=== PATIENT | male | born 1940 | race Caucasian/White ===

== ENCOUNTER 2017-10-25 14:40 | Emergency (ER) | payer OTHER, SELFPAY ==
[2017-10-25 14:42] VITALS: BP 163/71; PULSE 76; RESP 18; TEMP 36.7; O2SAT 97; BMI 28.9
--- NOTE | 2017-10-25 14:53 | ED.RN ---
Addendum entered by Magalys Lamar 10/25/17 18:19: INSPECTOR WREATH NUMBER [phone] Original Note: called supervisor customer complaint service lynn cm, verified company uses [facility] for [facility] and requires drug screen. [facility] called.
--- NOTE | 2017-10-25 15:27 | RAD_ITS ---
STUDY: X-RAY - THORACIC SPINE REASON FOR EXAM: Male, 77 years old. Pain after fall TECHNIQUE: 3 view(s) of the thoracic spine were obtained. COMPARISON: None. FINDINGS: There is an increase in the normal thoracic kyphosis. There is no substantial scoliosis. There is multilevel endplate spondylosis of the thoracic vertebrae. There is multilevel disc space narrowing of the thoracic spine. No evidence of compression fracture. DISH is noted There appears to be a calcified heart valve. RAD/Thoracic Spine 3 Views IMPRESSION: Degenerative changes with acute findings. Calcified heart valve Electronically Signed: Remi Castro DO at 16:27 EST Tel , Service support ,
[2017-10-25] MEDS: Acetaminophen 500 MG Tablet 1000 MG PO (15:40)
[2017-10-25 15:41] VITALS: BP 154/72; PULSE 74; RESP 21; O2SAT 95
[2017-10-25 16:32] VITALS: BP 176/68; PULSE 67; RESP 20; O2SAT 96
--- NOTE | 2017-10-25 16:33 | ED.VISSUMM ---
- ER Visit Summary Date of Service: 10/25/17 Chief Complaint: Fall History of Present Illness: The patient is a [address] Krause. He reports that he was at work this afternoon and slipped on the step of a truck. He felt directly onto his back for approximately 3 feet up. He complains of upper back pain is 6 out of 10 severity. He did hit his head. He denies loss of consciousness. He does not have a headache. He is not on any blood thinners. He denies any neck, shoulder, wrist, or hip pain. Physical Examination: Vitals: Stable. Afebrile. Neck: No vertebral tenderness. Full ROM without difficulty. Cleared by NEXUS criteria. Back: Mild vertebral tenderness in the intrascapular area. No point tenderness. General: A&O x 3. NAD. Cardiovascular exam: Regular rate and rhythm, no murmur, rub or gallop. Respiratory exam: Chest nontender. No crepitus. Clear to auscultation bilaterally. No wheezes or stridor. Abdominal exam: Soft, nontender, nondistended, normal bowel sounds. No pain in RUQ or LUQ specifically. No peritoneal signs. Extremity: Atraumatic. No pain with range of motion. Test Results: Thoracic spine x-rays show degenerative changes and fusion of the anterior spinal column consistent with ankylosing spondylitis. Emergency Department Course and Treatment: Patient was treated with Tylenol and is resting comfortably. Patient reports that he knew that he did have fusion of the anterior spinal column. Treatment Plan: Patient will be discharged with [place] and Colace to use as needed. Instructed to follow-up with [facility] in 1 week for another exam. Return to the emergency department for any worsening symptoms. Disposition: To home in improved and stable condition. Impression: 1. Fall. 2. Back contusion. This note was generated with [employer] dictation software. It may contain incorrect words, spelling, and punctuation that were not noted in review of the chart prior to signing ED Disposition - Plan for ED Patient: Disposition: Home or Assisted Living Chief Complaint: Fall Instructions: ED Contusion Back Prescriptions: Hydrocodone Bitart/Apap 5-325 [[place] 5/325] 1 - 2 tablet PO Q4H PRN PRN 3 Days #12 tablet PRN Reason: Pain Docusate Sodium [Colace] 100 mg PO DAILY #20 capsule [facility]errals: [facility] OF PHYSICIANS] - 1 Week
--- NOTE | 2017-10-25 16:36 | ED.DCSUM_ITS ---
- ER Visit Summary Date of Service: 10/25/17 Chief Complaint: Fall History of Present Illness: The patient is a [address] Krause. He reports that he was at work this afternoon and slipped on the step of a truck. He felt directly onto his back for approximately 3 feet up. He complains of upper back pain is 6 out of 10 severity. He did hit his head. He denies loss of consciousness. He does not have a headache. He is not on any blood thinners. He denies any neck, shoulder, wrist, or hip pain. Physical Examination: Vitals: Stable. Afebrile. Neck: No vertebral tenderness. Full ROM without difficulty. Cleared by NEXUS criteria. Back: Mild vertebral tenderness in the intrascapular area. No point tenderness. General: A&O x 3. NAD. Cardiovascular exam: Regular rate and rhythm, no murmur, rub or gallop. Respiratory exam: Chest nontender. No crepitus. Clear to auscultation bilaterally. No wheezes or stridor. Abdominal exam: Soft, nontender, nondistended, normal bowel sounds. No pain in RUQ or LUQ specifically. No peritoneal signs. Extremity: Atraumatic. No pain with range of motion. Test Results: Thoracic spine x-rays show degenerative changes and fusion of the anterior spinal column consistent with ankylosing spondylitis. Emergency Department Course and Treatment: Patient was treated with Tylenol and is resting comfortably. Patient reports that he knew that he did have fusion of the anterior spinal column. Treatment Plan: Patient will be discharged with [place] and Colace to use as needed. Instructed to follow-up with [facility] in 1 week for another exam. Return to the emergency department for any worsening symptoms. Disposition: To home in improved and stable condition. Impression: 1. Fall. 2. Back contusion. This note was generated with [employer] dictation software. It may contain incorrect words, spelling, and punctuation that were not noted in review of the chart prior to signing ED Disposition - Plan for ED Patient: Disposition: Home or Assisted Living Chief Complaint: Fall Instructions: ED Contusion Back Prescriptions: Hydrocodone Bitart/Apap 5-325 [[place] 5/325] 1 - 2 tablet PO Q4H PRN PRN 3 Days # 12 tablet PRN Reason: Pain Docusate Sodium [Colace] 100 mg PO DAILY #20 capsule [facility]errals: [facility]YSIC[facility]ANS] - 1 Week
[2017-10-25 17:03] VITALS: BP 176/64; PULSE 78; RESP 16; O2SAT 99
--- NOTE | 2017-10-25 18:07 | NURSING ---
Addendum entered by Magalys Lamar 10/25/17 18:20: PT REPORTS THAT DRUG SCREENS WERE ALWAYS REQUIRED IN PAST AND THAT HE IS WILLING TO DO ONE AT PRESENT, HOWEVER [facility] SAID THEY WOULDNT DO ONE WITHOUT PAINTER PRESENT TO ORDER. Original Note: cecelia from [facility] was present. per pt she did not complete drug screen. called call service to verify the plan.
[2017-10-25 18:10] VITALS: BP 165/78; PULSE 81; RESP 18; TEMP 36.8; O2SAT 98
--- NOTE | 2017-10-25 18:17 | ED.RN ---
PT GIVEN DC INSTRUCTIONS. TO CALL PT WITH UPDATE AFTER GETTING CARMEN FROM [employer]'S CALLBACK. PT NUMBER FOR STAFF TO CALL [phone]
== END 2017-10-25 18:30 | disposition home or self-care (01) ==
PROVIDERS: Emergency Provider Emergency Medicine; Family Provider Family Medicine; PCP Family Medicine
DX: S20.229A Contusion of unspecified back wall of thorax, initial encounter (principal); W17.89XA Other fall from one level to another, initial encounter; Y93.9 Activity, unspecified; Y92.89 Other specified places as the place of occurrence of the external cause; M45.4 Ankylosing spondylitis of thoracic region; Y99.9 Unspecified external cause status; I25.10 Atherosclerotic heart disease of native coronary artery without angina pectoris; E11.9 Type 2 diabetes mellitus without complications; I10 Essential (primary) hypertension; E78.00 Pure hypercholesterolemia, unspecified
CPT/HCPCS: 72072; 99283

== ENCOUNTER 2020-02-19 07:31 | Emergency (ER) | payer MEDICARE, OTHER, SELFPAY ==
[2020-02-19 07:32] VITALS: BP 127/65; PULSE 110; RESP 20; TEMP 36.6; O2SAT 94; BMI 26.3
[2020-02-19 07:49] VITALS: BP 157/78; PULSE 107; RESP 28; O2SAT 95; O2SAT 96
[2020-02-19 07:53] VITALS: BP 157/78; PULSE 115; RESP 28; TEMP 37.1; O2SAT 96
--- NOTE | 2020-02-19 08:12 | EKG12_ITS ---
Test Reason : SOB Blood Pressure : / mmHG Vent. Rate : 106 BPM Atrial Rate : 106 BPM P-R Int : 174 ms QRS Dur : 088 ms QT Int : 350 ms P-R-T Axes : 094 062 018 degrees QTc Int : 464 ms Sinus tachycardia with frequent Premature ventricular complexes Otherwise normal ECG Confirmed by TOBY REED, MARLON ([id number]), order editor KACIE GOOD ([id number]) on 02/21/2020 10:39:21 AM Referred By: DEISY Confirmed By:MARLON ULIS MD
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
[2020-02-19] MEDS: Metoprolol(XL)Succ 50 MG Tablet PO (08:20)
[2020-02-19 08:24] LABS: Absolute Neutrophil Count 9.3 X10^3/uL (2.0-7.7); Basophil# 0.02 X10^3/uL; Basophil% 0.2 % (0-1); Eosinophil# 0.07 X10^3/uL; Eosinophils% 0.6 % (0-5); Hematocrit 38.5 % (40-54); Hemoglobin 12.9 g/dL (13.0-16.5); Lymphocyte % 2.7 % (19-41); Mean Corp Hgb Conc 33.5 g/dL (32-36); Mean Corpuscular Hgb 31.5 pg (27.0-32.0); Mean Corpuscular Volume 93.9 fL (80-94); Mean Platelet Vol. 10.5 fl (6.2-12.0); Monocyte# 1.35 X10^3/uL; Monocyte% 12.2 % (0-10); NRBC Flagged by Analyzer 0 % (0-5); Neutrophil # 9.26 X10^3/uL (2.7-7.7); Neutrophil % 83.8 % (47-70); POSITIVE DIFFERENTIAL YES; Platelet Count 207 K/mm3 (150-450); RBC Distribution Width CV 13.2 % (11.6-14.6); RBC Distribution Width SD 44.9 fl (35.1-43.9); White Blood Count 11.1 K/mm3 (4.4-11.0)
[2020-02-19 08:27] LABS: Differential Indicated SCAN CRITERIA MET
[2020-02-19 08:30] LABS: International Normalized Ratio 1.1; Prothrombin Time (Protime)PT. 13.6 SECONDS (11.7-14.9)
--- NOTE | 2020-02-19 08:38 | CT_ITS ---
STUDY: CTA CHEST REASON FOR EXAM: Male, 79 years old. SOB, ELEV D DIMER, SORE THROAT X 2 DAYS, HTN, DB100 RADIATION DOSAGE (If Supplied By Facility): CTDIvol = ( 10.45 ) mGy, DLP = ( 283.85 ) mGycm TECHNIQUE: The examination was performed with the intravenous administration of 100 ML ISOVUE. Post-processing of the angiographic images was performed, with multiplanar reformation and 3D reconstruction. Individualized dose optimization techniques were used for this CT. COMPARISON: Comparison is made with prior chest radiograph done earlier today. FINDINGS: Normal enhancement of the main pulmonary artery and right and left pulmonary arteries. Normal enhancement of the bilateral peripheral pulmonary arteries. There is no demonstrated pulmonary embolism. There is atherosclerotic calcification of the aortic arch with tortuosity. There is no demonstrated aortic dissection. There are calcifications of the coronary arteries. Prior CABG. And dual-chamber pacemaker is seen. There are visualized mediastinal lymph nodes, which are within normal size limits, and with normal morphology. Mild prominence of the hilar lymph nodes. Normal visualized trachea and bronchi. The lungs are well expanded. There is thickening of the left major fissure. Atelectasis and/or early infiltrate at the right lung base. Tiny bilateral pleural effusions. Normal chest wall structures. There are degenerative changes of thoracic spine. Normal visualized upper abdomen. CT/CTA Chest W/WO Contrast IMPRESSION: No evidence of a pulmonary embolism. Minimal bilateral pleural effusions with the right basilar atelectasis. Mild thickening of the left major fissure. Electronically Signed: Marcos Rodriguez, at 10:03 EDT , Service support ,
[2020-02-19 08:42] LABS: Anion Gap 10 (5-15); BUN 28 mg/dL (7-18); BUN/Creat Ratio 25.7 RATIO (10-20); Calcium,Total 8.9 mg/dL (8.5-10.1); Chloride 107 mmol/L (98-107); Creatinine, Serum 1.09 mg/dL (0.70-1.30); EST Glomerular Filtration Rate 69 mL/min (>60); Est Glom Filt Rate - Afr Amer 84 mL/min (>60); Estimated Creatinine Clearance 42.44 ml/min; Glucose 238 mg/dL (74-106); Potassium 3.7 mmol/L (3.5-5.1); Sodium Level 140 mmol/L (136-145)
--- NOTE | 2020-02-19 08:45 | RAD_ITS ---
STUDY: X-RAY CHEST REASON FOR EXAM: Male, 79 years old. SOB TECHNIQUE: Single AP portable view of the chest. COMPARISON: None. FINDINGS: EKG electrodes are seen. Several nodular densities are seen in the left lower lobe. The largest measures 2.7 sinus by 4 cm. This also evidence of a scattered calcified granulomas. There is no demonstrated pleural abnormality. Sternal cerclage wires and vascular clips are present from a prior sternotomy and coronary artery bypass graft procedure (CABG). Questionable left hilar lymph nodes. Normal visualized pulmonary arteries. There is atherosclerotic calcification of the aortic arch with tortuosity. There are degenerative changes of the visualized thoracic spine. Normal visualized ribs, clavicles, and shoulders. There is no demonstrated abnormality of the visualized soft tissue structures of the upper abdomen. RAD/Chest 1 View (Portable) IMPRESSION: Pulmonary nodules in the left lower lobe. Correlation with a CT scan is recommended for further evaluation. Electronically Signed: Marcos Rodriguez, at 9:30 EDT , Service support ,
[2020-02-19 09:19] LABS: BNP,B-Type NATRIURETIC PEPTIDE 698.4 pg/mL (0-100)
[2020-02-19 10:50] VITALS: BP 138/63; PULSE 100; RESP 25; O2SAT 92
--- NOTE | 2020-02-19 10:53 | ED.RN ---
Ambulatory to BR with steady gait. Some sob after but tolerates well and recovers well.
== END 2020-02-19 11:45 | disposition home or self-care (01) ==
PROVIDERS: Emergency Provider Emergency Medicine; PCP Family Medicine
DX: R06.00 Dyspnea, unspecified (principal); J90 Pleural effusion, not elsewhere classified; R06.02 Shortness of breath; E78.5 Hyperlipidemia, unspecified; I25.10 Atherosclerotic heart disease of native coronary artery without angina pectoris; I50.9 Heart failure, unspecified; Z87.891 Personal history of nicotine dependence; Z95.5 Presence of coronary angioplasty implant and graft; Z88.1 Allergy status to other antibiotic agents; I11.0 Hypertensive heart disease with heart failure
CPT/HCPCS: 71045; 71275; 80048; 83880; 84484; 85025; 85379; 85610; 87635; 93005; 99284; Q9967; A4216; U0003

== ENCOUNTER 2023-05-03 02:46 | Inpatient (IN) | payer MEDICARE, OTHER, SELFPAY ==
[2023-05-03] VITALS (57 sets, daily range): BP systolic 114–166; BP diastolic 51–100; PULSE 68–133; RESP 14–27; TEMP 36.1–37; O2SAT 89–99; BMI 26.9; BMI 27.8
--- NOTE | 2023-05-03 02:47 | CT_ITS ---
EXAM: CT HEAD WITHOUT INTRAVENOUS CONTRAST CLINICAL INDICATION: Neuro deficit, acute, stroke suspected TECHNIQUE: Multiple axial images were obtained of the head without intravenous contrast. This CT exam was performed using one or more of the following dose reduction techniques: automated exposure control, adjustment of the mA and/or kV according to patient size, and/or use of iterative reconstruction technique. RADIATION DOSE: Total DLP: 846.73 mGy-cm. COMPARISON: No relevant prior studies available. FINDINGS: BRAIN AND EXTRA-AXIAL SPACES: Minimal age-related cortical atrophy is present with prominence of the cortical sulci. Mild patchy chronic small vessel ischemic changes are noted within the deep white matter tracts. Ventricles are normal in size when allowing for patient age and degree of atrophy. No midline shift. No intra- or extra-axial hemorrhage. No intracranial mass or mass effect. Posterior fossa structures are unremarkable. Basal cisterns are patent. Maldonado-white matter differentiation is preserved. BONES/JOINTS: Unremarkable. No discrete lytic or blastic abnormalities. VASCULATURE: Atherosclerotic vascular calcification is present. The middle cerebral arteries are symmetric in density. SINUSES: Retention cysts within one of the left ethmoid air cells. Mild mucosal thickening within the left maxillary antrum with a left maxillary air-fluid level. Minimal mucosal thickening also noted within the left frontal sinus. MASTOID AIR CELLS: Unremarkable. Clear. ORBITS: Previous cataract surgery. OTHER FINDINGS: Aspects score: 10/10. CT/STROKE Brain/Head without Cont IMPRESSION: No acute intracranial hemorrhage. Acute left maxillary sinusitis. Minimal age-related atrophy with patchy chronic small vessel ischemic changes. Nonstandard communication protocol initiated and completed. N.B. : The above Results were Read Back by Manny Diallo MD to Cuco Moise DO, and understanding confirmed on 05/03/2023 03:03:01 (ET). Electronically Signed: Manny Diallo MD at 3:04 EDT ,
--- NOTE | 2023-05-03 02:47 | RAD_ITS ---
EXAM: XR CHEST, 1 VIEW CLINICAL INDICATION: Neuro deficit, acute, stroke suspected TECHNIQUE: Frontal view of the chest. COMPARISON: Previous chest radiograph of 02/19/2020. FINDINGS: LUNGS AND PLEURAL SPACES: Minimal patchy airspace disease noted within the mid lungs and within the right lower lung. The nodular opacities previously seen on the left at resolved. No pneumothorax or pleural effusion. HEART: Heart size is upper normal with mild cephalization of pulmonary blood flow. MEDIASTINUM: Stable elongation and calcification of the thoracic aorta. Trachea is midline. BONES/JOINTS: Sternal wires and a prosthetic heart valve are again noted. SOFT TISSUES: Unremarkable. RAD/Chest 1 View IMPRESSION: Previous median sternotomy. Interval development of minimal patchy airspace disease in the mid lungs and right lower lung, suspicious for mild developing pulmonary edema as pulmonary venous hypertension has developed. Electronically Signed: Manny Diallo MD at 3:58 EDT ,
--- NOTE | 2023-05-03 02:47 | EKG12_ITS ---
Test Reason : STROKE Blood Pressure : / mmHG Vent. Rate : 129 BPM Atrial Rate : 129 BPM P-R Int : 134 ms QRS Dur : 086 ms QT Int : 320 ms P-R-T Axes : 000 076 -78 degrees QTc Int : 468 ms Atrial fibrillation with Premature atrial complexes with Aberrant conduction ST & T wave abnormality, consider inferior ischemia Abnormal ECG Confirmed by SHERRI CARD ([id number]), fashion editor KAMALJIT TINAJERO ([id number]) on 05/07/2023 9:39:27 AM Referred By: Confirmed By:SHERRI CARD
--- NOTE | 2023-05-03 02:48 | CT_ITS ---
EXAM: CT ANGIOGRAPHY HEAD AND NECK WITH INTRAVENOUS CONTRAST CLINICAL INDICATION: Neuro deficit, acute, stroke suspected TECHNIQUE: [place]/head and neck CT angiography protocol performed with intravenous contrast. This CT exam was performed using one or more of the following dose reduction techniques: automated exposure control, adjustment of the mA and/or kV according to patient size, and/or use of iterative reconstruction technique. MIP reconstructed images were created and reviewed. Coronal and sagittal reformatted images were created and reviewed. CONTRAST: IV 100mL [id number] RADIATION DOSE: Total DLP: 690.29 mGy-cm. COMPARISON: Nonenhanced cranial CT of this date. FINDINGS: HEAD: RIGHT ANTERIOR CEREBRAL ARTERY: Dominant. Anterior cerebral arteries primarily fill from the right. No significant stenosis at the visualized segments. Anterior communicating artery is present. No aneurysm. RIGHT MIDDLE CEREBRAL ARTERY: Unremarkable. No significant stenosis at the visualized segments. No aneurysm. No filling defect. RIGHT POSTERIOR CEREBRAL ARTERY: Arises from the basilar tip. No occlusion or significant stenosis. No aneurysm. RIGHT INTRACRANIAL INTERNAL CAROTID ARTERY: Calcified plaques in the cavernous carotid artery cause less than 50% stenosis. Calcified plaques in the supracavernous carotid artery cause 50-69% stenosis. No dissection or occlusion. RIGHT INTRACRANIAL VERTEBRAL ARTERY: Severe stenosis by calcified plaque. No significant stenosis. No dissection or occlusion. LEFT ANTERIOR CEREBRAL ARTERY: Hypoplastic A1 segment, normal variant. No significant stenosis at the visualized segments. No aneurysm. LEFT MIDDLE CEREBRAL ARTERY: Unremarkable. No significant stenosis at the visualized segments. No aneurysm. No filling defect. LEFT POSTERIOR CEREBRAL ARTERY: Supplied via a posterior communicating artery. No occlusion or significant stenosis. No aneurysm. LEFT INTRACRANIAL INTERNAL CAROTID ARTERY: Calcified plaques cause less than 50% stenosis. No significant stenosis. No dissection or occlusion. LEFT INTRACRANIAL VERTEBRAL ARTERY: Severe stenosis by calcified plaque. No significant stenosis. No dissection or occlusion. BASILAR ARTERY: Unremarkable. No significant stenosis. No aneurysm. OTHER VASCULATURE: No vascular malformation. Dural venous sinuses enhance normally. No enhancing intracranial mass. No acute infarction identified. NECK: RIGHT COMMON CAROTID ARTERY: Unremarkable. No significant stenosis. No dissection or occlusion. RIGHT EXTRACRANIAL INTERNAL CAROTID ARTERY: Calcified plaques within the proximal ICA just distal to the bulb cause less than 50% stenosis. Just proximal to the calcified plaque along the posterior wall of the proximal ICA is a 1.5 mm rounded contrast filled ulcer-like projection. Distal to the calcified plaques, there is an approximately 1 cm length segment of smooth stenosis, with up to 90% stenosis within the proximal portion of this area of narrowing, and with a less than 50% weblike stenosis indenting the anterior wall of the ICA at the distal end of this smooth stenosis. RIGHT EXTERNAL CAROTID ARTERY: Unremarkable. No occlusion. RIGHT EXTRACRANIAL VERTEBRAL ARTERY: Unremarkable. No significant stenosis. No dissection or occlusion. LEFT COMMON CAROTID ARTERY: Calcified plaques cause less than 50% stenosis. LEFT EXTRACRANIAL INTERNAL CAROTID ARTERY: Calcified plaques within the proximal ICA causes less than 50% stenosis. No significant stenosis. No dissection or occlusion. LEFT EXTERNAL CAROTID ARTERY: Unremarkable. No occlusion. LEFT EXTRACRANIAL VERTEBRAL ARTERY: Unremarkable. No significant stenosis. No dissection or occlusion. BRACHIOCEPHALIC AND SUBCLAVIAN ARTERIES: Unremarkable as visualized. No occlusion or significant stenosis. LUNG APICES: Interstitial thickening within the visualized right lung apex. HEAD and NECK: BONES/JOINTS: Fusion of the C2/3 disc space. Degenerative spurring about the C3/4 disc space. Fusion of the mid to lower cervical disc spaces and upper thoracic disc spaces, suggestive of ankylosing spondylitis. CAROTID STENOSIS REFERENCE USING NASCET CRITERIA: % ICA stenosis = (1 - narrowest ICA diameter/diameter of distal cervical ICA) x 100. Mild - <50% stenosis. Moderate - 50-69% stenosis. Severe - 70-94% stenosis. Near occlusion - 95-99% stenosis. Occluded - 100% stenosis. 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 Possible small ulceration projecting posteriorly from the origin of the right ICA as noted on the parasagittal images. 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 Moderate stenosis of the supracavernous right ICA by calcified plaque. No MCA filling defect identified. Nonstandard communication protocol initiated and completed. N.B. : The above Results were Read Back by Manny iDallo MD to Cuco Moise DO, and understanding confirmed on 05/03/2023 03:19:26 (ET). Electronically Signed: Manny Diallo MD at 3:32 EDT ,
[2023-05-03 03:00] LABS: Absolute Neutrophil Count 5.2 X10^3/uL (2.0-7.7); Basophil# 0.06 X10^3/uL; Basophil% 0.8 % (0-1); Eosinophil# 0.38 X10^3/uL; Eosinophils% 4.9 % (0-5); Hematocrit 50.6 % (40-54); Hemoglobin 16.3 g/dL (13.0-16.5); Lymphocyte % 12.8 % (19-41); Mean Corp Hgb Conc 32.2 g/dL (32-36); Mean Corpuscular Hgb 30.5 pg (27.0-32.0); Mean Corpuscular Volume 94.6 fL (80-94); Mean Platelet Vol. 9.8 fl (6.2-12.0); Monocyte# 1.13 X10^3/uL; Monocyte% 14.5 % (0-10); NRBC Flagged by Analyzer 0 % (0-5); Neutrophil # 5.22 X10^3/uL (2.7-7.7); Neutrophil % 66.6 % (47-70); Platelet Count 352 K/mm3 (150-450); RBC Distribution Width CV 13.2 % (11.6-14.6); RBC Distribution Width SD 45.6 fl (35.1-43.9); Red Blood Count 5.35 M/mm3 (4.6-6.2); White Blood Count 7.8 K/mm3 (4.4-11.0)
[2023-05-03 03:09] LABS: Prothrombin Time (Protime)PT. 13.4 SECONDS (11.7-14.9)
[2023-05-03 03:10] LABS: Partial Thromboplast Time 29.2 Seconds (24.1-36.2)
[2023-05-03 03:24] LABS: Anion Gap 9 (5-15); BUN 36 mg/dL (7-18); BUN/Creat Ratio 19.8 RATIO (10-20); Calcium,Total 9.5 mg/dL (8.5-10.1); Chloride 110 mmol/L (98-107); Creatinine, Serum 1.82 mg/dL (0.70-1.30); EST Glomerular Filtration Rate 38 mL/min (>60); Est Glom Filt Rate - Afr Amer 46 mL/min (>60); Glucose 175 mg/dL (74-106); Magnesium 2.7 mg/dL (1.6-2.6); Potassium 4.4 mmol/L (3.5-5.1); Sodium Level 141 mmol/L (136-145); Thyroid Stim Hormone (TSH) 3.16 uIU/mL (0.358-3.74); Troponin-I HS 15 pg/mL (3.0-78.0)
--- OUTSIDE RECORDS SUMMARY | 2023-05-03 03:30 | XMS RPT_ITS | CCD ---
Author Name Unknown Address [id number] [place] [address] Organization [facility] Care Team Providers Care 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 Name Role Phone LORAINE WHALEN E Unavailable Unavailable HORTENSIA WHALENNETH E Unavailable Unavailable HORTENSIA WHALENNETH Unavailable Unavailable LORAINE WHALEN Unavailable Unavailable Fco Bradshaw Unavailable Unavailable LORAINE WHALEN Unavailable Unavailable LORAINE WHALEN Unavailable Unavailable DR FCO BRADSHAW MD Primary Care Physician Fco Bradshaw MD Primary Care Provider Mark Mora MD Unavailable Dana Brown RN Unavailable Unavail able Dana Brown RN Unavailable Fco Bradshaw MD Primary Care Provider Mark Mora MD Unavailable Dana Brown RN Unavailable Fco Bradshaw MD Primary Care Provider Mark Mora MD Unavailable Dana Brown RN Unavailable Fco Bradshaw MD Primary Care Provider Mark Mora MD Unavailable Jose De Jesus Paige RN Unavailable Jose De Jesus Paige RN Unavailable FCO BRADSHAW Referring Unavailable FCO BRADSHAW Primary Care Unavailable FCO BRADSHAW Primary Care Unavailable IDALIA WATTS Marco Referring Unavailable FCO BRADSHAW Primary Care Unavailable FCO BRADSHAW Primary Care Unavailable FCO BRADSHAW Attending Unavailable FCO BRADSHAW Primary Care Unavailable FCO BRADSHAW Referring Unavailable FCO BRADSHAW Primary Care Unavailable TIM ANDREWS Attending Unavailab TIM Ghotra Referring Unavailab FCO Wagner Primary Care Unavailable FCO BRADSHAW Attending Unavailable FCO BRADSHAW Referring Unavailable Allergies Allergy Classification Reported Allergen(s) Allergy Type Date of Onset Reaction(s) Facility (20 sources) lovastatin; Translations: [LOVASTATIN] Drug Allergy 5 Muscle pain (finding) [facility] (3 sources) OTHER; Translations: [OTHER] Propensity to adverse reactions (disorder) 5 [facility] (20 sources) Doxycycline; Translations: [doxycycline] Drug Allergy 7 Shortness of Breath [facility] (1 source) Pravastatin; Translations: [pravastatin] Drug Allergy Muscle pain [facility] (20 sources) prevacor [Other] Propensity to adverse reactions 5 [facility] Work Phone: Medications Current Medications Medication Drug Class(es) Dates Sig (Normalized) Sig (Original) acetaminophen 500 mg oral tablet (1 source) Start: 07-08-2021 End: 07-22-2021 take 1 tablet by mouth once daily acetaminophen 500 mg oral tablet Dose : 1,000 mg = 2 tab(s), Oral, TID, PRN as needed for pain, not to exceed 3000 mg/day, # 100 tab(s), 0 Refill(s), 07/22/21 7:18:00 EDT, Pharmacy: [id number], 157.5, cm, 07/07/21 13:09:00 EDT, Height, kg, 07/07/21 13:09:00 EDT, Dosing Weight Start Date: 07/08/21 Stop Date: 07/22/21 Status: Ordered amoxicillin 875 mg / clavulanate 125 mg oral tablet (2 sources) Penicillin-class Antibacterial Start: 03-18-2023 End: 03-28-2023 take 1 tablet by mouth twice daily amoxicillin-clavul anic acid (AUGMENTIN) 875-125 mg per tablet Indications: Acute non-recurrent sinusitis, unspecified location Take 1 tablet by mouth twice daily for 10 days. 20 tablet 0 03/18/2023 03/28/2023 Active Completed/Discontinued Medications Medication Drug Class(es) Dates Sig (Normalized) Sig (Original) amLODIPine 5 mg oral tablet (20 sources) Dihydropyridine Calcium Channel Alverto Start: 09-07-2021 End: 07-21-2022 take 1 tablet by mouth twice daily amLODIPine (NORVASC) 5 mg tablet Indications: Essential hypertension, benign , Essential hypertension, benign Take 1 tablet by mouth twice daily. 180 tablet 3 07/21/2022 Active Problems Active Problems Problem Classification Problem Date Documented Date Episodic/Chronic Chronic kidney disease (5 sources) Chronic kidney disease stage 3; Translations: [Chronic kidney disease, stage 3 unspecified] Onset: 07-07-2021 Chronic Chronic kidney disease (1 source) Chronic kidney disease; Translations: [Chronic kidney disease, stage 3a (HCC)] Onset: 03-11-2023 Congestive heart failure; nonhypertensive (20 sources) Chronic diastolic (congestive) heart failure; Translations: [Chronic diastolic heart failure] Onset: 08-02-2017 09-27-2019 Chronic Coronary atherosclerosis and other heart disease (20 sources) Atherosclerotic heart disease of [place] coronary artery without angina pectoris; Translations: [Coronary atherosclerosis] Onset: 12-06-2005 Chronic Diabetes mellitus with complications (3 sources) Type 2 diabetes mellitus; Translations: [Type 2 diabetes mellitus with diabetic chronic kidney disease] Chronic Diabetes mellitus without complication (20 sources) Type 2 diabetes mellitus without complication; Translations: [Type 2 diabetes mellitus without complications] Onset: 11-13-2015 Chronic Disorders of lipid metabolism (20 sources) Hyperlipidemia; Translations: [Hyperlipidemia, unspecified] Onset: 12-06-2005 11-13-2015 Chronic Essential hypertension (20 sources) Essential (primary) hypertension; Translations: [Benign essential hypertension] Onset: 08-02-2017 03-31-2021 Chronic Glaucoma (1 source) Glaucoma; Translations: [Unspecified glaucoma] Onset: 07-07-2021 Chronic Heart valve disorders (20 sources) Rheumatic mitral valve disease, unspecified; Translations: [Mitral valve disorders] Onset: 01-19-2006 01-19-2006 Chronic Hypertension with complications and secondary hypertension (9 sources) Hypertensive heart failure; Translations: [Hypertensive heart disease with heart failure] Onset: 12-06-2005 02-12-2020 Chronic Immunizations and screening for infectious disease (1 source) Needs influenza immunization; Translations: [Encounter for immunization] Episodic Osteoarthritis (20 sources) Osteoarthritis of hip; Translations: [Unilateral primary osteoarthritis, right hip] Onset: 12-06-2005 Chronic Other circulatory disease (2 sources) History of cerebrovascular disease; Translations: [Personal history of other diseases of the circulatory system] Onset: 07-07-2021 Episodic Other connective tissue disease (1 source) Hip joint prosthesis present; Translations: [Presence of unspecified artificial hip joint] Onset: 07-07-2021 Chronic Other inflammatory condition of skin (20 sources) Psoriasis; Translations: [Other psoriasis] Onset: 09-27-2008 12-25-2013 Chronic Other nervous system disorders (3 sources) Neuropathy of lower limb; 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] Onset: 03-18-2023 Chronic Other nutritional; endocrine; and metabolic disorders (2 sources) H/O: Disorder; Translations: [Personal history of other endocrine, nutritional and metabolic disease] Onset: 07-07-2021 Episodic Other upper respiratory infections (2 sources) Acute sinusitis; Translations: [Acute sinusitis, unspecified] Episodic Residual codes; unclassified (1 source) Past history of procedure; Translations: [Other specified postprocedural states] Onset: 07-07-2021 Episodic Rheumatoid arthritis and related disease (20 sources) Ankylosing spondylitis; Translations: [Ankylosing spondylitis of unspecified sites in spine] Onset: 12-06-2005 12-06-2005 Chronic Unclassified (1 source) Other specified postprocedural states; Translations: [Other specified postprocedural states] Onset: 08-02-2017 Unclassified (1 source) Unknown / UNK(Unknown) Onset: 04-03-2018 Past or Other Problems Problem Classification Problem Date Documented Da te Episodic/Chronic Coronary atherosclerosis and other heart disease (20 sources) Patient post percutaneous transluminal coronary angioplasty; Translations: [Coronary angioplasty status] Onset: 12-06-2005 12-06-2005 Episodic Residual codes; unclassified (20 sources) History of repair of mitral valve; Translations: [Other specified postprocedural states] Onset: 06-17-2016 06-17-2016 Episodic Residual codes; unclassified (1 source) Other specified postprocedural states; Translations: [History of mitral valve repair] Onset: 04-05-2022 Episodic Unclassified (1 source) Onset: 04-03-2018 Results Test Name Value Interpretation Reference Range Facil it Vital Signs Date Time Vital Sign Value Performing Clinician Facility 03-18-2023 09:04-0400 Body weight 70.76 kg Fco Bradshaw MD Work Phone: [facility] 03-18-2023 09:04-0400 Diastolic blood pressure 60 mm[Hg] Fco Bradshaw MD Work Phone: [facility] 03-18-2023 09:04-0400 Heart rate 68 /min Fco Bradshaw MD Work Phone: [facility] 03-18-2023 09:04-0400 Respiratory rate 14 /min Fco Bradshaw MD Work Phone: [facility] 03-18-2023 09:04-0400 SaO2% (BldA) [Mass fraction] 97 % Fco Bradshaw MD Work Phone: [facility] 03-18-2023 09:04-0400 Systolic blood pressure 120 mm[Hg] Fco Bradshaw MD Work Phone: [facility] 10-07-2022 09:39-0500 Body weight 68.95 kg Tim Andrews DO Work Phone: [facility] 10-07-2022 09:39-0500 Diastolic blood pressure 54 mm[Hg] Tim Andrews DO Work Phone: [facility] 10-07-2022 09:39-0500 Heart rate 78 /min Tim Andrews DO Work Phone: [facility] 10-07-2022 09:39-0500 SaO2% (BldA) [Mass fraction] 96 % Tim Andrews DO Work Phone: [facility] 10-07-2022 09:39-0500 Systolic blood pressure 104 mm[Hg] Tim Andrews DO Work Phone: [facility] 09-17-2022 16:05-0500 Body weight 69.04 kg Fco Bradshaw MD Work Phone: [facility] 09-17-2022 16:05-0500 Diastolic blood pressure 72 mm[Hg] Fco Bradshaw MD Work Phone: [facility] 09-17-2022 16:05-0500 Heart rate 79 /min Fco Bradshaw MD Work Phone: [facility] 09-17-2022 16:05-0500 Respiratory rate 16 /min Fco Bradshaw MD Work Phone: [facility] 09-17-2022 16:05-0500 SaO2% (BldA) [Mass fraction] 96 % Fco Bradshaw MD Work Phone: [facility] 09-17-2022 16:05-0500 Systolic blood pressure 122 mm[Hg] Fco Bradshaw MD Work Phone: [facility] 07-13-2022 10:11-0400 Body temperature 98.4 [degF] Ally Mila TRAVELING SALES REPRESENTATIVE.COMMERCIAL LEASING MANAGER Work Phone: [facility] 07-13-2022 10:11-0400 Body weight 69.4 kg Ally Mila TRAVELING SALES REPRESENTATIVE.COMMERCIAL LEASING MANAGER Work Phone: [facility] 07-13-2022 10:11-0400 Diastolic blood pressure 82 mm[Hg] Ally Mila TRAVELING SALES REPRESENTATIVE.COMMERCIAL LEASING MANAGER Work Phone: [facility] 07-13-2022 10:11-0400 Heart rate 98 /min Ally Mila TRAVELING SALES REPRESENTATIVE.COMMERCIAL LEASING MANAGER Work Phone: [facility] 07-13-2022 10:11-0400 Respiratory rate 18 /min Ally Mila TRAVELING SALES REPRESENTATIVE.COMMERCIAL LEASING MANAGER Work Phone: [facility] 07-13-2022 10:11-0400 SaO2% (BldA) [Mass fraction] 94 % Ally Hickeyk TRAVELING SALES REPRESENTATIVE.COMMERCIAL LEASING MANAGER Work Phone: [facility] 07-13-2022 10:11-0400 Systolic blood pressure 120 mm[Hg] Ally Mila TRAVELING SALES REPRESENTATIVE.COMMERCIAL LEASING MANAGER Work Phone: [facility] 03-11-2022 08:49-0400 Body weight 67.22 kg Fco Bradshaw MD Work Phone: [facility] 03-11-2022 08:49-0400 Diastolic blood pressure 60 mm[Hg] Fco Bradshaw MD Work Phone: [facility] 03-11-2022 08:49-0400 Heart rate 80 /min Fco Bradshaw MD Work Phone: [facility] 03-11-2022 08:49-0400 Respiratory rate 16 /min Fco Bradshaw MD Work Phone: [facility] 03-11-2022 08:49-0400 Systolic blood pressure 116 mm[Hg] Fco Bradshaw MD Work Phone: [facility] 07-08-2021 11:46-0400 Body temperature 97.88 [degF] DR MARK MORA MD [facility] 07-08-2021 11:46-0400 Diastolic blood pressure 66 mm[Hg] DR MARK MORA MD [facility] 07-08-2021 11:46-0400 Heart rate 73 /min DR MARK MORA MD [facility] 07-08-2021 11:46-0400 Mean blood pressure 85 mm[Hg] DR MARK MORA MD [facility] 07-08-2021 11:46-0400 Reason For Taking VItal Signs DR MARK MORA MD [facility] 07-08-2021 11:46-0400 Respiratory rate 16 /min DR MARK MORA MD [facility] 07-08-2021 11:46-0400 Systolic blood pressure 124 mm[Hg] DR MARK MORA MD [facility] 07-08-2021 08:28-0400 Heart rate 70 /min DR MARK MORA MD [facility] 07-08-2021 07:10-0400 Body temperature 98.06 [degF] DR MARK MORA MD [facility] 07-08-2021 07:10-0400 Diastolic blood pressure 60 mm[Hg] DR MARK MORA MD [facility] 07-08-2021 07:10-0400 Heart rate 72 /min DR MARK MORA MD [facility] 07-08-2021 07:10-0400 Mean blood pressure 86 mm[Hg] DR MARK MORA MD [facility] 07-08-2021 07:10-0400 Reason For Taking VItal Signs DR MARK MORA MD [facility] 07-08-2021 07:10-0400 Respiratory rate 16 /min DR MARK MORA MD [facility] 07-08-2021 07:10-0400 Systolic blood pressure 137 mm[Hg] DR MARK MORA MD [facility] 07-08-2021 05:37-0400 Body temperature 98.06 [degF] DR MARK MORA MD [facility] 07-08-2021 05:37-0400 Diastolic blood pressure 68 mm[Hg] DR MARK MORA MD [facility] 07-08-2021 05:37-0400 Heart rate 72 /min DR MARK MORA MD [facility] 07-08-2021 05:37-0400 Mean blood pressure 90 mm[Hg] DR MARK MOAR MD [facility] 07-08-2021 05:37-0400 Respiratory rate 20 /min DR MARK MORA MD [facility] 07-08-2021 05:37-0400 Systolic blood pressure 133 mm[Hg] DR MARK MORA MD [facility] 07-07-2021 23:36-0400 Heart rate 71 /min DR MARK MORA MD [facility] 07-07-2021 18:40-0400 Heart rate 79 /min DR MARK MORA MD [facility] 07-07-2021 18:40-0400 Reason For Taking VItal Signs DR MARK MORA MD [facility] 07-07-2021 13:34-0400 Diastolic Blood Pressure NBP [address] MARK MORA MD [facility] 07-07-2021 13:34-0400 Heart rate 63 /min DR MARK MORA MD [facility] 07-07-2021 13:34-0400 Systolic Blood Pressure NBP [address] MARK MORA MD [facility] 07-07-2021 13:09-0400 Body height 157.[address] MARK MORA MD [facility] 07-07-2021 13:09-0400 Body weight 68.[address] MARK MORA MD [facility] 07-07-2021 13:09-0400 Body weight 27.49 kg/m2 DR MARK MORA MD [facility] 07-07-2021 12:51-0400 Diastolic Blood Pressure NBP [address] MARK MORA MD [facility] 07-07-2021 12:51-0400 Systolic Blood Pressure NBP [address] MARK MORA MD [facility] 07-07-2021 12:20-0400 Diastolic Blood Pressure NBP [address] MARK MORA MD [facility] 07-07-2021 12:20-0400 Systolic Blood Pressure NBP [address] MARK MORA MD [facility] 07-07-2021 11:35-0400 Body temperature 97.52 [degF] DR MARK MORA MD [facility] 07-07-2021 11:15-0400 Body temperature 97.7 [degF] DR MARK MORA MD [facility] 07-07-2021 10:45-0400 Body temperature 97.7 [degF] DR MARK MORA MD [facility] 07-07-2021 08:14-0400 Body temperature 97.34 [degF] DR MARK MORA MD [facility] Encounters Encounter Date Encounter Type Care Provider Facility Start: 04-04-2023 maryam Paige RN Work Phone: [employer] Procedures Date Procedure Procedure Detail Performing Clinician Start: 09-17-2022 INFLUENZA SEASONAL QUADRIVALENT HIGH DOSE AGE 65+ Fco Bradshaw MD Work Phone: Start: 10-06-2021 History of placement of stent for coronary artery disease S/P right coronary artery (RCA) stent placement Dana Brown RN Start: 07-07-2021 Arthroplasty of righ t hip joint DR MARK MORA MD Start: 12-28-2013 H/O: surgery 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: 10/30/2008: right post ear Dana Brown RN Start: 09-19-1995 History of mitral va lve replacement DR MARK MORA MD Colonoscopy DR MARK Agarwal MD Decompression of med chiara nerve DR MARK MORA MD Plan of Treatment Date Care Activity Detail Author Start: 03-18-2024 3 comp foot exam completed DIABETIC FOOT EXAM [facility] Start: 03-11-2024 Hepatitis B surface antibody level LDL CHOLESTEROL [facility] Start: 09-17-2023 End: 11-17-2023 ALBUMIN/CREAT RATIO RND UR ALBUMIN/CREAT RATIO RND UR Lab Routine Type 2 diabetes mellitus with stage 3a chronic kidney disease, without long-term current use of insulin (HCC) Expected: 09/17/2023 (Approximate), Expires: 11/17/2023 [facility] Work Phone: Immunizations Immunization Date Immunization Notes Care Provider Eric larkin 09-17-2022 influenza, high-dose , quadrivalent vaccine (FLUZONE HIGH DOSE QUADRIVALENT) Jose De Jesus Paige RN Work Phone: [facility] 07-25-2021 influenza, high-dose , quadrivalent vaccine (FLUZONE HIGH DOSE QUADRIVALENT) Dana Brown RN [facility] Work Phone: 11-06-2020 SARS-CoV-2 (COVID-19 ) mRNA-[id number] MARK MORA MD [facility] 10-09-2020 SARS-CoV-2 (COVID-19 ) mRNA-[address] MARK MORA MD [facility] 08-15-2020 influenza virus vacc ine, unspecified formulation DR MARK MORA MD [facility] 08-15-2020 influenza, high-dose , quadrivalent vaccine (FLUZONE HIGH DOSE QUADRIVALENT) Dana Brown RN [facility] 08-15-2019 influenza virus vacc ine, unspecified formulation DR MARK MORA MD [facility] 08-15-2019 influenza, high dose seasonal, preservative-free Dana Brown RN [facility] 08-15-2018 influenza virus vacc ine, unspecified formulation DR MARK MORA MD [facility] 08-15-2018 influenza, high dose seasonal, preservative-free Dana Brown RN [facility] 07-28-2017 influenza virus vacc ine, unspecified formulation DR MARK MORA MD [facility] 07-28-2017 influenza, high dose seasonal, preservative-free Dana Brown RN [facility] 08-04-2016 influenza, high dose seasonal, preservative-free Dana Brown RN [facility] 11-13-2015 pneumococcal conjuga te vaccine, [address] MARK MORA MD [facility] 07-02-2015 influenza virus vacc ine, unspecified formulation DR MARK MORA MD [facility] 07-02-2015 influenza, high dose seasonal, preservative-free Dana Brown RN [facility] 07-17-2014 influenza virus vacc ine, unspecified formulation DR MARK MORA MD [facility] 07-17-2014 influenza, seasonal, injectable Dana Brown RN [facility] Work Phone: 07-20-2013 influenza virus vacc ine, unspecified formulation Dana Brown RN [facility] 09-07-2012 pneumococcal polysaccharide vaccine, 23 valent Dana rBown RN [facility] 08-04-2012 influenza virus vacc ine, unspecified formulation Dana Brown RN [facility] 09-07-2010 tetanus toxoid, redu jesus diphtheria toxoid, and acellular pertussis vaccine, adsorbed Dana Brown RN [facility] 07-27-2005 influenza virus vacc ine, unspecified formulation Dana Brown RN [facility] Work Phone: 07-05-2000 tetanus and diphther ia toxoids, adsorbed, preservative free, for adult use (2 Lf of tetanus toxoid and 2 Lf of diphtheria toxoid) Dana Brown RN [facility] Work Phone: Payers Date Payer Category Payer Private Health Insurance JOSE G RODRIGUEZ PPO [id number] 2010-Present [phone] [address] [place] [address] O [id number] 2010 Private Health Insurance JOSE G RODRIGUEZ PPO [id number] 2010-Present [phone] [address] [place] [address] PPO [id number] 2010 Private Health Insurance [id number] 2005 Medicare MEDICARE MEDICAR E A AND B [id number] 2005-Present [phone] [address] [address] [place] [address] Medicare [id number] 2005 Medicare MEDICARE MEDICAR E A AND B [id number] 2005-Present [phone] [place] [address] Medicare [id number] 2005 Medicare [id number] Unknown [id number] Social History Date Type Detail Facility Start: 06-25-2021 End: 07-13-2022 Ex-smoker (finding) [facility] Assigned At [facility] End: 03-19-1987 History of tobacco use Current smoker [facility] End: 03-19-1987 History of tobacco use Cigarette Smoker [facility] Start: 10-06-2021 End: 03-18-2023 Alcohol intake Current drinker of alcohol (finding) [facility] Start: 02-06-2020 End: 02-21-2020 History SDOH Alcohol Frequency 3 [facility] Start: 02-06-2020 End: 02-21-2020 History SDOH Alcohol Std Drinks 1 [facility] Start: 02-06-2020 History SDOH Social Connections Phone 5 [facility] Start: 02-06-2020 History SDOH Social Connections Get Together 2 [facility] Start: 02-06-2020 History SDOH Social Connections Living 6 [facility] Start: 02-06-2020 History SDOH Financial 4 [facility] Start: 1940 Sex Assigned At Not on file C [facility] Start: 2022 End: 07-13-2022 Exposure to SARS-CoV-2 (event) Not sure [facility] Start: 09-07-2011 End: 03-18-2023 Cigarettes smoked current (pack per day) - Reported 1 [facility] Work Phone: Start: 09-07-2011 End: 07-13-2022 Tobacco use and exposure Smokeless tobacco non-user [facility] Start: 03-18-2023 Tobacco use panel [facility] Work Phone: Adult Depression Screening Assessment 0 [facility] Work Phone: Start: 08-12-2020 Gender identity Identifies as male gender (finding) [facility] Goals Date Patient Goal Desired Activity /State Personal health goal Clinical Notes 12-29-2015 to 04-05-2023 Jose De Jesus Paige RN - 04/04/2023 9:30 AM Lori Bradshaw MD - 03/18/2023 9:20 AM EDT Note Date & Type Note Facility 04-05-2023 Note HNO ID: [id number] Author: Jose De Jesus Paige RN Service: ? Author Type: Registered Nurse Type: Progress Notes Filed: 04/05/2023 12:52 PM Note Text: CDM Telephonic Outreach Provider Action/FYI CHF/CKD/HTN [employer] disconnected 3 times during call. Patient doing well, no concerns Contacted for: Routine Telephonic Outreach Contact made with patient: Yes Patient identified by name and date of . Discussed care with patient Are you experiencing any new or worsening symptoms you need to talk about today? No Disease Specific Do you check your blood pressure at home? No Do you have new or worsening shortness of breath with activity? No Do you have new or worsening trouble breathing while lying flat? No Do you have new or worsening swelling of legs, feet or ankles? No Do you feel like you are dehydrated for any reason, including not being able to eat or drink normally, or having less urine/much darker urine than normal for you? No Do you check your daily weight at home? No Based on collection agent, the following disposition is advised: No symptoms or symptoms present, not severe. Routed to: No Action Needed SHIRLEY Education Provided this Outreach: No Jose De Jesus Paige RN April 05, 2023 12:51 PM [facility] 04-04-2023 Note Patient Outreach ([facility] SONDRAKILLIAN ([id number]) 1940 M Date Time Provider Department 04/04/23 [facility] During your visit today, we recorded the following information about you: Jose De Jesus Paige RN 04/04/2023 3:18 PM Signed [facility] Telephonic Outreach Provider Benedict/NA CHF Contacted for: Routine Telephonic Outreach Contact made with patient: No, left message. Jose De Jesus Paige RN April 04, 2023 3:18 PM Jose De Jesus Paige RN 04/05/2023 12:52 PM Signed [facility] Telephonic Outreach Provider Benedict/NA CHF/CKD/HTN [employer] disconnected 3 times during call. Patient doing well, no concerns Contacted for: Routine Telephonic Outreach Contact made with patient: Yes Patient identified by name and date of . Discussed care with patient Are you experiencing any new or worsening symptoms you need to talk about today? No Disease Specific Do you check your blood pressure at home? No Do you have new or worsening shortness of breath with activity? No Do you have new or worsening trouble breathing while lying flat? No Do you have new or worsening swelling of legs, feet or ankles? No Do you feel like you are dehydrated for any reason, including not being able to eat or drink normally, or having less urine/much darker urine than normal for you? No Do you check your daily weight at home? No Based on collection agent, the following disposition is advised: No symptoms or symptoms present, not severe. Routed to: No Action Needed SHIRLEY Education Provided this Outreach: Breana Paige RN April 05, 2023 12:51 PM Jose De Jesus Paige RN 04/05/2023 12:57 PM Signed Addended by: JOSE DE JESUS PAIGE on: 04/05/2023 12:57 PM Modules accepted: Orders Allergies As of Date: 04/04/2023 Noted Allergy Reaction DOXYCYCLINE 04/15/2017 12 - Shortness of Breath MEVACOR (LOVASTATIN) 06/07/2005 Comments: muscle cramps prevacor [Other] 06/07/2005 Comments: muscle cramps Date Reviewed: 03/18/2023 Reviewed by: Dana Castro Ma - Fully Assessed Reason for Visit: community monitoring outreach [Other] Cmt: CDM-Telephonic outreach Primary Visit Diagnosis:Chronic diastolic CHF (congestive heart failure) ([facility]) [I50.32] Other Visit Diagnosis:Chronic kidney disease, stage 3a ([facility]) [N18.31] Order(s):PT ED HEART AND VASCULAR [[id number]] Order #: [id number]: 1 PT ED NEPHROLOGY [[id number]] Order #: [id number]: 1 Prescriptions as of 04/05/2023 - dapagliflozin propanediol (FARXIGA) 10 mg tablet Take 1 tablet by mouth once daily. Take one daily in the morning - losartan (COZAAR) 50 mg tablet Take 1 tablet by mouth once daily. - dulaglutide (TRULICITY) 0.75 mg/0.5 mL pen injector Inject 0.75 mg subcutaneously one time a week. Inject dose once per week. Discard Pen After - atorvastatin (LIPITOR) 40 mg tablet Take 1 tablet by mouth once daily. - nitroglycerin sublingual (NITROSTAT) 0.4 mg SL tablet Dissolve 1 tablet under the tongue as needed. DISSOLVE ON TONGUE FOR CHEST PAIN. IF NO PAIN RELIEF, CALL 911 - latanoprost (XALATAN) 0.005 % ophthalmic solution 1 Drop daily at bedtime. - amLODIPine (NORVASC) 5 mg tablet Take 1 tablet by mouth twice daily. - furosemide (LASIX) 20 mg tablet Take 1 tablet by mouth once daily. - metoprolol succinate ER (TOPROL XL) 50 mg 24 hr tablet Take 1 tablet by mouth once daily. - TACROLIMUS TOPICAL Apply to affected area. - aspirin(ECOTRIN LOW STRENGTH 81 MG TAB) Take one(1) tablet daily. - COMPOUNDED PRESCRIPTION alphagen eye drops 1 drop each eye twice daily - COSOPT 2 %-0.5 % EYE DROPS 1 drop each eye two times daily - THERAPEUTIC MULTIVITAMIN ORAL TAB Take one(1) tablet daily. Facility-Administered Medications as of 04/05/2023 - perflutren lipid microspheres 1.3 mL in NaCl (PF) 0.9% 10 mL injection (DEFINITY) - sodium chloride 0.9 % (flush) 10 mL (BD POSIFLUSH) Problem List As Of Date 04/04/2023 Noted Resolved Coronary artery disease involving [place]*12/06/2005 PERCUT TRANSLUM CORON ANGIO STATUS [Z98.61] 12/06/2005 Hypertensive heart disease with heart failure (*12/06/2005 04/05/2022 Hyperlipidemia [E78.5] 12/06/2005 LOC PRIM OSTEOARTH-HAND [M19.049] 12/06/2005 ANKYLOSING SPONDYLITIS [M45.9] 12/06/2005 MITRAL VALVE DISORDER [I05.9] 01/19/2006 PRIM PULM HYPERTENSION [I27.0] 01/19/2006 03/23/2006 Aortic valve disorders [I35.9] 06/09/2006 04/05/2022 Neoplasm of Uncertain Behavior of Skin [D48.5] 08/07/2008 03/06/2010 NEVUS BACK///BENIGN SHAN SKIN TRUNK [D23.5] 08/07/2008 03/06/2010 ACTINIC DAMAGE///CHR SOLAR SKIN DAMAGE NOS [L57*08/07/2008 03/06/2010 Other Seborrheic Keratosis [L82.1] 08/07/2008 03/06/2010 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] 08/07/2008 03/06/2010 SOLAR LENTIGINES///DYSCHROMIA OTHER [L81.9] 08/07/2008 03/06/2010 ELENA ANGIOMAS///NEVUS, NON-NEOPLASTIC [I78.1] 08/07/2008 03/06/2010 Psoriasis [L40.8] 09/27/2008 (more content not included)... [facility] 04-04-2023 Note HNO ID: [id number] Author: Jose De Jesus Paige RN Service: ? Author Type: Registered Nurse Type: Progress Notes Filed: 04/04/2023 3:18 PM Note Text: [facility] Telephonic Outreach Provider Action/FYI CHF Contacted for: Routine Telephonic Outreach Contact made with patient: No, left message. Jose De Jesus Paige RN April 04, 2023 3:18 PM [facility] 04-04-2023 History of Present illness Narrative [facility] Telephonic Outreach Provider Action/FYI CHF Contacted for: Routine Telephonic Outreach Contact made with patient: No, left message. Jose De Jesus Paige RN April 04, 2023 3:18 PM documented in this encounter [facility] 03-18-2023 Note HNO ID: [id number] Author: Fco Bradshaw MD Service: ? Author Type: Physician Type: Progress Notes Filed: 03/18/2023 9:44 AM Note Text: Chief Complaint Patient presents with: 6 Month Exam HPI Killian Amaro is a 83 year old male who presents here today for a 6 month follow up. Pt here today for a routine follow up. Unsure if he has an advanced directive. HM: Depression screening; denies feeling depressed or hopeless. Depression screening tool completed and reviewed. Based on score and interview, patient is not at risk for depression. Screening tool discussed with patient, and I recommended no further intervention at this time. Denies any stomach, bowel or urinary issues. HTN : Checks BP at home with readings running 120/60. Denies having any symptoms of chest pain, sob or dizziness. On current regiment of Quinapril 40 mg once daily, Norvasc 5 mg daily and Toprol 50 mg daily. CHF/Edema: B/L leg edema stable at this time. Denies any sob. Stable on current regimen of Lasix 20 mg bid. DM: Checks sugars once daily with FBS ranging from 100-135. Denies any low blood sugars. Has some numbness to toes on left foot which he notices more at night. Follows with Podiatry. On current regimen of Metformin 500 mg 2 tabs daily, Farxiga 10 mg daily daily and Trulicity 0.75 mg once weekly. Has seen Dr. Seaman, Graduate Teaching Associate in past. Follows with [facility] Dr. Canchola for eye exams. CKD: Monitored through routine labs, elevated on previous labs. Lipid/CAD: Tries to watch diet. Denies doing much exercise. On current regimen of Lipitor 40 mg once daily. Follows with Cardio, Dr. Andrews. Does stay active with yard work, gardening, some cutting of wood. For the last 3 weeks he has head congestion, running nose, right ear pain, drainage in the throat, coughing. Became hoarse 2 days ago. Has a little bit of headache. No fever or sore throat. He has used Robitussin cough syrup and Tylenol. He does cough up some yellow phlegm. He states he does tend to get sinus infections around this time of year. Past medical history, appointments, medications, allergies reviewed. Previous Medical History PAST MEDICAL HISTORY Diagnosis Date Ankylosing spondylitis (HCC) CAD (coronary artery disease) Stents 1999 Essential hypertension, benign Glaucoma Mitral valve disorders(424.0) Mitral valve replaced 1995 Other and unspecified hyperlipidemia Type II or unspecified type diabetes mellitus without mention of complication, not stated as uncontrolled Previous Surgical History PAST SURGICAL HISTORY Procedure Laterality Date ARTHRP ACETBLR/PROX FEM PROSTC AGRFT/ALGRFT Left 08/03/2016 Dr. Mora CARPAL TUNNEL 09/19/2013 Right wrist- Dr. Guerra COLONOSCOPY FLX DX W/COLLJ SPEC WHEN PFRMD 10/27/2012 Colonoscopy HIP SURGERY HX Right 07/07/2021 Dr. Mora-anterior total hip arthroplasty PALATE/UVULA SURGERY UNLISTED Somnoplasty PERC TRANSL COR ANGIO 09/19/1999 Percutaneous Transluminal Coronary Angio Status REPLACEMENT MITRAL VALVE W/CARDIOPULMONARY BYP 09/19/1995 Mitral valve replacement TONSILLECTOMY PRIMARY/SECONDARY Tonsillectomy XCAPSL CTRC RMVL INSJ IO LENS PROSTH W/O ECP Family History FAMILY HISTORY Problem Relation Age of Onset other (alzheimers) Mother Ischemic Heart Disease Father Heart Brother None Sister Patient Allergies ALLERGIES Allergen Reactions Doxycycline Shortness of Breath Mevacor [Lovastatin] muscle cramps Prevacor [Other] muscle cramps Current Medications Current Outpatient Medications on File Prior to Visit Medication Sig dulaglutide (TRULICITY) 0.75 mg/0.5 mL pen injector Inject 0.75 mg subcutaneously one time a week. Inject dose once per week. Discard Pen After atorvastatin (LIPITOR) 40 mg tablet Take 1 tablet by mouth once daily. nitroglycerin sublingual (NITROSTAT) 0.4 mg SL tablet Dissolve 1 tablet under the tongue as needed. DISSOLVE ON TONGUE FOR CHEST PAIN. IF NO PAIN RELIEF, CALL 911 latanoprost (XALATAN) 0.005 % ophthalmic solution 1 Drop daily at bedtime. amLODIPine (NORVASC) 5 mg tablet Take 1 tablet by mouth twice daily. furosemide (LASIX) 20 mg tablet Take 1 tablet by mouth once daily. metoprolol succinate ER (TOPROL XL) 50 mg 24 hr tablet Take 1 tablet by mouth once daily. Quinapril HCl 40 mg tablet Take 0.5 tablets by mouth once daily. dapagliflozin (FARXIGA) 10 mg tablet Take 1 tablet by mouth once daily. Take one daily in the morning TACROLIMUS TOPICAL Apply to affected area. aspirin(ECOTRIN LOW STRENGTH 81 MG TAB) Take one(1) tablet daily. COMPOUNDED PRESCRIPTION alphagen eye drops 1 drop each eye twice daily COSOPT 2 %-0.5 % EYE DROPS 1 drop each eye two times daily THERAPEUTIC MULTIVITAMIN ORAL TAB Take one(1) tablet daily. Current Facility-Administered Medications on File Prior to Visit Medication perflutren lipid microspheres 1.3 mL in NaCl (PF) 0.9% 10 mL injection (DEFINI (more content not included)... [facility] 03-18-2023 History of Present illness Narrative Chief Complaint Patient presents with: 6 Month Exam HPI Killian Amaro is a 83 year old male who presents here today for a 6 month follow up. Pt here today for a routine follow up. Unsure if he has an advanced directive. HM: Depression screening; denies feeling depressed or hopeless. Depression screening tool completed and reviewed. Based on score and interview, patient is not at risk for depression. Screening tool discussed with patient, and I recommended no further intervention at this time. Denies any stomach, bowel or urinary issues. HTN : Checks BP at home with readings running 120/60. Denies having any symptoms of chest pain, sob or dizziness. On current regiment of Quinapril 40 mg once daily, Norvasc 5 mg daily and Toprol 50 mg daily. CHF/Edema: B/L leg edema stable at this time. Denies any sob. Stable on current regimen of Lasix 20 mg bid. DM: Checks sugars once daily with FBS ranging from 100-135. Denies any low blood sugars. Has some numbness to toes on left foot which he notices more at night. Follows with Podiatry. On current regimen of Metformin 500 mg 2 tabs daily, Farxiga 10 mg daily daily and Trulicity 0.75 mg once weekly. Has seen Dr. Seaman, Graduate Teaching Associate in past. Follows with [facility] Dr. Canchola for eye exams. CKD: Monitored through routine labs, elevated on previous labs. Lipid/CAD: Tries to watch diet. Denies doing much exercise. On current regimen of Lipitor 40 mg once daily. Follows with Cardio, Dr. Andrews. Does stay active with yard work, gardening, some cutting of wood. For the last 3 weeks he has head congestion, running nose, right ear pain, drainage in the throat, coughing. Became hoarse 2 days ago. Has a little bit of headache. No fever or sore throat. He has used Robitussin cough syrup and Tylenol. He does cough up some yellow phlegm. He states he does tend to get sinus infections around this time of year. Past medical history, appointments, medications, allergies reviewed. Previous Medical History PAST MEDICAL HISTORY Diagnosis Date Ankylosing spondylitis (HCC) CAD (coronary artery disease) Stents 1999 Essential hypertension, benign Glaucoma Mitral valve disorders(424.0) Mitral valve replaced 1995 Other and unspecified hyperlipidemia Type II or unspecified type diabetes mellitus without mention of complication, not stated as uncontrolled Previous Surgical History PAST SURGICAL HISTORY Procedure Laterality Date ARTHRP ACETBLR/PROX FEM PROSTC AGRFT/ALGRFT Left 08/03/2016 Dr. Mora CARPAL TUNNEL 09/19/2013 Right wrist- Dr. Guerra COLONOSCOPY FLX DX W/COLLJ SPEC WHEN PFRMD 10/27/2012 Colonoscopy HIP SURGERY HX Right 07/07/2021 Dr. Mora-anterior total hip arthroplasty PALATE/UVULA SURGERY UNLISTED Somnoplasty PERC TRANSL COR ANGIO 09/19/1999 Percutaneous Transluminal Coronary Angio Status REPLACEMENT MITRAL VALVE W/CARDIOPULMONARY BYP 09/19/1995 Mitral valve replacement TONSILLECTOMY PRIMARY/SECONDARY <AGE 12 Tonsillectomy XCAPSL CTRC RMVL INSJ IO LENS PROSTH W/O ECP Family History FAMILY HISTORY Problem Relation Age of Onset other (alzheimers) Mother Ischemic Heart Disease Father Heart Brother None Sister Patient Allergies ALLERGIES Allergen Reactions Doxycycline Shortness of Breath Mevacor [Lovastatin] muscle cramps Prevacor [Other] muscle cramps Current Medications Current Outpatient Medications on File Prior to Visit Medication Sig dulaglutide (TRULICITY) 0.75 mg/0.5 mL pen injector Inject 0.75 mg subcutaneously one time a week. Inject dose once per week. Discard Pen After atorvastatin (LIPITOR) 40 mg tablet Take 1 tablet by mouth once daily. nitroglycerin sublingual (NITROSTAT) 0.4 mg SL tablet Dissolve 1 tablet under the tongue as needed. DISSOLVE ON TONGUE FOR CHEST PAIN. IF NO PAIN RELIEF, CALL 911 latanoprost (XALATAN) 0.005 % ophthalmic solution 1 Drop daily at bedtime. amLODIPine (NORVASC) 5 mg tablet Take 1 tablet by mouth twice daily. furosemide (LASIX) 20 mg tablet Take 1 tablet by mouth once daily. metoprolol succinate ER (TOPROL XL) 50 mg 24 hr tablet Take 1 tablet by mouth once daily. Quinapril HCl 40 mg tablet Take 0.5 tablets by mouth once daily. dapagliflozin (FARXIGA) 10 mg tablet Take 1 tablet by mouth once daily. Take one daily in the morning TACROLIMUS TOPICAL Apply to affected area. aspirin(ECOTRIN LOW STRENGTH 81 MG TAB) Take one(1) tablet daily. COMPOUNDED PRESCRIPTION alphagen eye drops 1 drop each eye twice daily COSOPT 2 %-0.5 % EYE DROPS 1 drop each eye two times daily THERAPEUTIC MULTIVITAMIN ORAL TAB Take one(1) tablet daily. Current Facility-Administered Medications on File Prior to Visit Medication perflutren lipid microspheres 1.3 mL in NaCl (PF) 0.9% 10 mL injection (DEFINITY) sodium chloride 0.9 % (flush) 10 mL (BD POSIFLUSH) Social History Social History Tobacco Use Smoking status: Former Packs/day: 1.00 Types: Cigarettes Quit date: 03/19/1987 Years since quittin.0 Smokeless tobacco: Never Vaping Use Vaping Use: Never used Substance Use Topics Alcohol use: Yes Comment: occasionally Drug use: No EXAM: BP 120/60 Pulse 68 Resp 14 Wt 70.8 kg (156 lb) SpO2 97% BMI 28.53 kg/m General Appearance: Well appearing, alert, in no acute distress, well-hydrated, well nourished.. Head: Normocephalic, no masses, lesions, tenderness or abnormalities. Ears: External ears normal, canals clear. Oropharynx: Lips, mucosa, and tongue normal, teeth and gums normal, oropharynx normal. Neck: Supple, no adenopathy; thyroid symmetric, normal size, no bruits. Lungs: Lungs clear to auscultation. No wheezing, rhonchi, rales.. Heart: RRR without murmur, gallop, or rubs. No ectopy. Extremities: No deformities, edema, skin discoloration, clubbing or cyanosis. Good capillary refill, b/l legs. Feet: Shoes and socks removed, No deformities, ulcers, calluses, normal distal pulses, and sensitive to 10 gm monofilament Health Maintenance List SHINGRIX VACCINE(1 of 2) Never done DTAP,TDAP,TD(2 - Td or Tdap) due on 09/07/2020 COVID-19 VACCINE(4 - Booster for Moderna series) due on 11/09/2021 URINE ALBUMIN:CREATININE RATIO due on 05/18/2022 DIABETIC FOOT EXAM due on 06/15/2022 ADVANCE DIRECTIVE DISCUSSION Never done DEPRESSION ASSESSMENT Never done HBA1C due on 03/07/2023 DILATED RETINAL EXAM due on 05/13/2023 LDL CHOLESTEROL due on 09/06/2023 INFLUENZA Completed PNEUMOCOCCAL: 65+ Completed Data reviewed Appointment on 03/11/2023 Component Date Value Protein, Total 03/11/2023 6.4 Albumin 03/11/2023 4.1 Calcium, Total 03/11/2023 9.2 Bilirubin, Total 03/11/2023 1.0 Alkaline Phosphatase 03/11/2023 70 AST 03/11/2023 19 ALT 03/11/2023 9 (A) Glucose 03/11/2023 128 (A) BUN 03/11/2023 34 (A) Creatinine 03/11/2023 1.81 (A) Sodium 03/11/2023 138 Potassium 03/11/2023 4.9 Chloride 03/11/2023 105 CO2 03/11/2023 23 Anion Gap 03/11/2023 10 Estimated Glomerular Paul* 03/11/2023 37 (A) Cholesterol, Total 03/11/2023 125 Triglyceride 03/11/2023 115 HDL Cholesterol 03/11/2023 37 (A) Non HDL Cholesterol 03/11/2023 88 Fasting Time 03/11/2023 14 VLDL Cholesterol 03/11/2023 23 TC:HDL Ratio 03/11/2023 3.38 LDL Cholesterol 03/11/2023 65 LDL:HDL Ratio 03/11/2023 1.76 Hemoglobin A1C 03/11/2023 6.6 (A) Estimated Average Glucose 03/11/2023 143 WBC 03/11/2023 7.30 RBC 03/11/2023 5.03 Hemoglobin 03/11/2023 15.5 Hematocrit 03/11/2023 47.3 MCV 03/11/2023 94.0 MCH 03/11/2023 30.8 MCHC 03/11/2023 32.8 RDW-CV 03/11/2023 13.1 Platelet Count 03/11/2023 230 MPV 03/11/2023 10.3 Absolute nRBC 03/11/2023 <0.01 ASSESSMENT/PLAN: 1. Type 2 diabetes mellitus with stage 3a chronic kidney disease, without long-term current use of insulin ([facility]) - ICD9: 250.40, 585.3, ICD10: E11.22, N18.31 (primary diagnosis) - Controlled - Continue current medications - Counseled on healthy diet and regular exercise - Discussed need for and benefit of weight loss. BMI 28.53 kg/(m^2) 2. Chronic kidney disease, stage 3a ([facility]) - ICD9: 585.3, ICD10: N18.31 Continue current medications. 3. Ankylosing spondylitis, unspecified site of spine ([facility]) - ICD9: 720.0, ICD10: M45.9 Continue current medications. 4. Coronary artery disease involving [place] coronary artery of [place] heart without angina pectoris - ICD9: 414.01, ICD10: I25.10 Continue current medications. Continue with Cardio 5. Mixed hyperlipidemia - ICD9: 272.2, ICD10: E78.2 - Controlled - Continue current medications - Counseled on healthy diet and regular exercise - Discussed need for and benefit of weight loss. BMI 28.53 kg/(m^2) 6. Chronic diastolic CHF (congestive heart failure) ([facility]) - ICD9: 428.32, 428.0, ICD10: I50.32 Continue current medications. Continue with Cardio 7. Essential hypertension - ICD9: 401.9, ICD10: I10 - Controlled - Continue current medications - Stop taking Quinapril - Start Losartan 50 mg daily - Recommend home blood pressure monitoring, to bring results to next visit - Encouraged sodium restriction, DASH or Mediterranean diet - Recommend regular aerobic exercise - Discussed need for and benefit of weight loss. BMI 28.53 kg/(m^2) 8. Acute non-recurrent sinusitis, unspecified location - ICD9: 461.9, ICD10: J01.90 - Will begin treatment with Augmentin 875 mg PO BID for 10 days 9. Neuropathy of both feet - ICD9: 356.9, ICD10: G57.93 Recommend keeping the diabetes controlled May take Tylenol Continue to monitor Good sensation and pulses in feet Follow up in 6 months with fasting labs and urine test prior. I agree with the Chief Complaint, ROS, and Past Histories independently gathered by the clinical sales support rep and the remaining scribed note accurately describes my personal service to the patient. Medical Decision Making: Problems: Low: Acute, uncomplicated illness or injury Moderate: 2+ stable chronic illnesses Data: Unique test result(s) reviewed: 3+ Unique test(s) ordered: 3+ Risk: Moderate: Drug management Medical Decision Making Level: 4 - Moderate Fco Bradshaw MD The documentation for this note was completed by Dana Castro Ma acting as scribe for Fco Bradshaw MD. March 18, 2023 9:31 AM. Dana Castro Ma documented in this encounter [facility] documented in this encounter [facility]06-19-2023 NoteHNO ID: [id number] Author: Jose De Jesus Paige RN Service: ? Author Type: Registered Nurse Type: Progress Notes Filed: 03/07/2023 1:32 PM Note Text: CDM Telephonic Outreach Provider Action/FYI Contacted for: Routine Telephonic Outreach Contact made with patient: No, left message. Jose De Jesus Paige RN March 07, 2023 1:32 [facility]06-12-2023 NotePatient Outreach ([facility]) KILLIAN AMARO ([id number]) 1940 M Date Time Provider Department 02/28/23 JOSE DE JESUS PAIGE During your visit today, we recorded the following information about you: Jose De Jesus Paige RN 02/28/2023 3:42 PM Signed CDM Telephonic Outreach Provider Action/FYI Contacted for: Routine Telephonic Outreach Contact made with patient: No, left message. Jose De Jesus Paige RN February 28, 2023 3:42 PM Jose De Jesus Paige RN 03/07/2023 1:32 PM Signed [facility] Telephonic Outreach Provider Action/FYI Contacted for: Routine Telephonic Outreach Contact made with patient: No, left message. Jose De Jesus Paige RN March 07, 2023 1:32 PM Allergies As of Date: 02/28/2023 Noted Allergy Reaction DOXYCYCLINE 04/15/2017 12 - Shortness of Breath MEVACOR (LOVASTATIN) 06/07/2005 Comments: muscle cramps prevacor [Other] 06/07/2005 Comments: muscle cramps Date Reviewed: 10/07/2022 Reviewed by: Tim Andrews DO - Fully Assessed Reason for Visit: community monitoring outreach [Other] Cmt: CDM-Telephonic outreach Prescriptions as of 03/07/2023 - dulaglutide (TRULICITY) 0.75 mg/0.5 mL pen injector Inject 0.75 mg subcutaneously one time a week. Inject dose once per week. Discard Pen After - atorvastatin (LIPITOR) 40 mg tablet Take 1 tablet by mouth once daily. - nitroglycerin sublingual (NITROSTAT) 0.4 mg SL tablet Dissolve 1 tablet under the tongue as needed. DISSOLVE ON TONGUE FOR CHEST PAIN. IF NO PAIN RELIEF, CALL 911 - latanoprost (XALATAN) 0.005 % ophthalmic solution 1 Drop daily at bedtime. - amLODIPine (NORVASC) 5 mg tablet Take 1 tablet by mouth twice daily. - furosemide (LASIX) 20 mg tablet Take 1 tablet by mouth once daily. - metoprolol succinate ER (TOPROL XL) 50 mg 24 hr tablet Take 1 tablet by mouth once daily. - Quinapril HCl 40 mg tablet Take 0.5 tablets by mouth once daily. - dapagliflozin (FARXIGA) 10 mg tablet Take 1 tablet by mouth once daily. Take one daily in the morning - TACROLIMUS TOPICAL Apply to affected area. - aspirin(ECOTRIN LOW STRENGTH 81 MG TAB) Take one(1) tablet daily. - COMPOUNDED PRESCRIPTION alphagen eye drops 1 drop each eye twice daily - COSOPT 2 %-0.5 % EYE DROPS 1 drop each eye two times daily - THERAPEUTIC MULTIVITAMIN ORAL TAB Take one(1) tablet daily. Facility-Administered Medications as of 03/07/2023 - perflutren lipid microspheres 1.3 mL in NaCl (PF) 0.9% 10 mL injection (DEFINITY) - sodium chloride 0.9 % (flush) 10 mL (BD POSIFLUSH) Problem List As Of Date 02/28/2023 Noted Resolved Coronary artery disease involving [place]*12/06/2005 PERCUT TRANSLUM CORON ANGIO STATUS [Z98.61] 12/06/2005 Hypertensive heart disease with heart failure (*12/06/2005 04/05/2022 Hyperlipidemia [E78.5] 12/06/2005 LOC PRIM OSTEOARTH-HAND [M19.049] 12/06/2005 ANKYLOSING SPONDYLITIS [M45.9] 12/06/2005 MITRAL VALVE DISORDER [I05.9] 01/19/2006 PRIM PULM HYPERTENSION [I27.0] 01/19/2006 03/23/2006 Aortic valve disorders [I35.9] 06/09/2006 04/05/2022 Neoplasm of Uncertain Behavior of Skin [D48.5] 08/07/2008 03/06/2010 NEVUS BACK///BENIGN SHAN SKIN TRUNK [D23.5] 08/07/2008 03/06/2010 ACTINIC DAMAGE///CHR SOLAR SKIN DAMAGE NOS [L57*08/07/2008 03/06/2010 Other Seborrheic Keratosis [L82.1] 08/07/2008 03/06/2010 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5] 03/27/2010 05/19/2016 Actinic Damage///Sun-Damaged Skin [L57.8] 03/27/2010 05/19/2016 Solar Lentigo//Solar Lentigines [L81.4] 03/27/2010 05/19/2016 Seborrheic Keratosis [L82.1] 09/28/2010 05/19/2016 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] 09/28/2010 12/28/2013 Melanocytic nevus moles of back [D22.5] 09/28/2010 05/19/2016 ELENA ANGIOMAS///NEVUS, NON-NEOPLASTIC [I78.1] 09/28/2010 12/28/2013 Postherpetic neuralgia [B02.29] 03/31/2011 05/19/2016 Digital mucous cyst [M67.449] 04/23/2012 10/19/2016 Postinflammatory skin changes [R23.8] 04/23/2012 05/19/2016 Eczematous dermatitis of left lower eyelid [H01*12/28/2013 05/19/2016 Eczematous dermatitis [L30.9] 12/28/2013 05/19/2016 Xerosis cutis [L85.3] 12/28/2013 05/19/2016 History of Mohs surgery x 1 stage for squamous *12/28/2013 Arthritis of both hands [M19.041, M19.042] 11/13/2015 Type 2 diabetes mellitus without complication, *11/13/2015 Primary osteoarthritis of right wrist [M19 (more content not included)... [facility]06-12-2023 NoteHNO ID: [id number] Author: Jose De Jesus Paige RN Service: ? Author Type: Registered Nurse Type: Progress Notes Filed: 02/28/2023 3:42 PM Note Text: CDM Telephonic Outreach Provider Action/FYI Contacted for: Routine Telephonic Outreach Contact made with patient: No, left message. Jose De Jesus Paige RN February 28, 2023 3:42 [facility]05-15-2023 NoteHNO ID: [id number] Author: Jose De Jesus Paige RN Service: ? Author Type: Registered Nurse Type: Progress Notes Filed: 01/31/2023 1:54 PM Note Text: CDM Telephonic Outreach Provider Action/FYI Patient returned my call No concerns. Doing well. Doing a lot of work in the yard. Contacted for: Routine Telephonic Outreach Contact made with patient: Yes Patient identified by name and date of . Discussed care with patient Are you experiencing any new or worsening symptoms you need to talk about today? No Disease Specific Do you check your blood pressure at home? No Do you have new or worsening shortness of breath with activity? No Do you have new or worsening trouble breathing while lying flat? No Do you have new or worsening swelling of legs, feet or ankles? No Do you check your daily weight at home? No Based on collection agent, the following disposition is advised: No symptoms or symptoms present, not severe. Routed to: No Action Needed SHIRLEY Education Provided this Outreach: No Jose De Jesus Paige RN January 31, 2023 1:53 [facility]05-15-2023 NoteHNO ID: [id number] Author: Jose De Jesus Paige RN Service: ? Author Type: Registered Nurse Type: Progress Notes Filed: 01/31/2023 1:41 PM Note Text: CDM Telephonic Outreach Provider Action/FYI Contacted for: Routine Telephonic Outreach Contact made with patient: No, left message. Jose De Jesus Paige RN January 31, 2023 1:41 [facility]05-11-2023 NotePatient Outreach ([facility]) KILLIAN AMARO ([id number]) 1940 M Date Time Provider Department 01/27/23 JOSE DE JESUS PAIGE During your visit today, we recorded the following information about you: Jose De Jesus Paige RN 01/28/2023 12:25 PM Signed [facility] Telephonic Outreach Provider Benedict/NA Contacted for: Routine Telephonic Outreach Contact made with patient: No, left message. Jose De Jesus Paige RN January 28, 2023 12:25 PM Jose De Jesus Paige RN 01/31/2023 1:41 PM Signed [facility] Telephonic Outreach Provider Benedict/NA Contacted for: Routine Telephonic Outreach Contact made with patient: No, left message. Jose De Jesus Paige RN January 31, 2023 1:41 PM Jose De Jesus Paige RN 01/31/2023 1:54 PM Signed [facility] Telephonic Outreach Provider Benedict/NA Patient returned my call No concerns. Doing well. Doing a lot of work in the yard. Contacted for: Routine Telephonic Outreach Contact made with patient: Yes Patient identified by name and date of . Discussed care with patient Are you experiencing any new or worsening symptoms you need to talk about today? No Disease Specific Do you check your blood pressure at home? No Do you have new or worsening shortness of breath with activity? No Do you have new or worsening trouble breathing while lying flat? No Do you have new or worsening swelling of legs, feet or ankles? No Do you check your daily weight at home? No Based on collection agent, the following disposition is advised: No symptoms or symptoms present, not severe. Routed to: No Action Needed SHIRLEY Education Provided this Outreach: No Jose De Jesus Paige RN January 31, 2023 1:53 PM Allergies As of Date: 01/27/2023 Noted Allergy Reaction DOXYCYCLINE 04/15/2017 12 - Shortness of Breath MEVACOR (LOVASTATIN) 06/07/2005 Comments: muscle cramps prevacor [Other] 06/07/2005 Comments: muscle cramps Date Reviewed: 10/07/2022 Reviewed by: Tim Andrews DO - Fully Assessed Reason for Visit: community monitoring outreach [Other] Cmt: CDM-Telephonic outreach Prescriptions as of 01/31/2023 - dulaglutide (TRULICITY) 0.75 mg/0.5 mL pen injector Inject 0.75 mg subcutaneously one time a week. Inject dose once per week. Discard Pen After - atorvastatin (LIPITOR) 40 mg tablet Take 1 tablet by mouth once daily. - nitroglycerin sublingual (NITROSTAT) 0.4 mg SL tablet Dissolve 1 tablet under the tongue as needed. DISSOLVE ON TONGUE FOR CHEST PAIN. IF NO PAIN RELIEF, CALL 911 - latanoprost (XALATAN) 0.005 % ophthalmic solution 1 Drop daily at bedtime. - amLODIPine (NORVASC) 5 mg tablet Take 1 tablet by mouth twice daily. - furosemide (LASIX) 20 mg tablet Take 1 tablet by mouth once daily. - metoprolol succinate ER (TOPROL XL) 50 mg 24 hr tablet Take 1 tablet by mouth once daily. - Quinapril HCl 40 mg tablet Take 0.5 tablets by mouth once daily. - dapagliflozin (FARXIGA) 10 mg tablet Take 1 tablet by mouth once daily. Take one daily in the morning - TACROLIMUS TOPICAL Apply to affected area. - aspirin(ECOTRIN LOW STRENGTH 81 MG TAB) Take one(1) tablet daily. - COMPOUNDED PRESCRIPTION alphagen eye drops 1 drop each eye twice daily - COSOPT 2 %-0.5 % EYE DROPS 1 drop each eye two times daily - THERAPEUTIC MULTIVITAMIN ORAL TAB Take one(1) tablet daily. Facility-Administered Medications as of 01/31/2023 - perflutren lipid microspheres 1.3 mL in NaCl (PF) 0.9% 10 mL injection (DEFINITY) - sodium chloride 0.9 % (flush) 10 mL (BD POSIFLUSH) Problem List As Of Date 01/27/2023 Noted Resolved Coronary artery disease involving [place]*12/06/2005 PERCUT TRANSLUM CORON ANGIO STATUS [Z98.61] 12/06/2005 Hypertensive heart disease with heart failure (*12/06/2005 04/05/2022 Hyperlipidemia [E78.5] 12/06/2005 LOC PRIM OSTEOARTH-HAND [M19.049] 12/06/2005 ANKYLOSING SPONDYLITIS [M45.9] 12/06/2005 MITRAL VALVE DISORDER [I05.9] 01/19/2006 PRIM PULM HYPERTENSION [I27.0] 01/19/2006 03/23/2006 Aortic valve disorders [I35.9] 06/09/2006 04/05/2022 Neoplasm of Uncertain Behavior of Skin [D48.5] 08/07/2008 03/06/2010 NEVUS BACK///BENIGN SHAN SKIN TRUNK [D23.5] 08/07/2008 03/06/2010 ACTINIC DAMAGE///CHR SOLAR SKIN DAMAGE NOS [L57*08/07/2008 03/06/2010 Other Seborrheic Keratosis [L82.1] 08/07/2008 03/06/2010 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 (more content not included)...[facility]05-11-2023 NoteHNO ID: [id number] Author: Jose De Jesus Paige RN Service: ? Author Type: Registered Nurse Type: Progress Notes Filed: 01/28/2023 12:25 PM Note Text: [facility] Telephonic Outreach Provider Action/FYI Contacted for: Routine Telephonic Outreach Contact made with patient: No, left message. Jose De Jesus Paige RN January 28, 2023 12:25 [facility]05-11-2023 History of Present illness Narrative* Jose De Jesus Paige RN - 01/27/2023 10:31 AM EDT [facility] Telephonic Outreach Provider Action/FYI Contacted for: Routine Telephonic Outreach Contact made with patient: No, left message. Jose De Jesus Paige RN January 28, 2023 12:25 PM [facility] NotePatient Outreach ([facility]) KILLIAN AMARO ([id number]) 1940 M Date Time Provider Department 12/29/22 JOSE DE JESUS PAIGE During your visit today, we recorded the following information about you: Jose De Jesus Paige RN 12/30/2022 2:34 PM Signed [facility] CDM TELEPHONIC OUTREACH Provider Action/FYI: CHF Contact made with patient: Yes Patient identified by name and . Discussed care with patient It?s nice talking to you again. As a reminder, this is our bi-weekly check-in where I will be asking you questions about your health. This will only take a few minutes of your time. Is this a good time? Yes Symptoms What Chronic Disease(s) does the patient have: CHF Do you check your blood pressures at home? No Do you have new or worse shortness of breath with activity? No Do you have new or worsening trouble breathing while lying flat? No Do you have new or worsening swelling of legs, feet or ankles? No Do you check your daily weight at home? No Are you having any other symptoms that your PCP needs to know about? No Symptoms: none Symptom Escalation SHIRLEY Education Ordered -: No The patient required an escalation for symptom(s)? No Medications Do you have any questions about taking your medication or which medications you should be on? No Do you need any medication refills at this time, including any of the medications you might take only when needed? No Social We would like to make sure you have what you need so that your basic needs are met- including your personal safety, food, housing, transportation and medications? Would you like to speak with a social work count team member to help give you support for any of these needs? No It can be normal to feel anxious or down during a time like this. Would you like to talk to a mental health professional about how you have been feeling? No Closing Thank you for taking the time to talk with me today. We want to work with you to ensure that we are keeping your medical condition(s) well-controlled and to keep you healthy and out of the doctor's office or hospital. It?s also not too late for me to sign you up for automated weekly questionnaires through [employer]. This is an easy way for us to stay connected each week. Are you interested? No, I understand. We can always sign you up in the future if you change your mind. Just as a reminder, will continue to call you every other week to check in on your health. Our calls should take 10-15 minutes or less. Remember, if you have concerns in between our calls, please call your PCP's office right away. Thank you. Enter next patient outreach date for two weeks on the same day of the week as today in the Track Pt Outreach and End outreach. Allergies As of Date: 12/29/2022 Noted Allergy Reaction DOXYCYCLINE 04/15/2017 12 - Shortness of Breath MEVACOR (LOVASTATIN) 06/07/2005 Comments: muscle cramps prevacor [Other] 06/07/2005 Comments: muscle cramps Date Reviewed: 10/07/2022 Reviewed by: Tim Andrews DO - Fully Assessed Reason for Visit: community monitoring outreach [Other] Cmt: CDM-Telephonic outreach Prescriptions as of 12/30/2022 - latanoprost (XALATAN) 0.005 % ophthalmic solution 1 Drop daily at bedtime. - amLODIPine (NORVASC) 5 mg tablet Take 1 tablet by mouth twice daily. - furosemide (LASIX) 20 mg tablet Take 1 tablet by mouth once daily. - metoprolol succinate ER (TOPROL XL) 50 mg 24 hr tablet Take 1 tablet by mouth once daily. - Quinapril HCl 40 mg tablet Take 0.5 tablets by mouth once daily. - dapagliflozin (FARXIGA) 10 mg tablet Take 1 tablet by mouth once daily. Take one daily in the morning - dulaglutide (TRULICITY) 0.75 mg/0.5 mL pen injector Inject 0.75 mg subcutaneously one time a week. Inject dose once per week. Discard Pen After - atorvastatin (LIPITOR) 40 mg tablet Take 1 tablet by mouth once daily. - nitroglycerin sublingual (NITROSTAT) 0.4 mg SL tablet Dissolve 1 tablet under the tongue as needed. DISSOLVE ON TONGUE FOR CHEST PAIN. IF NO PAIN RELIEF, CALL 911 - TACROLIMUS TOPICAL Apply to affected area. - aspirin(ECOTRIN LOW STRENGTH 81 MG TAB) Take one(1) tablet daily. - COMPOUNDED PRESCRIPTION alphagen eye drops 1 drop each eye twice daily - COSOPT 2 %-0.5 % EYE DROPS 1 drop each eye two times daily - THERAPEUTIC MULTIVITAMIN ORAL TAB Take one(1) tablet daily. Facility-Administered Medications as of 12/30/2022 - perflutren lipid microspheres 1.3 mL in NaCl (PF) 0.9% 10 mL injection (DEFINITY) - sodium chloride 0.9 % (flush) 10 mL (BD POSIFLUSH) Problem List As Of Date 12/29/2022 Noted Resolved Coronary artery disease involving [place]*12/06/2005 PERCUT TRANSLUM CORON ANGIO STATUS [Z98.61] 12/06/2005 Hypertensive heart disease with heart failure (*12/06/2005 04/05/2022 Hyperlipidemia [E78.5] 12/06/2005 LOC PRIM OSTE (more content not included)...[facility]04-12-2023 NoteHNO ID: [id number] Author: Jose De Jesus Paige RN Service: ? Author Type: Registered Nurse Type: Progress Notes Filed: 12/30/2022 2:34 PM Note Text: [facility] CDM TELEPHONIC OUTREACH Provider Action/FYI: CHF Contact made with patient: Yes Patient identified by name and . Discussed care with patient It?s nice talking to you again. As a reminder, this is our bi-weekly check-in where I will be asking you questions about your health. This will only take a few minutes of your time. Is this a good time? Yes Symptoms What Chronic Disease(s) does the patient have: CHF Do you check your blood pressures at home? No Do you have new or worse shortness of breath with activity? No Do you have new or worsening trouble breathing while lying flat? No Do you have new or worsening swelling of legs, feet or ankles? No Do you check your daily weight at home? No Are you having any other symptoms that your PCP needs to know about? No Symptoms: none Symptom Escalation SHIRLEY Education Ordered -: No The patient required an escalation for symptom(s)? No Medications Do you have any questions about taking your medication or which medications you should be on? No Do you need any medication refills at this time, including any of the medications you might take only when needed? No Social We would like to make sure you have what you need so that your basic needs are met- including your personal safety, food, housing, transportation and medications? Would you like to speak with a social work count team member to help give you support for any of these needs? No It can be normal to feel anxious or down during a time like this. Would you like to talk to a mental health professional about how you have been feeling? No Closing Thank you for taking the time to talk with me today. We want to work with you to ensure that we are keeping your medical condition(s) well-controlled and to keep you healthy and out of the doctor's office or hospital. It?s also not too late for me to sign you up for automated weekly questionnaires through [employer]. This is an easy way for us to stay connected each week. Are you interested? No, I understand. We can always sign you up in the future if you change your mind. Just as a reminder, will continue to call you every other week to check in on your health. Our calls should take 10-15 minutes or less. Remember, if you have concerns in between our calls, please call your PCP's office right away. Thank you. Enter next patient outreach date for two weeks on the same day of the week as today in the Track Pt Outreach and End outreach.[facility] 12-29-2022 History of Present illness Narrative* Jose De Jesus Paige RN - 12/29/2022 10:07 AM EDT [facility] TELEPHONIC OUTREACH Provider Action/FYI: CHF Contact made with patient: Yes Patient identified by name and . Discussed care with patient It s nice talking to you again. As a reminder, this is our bi-weekly check-in where I will be asking you questions about your health. This will only take a few minutes of your time. Is this a good time? Yes Symptoms What Chronic Disease(s) does the patient have: CHF Do you check your blood pressures at home? No Do you have new or worse shortness of breath with activity? No Do you have new or worsening trouble breathing while lying flat? No Do you have new or worsening swelling of legs, feet or ankles? No Do you check your daily weight at home? No Are you having any other symptoms that your PCP needs to know about? No Symptoms: none Symptom Escalation SHIRLEY Education Ordered -: No The patient required an escalation for symptom(s)? No Medications Do you have any questions about taking your medication or which medications you should be on? No Do you need any medication refills at this time, including any of the medications you might take only when needed? No Social We would like to make sure you have what you need so that your basic needs are met- including your personal safety, food, housing, transportation and medications? Would you like to speak with a social work count team member to help give you support for any of these needs? No It can be normal to feel anxious or down during a time like this. Would you like to talk to a mental health professional about how you have been feeling? No Closing Thank you for taking the time to talk with me today. We want to work with you to ensure that we arekeeping your medical condition(s) well-controlled and to keep you healthy and out of the doctor's office or hospital. It s also not too late for me to sign you up for automated weekly questionnaires through [employer]. This is an easy way for us to stay connected each week. Are you interested? No, I understand. We can always sign you up in the future if you change your mind. Just as a reminder, will continue to call you every other week to check in on your health. Our calls should take 10-15 minutes or less. Remember, if you have concerns in between our calls, please call your PCP's office right away. Thank you. Enter next patient outreach date for two weeks on the same day of the week as today in the Track PtOutreach and End outreach. [facility] NoteHNO ID: [id number] Author: Jose De Jesus Paige RN Service: ? Author Type: Registered Nurse Type: Progress Notes Filed: 11/29/2022 2:49 PM Note Text: [facility] CDM TELEPHONIC OUTREACH Provider Action/FYI: Contact made with patient: No - Left message Amado my name is Jose De Jesus Paige RN your Throat Cutter [facility] I am calling today for your bi-weekly check in. I am sorry I missed your call. I will reach out to you again tomorrow. (if the third call I will reach out to you again next week) Enter next patient outreach date for the following business day using the Track Pt Outreach. End outreach.[facility]03-06-2023 NotePatient Outreach ([facility]) KILLIAN AMARO ([id number]) 1940 Date Time Provider Department 11/22/22 JOSE DE JESUS PAIGE During your visit today, we recorded the following information about you: Jose De Jesus Paige RN 11/25/2022 12:10 PM Signed [facility] TELEPHONIC OUTREACH Provider Action/FYI: CHF Contact made with patient: No - Left message Amado my name is Jose De Jesus Paige RN your Throat Cutter [facility] the [facility] I am calling today for your bi-weekly check in. I am sorry I missed your call. I will reach out to you again tomorrow. (if the third call I will reach out to you again next week) Enter next patient outreach date for the following business day using the Track Pt Outreach. End outreach. Jose De Jesus Paige RN 11/29/2022 2:49 PM Signed [facility] TELEPHONIC OUTREACH Provider Action/FYI: Contact made with patient: No - Left message Amado my name is Jose De Jesus Paige RN your Throat Cutter from the [facility] I am calling today for your bi-weekly check in. I am sorry I missed your call. I will reach out to you again tomorrow. (if the third call I will reach out to you again next week) Enter next patient outreach date for the following business day using the Track Pt Outreach. End outreach. Allergies As of Date: 11/22/2022 Noted Allergy Reaction DOXYCYCLINE 04/15/2017 12 - Shortness of Breath MEVACOR (LOVASTATIN) 06/07/2005 Comments: muscle cramps prevacor [Other] 06/07/2005 Comments: muscle cramps Date Reviewed: 10/07/2022 Reviewed by: Tim Andrews DO - Fully Assessed Reason for Visit: community monitoring outreach [Other] Cmt: CDM-Telephonic outreach Prescriptions as of 11/29/2022 - latanoprost (XALATAN) 0.005 % ophthalmic solution 1 Drop daily at bedtime. - amLODIPine (NORVASC) 5 mg tablet Take 1 tablet by mouth twice daily. - furosemide (LASIX) 20 mg tablet Take 1 tablet by mouth once daily. - metoprolol succinate ER (TOPROL XL) 50 mg 24 hr tablet Take 1 tablet by mouth once daily. - Quinapril HCl 40 mg tablet Take 0.5 tablets by mouth once daily. - dapagliflozin (FARXIGA) 10 mg tablet Take 1 tablet by mouth once daily. Take one daily in the morning - dulaglutide (TRULICITY) 0.75 mg/0.5 mL pen injector Inject 0.75 mg subcutaneously one time a week. Inject dose once per week. Discard Pen After - atorvastatin (LIPITOR) 40 mg tablet Take 1 tablet by mouth once daily. - nitroglycerin sublingual (NITROSTAT) 0.4 mg SL tablet Dissolve 1 tablet under the tongue as needed. DISSOLVE ON TONGUE FOR CHEST PAIN. IF NO PAIN RELIEF, CALL 911 - TACROLIMUS TOPICAL Apply to affected area. - aspirin(ECOTRIN LOW STRENGTH 81 MG TAB) Take one(1) tablet daily. - COMPOUNDED PRESCRIPTION alphagen eye drops 1 drop each eye twice daily - COSOPT 2 %-0.5 % EYE DROPS 1 drop each eye two times daily - THERAPEUTIC MULTIVITAMIN ORAL TAB Take one(1) tablet daily. Facility-Administered Medications as of 11/29/2022 - perflutren lipid microspheres 1.3 mL in NaCl (PF) 0.9% 10 mL injection (DEFINITY) - sodium chloride 0.9 % (flush) 10 mL (BD POSIFLUSH) Problem List As Of Date 11/22/2022 Noted Resolved Coronary artery disease involving [place]*12/06/2005 PERCUT TRANSLUM CORON ANGIO STATUS [Z98.61] 12/06/2005 Hypertensive heart disease with heart failure (*12/06/2005 04/05/2022 Hyperlipidemia [E78.5] 12/06/2005 LOC PRIM OSTEOARTH-HAND [M19.049] 12/06/2005 ANKYLOSING SPONDYLITIS [M45.9] 12/06/2005 MITRAL VALVE DISORDER [I05.9] 01/19/2006 PRIM PULM HYPERTENSION [I27.0] 01/19/2006 03/23/2006 Aortic valve disorders [I35.9] 06/09/2006 04/05/2022 Neoplasm of Uncertain Behavior of Skin [D48.5] 08/07/2008 03/06/2010 NEVUS BACK///BENIGN SHAN SKIN TRUNK [D23.5] 08/07/2008 03/06/2010 ACTINIC DAMAGE///CHR SOLAR SKIN DAMAGE NOS [L57*08/07/2008 03/06/2010 Other Seborrheic Keratosis [L82.1] 08/07/2008 03/06/2010 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 Author Type: Registered Nurse Type: Progress Notes Filed: 11/25/2022 12:10 PM Note Text: [facility] TELEPHONIC OUTREACH Provider Action/FYI: CHF Contact made with patient: No - Left message Amado my name is Jose De Jesus Paige RN your Throat Cutter from the [facility] I am calling today for your bi-weekly check in. I am sorry I missed your call. I will reach out to you again tomorrow. (if the third call I will reach out to you again next week) Enter next patient outreach date for the following business day using the Track Pt Outreach. End outreach.[facility]03-06-2023 History of Present illness Narrative* Jose De Jesus Paige RN - 11/22/2022 10:25 AM EST [facility] TELEPHONIC OUTREACH Provider Action/FYI: CHF Contact made with patient: No - Left message Amado my name is Jose De Jesus Paige RN your Throat Cutter from the [facility] I am calling today for your bi-weekly check in. I am sorry I missed your call. I will reach out to you again tomorrow. (if the third call I will reach out to you again next week) Enter next patient outreach date forthe following business day using the Track Pt Outreach. End outreach. [facility] Miscellaneous Notes* Telephone Encounter - Dana Castro Ma - 10/28/2022 11:19 AM EST Contacted pt, he stated he has about 2 weeks or so worth of medication at this time. He stated [facility] just told him that they didn't have it at this time, not sure if it was on back order orwhen they would be getting any in. Instructed pt to call [facility] in about a week and find out if they have it and if they do not to notify office and we can send to local pharmacy or change medication if needed. Pt notified and voiced understanding. Dana Castro Ma' * Telephone Encounter - Evelyn Drake Pss - 10/28/2022 11:06 AM EST Patient stated [facility] told him Quinapril is not available. Please advise patient at [phone] documented [facility] NoteHNO ID: [id number] Author: Jose De Jesus Paige RN Service: ? Author Type: Registered Nurse Type: Progress Notes Filed: 10/26/2022 2:37 PM Note Text: [facility] TELEPHONIC OUTREACH Provider Action/FYI: CHF Contact made with patient: Yes Patient identified by name and . Discussed care with spouse It?s nice talking to you again. As a reminder, this is our bi-weekly check-in where I will be asking you questions about your health. This will only take a few minutes of your time. Is this a good time? Yes Symptoms What Chronic Disease(s) does the patient have: CHF Do you check your blood pressures at home? No Do you have new or worse shortness of breath with activity? No Do you have new or worsening trouble breathing while lying flat? No Do you have new or worsening swelling of legs, feet or ankles? No Do you check your daily weight at home? No Are you having any other symptoms that your PCP needs to know about? No Symptoms: none Symptom Escalation SHIRLEY Education Ordered -: No The patient required an escalation for symptom(s)? No Medications Do you have any questions about taking your medication or which medications you should be on? No Do you need any medication refills at this time, including any of the medications you might take only when needed? No Social We would like to make sure you have what you need so that your basic needs are met- including your personal safety, food, housing, transportation and medications? Would you like to speak with a social work count team member to help give you support for any of these needs? No It can be normal to feel anxious or down during a time like this. Would you like to talk to a mental health professional about how you have been feeling? No Closing Thank you for taking the time to talk with me today. We want to work with you to ensure that we are keeping your medical condition(s) well-controlled and to keep you healthy and out of the doctor's office or hospital. It?s also not too late for me to sign you up for automated weekly questionnaires through [employer]. This is an easy way for us to stay connected each week. Are you interested? No, I understand. We can always sign you up in the future if you change your mind. Just as a reminder, will continue to call you every other week to check in on your health. Our calls should take 10-15 minutes or less. Remember, if you have concerns in between our calls, please call your PCP's office right away. Thank you. Enter next patient outreach date for two weeks on the same day of the week as today in the Track Pt Outreach and End outreach.[facility] 10-21-2022 NoteHNO ID: [id number] Author: Jose De Jesus Paige RN Service: ? Author Type: Registered Nurse Type: Progress Notes Filed: 10/22/2022 3:12 PM Note Text: [facility] TELEPHONIC OUTREACH Provider Action/FYI: CHF Contact made with patient: No - Left message Hello my name is Jose De Jesus Piage RN your Throat Cutter from the [facility] I am calling today for your bi-weekly check in. I am sorry I missed your call. I will reach out to you again tomorrow. (if the third call I will reach out to you again next week) Enter next patient outreach date for the following business day using the Track Pt Outreach. End outreach.[facility]02-02-2023 NotePatient Outreach ([facility]) SONDRAKILLIAN ([id number]) 1940 M Date Time Provider Department 10/21/22 JOSE DE JESUS PAIGE During your visit today, we recorded the following information about you: Jose De Jesus Paige RN 10/22/2022 3:12 PM Signed [facility] TELEPHONIC OUTREACH Provider Action/FYI: CHF Contact made with patient: No - Left message Hello my name is Jose De Jesus Paige RN your Throat Cutter from the [facility] I am calling today for your bi-weekly check in. I am sorry I missed your call. I will reach out to you again tomorrow. (if the third call I will reach out to you again next week) Enter next patient outreach date for the following using the Track Pt Outreach. End outreach. Jose De Jesus Paige RN 10/26/2022 2:37 PM Signed [facility] TELEPHONIC OUTREACH Provider Action/FYI: CHF Contact made with patient: Yes Patient identified by name and . Discussed care with spouse It?s nice talking to you again. As a reminder, this is our bi-weekly check-in where I will be asking you questions about your health. This will only take a few minutes of your time. Is this a good time? Yes Symptoms What Chronic Disease(s) does the patient have: CHF Do you check your blood pressures at home? No Do you have new or worse shortness of breath with activity? No Do you have new or worsening trouble breathing while lying flat? No Do you have new or worsening swelling of legs, feet or ankles? No Do you check your daily weight at home? No Are you having any other symptoms that your PCP needs to know about? No Symptoms: none Symptom Escalation SHIRLEY Education Ordered -: No The patient required an escalation for symptom(s)? No Medications Do you have any questions about taking your medication or which medications you should be on? No Do you need any medication refills at this time, including any of the medications you might take only when needed? No Social We would like to make sure you have what you need so that your basic needs are met- including your personal safety, food, housing, transportation and medications? Would you like to speak with a social work count team member to help give you support for any of these needs? No It can be normal to feel anxious or down during a time like this. Would you like to talk to a mental health professional about how you have been feeling? No Closing Thank you for taking the time to talk with me today. We want to work with you to ensure that we are keeping your medical condition(s) well-controlled and to keep you healthy and out of the doctor's office or hospital. It?s also not too late for me to sign you up for automated weekly questionnaires through [employer]. This is an easy way for us to stay connected each week. Are you interested? No, I understand. We can always sign you up in the future if you change your mind. Just as a reminder, will continue to call you every other week to check in on your health. Our calls should take 10-15 minutes or less. Remember, if you have concerns in between our calls, please call your PCP's office right away. Thank you. Enter next patient outreach date for two weeks on the same day of the week as today in the Track Pt Outreach and End outreach. Allergies As of Date: 10/21/2022 Noted Allergy Reaction DOXYCYCLINE 04/15/2017 12 - Shortness of Breath MEVACOR (LOVASTATIN) 06/07/2005 Comments: muscle cramps prevacor [Other] 06/07/2005 Comments: muscle cramps Date Reviewed: 10/07/2022 Reviewed by: Tim Andrews DO - Fully Assessed Reason for Visit: community monitoring outreach [Other] Cmt: [facility]-Telephonic outreach Prescriptions as of 10/26/2022 - latanoprost (XALATAN) 0.005 % ophthalmic solution 1 Drop daily at bedtime. - amLODIPine (NORVASC) 5 mg tablet Take 1 tablet by mouth twice daily. - furosemide (LASIX) 20 mg tablet Take 1 tablet by mouth once daily. - metoprolol succinate ER (TOPROL XL) 50 mg 24 hr tablet Take 1 tablet by mouth once daily. - Quinapril HCl 40 mg tablet Take 0.5 tablets by mouth once daily. - dapagliflozin (FARXIGA) 10 mg tablet Take 1 tablet by mouth once daily. Take one daily in the morning - dulaglutide (TRULICITY) 0.75 mg/0.5 mL pen injector Inject 0.75 mg subcutaneously one time a week. Inject dose once per week. Discard Pen After - atorvastatin (LIPITOR) 40 mg tablet Take 1 tablet by mouth once daily. - nitroglycerin sublingual (NITROSTAT) 0.4 mg SL tablet Dissolve 1 tablet under the tongue as needed. DISSOLVE ON TONGUE FOR CHEST PAIN. IF NO PAIN RELIEF, CALL 911 - TACROLIMUS TOPICAL Apply to affected area. - aspirin(ECOTRIN LOW STRENGTH 81 MG TAB) Take one(1) tablet daily. - COMPOUNDED PRESCRIPTION alphagen eye drops 1 drop each eye twice daily - COSOPT 2 %-0.5 % EYE DROPS 1 drop each eye two times daily - THERAPEUTIC MULTIVI (more content not included)...[facility] 10-21-2022 History of Present illness Narrative* Jose De Jesus Paige RN - 10/21/2022 1:04 PM EST [facility] TELEPHONIC OUTREACH Provider Action/FYI: CHF Contact made with patient: No - Left message Hello my name is Jose De Jesus Paige RN your Throat Cutter from the [facility] I am calling today for your bi-weekly check in. I am sorry I missed your call. I will reach out to you again tomorrow. (if the third call I will reach out to you again next week) Enter next patient outreach date forthe following using the Track Pt Outreach. End outreach. [facility] NoteHNO ID: [id number] Author: Tim Andrews, DO Service: ? Author Type: Physician Type: Progress Notes Filed: 10/07/2022 10:26 AM Note Text: [facility] OUTPATIENT VISIT DATE October 07, 2022 PRIMARY CARE PHYSICIAN: Fco Bradshaw [address] [place] [address] HISTORY OF PRESENT ILLNESS: Mr. Amaro is a 82 year old male. The patient turns fossa history of coronary disease status post stenting to his RCA and left circumflex as well as chronic diastolic heart failure and previous mitral valve repair. Additional history includes hypertension, hyperlipidemia and diabetes. Currently denies chest comfort, dyspnea, orthopnea, paroxysmal nocturnal dyspnea, palpitations, near-syncope or syncope. He denies GI/ bleeding or melena. PLAN AND RECOMMENDATIONS: The patient remained stable without symptoms of suggest angina or cardiac decompensation. Heart rate, blood pressure and recent cluster profile are favorable. We have therefore made no additions or changes. Dietary and lifestyle modification was reemphasized to facilitate risk factor reduction and heart failure prevention. We will look forward to reevaluating him towards the end of the summer. Vitals: BP 104/54 (BP Site: Right Arm, BP Position: Sitting, BP Cuff Size: Regular Adult) Pulse 78 Wt 68.9 kg (152 lb) SpO2 96% BMI 27.80 kg/m? Physical Exam Vitals reviewed. Constitutional: General: He is not in acute distress. Appearance: He is well-developed. He is not diaphoretic. HENT: Head: Normocephalic and atraumatic. Right Ear: External ear normal. Left Ear: External ear normal. Nose: Nose normal. Eyes: General: No scleral icterus. Right eye: No discharge. Left eye: No discharge. Pupils: Pupils are equal, round, and reactive to light. Neck: Thyroid: No thyromegaly. Vascular: No JVD. Cardiovascular: Rate and Rhythm: Normal rate and regular rhythm. Heart sounds: No murmur heard. No friction rub. No gallop. Pulmonary: Effort: Pulmonary effort is normal. No respiratory distress. Breath sounds: Normal breath sounds. No wheezing or rales. Abdominal: General: Bowel sounds are normal. Palpations: Abdomen is soft. Musculoskeletal: General: Normal range of motion. Cervical back: Neck supple. Skin: General: Skin is warm and dry. Coloration: Skin is not pale. Neurological: Mental Status: He is alert and oriented to person, place, and time. Cranial Nerves: No cranial nerve deficit. Psychiatric: Mood and Affect: Mood is not anxious or depressed. Behavior: Behavior normal. Thought Content: Thought content normal. Judgment: Judgment normal. Review of Systems Constitutional: Negative for activity change, appetite change, fatigue and unexpected weight change. HENT: Negative for ear pain and trouble swallowing. Eyes: Negative for pain and visual disturbance. Respiratory: Negative for chest tightness and shortness of breath. Cardiovascular: Negative for chest pain, palpitations and leg swelling. Gastrointestinal: Negative for abdominal pain and blood in stool. Endocrine: Negative for cold intolerance and heat intolerance. Genitourinary: Negative for dysuria, hematuria and scrotal swelling. Musculoskeletal: Positive for arthralgias. Negative for myalgias. Skin: Negative for pallor and rash. Allergic/Immunologic: Negative for immunocompromised state. Neurological: Negative for dizziness, syncope and light-headedness. Hematological: Negative for adenopathy. Does not bruise/bleed easily. Psychiatric/Behavioral: Negative for sleep disturbance. The patient is not nervous/anxious. PAST MEDICAL HISTORY Diagnosis Date Ankylosing spondylitis (HCC) CAD (coronary artery disease) Stents 1999 Essential hypertension, benign Glaucoma Mitral valve disorders(424.0) Mitral valve replaced 1995 Other and unspecified hyperlipidemia Type II or unspecified type diabetes mellitus without mention of complication, not stated as uncontrolled PAST SURGICAL HISTORY Procedure Laterality Date ARTHRP ACETBLR/PROX FEM PROSTC AGRFT/ALGRFT Left 08/03/2016 Dr. Mora CARPAL TUNNEL 09/19/2013 Right wrist- Dr. Guerra COLONOSCOPY FLX DX W/COLLJ SPEC WHEN PFRMD 10/27/2012 Colonoscopy HIP SURGERY HX Right 07/07/2021 Dr. Mora-anterior total hip arthroplasty PALATE/UVULA SURGERY UNLISTED Somnoplasty PERC TRANSL COR ANGIO 09/19/1999 Percutaneous Transluminal Coronary Angio Status REPLACEMENT MITRAL VALVE W/CARDIOPULMONARY BYP 09/19/1995 Mitral valve replacement TONSILLECTOMY PRIMARY/SECONDARY Tonsillectomy XCAPSL CTRC RMVL INSJ IO LENS PROSTH W/O ECP Social History Tobacco Use Smoking status: Former Packs/day: 1.00 Types: Cigarettes Quit date: 03/19/1987 Years since quittin.5 Smokeless tobacco: Never Vaping Use Vaping Use: Never used S (more content not included)...[facility]01-19-[facility]23 History of Present illness Narrative* Tim Andrews, - 10/07/2022 10:12 AM EST Images from the original note were not included. [facility] OUTPATIENT VISIT DATE October 07, 2022 PRIMARY CARE PHYSICIAN: Fco Bradshaw [address] [place] [address] HISTORY OF PRESENT ILLNESS: Mr. Amaro is a 82 year old male. The patient turns fossa history of coronary disease status post stenting to his RCA and left circumflex as well as chronic diastolic heart failure and previous mitral valve repair. Additional history includes hypertension, hyperlipidemia and diabetes. Currently denies chest comfort, dyspnea, orthopnea, paroxysmal nocturnal dyspnea, palpitations, near- syncope or syncope. He denies GI/ bleeding or melena. PLAN AND RECOMMENDATIONS: The patient remained stable without symptoms of suggest angina or cardiac decompensation. Heart rate, blood pressure and recent cluster profile are favorable. We have therefore made no additions or changes. Dietary and lifestyle modification was reemphasized to facilitate risk factor reduction and heart failure prevention. We will look forward to reevaluating him towards the end of the summer. Vitals: BP 104/54 (BP Site: Right Arm, BP Position: Sitting, BP Cuff Size: Regular Adult) Pulse 78 Wt 68.9 kg (152 lb) SpO2 96% BMI 27.80 kg/m Physical Exam Vitals reviewed. Constitutional: General: He is not in acute distress. Appearance: He is well-developed. He is not diaphoretic. HENT: Head: Normocephalic and atraumatic. Right Ear: External ear normal. Left Ear: External ear normal. Nose: Nose normal. Eyes: General: No scleral icterus. Right eye: No discharge. Left eye: No discharge. Pupils: Pupils are equal, round, and reactive to light. Neck: Thyroid: No thyromegaly. Vascular: No JVD. Cardiovascular: Rate and Rhythm: Normal rate and regular rhythm. Heart sounds: No murmur heard. No friction rub. No gallop. Pulmonary: Effort: Pulmonary effort is normal. No respiratory distress. Breath sounds: Normal breath sounds. No wheezing or rales. Abdominal: General: Bowel sounds are normal. Palpations: Abdomen is soft. Musculoskeletal: General: Normal range of motion. Cervical back: Neck supple. Skin: General: Skin is warm and dry. Coloration: Skin is not pale. Neurological: Mental Status: He is alert and oriented to person, place, and time. Cranial Nerves: No cranial nerve deficit. Psychiatric: Mood and Affect: Mood is not anxious or depressed. Behavior: Behavior normal. Thought Content: Thought content normal. Judgment: Judgment normal. Review of Systems Constitutional: Negative for activity change, appetite change, fatigue and unexpected weight change. HENT: Negative for ear pain and trouble swallowing. Eyes: Negative for pain and visual disturbance. Respiratory: Negative for chest tightness and shortness of breath. Cardiovascular: Negative for chest pain, palpitations and leg swelling. Gastrointestinal: Negative for abdominal pain and blood in stool. Endocrine: Negative for cold intolerance and heat intolerance. Genitourinary: Negative for dysuria, hematuria and scrotal swelling. Musculoskeletal: Positive for arthralgias. Negative for myalgias. Skin: Negative for pallor and rash. Allergic/Immunologic: Negative for immunocompromised state. Neurological: Negative for dizziness, syncope and light-headedness. Hematological: Negative for adenopathy. Does not bruise/bleed easily. Psychiatric/Behavioral: Negative for sleep disturbance. The patient is not nervous/anxious. PAST MEDICAL HISTORY Diagnosis Date Ankylosing spondylitis (HCC) CAD (coronary artery disease) Stents 1999 Essential hypertension, benign Glaucoma Mitral valve disorders(424.0) Mitral valve replaced 1995 Other and unspecified hyperlipidemia Type II or unspecified type diabetes mellitus without mention of complication, not stated as uncontrolled PAST SURGICAL HISTORY Procedure Laterality Date ARTHRP ACETBLR/PROX FEM PROSTC AGRFT/ALGRFT Left 08/03/2016 Dr. Mora CARPAL TUNNEL 09/19/2013 Right wrist- Dr. Guerra COLONOSCOPY FLX DX W/COLLJ SPEC WHEN PFRMD 10/27/2012 Colonoscopy HIP SURGERY HX Right 07/07/2021 Dr. Mora-anterior total hip arthroplasty PALATE/UVULA SURGERY UNLISTED Somnoplasty PERC TRANSL COR ANGIO 09/19/1999 Percutaneous Transluminal Coronary Angio Status REPLACEMENT MITRAL VALVE W/CARDIOPULMONARY BYP 09/19/1995 Mitral valve replacement TONSILLECTOMY PRIMARY/SECONDARY <AGE 12 Tonsillectomy XCAPSL CTRC RMVL INSJ IO LENS PROSTH W/O ECP Social History Tobacco Use Smoking status: Former Packs/day: 1.00 Types: Cigarettes Quit date: 03/19/1987 Years since quittin.5 Smokeless tobacco: Never Vaping Use Vaping Use: Never used Substance Use Topics Alcohol use: Yes Comment: occasionally Drug use: No FAMILY HISTORY Problem Relation Age of Onset other (alzheimers) Mother Ischemic Heart Disease Father Heart Brother None Sister ALLERGIES Allergen Reactions Doxycycline Shortness of Breath Mevacor [Lovastatin] muscle cramps Prevacor [Other] muscle cramps CURRENT MEDICATIONS: latanoprost (XALATAN) 0.005 % ophthalmic solution^1 Drop daily at bedtime.^Disp: ^Rfl: amLODIPine (NORVASC) 5 mg tablet^Take 1 tablet by mouth twice daily.^Disp: 180 tablet^Rfl: 3 furosemide (LASIX) 20 mg tablet^Take 1 tablet by mouth once daily.^Disp: 90 tablet^Rfl: 3 metoprolol succinate ER (TOPROL XL) 50 mg 24 hr tablet^Take 1 tablet by mouth once daily.^Disp: 90 tablet^Rfl: 3 Quinapril HCl 40 mg tablet^Take 0.5 tablets by mouth once daily.^Disp: 90 tablet^Rfl: 1 dapagliflozin (FARXIGA) 10 mg tablet^Take 1 tablet by mouth once daily. Take one daily in the morning^Disp: 90 tablet^Rfl: 3 dulaglutide (TRULICITY) 0.75 mg/0.5 mL pen injector^Inject 0.75 mg subcutaneously one time a week. Inject dose once per week. Discard Pen After^Disp: 12 Each^Rfl: 3 atorvastatin (LIPITOR) 40 mg tablet^Take 1 tablet by mouth once daily.^Disp: 90 tablet^Rfl: 3 nitroglycerin sublingual (NITROSTAT) 0.4 mg SL tablet^Dissolve 1 tablet under the tongue as needed.DISSOLVE ON TONGUE FOR CHEST PAIN. IF NO PAIN RELIEF, CALL 911^Disp: 25 tablet^Rfl: 6 TACROLIMUS TOPICAL^Apply to affected area.^Disp: ^Rfl: aspirin(ECOTRIN LOW STRENGTH 81 MG TAB)^Take one(1) tablet daily.^Disp: ^Rfl: 0 COMPOUNDED PRESCRIPTION^alphagen eye drops 1 drop each eye twice daily^Disp: ^Rfl: 0 COSOPT 2 %-0.5 % EYE DROPS^1 drop each eye two times daily^Disp: ^Rfl: 0 THERAPEUTIC MULTIVITAMIN ORAL TAB^Take one(1) tablet daily.^Disp: ^Rfl: 0 Tim Andrews DO, FACC, FACOI Clinical and Preventive Cardiology Department of Medicine and Division of Cardiology, [facility] Licensed Psychologist Directorcoin machine servicer repairer [facility] Licensed Psychologist Director of Congestive Heart Failure Clinic [facility] Cardiology Office Licensed Psychologist Director [facility] Staff Development Vice President, and Torri Reyez Department of Cardiovascular Medicine/Heart and Vascular [place], [facility] Clinical Data Systems Analyst Profressor of Medicine, [facility] Please note: This note has been produced using speech recognition software and may contain errors related to that system including long, punctuation, spelling, words, gender and phrases that may be inappropriate. documented in this encounter[facility]22 NoteHNO ID: [id number] Author: Fco Bradshaw MD Service: ? Author Type: Physician Type: Progress Notes Filed: 09/17/2022 5:33 PM Note Text: Chief Complaint Patient presents with: Follow Up: 6 month- interested in flu shot but reports having a cold for about 2 weeks. HPI Killian Amaro is a 82 year old male who presents here today for a 6 month follow up. Pt here today for his routine 6 month follow up. DM - Checking sugars once daily. Pt denies any low blood sugars or neuropathy symptoms. Does see Graduate Teaching Associate, Dr. Seaman. Has routine eye exams. On current regimen of Metformin 500 mg 2 tabs daily, Farxiga 10 mg daily and Trulicity 0.75 mg once weekly. HTN - Checks BP at home daily. Denies any chest pain, sob or dizziness. On current regimen of Quinapril 40 mg daily, Norvasc 5 mg daily and Toprol 50 mg daily. CHF/Edema - B/L legs at this time doing well. Denies any sob. On current regimen of Lasix 20 mg bid. CKD - Monitored through routine labs. Was slightly elevated on previous labs, but stable. Lipid/CAD - Tries to watch diet and does a little bit of exercise. On current regimen of Lipitor 40 mg once daily. Follows with Dr. Andrews. Past medical history, appointments, medications, allergies reviewed. Previous Medical History PAST MEDICAL HISTORY Diagnosis Date Ankylosing spondylitis (HCC) CAD (coronary artery disease) Stents 1999 Essential hypertension, benign Glaucoma Mitral valve disorders(424.0) Mitral valve replaced 1995 Other and unspecified hyperlipidemia Type II or unspecified type diabetes mellitus without mention of complication, not stated as uncontrolled Previous Surgical History PAST SURGICAL HISTORY Procedure Laterality Date ARTHRP ACETBLR/PROX FEM PROSTC AGRFT/ALGRFT Left 08/03/2016 Dr. Mora CARPAL TUNNEL 09/19/2013 Right wrist- Dr. Guerra COLONOSCOPY FLX DX W/COLLJ SPEC WHEN PFRMD 10/27/2012 Colonoscopy HIP SURGERY HX Right 07/07/2021 Dr. Mora-anterior total hip arthroplasty PALATE/UVULA SURGERY UNLISTED Somnoplasty PERC TRANSL COR ANGIO 09/19/1999 Percutaneous Transluminal Coronary Angio Status REPLACEMENT MITRAL VALVE W/CARDIOPULMONARY BYP 09/19/1995 Mitral valve replacement TONSILLECTOMY PRIMARY/SECONDARY Tonsillectomy XCAPSL CTRC RMVL INSJ IO LENS PROSTH W/O ECP Family History FAMILY HISTORY Problem Relation Age of Onset other (alzheimers) Mother Ischemic Heart Disease Father Heart Brother None Sister Patient Allergies ALLERGIES Allergen Reactions Doxycycline Shortness of Breath Mevacor [Lovastatin] muscle cramps Prevacor [Other] muscle cramps Current Medications Current Outpatient Medications on File Prior to Visit Medication Sig metFORMIN ER (GLUCOPHAGE XR) 500 mg 24 hr tablet Take 2 tablets by mouth daily with breakfast. amLODIPine (NORVASC) 5 mg tablet Take 1 tablet by mouth twice daily. furosemide (LASIX) 20 mg tablet Take 1 tablet by mouth once daily. metoprolol succinate ER (TOPROL XL) 50 mg 24 hr tablet Take 1 tablet by mouth once daily. Quinapril HCl 40 mg tablet Take 0.5 tablets by mouth once daily. dapagliflozin (FARXIGA) 10 mg tablet Take 1 tablet by mouth once daily. Take one daily in the morning dulaglutide (TRULICITY) 0.75 mg/0.5 mL pen injector Inject 0.75 mg subcutaneously one time a week. Inject dose once per week. Discard Pen After atorvastatin (LIPITOR) 40 mg tablet Take 1 tablet by mouth once daily. nitroglycerin sublingual (NITROSTAT) 0.4 mg SL tablet Dissolve 1 tablet under the tongue as needed. DISSOLVE ON TONGUE FOR CHEST PAIN. IF NO PAIN RELIEF, CALL 911 TACROLIMUS TOPICAL Apply to affected area. aspirin(ECOTRIN LOW STRENGTH 81 MG TAB) Take one(1) tablet daily. COMPOUNDED PRESCRIPTION alphagen eye drops 1 drop each eye twice daily COSOPT 2 %-0.5 % EYE DROPS 1 drop each eye two times daily THERAPEUTIC MULTIVITAMIN ORAL TAB Take one(1) tablet daily. Current Facility-Administered Medications on File Prior to Visit Medication perflutren lipid microspheres 1.3 mL in NaCl (PF) 0.9% 10 mL injection (DEFINITY) sodium chloride 0.9 % (flush) 10 mL (BD POSIFLUSH) Social History Social History Tobacco Use Smoking status: Former Packs/day: 1.00 Types: Cigarettes Quit date: 03/19/1987 Years since quittin.5 Smokeless tobacco: Never Vaping Use Vaping Use: Never used Substance Use Topics Alcohol use: Yes Comment: occasionally Drug use: No EXAM: BP 122/72 Pulse 79 Resp 16 Wt 69 kg (152 lb 3.2 oz) SpO2 96% BMI 27.84 kg/m? General Appearance: Well appearing, alert, in no acute distress, well-hydrated, well nourished.. Lungs: Lungs clear to auscultation. No wheezing, rhonchi, rales.. Heart: RRR without murmur, gallop, or rubs. No ectopy. Health Maintenance List SHINGRIX VACCINE(1 of 2) Never done DTAP,TDAP,TD(2 - Td or Tdap) due on 09/07/2020 ADVANCE DIRECTIVE DISCUSSION Never done DEPRESSION ASSESSMENT N (more content not included)...[facility] 09-17-2022 History of Present illness Narrative* Fco Bradshaw MD - 09/17/2022 4:20 PM EST Chief Complaint Patient presents with: Follow Up: 6 month- interested in flu shot but reports having a cold for about 2 weeks. HPI Killian Amaro is a 82 year old male who presents here today for a 6 month follow up. Pt here today for his routine 6 month follow up. DM - Checking sugars once daily. Pt denies any low blood sugars or neuropathy symptoms. Does see Graduate Teaching Associate, Dr. Seaman. Has routine eye exams. On current regimen of Metformin 500 mg 2 tabs daily, Farxiga 10 mg daily and Trulicity 0.75 mg once weekly. HTN - Checks BP at home daily. Denies any chest pain, sob or dizziness. On current regimen of Quinapril 40 mg daily, Norvasc 5 mg daily and Toprol 50 mg daily. CHF/Edema - B/L legs at this time doing well. Denies any sob. On current regimen of Lasix 20 mg bid. CKD - Monitored through routine labs. Was slightly elevated on previous labs, but stable. Lipid/CAD - Tries to watch diet and does a little bit of exercise. On current regimen of Lipitor 40mg once daily. Follows with Dr. Andrews. Past medical history, appointments, medications, allergies reviewed. Previous Medical History PAST MEDICAL HISTORY Diagnosis Date Ankylosing spondylitis (HCC) CAD (coronary artery disease) Stents 1999 Essential hypertension, benign Glaucoma Mitral valve disorders(424.0) Mitral valve replaced 1995 Other and unspecified hyperlipidemia Type II or unspecified type diabetes mellitus without mention of complication, not stated as uncontrolled Previous Surgical History PAST SURGICAL HISTORY Procedure Laterality Date ARTHRP ACETBLR/PROX FEM PROSTC AGRFT/ALGRFT Left 08/03/2016 Dr. Mora CARPAL TUNNEL 09/19/2013 Right wrist- Dr. Guerra COLONOSCOPY FLX DX W/COLLJ SPEC WHEN PFRMD 10/27/2012 Colonoscopy HIP SURGERY HX Right 07/07/2021 Dr. Mora-anterior total hip arthroplasty PALATE/UVULA SURGERY UNLISTED Somnoplasty PERC TRANSL COR ANGIO 09/19/1999 Percutaneous Transluminal Coronary Angio Status REPLACEMENT MITRAL VALVE W/CARDIOPULMONARY BYP 09/19/1995 Mitral valve replacement TONSILLECTOMY PRIMARY/SECONDARY <AGE 12 Tonsillectomy XCAPSL CTRC RMVL INSJ IO LENS PROSTH W/O ECP Family History FAMILY HISTORY Problem Relation Age of Onset other (alzheimers) Mother Ischemic Heart Disease Father Heart Brother None Sister Patient Allergies ALLERGIES Allergen Reactions Doxycycline Shortness of Breath Mevacor [Lovastatin] muscle cramps Prevacor [Other] muscle cramps Current Medications Current Outpatient Medications on File Prior to Visit Medication Sig metFORMIN ER (GLUCOPHAGE XR) 500 mg 24 hr tablet Take 2 tablets by mouth daily with breakfast. amLODIPine (NORVASC) 5 mg tablet Take 1 tablet by mouth twice daily. furosemide (LASIX) 20 mg tablet Take 1 tablet by mouth once daily. metoprolol succinate ER (TOPROL XL) 50 mg 24 hr tablet Take 1 tablet by mouth once daily. Quinapril HCl 40 mg tablet Take 0.5 tablets by mouth once daily. dapagliflozin (FARXIGA) 10 mg tablet Take 1 tablet by mouth once daily. Take one daily in the morning dulaglutide (TRULICITY) 0.75 mg/0.5 mL pen injector Inject 0.75 mg subcutaneously one time a week. Inject dose once per week. Discard Pen After atorvastatin (LIPITOR) 40 mg tablet Take 1 tablet by mouth once daily. nitroglycerin sublingual (NITROSTAT) 0.4 mg SL tablet Dissolve 1 tablet under the tongue as needed.DISSOLVE ON TONGUE FOR CHEST PAIN. IF NO PAIN RELIEF, CALL 911 TACROLIMUS TOPICAL Apply to affected area. aspirin(ECOTRIN LOW STRENGTH 81 MG TAB) Take one(1) tablet daily. COMPOUNDED PRESCRIPTION alphagen eye drops 1 drop each eye twice daily COSOPT 2 %-0.5 % EYE DROPS 1 drop each eye two times daily THERAPEUTIC MULTIVITAMIN ORAL TAB Take one(1) tablet daily. Current Facility-Administered Medications on File Prior to Visit Medication perflutren lipid microspheres 1.3 mL in NaCl (PF) 0.9% 10 mL injection (DEFINITY) sodium chloride 0.9 % (flush) 10 mL (BD POSIFLUSH) Social History Social History Tobacco Use Smoking status: Former Packs/day: 1.00 Types: Cigarettes Quit date: 03/19/1987 Years since quittin.5 Smokeless tobacco: Never Vaping Use Vaping Use: Never used Substance Use Topics Alcohol use: Yes Comment: occasionally Drug use: No EXAM: BP 122/72 Pulse 79 Resp 16 Wt 69 kg (152 lb 3.2 oz) SpO2 96% BMI 27.84 kg/m General Appearance: Well appearing, alert, in no acute distress, well-hydrated, well nourished.. Lungs: Lungs clear to auscultation. No wheezing, rhonchi, rales.. Heart: RRR without murmur, gallop, or rubs. No ectopy. Health Maintenance List SHINGRIX VACCINE(1 of 2) Never done DTAP,TDAP,TD(2 - Td or Tdap) due on 09/07/2020 ADVANCE DIRECTIVE DISCUSSION Never done DEPRESSION ASSESSMENT Never done COVID-19 VACCINE(4 - Booster for Moderna series) due on 11/09/2021 URINE ALBUMIN:CREATININE RATIO due on 05/18/2022 INFLUENZA(1) due on 05/20/2022 DIABETIC FOOT EXAM due on 06/15/2022 HBA1C due on 03/07/2023 DILATED RETINAL EXAM due on 05/13/2023 LDL CHOLESTEROL due on 09/06/2023 PNEUMOCOCCAL: 65+ Completed Data reviewed Appointment on 09/06/2022 Component Date Value Protein, Total 09/06/2022 6.6 Albumin 09/06/2022 4.2 Calcium, Total 09/06/2022 10.0 Bilirubin, Total 09/06/2022 0.9 Alkaline Phosphatase 09/06/2022 77 AST 09/06/2022 16 ALT 09/06/2022 9 (A) Glucose 09/06/2022 105 (A) BUN 09/06/2022 28 (A) Creatinine 09/06/2022 1.65 (A) Sodium 09/06/2022 140 Potassium 09/06/2022 4.6 Chloride 09/06/2022 105 CO2 09/06/2022 22 Anion Gap 09/06/2022 13 Estimated Glomerular Paul* 09/06/2022 41 (A) Cholesterol, Total 09/06/2022 146 Triglyceride 09/06/2022 148 HDL Cholesterol 09/06/2022 38 (A) Non HDL Cholesterol 09/06/2022 108 Fasting Time 09/06/2022 14 VLDL Cholesterol 09/06/2022 30 (A) TC:HDL Ratio 09/06/2022 3.84 LDL Cholesterol 09/06/2022 78 LDL:HDL Ratio 09/06/2022 2.05 Hemoglobin A1C 09/06/2022 6.2 (A) Estimated Average Glucose 09/06/2022 131 ASSESSMENT/PLAN: 1. Type 2 diabetes mellitus without complication, without long-term current use of insulin (HCC) - ICD9: 250.00, ICD10: E11.9 (primary diagnosis) Controlled. - Discontinue metformin (Glucophage), given worsening renal function - COMP METABOLIC PANEL - LIPID PANEL BASIC - HGB A1C 2. Ankylosing spondylitis, unspecified site of spine (HCC) - ICD9: 720.0, ICD10: M45.9 3. Chronic kidney disease, stage 3a (HCC) - ICD9: 585.3, ICD10: N18.31 - eGFR: Worsening - Medications reviewed and renally adjusted - CBC 4. Need for influenza vaccination - ICD9: V04.81, ICD10: Z23 - INFLUENZA SEASONAL QUADRIVALENT HIGH DOSE AGE 65+ 5. Mixed hyperlipidemia - ICD9: 272.2, ICD10: E78.2 - good control - Continue current medication. - COMP METABOLIC PANEL - LIPID PANEL BASIC 6. Chronic diastolic CHF (congestive heart failure) (HCC) - ICD9: 428.32, 428.0, ICD10: I50.32 Continue current medications. 7. Essential hypertension - ICD9: 401.9, ICD10: I10 - good control - Continue current medication(s) - Recommended regular aerobic exercise. - Recommend home blood pressure monitoring, to bring results in on next visit - Goal of BP <140/90 - CBC Follow up in 6 months Medical Decision Making: Problems: Moderate: 1+ chronic illnesses with change and 2+ stable chronic illnesses Data: Unique test result(s) reviewed: 3+ Unique test(s) ordered: 3+ Risk: Moderate: Drug management Medical Decision Making Level: 4 - Moderate Fco Bradshaw MD documented in this encounterSelect [facility] NotePatient Outreach ([facility]) KILLIAN AMARO ([id number]) 1940 M Date Time Provider Department 09/17/22 JOSE DE JESUS PAIGE During your visit today, we recorded the following information about you: Jose De Jesus Paige RN 09/17/2022 3:12 PM Signed [facility] TELEPHONIC OUTREACH Provider Action/FYI: CHF Reports getting over a cold. Feeling better. Has routine follow up appointment today with PCP at . Appreciate the call Contact made with patient: Yes Patient identified by name and . Discussed care with patient It?s nice talking to you again. As a reminder, this is our bi-weekly check-in where I will be asking you questions about your health. This will only take a few minutes of your time. Is this a good time? Yes Symptoms What Chronic Disease(s) does the patient have: CHF Do you check your blood pressures at home? No Do you have new or worse shortness of breath with activity? No Do you have new or worsening trouble breathing while lying flat? No Do you have new or worsening swelling of legs, feet or ankles? No Do you check your daily weight at home? No Are you having any other symptoms that your PCP needs to know about? No Symptoms: none Symptom Escalation SHIRLEY Education Ordered -: No The patient required an escalation for symptom(s)? No Medications Do you have any questions about taking your medication or which medications you should be on? No Do you need any medication refills at this time, including any of the medications you might take only when needed? No Social We would like to make sure you have what you need so that your basic needs are met- including your personal safety, food, housing and medications? Would you like to speak with a social work count team member to help give you support for any of these needs? No It can be normal to feel anxious or down during a time like this. Would you like to talk to a mental health professional about how you have been feeling? No Closing Thank you for taking the time to talk with me today. We want to work with you to ensure that we are keeping your medical condition(s) well-controlled and to keep you healthy and out of the doctor's office or hospital. It?s also not too late for me to sign you up for automated weekly questionnaires through [employer]. This is an easy way for us to stay connected each week. Are you interested? No, I understand. We can always sign you up in the future if you change your mind. Just as a reminder, will continue to call you every other week to check in on your health. Our calls should take 10-15 minutes or less. Remember, if you have concerns in between our calls, please call your PCP's office right away. Thank you. Enter next patient outreach date for two weeks on the same day of the week as today in the Track Pt Outreach and End outreach. Allergies As of Date: 09/17/2022 Noted Allergy Reaction DOXYCYCLINE 04/15/2017 12 - Shortness of Breath MEVACOR (LOVASTATIN) 06/07/2005 Comments: muscle cramps prevacor [Other] 06/07/2005 Comments: muscle cramps Date Reviewed: 07/13/2022 Reviewed by: Ally Zaragoza APRN.COMMERCIAL LEASING MANAGER - Fully Assessed Reason for Visit: community monitoring outreach [Other] Cmt: CDM-telephonic outreach Prescriptions as of 09/17/2022 - metFORMIN ER (GLUCOPHAGE XR) 500 mg 24 hr tablet Take 2 tablets by mouth daily with breakfast. - amLODIPine (NORVASC) 5 mg tablet Take 1 tablet by mouth twice daily. - furosemide (LASIX) 20 mg tablet Take 1 tablet by mouth once daily. - metoprolol succinate ER (TOPROL XL) 50 mg 24 hr tablet Take 1 tablet by mouth once daily. - Quinapril HCl 40 mg tablet Take 0.5 tablets by mouth once daily. - dapagliflozin (FARXIGA) 10 mg tablet Take 1 tablet by mouth once daily. Take one daily in the morning - dulaglutide (TRULICITY) 0.75 mg/0.5 mL pen injector Inject 0.75 mg subcutaneously one time a week. Inject dose once per week. Discard Pen After - atorvastatin (LIPITOR) 40 mg tablet Take 1 tablet by mouth once daily. - nitroglycerin sublingual (NITROSTAT) 0.4 mg SL tablet Dissolve 1 tablet under the tongue as needed. DISSOLVE ON TONGUE FOR CHEST PAIN. IF NO PAIN RELIEF, CALL 911 - TACROLIMUS TOPICAL Apply to affected area. - aspirin(ECOTRIN LOW STRENGTH 81 MG TAB) Take one(1) tablet daily. - COMPOUNDED PRESCRIPTION alphagen eye drops 1 drop each eye twice daily - COSOPT 2 %-0.5 % EYE DROPS 1 drop each eye two times daily - THERAPEUTIC MULTIVITAMIN ORAL TAB Take one(1) tablet daily. Facility-Administered Medications as of 09/17/2022 - perflutren lipid microspheres 1.3 mL in NaCl (PF) 0.9% 10 mL injection (DEFINITY) - sodium chloride 0.9 % (flush) 10 mL (BD POSIFLUSH) Problem List As Of Date 09/17/2022 Noted Resolved Coronary artery disease involving [place]*12/06/2005 PERCUT TRANSLUM CORON ANGIO STATUS [Z98.61] (more content not included)...[facility]12-30-2022 NoteHNO ID: [id number] Author: Jose De Jesus Cyrus, RN Service: ? Author Type: Registered Nurse Type: Progress Notes Filed: 09/17/2022 3:12 PM Note Text: [facility] TELEPHONIC OUTREACH Provider Action/FYI: CHF Reports getting over a cold. Feeling better. Has routine follow up appointment today with PCP at . Appreciate the call Contact made with patient: Yes Patient identified by name and . Discussed care with patient It?s nice talking to you again. As a reminder, this is our bi-weekly check-in where I will be asking you questions about your health. This will only take a few minutes of your time. Is this a good time? Yes Symptoms What Chronic Disease(s) does the patient have: CHF Do you check your blood pressures at home? No Do you have new or worse shortness of breath with activity? No Do you have new or worsening trouble breathing while lying flat? No Do you have new or worsening swelling of legs, feet or ankles? No Do you check your daily weight at home? No Are you having any other symptoms that your PCP needs to know about? No Symptoms: none Symptom Escalation SHIRLEY Education Ordered -: No The patient required an escalation for symptom(s)? No Medications Do you have any questions about taking your medication or which medications you should be on? No Do you need any medication refills at this time, including any of the medications you might take only when needed? No Social We would like to make sure you have what you need so that your basic needs are met- including your personal safety, food, housing and medications? Would you like to speak with a social work count team member to help give you support for any of these needs? No It can be normal to feel anxious or down during a time like this. Would you like to talk to a mental health professional about how you have been feeling? No Closing Thank you for taking the time to talk with me today. We want to work with you to ensure that we are keeping your medical condition(s) well-controlled and to keep you healthy and out of the doctor's office or hospital. It?s also not too late for me to sign you up for automated weekly questionnaires through [employer]. This is an easy way for us to stay connected each week. Are you interested? No, I understand. We can always sign you up in the future if you change your mind. Just as a reminder, will continue to call you every other week to check in on your health. Our calls should take 10-15 minutes or less. Remember, if you have concerns in between our calls, please call your PCP's office right away. Thank you. Enter next patient outreach date for two weeks on the same day of the week as today in the Track Pt Outreach and End outreach.[facility] 09-17-2022 History of Present illness Narrative* Jose De Jesus Paige RN - 09/17/2022 9:48 AM EST [facility] Provider Action/FYI: CHF Reports getting over a cold. Feeling better. Has routine follow up appointment today with PCP at . Appreciate the call Contact made with patient: Yes Patient identified by name and . Discussed care with patient It s nice talking to you again. As a reminder, this is our bi-weekly check-in where I will be asking you questions about your health. This will only take a few minutes of your time. Is this a good time? Yes Symptoms What Chronic Disease(s) does the patient have: CHF Do you check your blood pressures at home? No Do you have new or worse shortness of breath with activity? No Do you have new or worsening trouble breathing while lying flat? No Do you have new or worsening swelling of legs, feet or ankles? No Do you check your daily weight at home? No Are you having any other symptoms that your PCP needs to know about? No Symptoms: none Symptom Escalation SHIRLEY Education Ordered -: No The patient required an escalation for symptom(s)? No Medications Do you have any questions about taking your medication or which medications you should be on? No Do you need any medication refills at this time, including any of the medications you might take only when needed? No Social We would like to make sure you have what you need so that your basic needs are met- including your personal safety, food, housing and medications? Would you like to speak with a social work count team member to help give you support for any of these needs? No It can be normal to feel anxious or down during a time like this. Would you like to talk to a mental health professional about how you have been feeling? No Closing Thank you for taking the time to talk with me today. We want to work with you to ensure that we arekeeping your medical condition(s) well-controlled and to keep you healthy and out of the doctor's office or hospital. It s also not too late for me to sign you up for automated weekly questionnaires through [employer]. This is an easy way for us to stay connected each week. Are you interested? No, I understand. We can always sign you up in the future if you change your mind. Just as a reminder, will continue to call you every other week to check in on your health. Our calls should take 10-15 minutes or less. Remember, if you have concerns in between our calls, please call your PCP's office right away. Thank you. Enter next patient outreach date for two weeks on the same day of the week as today in the Track PtOutreach and End outreach. [facility] Miscellaneous Notes* Telephone Encounter - Denny Espinoza APRN.CNP - 08/27/2022 10:50 AM EST The following approved medication requests have been transmitted electronically. Requested Prescriptions Pending Prescriptions Disp Refills metFORMIN ER (GLUCOPHAGE XR) 500 mg 24 hr tablet 180 tablet 3 Sig: Take 2 tablets by mouth daily with breakfast. Denny Espinoza APRN.CNP * Telephone Encounter - Mariaelena Romero - 08/27/2022 10:30 AM EST Patient has been identified by name and date of : Yes Last office visit in this department: 03/11/2022 Labs-03/08/22 NOV-09/10/22 med filled 09/07/21 RX INSTRUCTIONS: Patient aware RX will be sent to pharmacy. No need to notify patient. Patient phones requesting refills as follows: Requested Prescriptions Pending Prescriptions Disp Refills metFORMIN ER (GLUCOPHAGE XR) 500 mg 24 hr tablet 180 tablet 3 Sig: Take 2 tablets by mouth daily with breakfast. Please review and advise. Mariaelena Romero documented in this encounter[facility]-29-[facility]22 NoteHNO ID: [id number] Author: Jose DeJ esus Paige RN Service: ? Author Type: Registered Nurse Type: Progress Notes Filed: 08/17/2022 4:23 PM Note Text: INSIGHT CDM TELEPHONIC OUTREACH Provider Action/FYI: CHF Doing well. No concerns Contact made with patient: Yes Patient identified by name and . Discussed care with patient It?s nice talking to you again. As a reminder, this is our bi-weekly check-in where I will be asking you questions about your health. This will only take a few minutes of your time. Is this a good time? Yes Symptoms What Chronic Disease(s) does the patient have: CHF Do you check your blood pressures at home? No Do you have new or worse shortness of breath with activity? No Do you have new or worsening trouble breathing while lying flat? No Do you have new or worsening swelling of legs, feet or ankles? No Do you check your daily weight at home? No Are you having any other symptoms that your PCP needs to know about? No Symptom Escalation The patient required an escalation for symptom(s)? No Medications Do you have any questions about taking your medication or which medications you should be on? No Do you need any medication refills at this time, including any of the medications you might take only when needed? No Social We would like to make sure you have what you need so that your basic needs are met- including your personal safety, food, housing and medications? Would you like to speak with a social work count team member to help give you support for any of these needs? No It can be normal to feel anxious or down during a time like this. Would you like to talk to a mental health professional about how you have been feeling? No Closing Thank you for taking the time to talk with me today. We want to work with you to ensure that we are keeping your medical condition(s) well-controlled and to keep you healthy and out of the doctor's office or hospital. It?s also not too late for me to sign you up for automated weekly questionnaires through [employer]. This is an easy way for us to stay connected each week. Are you interested? No, I understand. We can always sign you up in the future if you change your mind. Just as a reminder, will continue to call you every other week to check in on your health. Our calls should take 10-15 minutes or less. Remember, if you have concerns in between our calls, please call your PCP's office right away. Thank you. Enter next patient outreach date for two weeks on the same day of the week as today in the Track Pt Outreach and End outreach.[facility] 08-17-2022 History of Present illness Narrative* Jose De Jesus Paige RN - 08/17/2022 4:18 PM EST INSIGHT CDM TELEPHONIC OUTREACH Provider Action/FYI: CHF Doing well. No concerns Contact made with patient: Yes Patient identified by name and . Discussed care with patient It s nice talking to you again. As a reminder, this is our bi-weekly check-in where I will be asking you questions about your health. This will only take a few minutes of your time. Is this a good time? Yes Symptoms What Chronic Disease(s) does the patient have: CHF Do you check your blood pressures at home? No Do you have new or worse shortness of breath with activity? No Do you have new or worsening trouble breathing while lying flat? No Do you have new or worsening swelling of legs, feet or ankles? No Do you check your daily weight at home? No Are you having any other symptoms that your PCP needs to know about? No Symptom Escalation The patient required an escalation for symptom(s)? No Medications Do you have any questions about taking your medication or which medications you should be on? No Do you need any medication refills at this time, including any of the medications you might take only when needed? No Social We would like to make sure you have what you need so that your basic needs are met- including your personal safety, food, housing and medications? Would you like to speak with a social work count team member to help give you support for any of these needs? No It can be normal to feel anxious or down during a time like this. Would you like to talk to a mental health professional about how you have been feeling? No Closing Thank you for taking the time to talk with me today. We want to work with you to ensure that we arekeeping your medical condition(s) well-controlled and to keep you healthy and out of the doctor's office or hospital. It s also not too late for me to sign you up for automated weekly questionnaires through [employer]. This is an easy way for us to stay connected each week. Are you interested? No, I understand. We can always sign you up in the future if you change your mind. Just as a reminder, will continue to call you every other week to check in on your health. Our calls should take 10-15 minutes or less. Remember, if you have concerns in between our calls, please call your PCP's office right away. Thank you. Enter next patient outreach date for two weeks on the same day of the week as today in the Track PtOutreach and End outreach. * Jose De Jesus Paige RN - 08/17/2022 10:21 AM EST EDU [facility] TELEPHONIC OUTREACH Provider Action/FYI: Contact made with patient: No - Left message Amado my name is Jose De Jesus Paige RN your Throat Cutter from the [facility] I am calling today for your bi-weekly check in. I am sorry I missed your call. I will reach out to you again tomorrow. (if the third call I will reach out to you again next week) Enter next patient outreach date forthe using the Track Pt Outreach. End outreach. documented in this encounterSelect [facility]-29-[facility]22 NotePatient Outreach ([facility]) KILLIAN AMARO ([id number]) 1940 M Date Time Provider Department 08/17/22 JOSE DE JESUS PAIGE During your visit today, we recorded the following information about you: Jose De Jesus Paige RN 08/17/2022 4:23 PM Signed [employer]af [facility] TELEPHONIC OUTREACH Provider Action/FYI: Contact made with patient: No - Left message Amado my name is Jose De Jesus Paige RN your Throat Cutter [facility] the [facility] I am calling today for your bi-weekly check in. I am sorry I missed your call. I will reach out to you again tomorrow. (if the third call I will reach out to you again next week) Enter next patient outreach date for the following using the Track Pt Outreach. End outreach. Jose De Jesus Paige RN 08/17/2022 4:23 PM Signed INSIGHT [facility] TELEPHONIC OUTREACH Provider Action/FYI: CHF Doing well. No concerns Contact made with patient: Yes Patient identified by name and . Discussed care with patient It?s nice talking to you again. As a reminder, this is our bi-weekly check-in where I will be asking you questions about your health. This will only take a few minutes of your time. Is this a good time? Yes Symptoms What Chronic Disease(s) does the patient have: CHF Do you check your blood pressures at home? No Do you have new or worse shortness of breath with activity? No Do you have new or worsening trouble breathing while lying flat? No Do you have new or worsening swelling of legs, feet or ankles? No Do you check your daily weight at home? No Are you having any other symptoms that your PCP needs to know about? No Symptom Escalation The patient required an escalation for symptom(s)? No Medications Do you have any questions about taking your medication or which medications you should be on? No Do you need any medication refills at this time, including any of the medications you might take only when needed? No Social We would like to make sure you have what you need so that your basic needs are met- including your personal safety, food, housing and medications? Would you like to speak with a social work count team member to help give you support for any of these needs? No It can be normal to feel anxious or down during a time like this. Would you like to talk to a mental health professional about how you have been feeling? No Closing Thank you for taking the time to talk with me today. We want to work with you to ensure that we are keeping your medical condition(s) well-controlled and to keep you healthy and out of the doctor's office or hospital. It?s also not too late for me to sign you up for automated weekly questionnaires through MyChart. This is an easy way for us to stay connected each week. Are you interested? No, I understand. We can always sign you up in the future if you change your mind. Just as a reminder, will continue to call you every other week to check in on your health. Our calls should take 10-15 minutes or less. Remember, if you have concerns in between our calls, please call your PCP's office right away. Thank you. Enter next patient outreach date for two weeks on the same day of the week as today in the Track Pt Outreach and End outreach. Allergies As of Date: 08/17/2022 Noted Allergy Reaction DOXYCYCLINE 04/15/2017 12 - Shortness of Breath MEVACOR (LOVASTATIN) 06/07/2005 Comments: muscle cramps prevacor [Other] 06/07/2005 Comments: muscle cramps Date Reviewed: 07/13/2022 Reviewed by: Ally Zaragoza APRN.COMMERCIAL LEASING MANAGER - Fully Assessed Reason for Visit: community monitoring outreach [Other] Cmt: CDM telephonic outreach Prescriptions as of 08/17/2022 - amLODIPine (NORVASC) 5 mg tablet Take 1 tablet by mouth twice daily. - furosemide (LASIX) 20 mg tablet Take 1 tablet by mouth once daily. - metoprolol succinate ER (TOPROL XL) 50 mg 24 hr tablet Take 1 tablet by mouth once daily. - Quinapril HCl 40 mg tablet Take 0.5 tablets by mouth once daily. - dapagliflozin (FARXIGA) 10 mg tablet Take 1 tablet by mouth once daily. Take one daily in the morning - dulaglutide (TRULICITY) 0.75 mg/0.5 mL pen injector Inject 0.75 mg subcutaneously one time a week. Inject dose once per week. Discard Pen After - metFORMIN ER (GLUCOPHAGE XR) 500 mg 24 hr tablet Take 2 tablets by mouth daily with breakfast. - atorvastatin (LIPITOR) 40 mg tablet Take 1 tablet by mouth once daily. - nitroglycerin sublingual (NITROSTAT) 0.4 mg SL tablet Dissolve 1 tablet under the tongue as needed. DISSOLVE ON TONGUE FOR CHEST PAIN. IF NO PAIN RELIEF, CALL 911 - TACROLIMUS TOPICAL Apply to affected area. - aspirin(ECOTRIN LOW STRENGTH 81 MG TAB) Take one(1) tablet daily. - COMPOUNDED PRESCRIPTION alphagen eye drops 1 drop each eye twice daily - COSOPT 2 %-0.5 % EYE DROPS 1 drop each eye two times daily - THERAPEUTIC MULTIVITAMIN ORAL TAB Take (more content not included)...[facility]11-29-2022 NoteHNO ID: [id number] Author: Jose De Jesus Paige RN Service: ? Author Type: Registered Nurse Type: Progress Notes Filed: 08/17/2022 4:23 PM Note Text: INSIGHT CDM TELEPHONIC OUTREACH Provider Action/FYI: Contact made with patient: No - Left message Hello my name is Jose De Jesus Paige RN your Throat Cutter [facility] the [facility] I am calling today for your bi-weekly check in. I am sorry I missed your call. I will reach out to you again tomorrow. (if the third call I will reach out to you again next week) Enter next patient outreach date for the following business day using the Track Pt Outreach. End outreach.[facility]11-02-2022 Miscellaneous Notes* Telephone Encounter - Fco Bradshaw MD - 07/21/2022 3:44 PM EDT OK to refill as ordered Fco Bradshaw MD * Telephone Encounter - Mariaelena Romero - 07/21/2022 2:24 PM EDT Patient has been identified by name and date of : Yes Last office visit in this department: 03/11/2022 RX INSTRUCTIONS: Patient aware RX will be sent to pharmacy. No need to notify patient. Patient phones requesting refills as follows: Requested Prescriptions Pending Prescriptions Disp Refills amLODIPine (NORVASC) 5 mg tablet 180 tablet 3 Sig: Take 1 tablet by mouth twice daily. furosemide (LASIX) 20 mg tablet Sig: Take 1 tablet by mouth once daily. metoprolol succinate ER (TOPROL XL) 50 mg 24 hr tablet 90 tablet 3 Sig: Take 1 tablet by mouth once daily. Quinapril HCl 40 mg tablet 90 tablet 0 Sig: Take 0.5 tablets by mouth once daily. Please review and advise. Mariaelena Romero documented in this encounterSelect [facility]22 NoteHNO ID: [id number] Author: Ally Zaragoza APRN.COMMERCIAL LEASING MANAGER Service: ? Author Type: Nurse Practitioner Type: Progress Notes Filed: 07/13/2022 10:49 AM Note Text: Subjective The history is provided by the patient. No speech and language specialist was used. ELVIRA Amaro is a 82 year old male who presents today for CC of nasal drainage, congestion, body aches for 9 days and won't go away. He has used mucinex and robitussin without relief. He is a diabetic, and has not tested for covid. BP 120/82 Pulse 98 Temp 36.9 ?C (98.4 ?F) Resp 18 Wt 69.4 kg (153 lb) SpO2 94% BMI 27.98 kg/m? Social History Tobacco Use Smoking status: Former Packs/day: 1.00 Types: Cigarettes Quit date: 03/19/1987 Years since quittin.3 Smokeless tobacco: Never Vaping Use Vaping Use: Never used Substance Use Topics Alcohol use: Yes Comment: occasionally Drug use: No PAST MEDICAL HISTORY Diagnosis Date Ankylosing spondylitis (HCC) CAD (coronary artery disease) Stents 1999 Essential hypertension, benign Glaucoma Mitral valve disorders(424.0) Mitral valve replaced 1995 Other and unspecified hyperlipidemia Type II or unspecified type diabetes mellitus without mention of complication, not stated as uncontrolled I have confirmed and edited as necessary, the [facility] Review of Systems Constitutional: Negative for chills and fever. HENT: Positive for congestion and sinus pain. Negative for ear pain and sore throat. Respiratory: Positive for cough. Negative for sputum production, shortness of breath and wheezing. Cardiovascular: Negative for chest pain. Musculoskeletal: Negative for myalgias. Neurological: Positive for headaches (sinus). Objective Physical Exam Vitals and nursing note reviewed. Constitutional: Appearance: He is not toxic-appearing. HENT: Head: Normocephalic and atraumatic. Right Ear: Tympanic membrane, ear canal and external ear normal. Left Ear: Tympanic membrane, ear canal and external ear normal. Nose: Mucosal edema, congestion and rhinorrhea present. Right Sinus: No maxillary sinus tenderness or frontal sinus tenderness. Left Sinus: No maxillary sinus tenderness or frontal sinus tenderness. Mouth/Throat: Pharynx: Uvula midline. No oropharyngeal exudate or posterior oropharyngeal erythema. Tonsils: No tonsillar abscesses. Comments: Thin Clear Post Nasal Drainage Cardiovascular: Rate and Rhythm: Normal rate and regular rhythm. Heart sounds: Normal heart sounds. Pulmonary: Effort: Pulmonary effort is normal. Breath sounds: Normal breath sounds. No decreased breath sounds, wheezing, rhonchi or rales. Lymphadenopathy: Head: Right side of head: No submental, submandibular, tonsillar or preauricular adenopathy. Left side of head: No submental, submandibular, tonsillar or preauricular adenopathy. Cervical: No cervical adenopathy. Right cervical: No superficial cervical adenopathy. Left cervical: No superficial cervical adenopathy. Neurological: Mental Status: He is alert. Creatinine clearance 36, no dosage adjustment needed for augmentin ASSESSMENT/PLAN: 1. Acute non-recurrent sinusitis, unspecified location - ICD9: 461.9, ICD10: J01.90 - Will begin treatment with Aurgmentin 5 days - The patient should also be given nasal saline gtts and suction prn and flonase for the first 5-7 days of treatment. - Supportive care with plenty of fluids, rest, and analgesia prn. - Follow up in one week if symptoms persist or worsen. Diagnosis and treatment plan were discussed and questions were answered to the patient's satisfaction. Pt acknowledged understanding of concepts and follow up plan. Specific signs and symptoms that would indicate the need for higher level of care were discussed in detail warranting prompt ER evaluation. Ally Zaragoza APRN.CNPMount Carmel [facility] System10-25-2022 Instructions* Patient Instructions* Ally Zaragoza APRN.CNP - 07/13/2022 10:43 AM EDT -Increase fluid intake. --Rest as much as possible. - Nasal saline spray, chel pot, flonase Start antibiotics as prescribed starting in 2 days if no improvement. DO NOT stop taking it early, even if you are feeling better. -Monitor for signs of worsening infection: increased temperature, pain in face, ear pain or headaches or increase in nasal congestion/mucous that is not improving. -Educated patient on side effects of medication. documented in this encounterSelect [facility] History of Present illness Narrative* Ally Zaragoza APRN.COMMERCIAL LEASING MANAGER - 07/13/2022 10:25 AM EDT Subjective The history is provided by the patient. No speech and language specialist was used. ELVIRA Amaro is a 82 year old male who presents today for CC of nasal drainage, congestion,body aches for 9 days and won't go away. He has used mucinex and robitussin without relief. He is adiabetic, and has not tested for covid. BP 120/82 Pulse 98 Temp 36.9 C (98.4 F) Resp 18 Wt 69.4 kg (153 lb) SpO2 94% BMI 27.98 kg/m Social History Tobacco Use Smoking status: Former Packs/day: 1.00 Types: Cigarettes Quit date: 03/19/1987 Years since quittin.3 Smokeless tobacco: Never Vaping Use Vaping Use: Never used Substance Use Topics Alcohol use: Yes Comment: occasionally Drug use: No PAST MEDICAL HISTORY Diagnosis Date Ankylosing spondylitis (HCC) CAD (coronary artery disease) Stents 1999 Essential hypertension, benign Glaucoma Mitral valve disorders(424.0) Mitral valve replaced 1995 Other and unspecified hyperlipidemia Type II or unspecified type diabetes mellitus without mention of complication, not stated as uncontrolled I have confirmed and edited as necessary, the [facility] Review of Systems Constitutional: Negative for chills and fever. HENT: Positive for congestion and sinus pain. Negative for ear pain and sore throat. Respiratory: Positive for cough. Negative for sputum production, shortness of breath and wheezing. Cardiovascular: Negative for chest pain. Musculoskeletal: Negative for myalgias. Neurological: Positive for headaches (sinus). Objective Physical Exam Vitals and nursing note reviewed. Constitutional: Appearance: He is not toxic-appearing. HENT: Head: Normocephalic and atraumatic. Right Ear: Tympanic membrane, ear canal and external ear normal. Left Ear: Tympanic membrane, ear canal and external ear normal. Nose: Mucosal edema, congestion and rhinorrhea present. Right Sinus: No maxillary sinus tenderness or frontal sinus tenderness. Left Sinus: No maxillary sinus tenderness or frontal sinus tenderness. Mouth/Throat: Pharynx: Uvula midline. No oropharyngeal exudate or posterior oropharyngeal erythema. Tonsils: No tonsillar abscesses. Comments: Thin Clear Post Nasal Drainage Cardiovascular: Rate and Rhythm: Normal rate and regular rhythm. Heart sounds: Normal heart sounds. Pulmonary: Effort: Pulmonary effort is normal. Breath sounds: Normal breath sounds. No decreased breath sounds, wheezing, rhonchi or rales. Lymphadenopathy: Head: Right side of head: No submental, submandibular, tonsillar or preauricular adenopathy. Left side of head: No submental, submandibular, tonsillar or preauricular adenopathy. Cervical: No cervical adenopathy. Right cervical: No superficial cervical adenopathy. Left cervical: No superficial cervical adenopathy. Neurological: Mental Status: He is alert. Creatinine clearance 36, no dosage adjustment needed for augmentin ASSESSMENT/PLAN: 1. Acute non-recurrent sinusitis, unspecified location - ICD9: 461.9, ICD10: J01.90 - Will begin treatment with Aurgmentin 5 days - The patient should also be given nasal saline gtts and suction prn and flonase for the first 5-7 days of treatment. - Supportive care with plenty of fluids, rest, and analgesia prn. - Follow up in one week if symptoms persist or worsen. Diagnosis and treatment plan were discussed and questions were answered to the patient's satisfaction. Pt acknowledged understanding of concepts and follow up plan. Specific signs and symptoms that would indicate the need for higher level of care were discussed indetail warranting prompt ER evaluation. Ally Zaragoza APRN.KENIA documented in this encounterSelect [facility]10[facility]22 NotePatient Outreach ([facility]) KILLIAN AMARO ([id number]) 1940 M Date Time Provider Department 07/09/22 DANA BROWN During your visit today, we recorded the following information about you: Dana Brown RN 07/09/2022 10:49 AM Signed INSIGHT [facility] TELEPHONIC OUTREACH Provider Action/FYI: Contact made with patient: No - Left message Amado my name is Dana Brown RN your Throat Cutter [facility] the [facility] I am calling today for your bi-weekly check in. I am sorry I missed your call. I will reach out to you again in three weeks . (if the third call I will reach out to you again next week) Enter next patient outreach date for the following day using the Track Pt Outreach. End outreach. Allergies As of Date: 07/09/2022 Noted Allergy Reaction DOXYCYCLINE 04/15/2017 12 - Shortness of Breath MEVACOR (LOVASTATIN) 06/07/2005 Comments: muscle cramps prevacor [Other] 06/07/2005 Comments: muscle cramps Date Reviewed: 04/05/2022 Reviewed by: Nasreen Lopez MA - Fully Assessed Reason for Visit: Community Monitoring Outreach [Other] Cmt: [facility] Telephonic Prescriptions as of 07/09/2022 - dapagliflozin (FARXIGA) 10 mg tablet Take 1 tablet by mouth once daily. Take one daily in the morning - dulaglutide (TRULICITY) 0.75 mg/0.5 mL pen injector Inject 0.75 mg subcutaneously one time a week. Inject dose once per week. Discard Pen After - furosemide (LASIX) 20 mg tablet Take 1 tablet by mouth once daily. - Quinapril HCl 40 mg tablet Take 0.5 tablets by mouth once daily. - metoprolol succinate ER (TOPROL XL) 50 mg 24 hr tablet Take 1 tablet by mouth once daily. - amLODIPine (NORVASC) 5 mg tablet Take 1 tablet by mouth twice daily. - metFORMIN ER (GLUCOPHAGE XR) 500 mg 24 hr tablet Take 2 tablets by mouth daily with breakfast. - atorvastatin (LIPITOR) 40 mg tablet Take 1 tablet by mouth once daily. - nitroglycerin sublingual (NITROSTAT) 0.4 mg SL tablet Dissolve 1 tablet under the tongue as needed. DISSOLVE ON TONGUE FOR CHEST PAIN. IF NO PAIN RELIEF, CALL 911 - TACROLIMUS TOPICAL Apply to affected area. - aspirin(ECOTRIN LOW STRENGTH 81 MG TAB) Take one(1) tablet daily. - COMPOUNDED PRESCRIPTION alphagen eye drops 1 drop each eye twice daily - COSOPT 2 %-0.5 % EYE DROPS 1 drop each eye two times daily - THERAPEUTIC MULTIVITAMIN ORAL TAB Take one(1) tablet daily. Facility-Administered Medications as of 07/09/2022 - perflutren lipid microspheres 1.3 mL in NaCl (PF) 0.9% 10 mL injection (DEFINITY) - sodium chloride 0.9 % (flush) 10 mL (BD POSIFLUSH) Problem List As Of Date 07/09/2022 Noted Resolved Coronary artery disease involving [place]*12/06/2005 PERCUT TRANSLUM CORON ANGIO STATUS [Z98.61] 12/06/2005 Hypertensive heart disease with heart failure (*12/06/2005 04/05/2022 Hyperlipidemia [E78.5] 12/06/2005 LOC PRIM OSTEOARTH-HAND [M19.049] 12/06/2005 ANKYLOSING SPONDYLITIS [M45.9] 12/06/2005 MITRAL VALVE DISORDER [I05.9] 01/19/2006 PRIM PULM HYPERTENSION [I27.0] 01/19/2006 03/23/2006 Aortic valve disorders [I35.9] 06/09/2006 04/05/2022 Neoplasm of Uncertain Behavior of Skin [D48.5] 08/07/2008 03/06/2010 NEVUS BACK///BENIGN SHAN SKIN TRUNK [D23.5] 08/07/2008 03/06/2010 ACTINIC DAMAGE///CHR SOLAR SKIN DAMAGE NOS [L57*08/07/2008 03/06/2010 Other Seborrheic Keratosis [L82.1] 08/07/2008 03/06/2010 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5] 03/27/2010 05/19/2016 Actinic Damage///Sun-Damaged Skin [L57.8] 03/27/2010 05/19/2016 Solar Lentigo//Solar Lentigines [L81.4] 03/27/2010 05/19/2016 Seborrheic Keratosis [L82.1] 09/28/2010 05/19/2016 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] 09/28/2010 12/28/2013 Melanocytic nevus moles of back [D22.5] 09/28/2010 05/19/2016 ELENA ANGIOMAS///NEVUS, NON-NEOPLASTIC [I78.1] 09/28/2010 12/28/2013 Postherpetic neuralgia [B02.29] 03/31/2011 05/19/2016 Digital mucous cyst [M67.449] 04/23/2012 10/19/2016 Postinflammatory skin changes [R23.8] 04/23/2012 05/19/2016 Eczematous dermatitis of left lower eyelid [H01*12/28/2013 05/19/2016 Eczematous dermatitis [L30.9] 12/28/2013 05/19/2016 Xerosis cutis [L85.3] 12/28/2013 05/19/2016 History of Mohs surgery x 1 stage for squamous *12/28/2013 Arthritis of both hands [M19.041, M19.042] 11/13/2015 Type (more content not included)...[facility]10-21-2022 NoteHNO ID: [id number] Author: Dana Brown RN Service: ? Author Type: Registered Nurse Type: Progress Notes Filed: 07/09/2022 10:49 AM Note Text: [facility] TELEPHONIC OUTREACH Provider Action/FYI: Contact made with patient: No - Left message Amado my name is Dana Brown RN your Throat Cutter from the [facility] I am calling today for your bi-weekly check in. I am sorry I missed your call. I will reach out to you again in three weeks . (if the third call I will reach out to you again next week) Enter next patient outreach date for the following business day using the Track Pt Outreach. End outreach.[facility]10-21-2022 History of Present illness Narrative* Dana Brown RN - 07/09/2022 10:47 AM EDT [facility] TELEPHONIC OUTREACH Provider Action/FYI: Contact made with patient: No - Left message Amado my name is Dana Brown RN your Throat Cutter from the [facility] I am calling today for your bi-weekly check in. I am sorry I missed your call. I will reach out to you again in three weeks . (if the third call I will reach out to you again next week) Enter next patient outreach date for the following business day using the Track Pt Outreach. End outreach. [facility]22 NoteHNO ID: [id number] Author: Dana Brown RN Service: ? Author Type: Registered Nurse Type: Progress Notes Filed: 07/08/2022 1:26 PM Note Text: EDU [facility] TELEPHONIC OUTREACH Provider Action/FYI: Contact made with patient: No - Left message Amado my name is Dana Brown RN your Throat Cutter from the [facility] I am calling today for your bi-weekly check in. I am sorry I missed your call. I will reach out to you again tomorrow. (if the third call I will reach out to you again next week) Enter next patient outreach date for the following business day using the Track Pt Outreach. End outreach.[facility]10-20-2022 NotePatient Outreach ([facility]) TATOKILLIAN Paredes ([id number]) 1940 M Date Time Provider Department 07/08/22 DANA BROWN During your visit today, we recorded the following information about you: Dana Brown RN 07/08/2022 1:26 PM Signed INSIGHT [facility] TELEPHONIC OUTREACH Provider Action/FYI: Contact made with patient: No - Left message Hello my name is Dana Brown RN your Throat Cutter from the [facility] I am calling today for your bi-weekly check in. I am sorry I missed your call. I will reach out to you again tomorrow. (if the third call I will reach out to you again next week) Enter next patient outreach date for the following using the Track Pt Outreach. End outreach. Allergies As of Date: 07/08/2022 Noted Allergy Reaction DOXYCYCLINE 04/15/2017 12 - Shortness of Breath MEVACOR (LOVASTATIN) 06/07/2005 Comments: muscle cramps prevacor [Other] 06/07/2005 Comments: muscle cramps Date Reviewed: 04/05/2022 Reviewed by: Nasreen Lopez MA - Fully Assessed Reason for Visit: Community Monitoring Outreach [Other] Cmt: [facility] Telephonic Prescriptions as of 07/08/2022 - dapagliflozin (FARXIGA) 10 mg tablet Take 1 tablet by mouth once daily. Take one daily in the morning - dulaglutide (TRULICITY) 0.75 mg/0.5 mL pen injector Inject 0.75 mg subcutaneously one time a week. Inject dose once per week. Discard Pen After - furosemide (LASIX) 20 mg tablet Take 1 tablet by mouth once daily. - Quinapril HCl 40 mg tablet Take 0.5 tablets by mouth once daily. - metoprolol succinate ER (TOPROL XL) 50 mg 24 hr tablet Take 1 tablet by mouth once daily. - amLODIPine (NORVASC) 5 mg tablet Take 1 tablet by mouth twice daily. - metFORMIN ER (GLUCOPHAGE XR) 500 mg 24 hr tablet Take 2 tablets by mouth daily with breakfast. - atorvastatin (LIPITOR) 40 mg tablet Take 1 tablet by mouth once daily. - nitroglycerin sublingual (NITROSTAT) 0.4 mg SL tablet Dissolve 1 tablet under the tongue as needed. DISSOLVE ON TONGUE FOR CHEST PAIN. IF NO PAIN RELIEF, CALL 911 - TACROLIMUS TOPICAL Apply to affected area. - aspirin(ECOTRIN LOW STRENGTH 81 MG TAB) Take one(1) tablet daily. - COMPOUNDED PRESCRIPTION alphagen eye drops 1 drop each eye twice daily - COSOPT 2 %-0.5 % EYE DROPS 1 drop each eye two times daily - THERAPEUTIC MULTIVITAMIN ORAL TAB Take one(1) tablet daily. Facility-Administered Medications as of 07/08/2022 - perflutren lipid microspheres 1.3 mL in NaCl (PF) 0.9% 10 mL injection (DEFINITY) - sodium chloride 0.9 % (flush) 10 mL (BD POSIFLUSH) Problem List As Of Date 07/08/2022 Noted Resolved Coronary artery disease involving [place]*12/06/2005 PERCUT TRANSLUM CORON ANGIO STATUS [Z98.61] 12/06/2005 Hypertensive heart disease with heart failure (*12/06/2005 04/05/2022 Hyperlipidemia [E78.5] 12/06/2005 LOC PRIM OSTEOARTH-HAND [M19.049] 12/06/2005 ANKYLOSING SPONDYLITIS [M45.9] 12/06/2005 MITRAL VALVE DISORDER [I05.9] 01/19/2006 PRIM PULM HYPERTENSION [I27.0] 01/19/2006 03/23/2006 Aortic valve disorders [I35.9] 06/09/2006 04/05/2022 Neoplasm of Uncertain Behavior of Skin [D48.5] 08/07/2008 03/06/2010 NEVUS BACK///BENIGN SHAN SKIN TRUNK [D23.5] 08/07/2008 03/06/2010 ACTINIC DAMAGE///CHR SOLAR SKIN DAMAGE NOS [L57*08/07/2008 03/06/2010 Other Seborrheic Keratosis [L82.1] 08/07/2008 03/06/2010 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5] 03/27/2010 05/19/2016 Actinic Damage///Sun-Damaged Skin [L57.8] 03/27/2010 05/19/2016 Solar Lentigo//Solar Lentigines [L81.4] 03/27/2010 05/19/2016 Seborrheic Keratosis [L82.1] 09/28/2010 05/19/2016 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] 09/28/2010 12/28/2013 Melanocytic nevus moles of back [D22.5] 09/28/2010 05/19/2016 ELENA ANGIOMAS///NEVUS, NON-NEOPLASTIC [I78.1] 09/28/2010 12/28/2013 Postherpetic neuralgia [B02.29] 03/31/2011 05/19/2016 Digital mucous cyst [M67.449] 04/23/2012 10/19/2016 Postinflammatory skin changes [R23.8] 04/23/2012 05/19/2016 Eczematous dermatitis of left lower eyelid [H01*12/28/2013 05/19/2016 Eczematous dermatitis [L30.9] 12/28/2013 05/19/2016 Xerosis cutis [L85.3] 12/28/2013 05/19/2016 History of Mohs surgery x 1 stage for squamous *12/28/2013 Arthritis of both hands [M19.041, M19.042] 11/13/2015 Type 2 diabet (more content not included)...[facility]10-20-20[facility] History of Present illness Narrative* Dana Brown RN - 07/08/2022 1:22 PM EDT [facility]U [facility] TELEPHONIC OUTREACH Provider Action/FYI: Contact made with patient: No - Left message Hello my name is Dana Brown RN your Throat Cutter from the [facility] I am calling today for your bi-weekly check in. I am sorry I missed your call. I will reach out to you again tomorrow. (if the third call I will reach out to you again next week) Enter next patient outreach date for the following business day using the Track Pt Outreach. End outreach. [facility]22 NoteHNO ID: [id number] Author: Dana Brown RN Service: ? Author Type: Registered Nurse Type: Progress Notes Filed: 06/16/2022 12:36 PM Note Text: [facility]U [facility] TELEPHONIC OUTREACH Provider Action/FYI: Patient reports he is doing good, today's fasting BS 100, weight is stable at 148 lbs. Patient had no questions, concerns, needs at this time. Contact made with patient: Yes Patient identified by name and . Discussed care with patient It?s nice talking to you again. As a reminder, this is our bi-weekly check-in where I will be asking you questions about your health. This will only take a few minutes of your time. Is this a good time? Yes Symptoms What Chronic Disease(s) does the patient have: CHF Do you check your blood pressures at home? Yes, Enter readings: 121/64 Do you have new or worse shortness of breath with activity? No Do you have new or worsening trouble breathing while lying flat? No Do you have new or worsening swelling of legs, feet or ankles? No Do you check your daily weight at home? Yes, Have you noticed a sudden gain in weight greater than three pounds in a day or three pounds in a week? No Are you having any other symptoms that your PCP needs to know about? No Symptom Escalation The patient required an escalation for symptom(s)? No Medications Do you have any questions about taking your medication or which medications you should be on? No Do you need any medication refills at this time, including any of the medications you might take only when needed? No Social We would like to make sure you have what you need so that your basic needs are met- including your personal safety, food, housing and medications? Would you like to speak with a social work count team member to help give you support for any of these needs? No It can be normal to feel anxious or down during a time like this. Would you like to talk to a mental health professional about how you have been feeling? No Closing Thank you for taking the time to talk with me today. We want to work with you to ensure that we are keeping your medical condition(s) well-controlled and to keep you healthy and out of the doctor's office or hospital. It?s also not too late for me to sign you up for automated weekly questionnaires through [employer]. This is an easy way for us to stay connected each week. Are you interested? No, I understand. We can always sign you up in the future if you change your mind. Just as a reminder, will continue to call you every other week to check in on your health. Our calls should take 10-15 minutes or less. Remember, if you have concerns in between our calls, please call your PCP's office right away. Thank you. Enter next patient outreach date for two weeks on the same day of the week as today in the Track Pt Outreach and End outreach.[facility] 06-16-2022 NotePatient Outreach ([facility]) KILLIAN AMARO ([id number]) 1940 M Date Time Provider Department 06/16/22 DANA BROWN AMBAURELIAG During your visit today, we recorded the following information about you: Dana Brown RN 06/16/2022 12:36 PM Signed INSIGHT [facility] TELEPHONIC OUTREACH Provider Action/FYI: Patient reports he is doing good, today's fasting BS 100, weight is stable at 148 lbs. Patient had no questions, concerns, needs at this time. Contact made with patient: Yes Patient identified by name and . Discussed care with patient It?s nice talking to you again. As a reminder, this is our bi-weekly check-in where I will be asking you questions about your health. This will only take a few minutes of your time. Is this a good time? Yes Symptoms What Chronic Disease(s) does the patient have: CHF Do you check your blood pressures at home? Yes, Enter readings: 121/64 Do you have new or worse shortness of breath with activity? No Do you have new or worsening trouble breathing while lying flat? No Do you have new or worsening swelling of legs, feet or ankles? No Do you check your daily weight at home? Yes, Have you noticed a sudden gain in weight greater than three pounds in a day or three pounds in a week? No Are you having any other symptoms that your PCP needs to know about? No Symptom Escalation The patient required an escalation for symptom(s)? No Medications Do you have any questions about taking your medication or which medications you should be on? No Do you need any medication refills at this time, including any of the medications you might take only when needed? No Social We would like to make sure you have what you need so that your basic needs are met- including your personal safety, food, housing and medications? Would you like to speak with a social work count team member to help give you support for any of these needs? No It can be normal to feel anxious or down during a time like this. Would you like to talk to a mental health professional about how you have been feeling? No Closing Thank you for taking the time to talk with me today. We want to work with you to ensure that we are keeping your medical condition(s) well-controlled and to keep you healthy and out of the doctor's office or hospital. It?s also not too late for me to sign you up for automated weekly questionnaires through [employer]. This is an easy way for us to stay connected each week. Are you interested? No, I understand. We can always sign you up in the future if you change your mind. Just as a reminder, will continue to call you every other week to check in on your health. Our calls should take 10-15 minutes or less. Remember, if you have concerns in between our calls, please call your PCP's office right away. Thank you. Enter next patient outreach date for two weeks on the same day of the week as today in the Track Pt Outreach and End outreach. Allergies As of Date: 06/16/2022 Noted Allergy Reaction DOXYCYCLINE 04/15/2017 12 - Shortness of Breath MEVACOR (LOVASTATIN) 06/07/2005 Comments: muscle cramps prevacor [Other] 06/07/2005 Comments: muscle cramps Date Reviewed: 04/05/2022 Reviewed by: Nasreen Lopez MA - Fully Assessed Reason for Visit: Community Monitoring Outreach [Other] Cmt: [facility] Telephonic Prescriptions as of 06/16/2022 - dapagliflozin (FARXIGA) 10 mg tablet Take 1 tablet by mouth once daily. Take one daily in the morning - dulaglutide (TRULICITY) 0.75 mg/0.5 mL pen injector Inject 0.75 mg subcutaneously one time a week. Inject dose once per week. Discard Pen After - furosemide (LASIX) 20 mg tablet Take 1 tablet by mouth once daily. - Quinapril HCl 40 mg tablet Take 0.5 tablets by mouth once daily. - metoprolol succinate ER (TOPROL XL) 50 mg 24 hr tablet Take 1 tablet by mouth once daily. - amLODIPine (NORVASC) 5 mg tablet Take 1 tablet by mouth twice daily. - metFORMIN ER (GLUCOPHAGE XR) 500 mg 24 hr tablet Take 2 tablets by mouth daily with breakfast. - atorvastatin (LIPITOR) 40 mg tablet Take 1 tablet by mouth once daily. - nitroglycerin sublingual (NITROSTAT) 0.4 mg SL tablet Dissolve 1 tablet under the tongue as needed. DISSOLVE ON TONGUE FOR CHEST PAIN. IF NO PAIN RELIEF, CALL 911 - TACROLIMUS TOPICAL Apply to affected area. - aspirin(ECOTRIN LOW STRENGTH 81 MG TAB) Take one(1) tablet daily. - COMPOUNDED PRESCRIPTION alphagen eye drops 1 drop each eye twice daily - COSOPT 2 %-0.5 % EYE DROPS 1 drop each eye two times daily - THERAPEUTIC MULTIVITAMIN ORAL TAB Take one(1) tablet daily. Facility-Administered Medications as of 06/16/2022 - perflutren lipid microspheres 1.3 mL in NaCl (PF) 0.9% 10 mL injection (DEFINITY) - sodium chloride 0.9 % (flush) 10 mL (BD POSIFLUSH) Problem List As Of Date 06/16/2022 Noted Resolved Coronary a (more content not included)...[facility] History of Present illness Narrative* Dana Brown RN - 06/16/2022 12:30 PM EDT [facility] TELEPHONIC OUTREACH Provider Action/FYI: Patient reports he is doing good, today's fasting BS 100, weight is stable at 148 lbs. Patient had no questions, concerns, needs at this time. Contact made with patient: Yes Patient identified by name and . Discussed care with patient It s nice talking to you again. As a reminder, this is our bi-weekly check-in where I will be asking you questions about your health. This will only take a few minutes of your time. Is this a good time? Yes Symptoms What Chronic Disease(s) does the patient have: CHF Do you check your blood pressures at home? Yes, Enter readings: 121/64 Do you have new or worse shortness of breath with activity? No Do you have new or worsening trouble breathing while lying flat? No Do you have new or worsening swelling of legs, feet or ankles? No Do you check your daily weight at home? Yes, Have you noticed a sudden gain in weight greater than three pounds in a day or three pounds in a week? No Are you having any other symptoms that your PCP needs to know about? No Symptom Escalation The patient required an escalation for symptom(s)? No Medications Do you have any questions about taking your medication or which medications you should be on? No Do you need any medication refills at this time, including any of the medications you might take only when needed? No Social We would like to make sure you have what you need so that your basic needs are met- including your personal safety, food, housing and medications? Would you like to speak with a social work count team member to help give you support for any of these needs? No It can be normal to feel anxious or down during a time like this. Would you like to talk to a mental health professional about how you have been feeling? No Closing Thank you for taking the time to talk with me today. We want to work with you to ensure that we arekeeping your medical condition(s) well-controlled and to keep you healthy and out of the doctor's office or hospital. It s also not too late for me to sign you up for automated weekly questionnaires through [employer]. This is an easy way for us to stay connected each week. Are you interested? No, I understand. We can always sign you up in the future if you change your mind. Just as a reminder, will continue to call you every other week to check in on your health. Our calls should take 10-15 minutes or less. Remember, if you have concerns in between our calls, please call your PCP's office right away. Thank you. Enter next patient outreach date for two weeks on the same day of the week as today in the Track PtOutreach and End outreach. [facility] NotePatient Outreach ([facility]) KILLIAN AMARO ([id number]) 1940 M Date Time Provider Department 06/02/22 DANA BROWN During your visit today, we recorded the following information about you: Dana Brown RN 06/02/2022 12:00 PM Signed INSIGHT [facility] TELEPHONIC OUTREACH Provider Action/: Patient reports he is doing good, reports today's fasting BS 104. Patient had no questions, concerns, needs at this time. Contact made with patient: Yes Patient identified by name and . Discussed care with patient It?s nice talking to you again. As a reminder, this is our bi-weekly check-in where I will be asking you questions about your health. This will only take a few minutes of your time. Is this a good time? Yes Symptoms What Chronic Disease(s) does the patient have: CHF Do you check your blood pressures at home? Yes, Enter readings: 113/59 Do you have new or worse shortness of breath with activity? No Do you have new or worsening trouble breathing while lying flat? No Do you have new or worsening swelling of legs, feet or ankles? No Do you check your daily weight at home? Yes, Have you noticed a sudden gain in weight greater than three pounds in a day or three pounds in a week? No Are you having any other symptoms that your PCP needs to know about? No Symptom Escalation The patient required an escalation for symptom(s)? No Medications Do you have any questions about taking your medication or which medications you should be on? No Do you need any medication refills at this time, including any of the medications you might take only when needed? No Social We would like to make sure you have what you need so that your basic needs are met- including your personal safety, food, housing and medications? Would you like to speak with a social work count team member to help give you support for any of these needs? No It can be normal to feel anxious or down during a time like this. Would you like to talk to a mental health professional about how you have been feeling? No Closing Thank you for taking the time to talk with me today. We want to work with you to ensure that we are keeping your medical condition(s) well-controlled and to keep you healthy and out of the doctor's office or hospital. It?s also not too late for me to sign you up for automated weekly questionnaires through [employer]. This is an easy way for us to stay connected each week. Are you interested? No, I understand. We can always sign you up in the future if you change your mind. Just as a reminder, will continue to call you every other week to check in on your health. Our calls should take 10-15 minutes or less. Remember, if you have concerns in between our calls, please call your PCP's office right away. Thank you. Enter next patient outreach date for two weeks on the same day of the week as today in the Track Pt Outreach and End outreach. Allergies As of Date: 06/02/2022 Noted Allergy Reaction DOXYCYCLINE 04/15/2017 12 - Shortness of Breath MEVACOR (LOVASTATIN) 06/07/2005 Comments: muscle cramps prevacor [Other] 06/07/2005 Comments: muscle cramps Date Reviewed: 04/05/2022 Reviewed by: Nasreen Lopez MA - Fully Assessed Reason for Visit: Community Monitoring Outreach [Other] Cmt: [facility] Telephonic Prescriptions as of 06/02/2022 - dapagliflozin (FARXIGA) 10 mg tablet Take 1 tablet by mouth once daily. Take one daily in the morning - dulaglutide (TRULICITY) 0.75 mg/0.5 mL pen injector Inject 0.75 mg subcutaneously one time a week. Inject dose once per week. Discard Pen After - furosemide (LASIX) 20 mg tablet Take 1 tablet by mouth once daily. - Quinapril HCl 40 mg tablet Take 0.5 tablets by mouth once daily. - metoprolol succinate ER (TOPROL XL) 50 mg 24 hr tablet Take 1 tablet by mouth once daily. - amLODIPine (NORVASC) 5 mg tablet Take 1 tablet by mouth twice daily. - metFORMIN ER (GLUCOPHAGE XR) 500 mg 24 hr tablet Take 2 tablets by mouth daily with breakfast. - atorvastatin (LIPITOR) 40 mg tablet Take 1 tablet by mouth once daily. - nitroglycerin sublingual (NITROSTAT) 0.4 mg SL tablet Dissolve 1 tablet under the tongue as needed. DISSOLVE ON TONGUE FOR CHEST PAIN. IF NO PAIN RELIEF, CALL 911 - TACROLIMUS TOPICAL Apply to affected area. - aspirin(ECOTRIN LOW STRENGTH 81 MG TAB) Take one(1) tablet daily. - COMPOUNDED PRESCRIPTION alphagen eye drops 1 drop each eye twice daily - COSOPT 2 %-0.5 % EYE DROPS 1 drop each eye two times daily - THERAPEUTIC MULTIVITAMIN ORAL TAB Take one(1) tablet daily. Facility-Administered Medications as of 06/02/2022 - perflutren lipid microspheres 1.3 mL in NaCl (PF) 0.9% 10 mL injection (DEFINITY) - sodium chloride 0.9 % (flush) 10 mL (BD POSIFLUSH) Problem List As Of Date 06/02/2022 Noted Resolved Coronary artery disease involving (more content not included)...[place] [id number] NoteHNO ID: [id number] Author: Dana Brown RN Service: ? Author Type: Registered Nurse Type: Progress Notes Filed: 06/02/2022 12:00 PM Note Text: [facility] TELEPH[facility]IC OUTREACH Provider Action/FYI: Patient reports he is doing good, reports today's fasting BS 104. Patient had no questions, concerns, needs at this time. Contact made with patient: Yes Patient identified by name and . Discussed care with patient It?s nice talking to you again. As a reminder, this is our bi-weekly check-in where I will be asking you questions about your health. This will only take a few minutes of your time. Is this a good time? Yes Symptoms What Chronic Disease(s) does the patient have: CHF Do you check your blood pressures at home? Yes, Enter readings: 113/59 Do you have new or worse shortness of breath with activity? No Do you have new or worsening trouble breathing while lying flat? No Do you have new or worsening swelling of legs, feet or ankles? No Do you check your daily weight at home? Yes, Have you noticed a sudden gain in weight greater than three pounds in a day or three pounds in a week? No Are you having any other symptoms that your PCP needs to know about? No Symptom Escalation The patient required an escalation for symptom(s)? No Medications Do you have any questions about taking your medication or which medications you should be on? No Do you need any medication refills at this time, including any of the medications you might take only when needed? No Social We would like to make sure you have what you need so that your basic needs are met- including your personal safety, food, housing and medications? Would you like to speak with a social work count team member to help give you support for any of these needs? No It can be normal to feel anxious or down during a time like this. Would you like to talk to a mental health professional about how you have been feeling? No Closing Thank you for taking the time to talk with me today. We want to work with you to ensure that we are keeping your medical condition(s) well-controlled and to keep you healthy and out of the doctor's office or hospital. It?s also not too late for me to sign you up for automated weekly questionnaires through [employer]. This is an easy way for us to stay connected each week. Are you interested? No, I understand. We can always sign you up in the future if you change your mind. Just as a reminder, will continue to call you every other week to check in on your health. Our calls should take 10-15 minutes or less. Remember, if you have concerns in between our calls, please call your PCP's office right away. Thank you. Enter next patient outreach date for two weeks on the same day of the week as today in the Track Pt Outreach and End outreach.[facility] 06-02-2022 History of Present illness Narrative* Dana Brown RN - 06/02/2022 11:50 AM EDT [facility] TELEPHONIC OUTREACH Provider Action/I: Patient reports he is doing good, reports today's fasting BS 104. Patient had no questions, concerns, needs at this time. Contact made with patient: Yes Patient identified by name and . Discussed care with patient It s nice talking to you again. As a reminder, this is our bi-weekly check-in where I will be asking you questions about your health. This will only take a few minutes of your time. Is this a good time? Yes Symptoms What Chronic Disease(s) does the patient have: CHF Do you check your blood pressures at home? Yes, Enter readings: 113/59 Do you have new or worse shortness of breath with activity? No Do you have new or worsening trouble breathing while lying flat? No Do you have new or worsening swelling of legs, feet or ankles? No Do you check your daily weight at home? Yes, Have you noticed a sudden gain in weight greater than three pounds in a day or three pounds in a week? No Are you having any other symptoms that your PCP needs to know about? No Symptom Escalation The patient required an escalation for symptom(s)? No Medications Do you have any questions about taking your medication or which medications you should be on? No Do you need any medication refills at this time, including any of the medications you might take only when needed? No Social We would like to make sure you have what you need so that your basic needs are met- including your personal safety, food, housing and medications? Would you like to speak with a social work count team member to help give you support for any of these needs? No It can be normal to feel anxious or down during a time like this. Would you like to talk to a mental health professional about how you have been feeling? No Closing Thank you for taking the time to talk with me today. We want to work with you to ensure that we arekeeping your medical condition(s) well-controlled and to keep you healthy and out of the doctor's office or hospital. It s also not too late for me to sign you up for automated weekly questionnaires through [employer]. This is an easy way for us to stay connected each week. Are you interested? No, I understand. We can always sign you up in the future if you change your mind. Just as a reminder, will continue to call you every other week to check in on your health. Our calls should take 10-15 minutes or less. Remember, if you have concerns in between our calls, please call your PCP's office right away. Thank you. Enter next patient outreach date for two weeks on the same day of the week as today in the Track PtOutreach and End outreach. [facility] Outreach ([facility]) KILLIAN AMARO ([id number]) 1940 M Date Time Provider Department 05/19/22 DANA BROWN During your visit today, we recorded the following information about you: Dana Brown RN 05/19/2022 10:48 AM Signed [facility] TELEPHONIC OUTREACH Provider Action/FYI: Patient reports they are doing good, had no questions, concerns, needs at this time. Contact made with patient: Yes Patient identified by name and . Discussed care with patient It?s nice talking to you again. As a reminder, this is our bi-weekly check-in where I will be asking you questions about your health. This will only take a few minutes of your time. Is this a good time? Yes Symptoms What Chronic Disease(s) does the patient have: CHF Do you check your blood pressures at home? Yes, Enter readings: 118/62 Do you have new or worse shortness of breath with activity? No Do you have new or worsening trouble breathing while lying flat? No Do you have new or worsening swelling of legs, feet or ankles? No Do you check your daily weight at home? No Are you having any other symptoms that your PCP needs to know about? No Symptom Escalation The patient required an escalation for symptom(s)? No Medications Do you have any questions about taking your medication or which medications you should be on? No Do you need any medication refills at this time, including any of the medications you might take only when needed? No Social We would like to make sure you have what you need so that your basic needs are met- including your personal safety, food, housing and medications? Would you like to speak with a social work count team member to help give you support for any of these needs? No It can be normal to feel anxious or down during a time like this. Would you like to talk to a mental health professional about how you have been feeling? No Closing Thank you for taking the time to talk with me today. We want to work with you to ensure that we are keeping your medical condition(s) well-controlled and to keep you healthy and out of the doctor's office or hospital. It?s also not too late for me to sign you up for automated weekly questionnaires through [employer]. This is an easy way for us to stay connected each week. Are you interested? No, I understand. We can always sign you up in the future if you change your mind. Just as a reminder, will continue to call you every other week to check in on your health. Our calls should take 10-15 minutes or less. Remember, if you have concerns in between our calls, please call your PCP's office right away. Thank you. Enter next patient outreach date for two weeks on the same day of the week as today in the Track Pt Outreach and End outreach. Allergies As of Date: 05/19/2022 Noted Allergy Reaction DOXYCYCLINE 04/15/2017 12 - Shortness of Breath MEVACOR (LOVASTATIN) 06/07/2005 Comments: muscle cramps prevacor [Other] 06/07/2005 Comments: muscle cramps Date Reviewed: 04/05/2022 Reviewed by: Nasreen Lopez MA - Fully Assessed Reason for Visit: Community Monitoring Outreach [Other] Cmt: CDM Follow Up Prescriptions as of 05/19/2022 - dapagliflozin (FARXIGA) 10 mg tablet Take 1 tablet by mouth once daily. Take one daily in the morning - dulaglutide (TRULICITY) 0.75 mg/0.5 mL pen injector Inject 0.75 mg subcutaneously one time a week. Inject dose once per week. Discard Pen After - furosemide (LASIX) 20 mg tablet Take 1 tablet by mouth once daily. - Quinapril HCl 40 mg tablet Take 0.5 tablets by mouth once daily. - metoprolol succinate ER (TOPROL XL) 50 mg 24 hr tablet Take 1 tablet by mouth once daily. - amLODIPine (NORVASC) 5 mg tablet Take 1 tablet by mouth twice daily. - metFORMIN ER (GLUCOPHAGE XR) 500 mg 24 hr tablet Take 2 tablets by mouth daily with breakfast. - atorvastatin (LIPITOR) 40 mg tablet Take 1 tablet by mouth once daily. - nitroglycerin sublingual (NITROSTAT) 0.4 mg SL tablet Dissolve 1 tablet under the tongue as needed. DISSOLVE ON TONGUE FOR CHEST PAIN. IF NO PAIN RELIEF, CALL 911 - TACROLIMUS TOPICAL Apply to affected area. - aspirin(ECOTRIN LOW STRENGTH 81 MG TAB) Take one(1) tablet daily. - COMPOUNDED PRESCRIPTION alphagen eye drops 1 drop each eye twice daily - COSOPT 2 %-0.5 % EYE DROPS 1 drop each eye two times daily - THERAPEUTIC MULTIVITAMIN ORAL TAB Take one(1) tablet daily. Facility-Administered Medications as of 05/19/2022 - perflutren lipid microspheres 1.3 mL in NaCl (PF) 0.9% 10 mL injection (DEFINITY) - sodium chloride 0.9 % (flush) 10 mL (BD POSIFLUSH) Problem List As Of Date 05/19/2022 Noted Resolved Coronary artery disease involving [place]*12/06/2005 PERCUT TRANSLUM CORON ANGIO STATUS [Z98.61] 12/06/2005 Hypertensive heart disease with heart failure (*12/06/200503/19 (more content not included)...[facility] NoteHNO ID: [id number] Author: Dana Brown RN Service: ? Author Type: Registered Nurse Type: Progress Notes Filed: 05/19/2022 10:48 AM Note Text: [facility] TELEPHONIC OUTREACH Provider Action/FYI: Patient reports they are doing good, had no questions, concerns, needs at this time. Contact made with patient: Yes Patient identified by name and . Discussed care with patient It?s nice talking to you again. As a reminder, this is our bi-weekly check-in where I will be asking you questions about your health. This will only take a few minutes of your time. Is this a good time? Yes Symptoms What Chronic Disease(s) does the patient have: CHF Do you check your blood pressures at home? Yes, Enter readings: 118/62 Do you have new or worse shortness of breath with activity? No Do you have new or worsening trouble breathing while lying flat? No Do you have new or worsening swelling of legs, feet or ankles? No Do you check your daily weight at home? No Are you having any other symptoms that your PCP needs to know about? No Symptom Escalation The patient required an escalation for symptom(s)? No Medications Do you have any questions about taking your medication or which medications you should be on? No Do you need any medication refills at this time, including any of the medications you might take only when needed? No Social We would like to make sure you have what you need so that your basic needs are met- including your personal safety, food, housing and medications? Would you like to speak with a social work count team member to help give you support for any of these needs? No It can be normal to feel anxious or down during a time like this. Would you like to talk to a mental health professional about how you have been feeling? No Closing Thank you for taking the time to talk with me today. We want to work with you to ensure that we are keeping your medical condition(s) well-controlled and to keep you healthy and out of the doctor's office or hospital. It?s also not too late for me to sign you up for automated weekly questionnaires through MyChart. This is an easy way for us to stay connected each week. Are you interested? No, I understand. We can always sign you up in the future if you change your mind. Just as a reminder, will continue to call you every other week to check in on your health. Our calls should take 10-15 minutes or less. Remember, if you have concerns in between our calls, please call your PCP's office right away. Thank you. Enter next patient outreach date for two weeks on the same day of the week as today in the Track Pt Outreach and End outreach.[facility] 05-19-2022 History of Present illness Narrative* Dana Brown RN - 05/19/2022 10:32 AM EDT [facility] TELEPHONIC OUTREACH Provider Action/FYI: Patient reports they are doing good, had no questions, concerns, needs at this time. Contact made with patient: Yes Patient identified by name and . Discussed care with patient It s nice talking to you again. As a reminder, this is our bi-weekly check-in where I will be asking you questions about your health. This will only take a few minutes of your time. Is this a good time? Yes Symptoms What Chronic Disease(s) does the patient have: CHF Do you check your blood pressures at home? Yes, Enter readings: 118/62 Do you have new or worse shortness of breath with activity? No Do you have new or worsening trouble breathing while lying flat? No Do you have new or worsening swelling of legs, feet or ankles? No Do you check your daily weight at home? No Are you having any other symptoms that your PCP needs to know about? No Symptom Escalation The patient required an escalation for symptom(s)? No Medications Do you have any questions about taking your medication or which medications you should be on? No Do you need any medication refills at this time, including any of the medications you might take only when needed? No Social We would like to make sure you have what you need so that your basic needs are met- including your personal safety, food, housing and medications? Would you like to speak with a social work count team member to help give you support for any of these needs? No It can be normal to feel anxious or down during a time like this. Would you like to talk to a mental health professional about how you have been feeling? No Closing Thank you for taking the time to talk with me today. We want to work with you to ensure that we arekeeping your medical condition(s) well-controlled and to keep you healthy and out of the doctor's office or hospital. It s also not too late for me to sign you up for automated weekly questionnaires through [employer]. This is an easy way for us to stay connected each week. Are you interested? No, I understand. We can always sign you up in the future if you change your mind. Just as a reminder, will continue to call you every other week to check in on your health. Our calls should take 10-15 minutes or less. Remember, if you have concerns in between our calls, please call your PCP's office right away. Thank you. Enter next patient outreach date for two weeks on the same day of the week as today in the Track PtOutreach and End outreach. [facility] NotePatient Outreach ([facility]) KILLIAN AMARO ([id number]) 1940 M Date Time Provider Department 04/29/22 DANA BROWN During your visit today, we recorded the following information about you: Dana Brown RN 04/29/2022 10:49 AM Signed [facility] TELEPHONIC OUTREACH Provider Action/FYI: Pt reports he is doing good, today's fast BS 109. Patient had no questions, concerns, needs at this time. Contact made with patient: Yes Patient identified by name and . Discussed care with patient It?s nice talking to you again. As a reminder, this is our bi-weekly check-in where I will be asking you questions about your health. This will only take a few minutes of your time. Is this a good time? Yes Symptoms What Chronic Disease(s) does the patient have: CHF Do you check your blood pressures at home? Yes, Enter readings: 114/61 Do you have new or worse shortness of breath with activity? No Do you have new or worsening trouble breathing while lying flat? No Do you have new or worsening swelling of legs, feet or ankles? No Do you check your daily weight at home? Yes, Have you noticed a sudden gain in weight greater than three pounds in a day or three pounds in a week? No Are you having any other symptoms that your PCP needs to know about? No Symptom Escalation The patient required an escalation for symptom(s)? No Medications Do you have any questions about taking your medication or which medications you should be on? No Do you need any medication refills at this time, including any of the medications you might take only when needed? No Social We would like to make sure you have what you need so that your basic needs are met- including your personal safety, food, housing and medications? Would you like to speak with a social work count team member to help give you support for any of these needs? No It can be normal to feel anxious or down during a time like this. Would you like to talk to a mental health professional about how you have been feeling? No Closing Thank you for taking the time to talk with me today. We want to work with you to ensure that we are keeping your medical condition(s) well-controlled and to keep you healthy and out of the doctor's office or hospital. It?s also not too late for me to sign you up for automated weekly questionnaires through [employer]. This is an easy way for us to stay connected each week. Are you interested? No, I understand. We can always sign you up in the future if you change your mind. Just as a reminder, will continue to call you every other week to check in on your health. Our calls should take 10-15 minutes or less. Remember, if you have concerns in between our calls, please call your PCP's office right away. Thank you. Enter next patient outreach date for two weeks on the same day of the week as today in the Track Pt Outreach and End outreach. Allergies As of Date: 04/29/2022 Noted Allergy Reaction DOXYCYCLINE 04/15/2017 12 - Shortness of Breath MEVACOR (LOVASTATIN) 06/07/2005 Comments: muscle cramps prevacor [Other] 06/07/2005 Comments: muscle cramps Date Reviewed: 04/05/2022 Reviewed by: Nasreen Lopez MA - Fully Assessed Reason for Visit: Community Monitoring Outreach [Other] Cmt: Telephonic Follow Up Prescriptions as of 05/12/2022 - dapagliflozin (FARXIGA) 10 mg tablet Take 1 tablet by mouth once daily. Take one daily in the morning - dulaglutide (TRULICITY) 0.75 mg/0.5 mL pen injector Inject 0.75 mg subcutaneously one time a week. Inject dose once per week. Discard Pen After - furosemide (LASIX) 20 mg tablet Take 1 tablet by mouth once daily. - Quinapril HCl 40 mg tablet Take 0.5 tablets by mouth once daily. - metoprolol succinate ER (TOPROL XL) 50 mg 24 hr tablet Take 1 tablet by mouth once daily. - amLODIPine (NORVASC) 5 mg tablet Take 1 tablet by mouth twice daily. - metFORMIN ER (GLUCOPHAGE XR) 500 mg 24 hr tablet Take 2 tablets by mouth daily with breakfast. - atorvastatin (LIPITOR) 40 mg tablet Take 1 tablet by mouth once daily. - nitroglycerin sublingual (NITROSTAT) 0.4 mg SL tablet Dissolve 1 tablet under the tongue as needed. DISSOLVE ON TONGUE FOR CHEST PAIN. IF NO PAIN RELIEF, CALL 911 - TACROLIMUS TOPICAL Apply to affected area. - aspirin(ECOTRIN LOW STRENGTH 81 MG TAB) Take one(1) tablet daily. - COMPOUNDED PRESCRIPTION alphagen eye drops 1 drop each eye twice daily - COSOPT 2 %-0.5 % EYE DROPS 1 drop each eye two times daily - THERAPEUTIC MULTIVITAMIN ORAL TAB Take one(1) tablet daily. Facility-Administered Medications as of 05/12/2022 - perflutren lipid microspheres 1.3 mL in NaCl (PF) 0.9% 10 mL injection (DEFINITY) - sodium chloride 0.9 % (flush) 10 mL (BD POSIFLUSH) Problem List As Of Date 04/29/2022 Noted Resolved Coronary artery disease involving [place] (more content not included)... [facility]08-11-2022 NoteHNO ID: [id number] Author: Dana Brown RN Service: ? Author Type: Registered Nurse Type: Progress Notes Filed: 04/29/2022 10:49 AM Note Text: [facility] TELEPHONIC OUTREACH Provider Action/FYI: Pt reports he is doing good, today's fast BS 109. Patient had no questions, concerns, needs at this time. Contact made with patient: Yes Patient identified by name and . Discussed care with patient It?s nice talking to you again. As a reminder, this is our bi-weekly check-in where I will be asking you questions about your health. This will only take a few minutes of your time. Is this a good time? Yes Symptoms What Chronic Disease(s) does the patient have: CHF Do you check your blood pressures at home? Yes, Enter readings: 114/61 Do you have new or worse shortness of breath with activity? No Do you have new or worsening trouble breathing while lying flat? No Do you have new or worsening swelling of legs, feet or ankles? No Do you check your daily weight at home? Yes, Have you noticed a sudden gain in weight greater than three pounds in a day or three pounds in a week? No Are you having any other symptoms that your PCP needs to know about? No Symptom Escalation The patient required an escalation for symptom(s)? No Medications Do you have any questions about taking your medication or which medications you should be on? No Do you need any medication refills at this time, including any of the medications you might take only when needed? No Social We would like to make sure you have what you need so that your basic needs are met- including your personal safety, food, housing and medications? Would you like to speak with a social work count team member to help give you support for any of these needs? No It can be normal to feel anxious or down during a time like this. Would you like to talk to a mental health professional about how you have been feeling? No Closing Thank you for taking the time to talk with me today. We want to work with you to ensure that we are keeping your medical condition(s) well-controlled and to keep you healthy and out of the doctor's office or hospital. It?s also not too late for me to sign you up for automated weekly questionnaires through [employer]. This is an easy way for us to stay connected each week. Are you interested? No, I understand. We can always sign you up in the future if you change your mind. Just as a reminder, will continue to call you every other week to check in on your health. Our calls should take 10-15 minutes or less. Remember, if you have concerns in between our calls, please call your PCP's office right away. Thank you. Enter next patient outreach date for two weeks on the same day of the week as today in the Track Pt Outreach and End outreach.[facility] 04-29-2022 History of Present illness Narrative* Dana Brown RN - 04/29/2022 10:42 AM EDT INSIGHT [facility] TELEPHONIC OUTREACH Provider Action/FYI: Pt reports he is doing good, today's fast BS 109. Patient had no questions, concerns, needs at this time. Contact made with patient: Yes Patient identified by name and . Discussed care with patient It s nice talking to you again. As a reminder, this is our bi-weekly check-in where I will be asking you questions about your health. This will only take a few minutes of your time. Is this a good time? Yes Symptoms What Chronic Disease(s) does the patient have: CHF Do you check your blood pressures at home? Yes, Enter readings: 114/61 Do you have new or worse shortness of breath with activity? No Do you have new or worsening trouble breathing while lying flat? No Do you have new or worsening swelling of legs, feet or ankles? No Do you check your daily weight at home? Yes, Have you noticed a sudden gain in weight greater than three pounds in a day or three pounds in a week? No Are you having any other symptoms that your PCP needs to know about? No Symptom Escalation The patient required an escalation for symptom(s)? No Medications Do you have any questions about taking your medication or which medications you should be on? No Do you need any medication refills at this time, including any of the medications you might take only when needed? No Social We would like to make sure you have what you need so that your basic needs are met- including your personal safety, food, housing and medications? Would you like to speak with a social work count team member to help give you support for any of these needs? No It can be normal to feel anxious or down during a time like this. Would you like to talk to a mental health professional about how you have been feeling? No Closing Thank you for taking the time to talk with me today. We want to work with you to ensure that we arekeeping your medical condition(s) well-controlled and to keep you healthy and out of the doctor's office or hospital. It s also not too late for me to sign you up for automated weekly questionnaires through [employer]. This is an easy way for us to stay connected each week. Are you interested? No, I understand. We can always sign you up in the future if you change your mind. Just as a reminder, will continue to call you every other week to check in on your health. Our calls should take 10-15 minutes or less. Remember, if you have concerns in between our calls, please call your PCP's office right away. Thank you. Enter next patient outreach date for two weeks on the same day of the week as today in the Track PtOutreach and End outreach. [facility] NotePatient Outreach ([facility]) KILLIAN AMARO ([id number]) 1940 M Date Time Provider Department 04/28/22 DANA BROWN During your visit today, we recorded the following information about you: Dana Brown RN 04/28/2022 11:30 AM Signed [facility] TELEPHONIC OUTREACH Provider Action/I: Contact made with patient: No - Left message Amado my name is Dana Brown RN your Throat Cutter from the [facility] I am calling today for your bi-weekly check in. I am sorry I missed your call. I will reach out to you again tomorrow. (if the third call I will reach out to you again next week) Enter next patient outreach date for the following using the Track Pt Outreach. End outreach. Allergies As of Date: 04/28/2022 Noted Allergy Reaction DOXYCYCLINE 04/15/2017 12 - Shortness of Breath MEVACOR (LOVASTATIN) 06/07/2005 Comments: muscle cramps prevacor [Other] 06/07/2005 Comments: muscle cramps Date Reviewed: 04/05/2022 Reviewed by: Nasreen Lopez MA - Fully Assessed Reason for Visit: Community Monitoring Outreach [Other] Cmt: Telephonic Follow Up Prescriptions as of 04/28/2022 - dapagliflozin (FARXIGA) 10 mg tablet Take 1 tablet by mouth once daily. Take one daily in the morning - dulaglutide (TRULICITY) 0.75 mg/0.5 mL pen injector Inject 0.75 mg subcutaneously one time a week. Inject dose once per week. Discard Pen After - furosemide (LASIX) 20 mg tablet Take 1 tablet by mouth once daily. - Quinapril HCl 40 mg tablet Take 0.5 tablets by mouth once daily. - metoprolol succinate ER (TOPROL XL) 50 mg 24 hr tablet Take 1 tablet by mouth once daily. - amLODIPine (NORVASC) 5 mg tablet Take 1 tablet by mouth twice daily. - metFORMIN ER (GLUCOPHAGE XR) 500 mg 24 hr tablet Take 2 tablets by mouth daily with breakfast. - atorvastatin (LIPITOR) 40 mg tablet Take 1 tablet by mouth once daily. - nitroglycerin sublingual (NITROSTAT) 0.4 mg SL tablet Dissolve 1 tablet under the tongue as needed. DISSOLVE ON TONGUE FOR CHEST PAIN. IF NO PAIN RELIEF, CALL 911 - TACROLIMUS TOPICAL Apply to affected area. - aspirin(ECOTRIN LOW STRENGTH 81 MG TAB) Take one(1) tablet daily. - COMPOUNDED PRESCRIPTION alphagen eye drops 1 drop each eye twice daily - COSOPT 2 %-0.5 % EYE DROPS 1 drop each eye two times daily - THERAPEUTIC MULTIVITAMIN ORAL TAB Take one(1) tablet daily. Facility-Administered Medications as of 04/28/2022 - perflutren lipid microspheres 1.3 mL in NaCl (PF) 0.9% 10 mL injection (DEFINITY) - sodium chloride 0.9 % (flush) 10 mL (BD POSIFLUSH) Problem List As Of Date 04/28/2022 Noted Resolved Coronary artery disease involving [place]*12/06/2005 PERCUT TRANSLUM CORON ANGIO STATUS [Z98.61] 12/06/2005 Hypertensive heart disease with heart failure (*12/06/2005 04/05/2022 Hyperlipidemia [E78.5] 12/06/2005 LOC PRIM OSTEOARTH-HAND [M19.049] 12/06/2005 ANKYLOSING SPONDYLITIS [M45.9] 12/06/2005 MITRAL VALVE DISORDER [I05.9] 01/19/2006 PRIM PULM HYPERTENSION [I27.0] 01/19/2006 03/23/2006 Aortic valve disorders [I35.9] 06/09/2006 04/05/2022 Neoplasm of Uncertain Behavior of Skin [D48.5] 08/07/2008 03/06/2010 NEVUS BACK///BENIGN SHAN SKIN TRUNK [D23.5] 08/07/2008 03/06/2010 ACTINIC DAMAGE///CHR SOLAR SKIN DAMAGE NOS [L57*08/07/2008 03/06/2010 Other Seborrheic Keratosis [L82.1] 08/07/2008 03/06/2010 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5] 03/27/2010 05/19/2016 Actinic Damage///Sun-Damaged Skin [L57.8] 03/27/2010 05/19/2016 Solar Lentigo//Solar Lentigines [L81.4] 03/27/2010 05/19/2016 Seborrheic Keratosis [L82.1] 09/28/2010 05/19/2016 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] 09/28/2010 12/28/2013 Melanocytic nevus moles of back [D22.5] 09/28/2010 05/19/2016 ELENA ANGIOMAS///NEVUS, NON-NEOPLASTIC [I78.1] 09/28/2010 12/28/2013 Postherpetic neuralgia [B02.29] 03/31/2011 05/19/2016 Digital mucous cyst [M67.449] 04/23/2012 10/19/2016 Postinflammatory skin changes [R23.8] 04/23/2012 05/19/2016 Eczematous dermatitis of left lower eyelid [H01*12/28/2013 05/19/2016 Eczematous dermatitis [L30.9] 12/28/2013 05/19/2016 Xerosis cutis [L85.3] 12/28/2013 05/19/2016 History of Mohs surgery x 1 stage for squamous *12/28/2013 Arthritis of both hands [M19.041, M19.042] 11/13/2015 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 Author Type: Registered Nurse Type: Progress Notes Filed: 04/28/2022 11:30 AM Note Text: [facility] TELEPHONIC OUTREACH Provider Action/FYI: Contact made with patient: No - Left message Amado my name is Dana Brown RN your Throat Cutter from the [facility] I am calling today for your bi-weekly check in. I am sorry I missed your call. I will reach out to you again tomorrow. (if the third call I will reach out to you again next week) Enter next patient outreach date for the following business day using the Track Pt Outreach. End outreach.[facility]08[facility] History of Present illness Narrative* Dana Brown RN - 04/28/2022 11:28 AM EDT [facility] TELEPHONIC OUTREACH Provider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 medication refills at this time, including any of the medications you might take only when needed? No Social We would like to make sure you have what you need so that your basic needs are met- including your personal safety, food, housing and medications? Would you like to speak with a social work count team member to help give you support for any of these needs? No It can be normal to feel anxious or down during a time like this. Would you like to talk to a mental health professional about how you have been feeling? No Closing Thank you for taking the time to talk with me today. We want to work with you to ensure that we arekeeping your medical condition(s) well-controlled and to keep you healthy and out of the doctor's office or hospital. It s also not too late for me to sign you up for automated weekly questionnaires through [employer]. This is an easy way for us to stay connected each week. Are you interested? No, I understand. We can always sign you up in the future if you change your mind. Just as a reminder, will continue to call you every other week to check in on your health. Our calls should take 10-15 minutes or less. Remember, if you have concerns in between our calls, please call your PCP's office right away. Thank you. Enter next patient outreach date for two weeks on the same day of the week as today in the Track PtOutreach and End outreach. documented in this encounterSelect [facility] History of Present illness Narrative* Dana Brown RN - 01/21/2022 10:03 AM EDT INSIGHT [facility] TELEPHONIC OUTREACH Provider Action/FYI: Pt reports he is doing good, no questions/concerns/needs at this time. Contact made with patient: Yes Patient identified by name and . Discussed care with patient It s nice talking to you again. As a reminder, this is our bi-weekly check-in where I will be asking you questions about your health. This will only take a few minutes of your time. Is this a good time? Yes Symptoms What Chronic Disease(s) does the patient have: CHF Do you check your blood pressures at home? Yes, Enter readings: 112/63 Do you have new or worse shortness of breath with activity? No Do you have new or worsening trouble breathing while lying flat? No Do you have new or worsening swelling of legs, feet or ankles? No Do you check your daily weight at home? Yes, Have you noticed a sudden gain in weight greater than three pounds in a day or three pounds in a week? No Are you having any other symptoms that your PCP needs to know about? No Symptom Escalation The patient required an escalation for symptom(s)? No Medications Do you have any questions about taking your medication or which medications you should be on? No Do you need any medication refills at this time, including any of the medications you might take only when needed? No Social We would like to make sure you have what you need so that your basic needs are met- including your personal safety, food, housing and medications? Would you like to speak with a social work count team member to help give you support for any of these needs? No It can be normal to feel anxious or down during a time like this. Would you like to talk to a mental health professional about how you have been feeling? No Closing Thank you for taking the time to talk with me today. We want to work with you to ensure that we arekeeping your medical condition(s) well-controlled and to keep you healthy and out of the doctor's office or hospital. It s also not too late for me to sign you up for automated weekly questionnaires through [employer]. This is an easy way for us to stay connected each week. Are you interested? No, I understand. We can always sign you up in the future if you change your mind. Just as a reminder, will continue to call you every other week to check in on your health. Our calls should take 10-15 minutes or less. Remember, if you have concerns in between our calls, please call your PCP's office right away. Thank you. Enter next patient outreach date for two weeks on the same day of the week as today in the Track PtOutreach and End outreach. documented in this encounterSelect [facility] History of Present illness Narrative* Dana Brown RN - 01/08/2022 9:15 AM EDT INSIGHT [facility] TELEPHONIC OUTREACH Provider Action/FYI: Pt reports he is doing good, no questions/concerns/needs at this time. Contact made with patient: Yes Patient identified by name and . Discussed care with patient It s nice talking to you again. As a reminder, this is our bi-weekly check-in where I will be asking you questions about your health. This will only take a few minutes of your time. Is this a good time? Yes Symptoms What Chronic Disease(s) does the patient have: CHF Do you check your blood pressures at home? Yes, Enter readings: 116/65 Do you have new or worse shortness of breath with activity? No Do you have new or worsening trouble breathing while lying flat? No Do you have new or worsening swelling of legs, feet or ankles? No Do you feel like you are dehydrated for any reason, including not being able to eat or drink normally, or having less urine/much darker urine than normal for you? No Do you check your daily weight at home? Yes, Have you noticed a sudden gain in weight greater than three pounds in a day or three pounds in a week? No Are you having any other symptoms that your PCP needs to know about? No Symptom Escalation The patient required an escalation for symptom(s)? No Medications Do you have any questions about taking your medication or which medications you should be on? No Do you need any medication refills at this time, including any of the medications you might take only when needed? No Social We would like to make sure you have what you need so that your basic needs are met- including your personal safety, food, housing and medications? Would you like to speak with a social work count team member to help give you support for any of these needs? No It can be normal to feel anxious or down during a time like this. Would you like to talk to a mental health professional about how you have been feeling? No Closing Thank you for taking the time to talk with me today. We want to work with you to ensure that we arekeeping your medical condition(s) well-controlled and to keep you healthy and out of the doctor's office or hospital. It s also not too late for me to sign you up for automated weekly questionnaires through [employer]. This is an easy way for us to stay connected each week. Are you interested? No, I understand. We can always sign you up in the future if you change your mind. Just as a reminder, will continue to call you every other week to check in on your health. Our calls should take 10-15 minutes or less. Remember, if you have concerns in between our calls, please call your PCP's office right away. Thank you. Enter next patient outreach date for two weeks on the same day of the week as today in the Track PtOutreach and End outreach. documented in this encounterSelect [facility] History of Present illness Narrative* Dana Brown RN - 12/24/2021 3:43 PM EDT INSIGHT CD TELEPHONIC OUTREACH Provider Action/FYI: Pt reports he is doing good, no questions/concerns/needs at this time. Contact made with patient: Yes Patient identified by name and . Discussed care with patient It s nice talking to you again. As a reminder, this is our bi-weekly check-in where I will be asking you questions about your health. This will only take a few minutes of your time. Is this a good time? Yes Symptoms What Chronic Disease(s) does the patient have: CHF Do you check your blood pressures at home? Yes, Enter readings: 120/67 Do you have new or worse shortness of breath with activity? No Do you have new or worsening trouble breathing while lying flat? No Do you have new or worsening swelling of legs, feet or ankles? No Do you check your daily weight at home? Yes, Have you noticed a sudden gain in weight greater than three pounds in a day or three pounds in a week? No Are you having any other symptoms that your PCP needs to know about? No Symptom Escalation The patient required an escalation for symptom(s)? No Medications Do you have any questions about taking your medication or which medications you should be on? No Do you need any medication refills at this time, including any of the medications you might take only when needed? No Social We would like to make sure you have what you need so that your basic needs are met- including your personal safety, food, housing and medications? Would you like to speak with a social work count team member to help give you support for any of these needs? No It can be normal to feel anxious or down during a time like this. Would you like to talk to a mental health professional about how you have been feeling? No Closing Thank you for taking the time to talk with me today. We want to work with you to ensure that we arekeeping your medical condition(s) well-controlled and to keep you healthy and out of the doctor's office or hospital. It s also not too late for me to sign you up for automated weekly questionnaires through [employer]. This is an easy way for us to stay connected each week. Are you interested? No, I understand. We can always sign you up in the future if you change your mind. Just as a reminder, will continue to call you every other week to check in on your health. Our calls should take 10-15 minutes or less. Remember, if you have concerns in between our calls, please call your PCP's office right away. Thank you. Enter next patient outreach date for two weeks on the same day of the week as today in the Track PtOutreach and End outreach. documented in this encounterSelect [facility] Hospital Discharge instructions Patient Education 07/08/2021 07:17:05 5 - [facility] Post-op Instruction 04/2017 (10500) [facility] Post-operative Instructions PLEASE FOLLOW [facility] POST-OP INSTRUCTIONS GIVEN WATCH FOR SIGNS OF INFECTION: call the office ([phone]) if experencing any of the following: (Usually appears 36-48 hours after surgery) Increased temperature (101 degrees Fahrenheit or higher) Redness or swelling Increased uncontrolled pain Foul odor or drainage Calf discomfort Significant swelling Or if having any chest pain, shortness of breath, or difficulty breathing or swallowing call the office or go the nearest Emergency Room. If you have any questions, please call your doctor at the number listed on your follow up instructions. Form: 338A ([id number]) R: 01/23 Follow Up Care 06/18/2021 11:51:34 With:[facility] Address: [address] [place] [phone] When:07/10/2021 10:00:00 Comments:This is your first physical therapy appointment. Follow-up as scheduled. With:JUSTUS CHENG PA-C, Orthopedic, Orthopedic Address: [facility] [address] [place] [phone] When:07/20/2021 10:30:00 Comments:This is your post-op appointment. Follow-up as scheduled. [facility] Yvonneadarsh Ortiz 04-11-2016 History of Past illness Narrative* Problem Noted Date Resolved Date Pain in right wrist 12/29/2015 05/19/2016 Eczematous dermatitis of left lower eyelid 12/2805/19/2016 Eczematous dermatitis 12/28/2013 05/19/2016 Xerosis cutis 12/28/2013 05/19/2016 Digital mucous cyst 04/23/2012 10/19/2016 Postinflammatory skin changes 04/23/2012 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 6 Seborrheic Keratosis 09/28/2010 05/19/2016 H/O SCC///MALIG NEOPLASM SKIN EAR 09/28/2010 12/28/2013 Melanocytic nevus moles of back 09/28/2010 05/19/2016 ELENA ANGIOMAS///NEVUS, NON-NEOPLASTIC 09/28/1912/28/2013 Actinic Keratoses (Premalignant AK's) 03/27/2010 05/19/2016 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): 04/200903/27/2010 05/19/2016 Surgical Scar R post ear 03/27/2010 016 Actinic Damage///Sun-Damaged Skin 03/27/2010 05/19/2016 Solar Lentigo//Solar Lentigines 03/27/2010 05/19/2016 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 03/06/2010 Surgical Scar and Fibrosis of Skin 05/27/2009 03/06/2010 H/O SCC///MALIG NEOPLASM SKIN EAR 10/09/2008 03/06/2010 Neoplasm of uncertain behavior of skin 8 03/06/2010 NEVUS BACK///BENIGN SHAN SKIN TRUNK 08/07/2008 03/06/2010 ACTINIC DAMAGE///CHR SOLAR SKIN DAMAGE NOS 08/0703/06/2010 Other seborrheic keratosis 08/07/200803/06 ACTINIC KERATOSIS (Premalignant AK) 08/07/2008 03/06/2010 SOLAR LENTIGINES///DYSCHROMIA OTHER 08/07/2008 03/06/2010 ELENA ANGIOMAS///NEVUS, NON-NEOPLASTIC 08/07/2003/06/2010 Primary pulmonary hypertension 01/19/2006 0 03/23/2006 documented as of this encounter (statuses as of 12/24/2021) [facility] History of Past illness Narrative* Problem Noted Date Resolved Date Pain in right wrist 12/29/2015 05/19/2016 Eczematous dermatitis of left lower eyelid 12/2805/19/2016 Eczematous dermatitis 12/28/2013 05/19/2016 Xerosis cutis 12/28/2013 05/19/2016 Digital mucous cyst 04/23/2012 10/19/2016 Postinflammatory skin changes 04/23/2012 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 6 Seborrheic Keratosis 09/28/2010 05/19/2016 H/O SCC///MALIG NEOPLASM SKIN EAR 09/28/2010 12/28/2013 Melanocytic nevus moles of back 09/28/2010 05/19/2016 ELENA ANGIOMAS///NEVUS, NON-NEOPLASTIC 09/28/1912/28/2013 Actinic Keratoses (Premalignant AK's) 03/27/2010 05/19/2016 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): 04/200903/27/2010 05/19/2016 Surgical Scar R post ear 03/27/2010 016 Actinic Damage///Sun-Damaged Skin 03/27/2010 05/19/2016 Solar Lentigo//Solar Lentigines 03/27/2010 05/19/2016 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 03/06/2010 Surgical Scar and Fibrosis of Skin 05/27/2009 03/06/2010 H/O SCC///MALIG NEOPLASM SKIN EAR 10/09/2008 03/06/2010 Neoplasm of uncertain behavior of skin 8 03/06/2010 NEVUS BACK///BENIGN SHAN SKIN TRUNK 08/07/2008 03/06/2010 ACTINIC DAMAGE///CHR SOLAR SKIN DAMAGE NOS 08/0703/06/2010 Other seborrheic keratosis 08/07/200803/06 ACTINIC KERATOSIS (Premalignant AK) 08/07/2008 03/06/2010 SOLAR LENTIGINES///DYSCHROMIA OTHER 08/07/2008 03/06/2010 ELENA ANGIOMAS///NEVUS, NON-NEOPLASTIC 08/07/20 08 03/06/2010 Primary pulmonary hypertension 01/19/2006 0 03/23/2006 documented as of this encounter (statuses as of 01/08/2022) [facility]04-11-2016 History of Past illness Narrative* Problem Noted Date Resolved Date Pain in right wrist 12/29/2015 05/19/2016 Eczematous dermatitis of left lower eyelid 12/2805/19/2016 Eczematous dermatitis 12/28/2013 05/19/2016 Xerosis cutis 12/28/2013 05/19/2016 Digital mucous cyst 04/23/2012 10/19/2016 Postinflammatory skin changes 04/23/2012 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 6 Seborrheic Keratosis 09/28/2010 05/19/2016 H/O SCC///MALIG NEOPLASM SKIN EAR 09/28/2010 12/28/2013 Melanocytic nevus moles of back 09/28/2010 05/19/2016 ELENA ANGIOMAS///NEVUS, NON-NEOPLASTIC 09/28/19 11 12/28/2013 Actinic Keratoses (Premalignant AK's) 03/27/2010 05/19/2016 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): 04/200903/27/2010 05/19/2016 Surgical Scar R post ear 03/27/2010 016 Actinic Damage///Sun-Damaged Skin 03/27/2010 05/19/2016 Solar Lentigo//Solar Lentigines 03/27/2010 05/19/2016 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 03/06/2010 Surgical Scar and Fibrosis of Skin 05/27/2009 03/06/2010 H/O SCC///MALIG NEOPLASM SKIN EAR 10/09/2008 03/06/2010 Neoplasm of uncertain behavior of skin 8 03/06/2010 NEVUS BACK///BENIGN SHAN SKIN TRUNK 08/07/2008 03/06/2010 ACTINIC DAMAGE///CHR SOLAR SKIN DAMAGE NOS 08/0703/06/2010 Other seborrheic keratosis 08/07/200803/06 ACTINIC KERATOSIS (Premalignant AK) 08/07/2008 03/06/2010 SOLAR LENTIGINES///DYSCHROMIA OTHER 08/07/2008 03/06/2010 ELENA ANGIOMAS///NEVUS, NON-NEOPLASTIC 08/07/20 08 03/06/2010 Primary pulmonary hypertension 01/19/2006 0 03/23/2006 documented as of this encounter (statuses as of 01/21/2022) [facility]04[facility] History of Past illness Narrative* Problem Noted Date Resolved Date Pain in right wrist 12/29/2015 05/19/2016 Eczematous dermatitis of left lower eyelid 12/2805/19/2016 Eczematous dermatitis 12/28/2013 05/19/2016 Xerosis cutis 12/28/2013 05/19/2016 Digital mucous cyst 04/23/2012 10/19/2016 Postinflammatory skin changes 04/23/2012 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 6 Seborrheic Keratosis 09/28/2010 05/19/2016 H/O SCC///MALIG NEOPLASM SKIN EAR 09/28/2010 12/28/2013 Melanocytic nevus moles of back 09/28/2010 05/19/2016 ELENA ANGIOMAS///NEVUS, NON-NEOPLASTIC 09/28/19 11 12/28/2013 Actinic Keratoses (Premalignant AK's) 03/27/2010 05/19/2016 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): 04/200903/27/2010 05/19/2016 Surgical Scar R post ear 03/27/2010 016 Actinic Damage///Sun-Damaged Skin 03/27/2010 05/19/2016 Solar Lentigo//Solar Lentigines 03/27/2010 05/19/2016 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 03/06/2010 Surgical Scar and Fibrosis of Skin 05/27/2009 03/06/2010 H/O SCC///MALIG NEOPLASM SKIN EAR 10/09/2008 03/06/2010 Neoplasm of uncertain behavior of skin 8 03/06/2010 NEVUS BACK///BENIGN SHAN SKIN TRUNK 08/07/2008 03/06/2010 ACTINIC DAMAGE///CHR SOLAR SKIN DAMAGE NOS 08/0703/06/2010 Other seborrheic keratosis 08/07/200803/06 ACTINIC KERATOSIS (Premalignant AK) 08/07/2008 03/06/2010 SOLAR LENTIGINES///DYSCHROMIA OTHER 08/07/2008 03/06/2010 ELENA ANGIOMAS///NEVUS, NON-NEOPLASTIC 08/07/20 08 03/06/2010 Primary pulmonary hypertension 01/19/2006 0 03/23/2006 documented as of this encounter (statuses as of 02/04/2022) [facility] History of Past illness Narrative* Problem Noted Date Resolved Date Pain in right wrist 12/29/2015 05/19/2016 Eczematous dermatitis of left lower eyelid 12/2805/19/2016 Eczematous dermatitis 12/28/2013 05/19/2016 Xerosis cutis 12/28/2013 05/19/2016 Digital mucous cyst 04/23/2012 10/19/2016 Postinflammatory skin changes 04/23/2012 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 6 Seborrheic Keratosis 09/28/2010 05/19/2016 H/O SCC///MALIG NEOPLASM SKIN EAR 09/28/2010 12/28/2013 Melanocytic nevus moles of back 09/28/2010 05/19/2016 ELENA ANGIOMAS///NEVUS, NON-NEOPLASTIC 09/28/19 11 12/28/2013 Actinic Keratoses (Premalignant AK's) 03/27/2010 05/19/2016 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): 04/200903/27/2010 05/19/2016 Surgical Scar R post ear 03/27/2010 016 Actinic Damage///Sun-Damaged Skin 03/27/2010 05/19/2016 Solar Lentigo//Solar Lentigines 03/27/2010 05/19/2016 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 03/06/2010 Surgical Scar and Fibrosis of Skin 05/27/2009 03/06/2010 H/O SCC///MALIG NEOPLASM SKIN EAR 10/09/2008 03/06/2010 Neoplasm of uncertain behavior of skin 8 03/06/2010 NEVUS BACK///BENIGN SHAN SKIN TRUNK 08/07/2008 03/06/2010 ACTINIC DAMAGE///CHR SOLAR SKIN DAMAGE NOS 08/0703/06/2010 Other seborrheic keratosis 08/07/200803/06 ACTINIC KERATOSIS (Premalignant AK) 08/07/2008 03/06/2010 SOLAR LENTIGINES///DYSCHROMIA OTHER 08/07/2008 03/06/2010 ELENA ANGIOMAS///NEVUS, NON-NEOPLASTIC 08/07/20 08 03/06/2010 Primary pulmonary hypertension 01/19/2006 0 03/23/2006 documented as of this encounter (statuses as of 02/08/2022) [facility] History of Past illness Narrative* Problem Noted Date Resolved Date Pain in right wrist 12/29/2015 05/19/2016 Eczematous dermatitis of left lower eyelid 12/2805/19/2016 Eczematous dermatitis 12/28/2013 05/19/2016 Xerosis cutis 12/28/2013 05/19/2016 Digital mucous cyst 04/23/2012 10/19/2016 Postinflammatory skin changes 04/23/2012 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 6 Seborrheic Keratosis 09/28/2010 05/19/2016 H/O SCC///MALIG NEOPLASM SKIN EAR 09/28/2010 12/28/2013 Melanocytic nevus moles of back 09/28/2010 05/19/2016 ELENA ANGIOMAS///NEVUS, NON-NEOPLASTIC 09/28/19 11 12/28/2013 Actinic Keratoses (Premalignant AK's) 03/27/2010 05/19/2016 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): 04/200903/27/2010 05/19/2016 Surgical Scar R post ear 03/27/2010 016 Actinic Damage///Sun-Damaged Skin 03/27/2010 05/19/2016 Solar Lentigo//Solar Lentigines 03/27/2010 05/19/2016 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 03/06/2010 Surgical Scar and Fibrosis of Skin 05/27/2009 03/06/2010 H/O SCC///MALIG NEOPLASM SKIN EAR 10/09/2008 03/06/2010 Neoplasm of uncertain behavior of skin 8 03/06/2010 NEVUS BACK///BENIGN SHAN SKIN TRUNK 08/07/2008 03/06/2010 ACTINIC DAMAGE///CHR SOLAR SKIN DAMAGE NOS 08/0703/06/2010 Other seborrheic keratosis 08/07/200803/06 ACTINIC KERATOSIS (Premalignant AK) 08/07/2008 03/06/2010 SOLAR LENTIGINES///DYSCHROMIA OTHER 08/07/2008 03/06/2010 ELENA ANGIOMAS///NEVUS, NON-NEOPLASTIC 08/07/20 08 03/06/2010 Primary pulmonary hypertension 01/19/2006 0 03/23/2006 documented as of this encounter (statuses as of 03/04/2022) [facility] History of Past illness Narrative* Problem Noted Date Resolved Date Pain in right wrist 12/29/2015 05/19/2016 Eczematous dermatitis of left lower eyelid 12/2805/19/2016 Eczematous dermatitis 12/28/2013 05/19/2016 Xerosis cutis 12/28/2013 05/19/2016 Digital mucous cyst 04/23/2012 10/19/2016 Postinflammatory skin changes 04/23/2012 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 6 Seborrheic Keratosis 09/28/2010 05/19/2016 H/O SCC///MALIG NEOPLASM SKIN EAR 09/28/2010 12/28/2013 Melanocytic nevus moles of back 09/28/2010 05/19/2016 ELENA ANGIOMAS///NEVUS, NON-NEOPLASTIC 09/28/19 11 12/28/2013 Actinic Keratoses (Premalignant AK's) 03/27/2010 05/19/2016 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): 04/200903/27/2010 05/19/2016 Surgical Scar R post ear 03/27/2010 016 Actinic Damage///Sun-Damaged Skin 03/27/2010 05/19/2016 Solar Lentigo//Solar Lentigines 03/27/2010 05/19/2016 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 03/06/2010 Surgical Scar and Fibrosis of Skin 05/27/2009 03/06/2010 H/O SCC///MALIG NEOPLASM SKIN EAR 10/09/2008 03/06/2010 Neoplasm of uncertain behavior of skin 8 03/06/2010 NEVUS BACK///BENIGN SHAN SKIN TRUNK 08/07/2008 03/06/2010 ACTINIC DAMAGE///CHR SOLAR SKIN DAMAGE NOS 08/0703/06/2010 Other seborrheic keratosis 08/07/200803/06 ACTINIC KERATOSIS (Premalignant AK) 08/07/2008 03/06/2010 SOLAR LENTIGINES///DYSCHROMIA OTHER 08/07/2008 03/06/2010 ELENA ANGIOMAS///NEVUS, NON-NEOPLASTIC 08/07/20 08 03/06/2010 Primary pulmonary hypertension 01/19/2006 0 03/23/2006 documented as of this encounter (statuses as of 03/05/2022) [facility] History of Past illness Narrative* Problem Noted Date Resolved Date Pain in right wrist 12/29/2015 05/19/2016 Eczematous dermatitis of left lower eyelid 12/2805/19/2016 Eczematous dermatitis 12/28/2013 05/19/2016 Xerosis cutis 12/28/2013 05/19/2016 Digital mucous cyst 04/23/2012 10/19/2016 Postinflammatory skin changes 04/23/2012 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 6 Seborrheic Keratosis 09/28/2010 05/19/2016 H/O SCC///MALIG NEOPLASM SKIN EAR 09/28/2010 12/28/2013 Melanocytic nevus moles of back 09/28/2010 05/19/2016 ELENA ANGIOMAS///NEVUS, NON-NEOPLASTIC 09/28/19 11 12/28/2013 Actinic Keratoses (Premalignant AK's) 03/27/2010 05/19/2016 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): 04/200903/27/2010 05/19/2016 Surgical Scar R post ear 03/27/2010 016 Actinic Damage///Sun-Damaged Skin 03/27/2010 05/19/2016 Solar Lentigo//Solar Lentigines 03/27/2010 05/19/2016 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 03/06/2010 Surgical Scar and Fibrosis of Skin 05/27/2009 03/06/2010 H/O SCC///MALIG NEOPLASM SKIN EAR 10/09/2008 03/06/2010 Neoplasm of uncertain behavior of skin 8 03/06/2010 NEVUS BACK///BENIGN SHAN SKIN TRUNK 08/07/2008 03/06/2010 ACTINIC DAMAGE///CHR SOLAR SKIN DAMAGE NOS 08/0703/06/2010 Other seborrheic keratosis 08/07/200803/06 ACTINIC KERATOSIS (Premalignant AK) 08/07/2008 03/06/2010 SOLAR LENTIGINES///DYSCHROMIA OTHER 08/07/2008 03/06/2010 ELENA ANGIOMAS///NEVUS, NON-NEOPLASTIC 08/07/20 08 03/06/2010 Primary pulmonary hypertension 01/19/2006 0 03/23/2006 documented as of this encounter (statuses as of 03/11/2022) [facility] History of Past illness Narrative* Problem Noted Date Resolved Date Pain in right wrist 12/29/2015 05/19/2016 Eczematous dermatitis of left lower eyelid 12/2805/19/2016 Eczematous dermatitis 12/28/2013 05/19/2016 Xerosis cutis 12/28/2013 05/19/2016 Digital mucous cyst 04/23/2012 10/19/2016 Postinflammatory skin changes 04/23/2012 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 6 Seborrheic Keratosis 09/28/2010 05/19/2016 H/O SCC///MALIG NEOPLASM SKIN EAR 09/28/2010 12/28/2013 Melanocytic nevus moles of back 09/28/2010 05/19/2016 ELENA ANGIOMAS///NEVUS, NON-NEOPLASTIC 09/28/19 11 12/28/2013 Actinic Keratoses (Premalignant AK's) 03/27/2010 05/19/2016 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): 04/200903/27/2010 05/19/2016 Surgical Scar R post ear 03/27/2010 016 Actinic Damage///Sun-Damaged Skin 03/27/2010 05/19/2016 Solar Lentigo//Solar Lentigines 03/27/2010 05/19/2016 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 03/06/2010 Surgical Scar and Fibrosis of Skin 05/27/2009 03/06/2010 H/O SCC///MALIG NEOPLASM SKIN EAR 10/09/2008 03/06/2010 Neoplasm of uncertain behavior of skin 8 03/06/2010 NEVUS BACK///BENIGN SHAN SKIN TRUNK 08/07/2008 03/06/2010 ACTINIC DAMAGE///CHR SOLAR SKIN DAMAGE NOS 08/0703/06/2010 Other seborrheic keratosis 08/07/200803/06 ACTINIC KERATOSIS (Premalignant AK) 08/07/2008 03/06/2010 SOLAR LENTIGINES///DYSCHROMIA OTHER 08/07/2008 03/06/2010 ELENA ANGIOMAS///NEVUS, NON-NEOPLASTIC 08/07/20 08 03/06/2010 Primary pulmonary hypertension 01/19/2006 0 03/23/2006 documented as of this encounter (statuses as of 03/17/2022) [facility] History of Past illness Narrative* Problem Noted Date Resolved Date Pain in right wrist 12/29/2015 05/19/2016 Eczematous dermatitis of left lower eyelid 12/2805/19/2016 Eczematous dermatitis 12/28/2013 05/19/2016 Xerosis cutis 12/28/2013 05/19/2016 Digital mucous cyst 04/23/2012 10/19/2016 Postinflammatory skin changes 04/23/2012 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 6 Seborrheic Keratosis 09/28/2010 05/19/2016 H/O SCC///MALIG NEOPLASM SKIN EAR 09/28/2010 12/28/2013 Melanocytic nevus moles of back 09/28/2010 05/19/2016 ELENA ANGIOMAS///NEVUS, NON-NEOPLASTIC 09/28/19 11 12/28/2013 Actinic Keratoses (Premalignant AK's) 03/27/2010 05/19/2016 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): 04/200903/27/2010 05/19/2016 Surgical Scar R post ear 03/27/2010 016 Actinic Damage///Sun-Damaged Skin 03/27/2010 05/19/2016 Solar Lentigo//Solar Lentigines 03/27/2010 05/19/2016 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 03/06/2010 Surgical Scar and Fibrosis of Skin 05/27/2009 03/06/2010 H/O SCC///MALIG NEOPLASM SKIN EAR 10/09/2008 03/06/2010 Neoplasm of uncertain behavior of skin 8 03/06/2010 NEVUS BACK///BENIGN SHAN SKIN TRUNK 08/07/2008 03/06/2010 ACTINIC DAMAGE///CHR SOLAR SKIN DAMAGE NOS 08/0703/06/2010 Other seborrheic keratosis 08/07/200803/06 ACTINIC KERATOSIS (Premalignant AK) 08/07/2008 03/06/2010 SOLAR LENTIGINES///DYSCHROMIA OTHER 08/07/2008 03/06/2010 ELENA ANGIOMAS///NEVUS, NON-NEOPLASTIC 08/07/20 08 03/06/2010 Aortic valve disorders 06/09/2006 2 Overview: mild AI - echo 03/24 Primary pulmonary hypertension 01/19/2006 0 03/23/2006 Hypertensive heart disease with heart failure 04/05/2022 documented as of this encounter (statuses as of 04/23/2022) [facility] History of Past illness Narrative* Problem Noted Date Resolved Date Pain in right wrist 12/29/2015 05/19/2016 Eczematous dermatitis of left lower eyelid 12/2805/19/2016 Eczematous dermatitis 12/28/2013 05/19/2016 Xerosis cutis 12/28/2013 05/19/2016 Digital mucous cyst 04/23/2012 10/19/2016 Postinflammatory skin changes 04/23/2012 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 6 Seborrheic Keratosis 09/28/2010 05/19/2016 H/O SCC///MALIG NEOPLASM SKIN EAR 09/28/2010 12/28/2013 Melanocytic nevus moles of back 09/28/2010 05/19/2016 ELENA ANGIOMAS///NEVUS, NON-NEOPLASTIC 09/28/1912/28/2013 Actinic Keratoses (Premalignant AK's) 03/27/2010 05/19/2016 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): 04/200903/27/2010 05/19/2016 Surgical Scar R post ear 03/27/2010 016 Actinic Damage///Sun-Damaged Skin 03/27/2010 05/19/2016 Solar Lentigo//Solar Lentigines 03/27/2010 05/19/2016 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 03/06/2010 Surgical Scar and Fibrosis of Skin 05/27/2009 03/06/2010 H/O SCC///MALIG NEOPLASM SKIN EAR 10/09/2008 03/06/2010 Neoplasm of uncertain behavior of skin 8 03/06/2010 NEVUS BACK///BENIGN SHAN SKIN TRUNK 08/07/2008 03/06/2010 ACTINIC DAMAGE///CHR SOLAR SKIN DAMAGE NOS 08/0703/06/2010 Other seborrheic keratosis 08/07/200803/06 ACTINIC KERATOSIS (Premalignant AK) 08/07/2008 03/06/2010 SOLAR LENTIGINES///DYSCHROMIA OTHER 08/07/2008 03/06/2010 ELENA ANGIOMAS///NEVUS, NON-NEOPLASTIC 08/07/20 08 03/06/2010 Aortic valve disorders 06/09/2006 2 Overview: mild AI - echo 03/24 Primary pulmonary hypertension 01/19/2006 0 03/23/2006 Hypertensive heart disease with heart failure 04/05/2022 documented as of this encounter (statuses as of 04/28/2022) [facility] History of Past illness Narrative* Problem Noted Date Resolved Date Pain in right wrist 12/29/2015 05/19/2016 Eczematous dermatitis of left lower eyelid 12/2805/19/2016 Eczematous dermatitis 12/28/2013 05/19/2016 Xerosis cutis 12/28/2013 05/19/2016 Digital mucous cyst 04/23/2012 10/19/2016 Postinflammatory skin changes 04/23/2012 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 6 Seborrheic Keratosis 09/28/2010 05/19/2016 H/O SCC///MALIG NEOPLASM SKIN EAR 09/28/2010 12/28/2013 Melanocytic nevus moles of back 09/28/2010 05/19/2016 ELENA ANGIOMAS///NEVUS, NON-NEOPLASTIC 09/28/19 11 12/28/2013 Actinic Keratoses (Premalignant AK's) 03/27/2010 05/19/2016 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): 04/200903/27/2010 05/19/2016 Surgical Scar R post ear 03/27/2010 016 Actinic Damage///Sun-Damaged Skin 03/27/2010 05/19/2016 Solar Lentigo//Solar Lentigines 03/27/2010 05/19/2016 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 03/06/2010 Surgical Scar and Fibrosis of Skin 05/27/2009 03/06/2010 H/O SCC///MALIG NEOPLASM SKIN EAR 10/09/2008 03/06/2010 Neoplasm of uncertain behavior of skin 8 03/06/2010 NEVUS BACK///BENIGN SHAN SKIN TRUNK 08/07/2008 03/06/2010 ACTINIC DAMAGE///CHR SOLAR SKIN DAMAGE NOS 08/0703/06/2010 Other seborrheic keratosis 08/07/200803/06 ACTINIC KERATOSIS (Premalignant AK) 08/07/2008 03/06/2010 SOLAR LENTIGINES///DYSCHROMIA OTHER 08/07/2008 03/06/2010 ELENA ANGIOMAS///NEVUS, NON-NEOPLASTIC 08/07/20 08 03/06/2010 Aortic valve disorders 06/09/2006 2 Overview: mild AI - echo 03/24 Primary pulmonary hypertension 01/19/2006 0 03/23/2006 Hypertensive heart disease with heart failure 04/05/2022 documented as of this encounter (statuses as of 04/29/2022) [facility] History of Past illness Narrative* Problem Noted Date Resolved Date Pain in right wrist 12/29/2015 05/19/2016 Eczematous dermatitis of left lower eyelid 12/2805/19/2016 Eczematous dermatitis 12/28/2013 05/19/2016 Xerosis cutis 12/28/2013 05/19/2016 Digital mucous cyst 04/23/2012 10/19/2016 Postinflammatory skin changes 04/23/2012 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 6 Seborrheic Keratosis 09/28/2010 05/19/2016 H/O SCC///MALIG NEOPLASM SKIN EAR 09/28/2010 12/28/2013 Melanocytic nevus moles of back 09/28/2010 05/19/2016 ELENA ANGIOMAS///NEVUS, NON-NEOPLASTIC 09/28/19 11 12/28/2013 Actinic Keratoses (Premalignant AK's) 03/27/2010 05/19/2016 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): 104/200903/27/2010 05/19/2016 Surgical Scar R post ear 03/27/2010 016 Actinic Damage///Sun-Damaged Skin 03/27/2010 05/19/2016 Solar Lentigo//Solar Lentigines 03/27/2010 05/19/2016 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 03/06/2010 Surgical Scar and Fibrosis of Skin 05/27/2009 03/06/2010 H/O SCC///MALIG NEOPLASM SKIN EAR 10/09/2008 03/06/2010 Neoplasm of uncertain behavior of skin 8 03/06/2010 NEVUS BACK///BENIGN SHAN SKIN TRUNK 08/07/2008 03/06/2010 ACTINIC DAMAGE///CHR SOLAR SKIN DAMAGE NOS 08/0703/06/2010 Other seborrheic keratosis 08/07/200803/06 ACTINIC KERATOSIS (Premalignant AK) 08/07/2008 03/06/2010 SOLAR LENTIGINES///DYSCHROMIA OTHER 08/07/2008 03/06/2010 ELENA ANGIOMAS///NEVUS, NON-NEOPLASTIC 08/07/20 08 03/06/2010 Aortic valve disorders 06/09/2006 2 Overview: mild AI - echo 03/24 Primary pulmonary hypertension 01/19/2006 0 03/23/2006 Hypertensive heart disease with heart failure 04/05/2022 documented as of this encounter (statuses as of 05/19/2022) [facility] History of Past illness Narrative* Problem Noted Date Resolved Date Pain in right wrist 12/29/2015 05/19/2016 Eczematous dermatitis of left lower eyelid 12/2805/19/2016 Eczematous dermatitis 12/28/2013 05/19/2016 Xerosis cutis 12/28/2013 05/19/2016 Digital mucous cyst 04/23/2012 10/19/2016 Postinflammatory skin changes 04/23/2012 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 6 Seborrheic Keratosis 09/28/2010 05/19/2016 H/O SCC///MALIG NEOPLASM SKIN EAR 09/28/2010 12/28/2013 Melanocytic nevus moles of back 09/28/2010 05/19/2016 ELENA ANGIOMAS///NEVUS, NON-NEOPLASTIC 09/28/19 11 12/28/2013 Actinic Keratoses (Premalignant AK's) 03/27/2010 05/19/2016 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): 04/200903/27/2010 05/19/2016 Surgical Scar R post ear 03/27/2010 016 Actinic Damage///Sun-Damaged Skin 03/27/2010 05/19/2016 Solar Lentigo//Solar Lentigines 03/27/2010 05/19/2016 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 03/06/2010 Surgical Scar and Fibrosis of Skin 05/27/2009 03/06/2010 H/O SCC///MALIG NEOPLASM SKIN EAR 10/09/2008 03/06/2010 Neoplasm of uncertain behavior of skin 8 03/06/2010 NEVUS BACK///BENIGN SHAN SKIN TRUNK 08/07/2008 03/06/2010 ACTINIC DAMAGE///CHR SOLAR SKIN DAMAGE NOS 08/0703/06/2010 Other seborrheic keratosis 08/07/200803/06 ACTINIC KERATOSIS (Premalignant AK) 08/07/2008 03/06/2010 SOLAR LENTIGINES///DYSCHROMIA OTHER 08/07/2008 03/06/2010 ELENA ANGIOMAS///NEVUS, NON-NEOPLASTIC 08/07/20 08 03/06/2010 Aortic valve disorders 06/09/2006 2 Overview: mild AI - echo 03/24 Primary pulmonary hypertension 01/19/2006 0 03/23/2006 Hypertensive heart disease with heart failure 04/05/2022 documented as of this encounter (statuses as of 06/02/2022) [facility] History of Past illness Narrative* Problem Noted Date Resolved Date Pain in right wrist 12/29/2015 05/19/2016 Eczematous dermatitis of left lower eyelid 12/2805/19/2016 Eczematous dermatitis 12/28/2013 05/19/2016 Xerosis cutis 12/28/2013 05/19/2016 Digital mucous cyst 04/23/2012 10/19/2016 Postinflammatory skin changes 04/23/2012 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 6 Seborrheic Keratosis 09/28/2010 05/19/2016 H/O SCC///MALIG NEOPLASM SKIN EAR 09/28/2010 12/28/2013 Melanocytic nevus moles of back 09/28/2010 05/19/2016 ELENA ANGIOMAS///NEVUS, NON-NEOPLASTIC 09/28/19 11 12/28/2013 Actinic Keratoses (Premalignant AK's) 03/27/2010 05/19/2016 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): 04/200903/27/2010 05/19/2016 Surgical Scar R post ear 03/27/2010 016 Actinic Damage///Sun-Damaged Skin 03/27/2010 05/19/2016 Solar Lentigo//Solar Lentigines 03/27/2010 05/19/2016 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 03/06/2010 Surgical Scar and Fibrosis of Skin 05/27/2009 03/06/2010 H/O SCC///MALIG NEOPLASM SKIN EAR 10/09/2008 03/06/2010 Neoplasm of uncertain behavior of skin 8 03/06/2010 NEVUS BACK///BENIGN SHAN SKIN TRUNK 08/07/2008 03/06/2010 ACTINIC DAMAGE///CHR SOLAR SKIN DAMAGE NOS 08/0703/06/2010 Other seborrheic keratosis 08/07/200803/06 ACTINIC KERATOSIS (Premalignant AK) 08/07/2008 03/06/2010 SOLAR LENTIGINES///DYSCHROMIA OTHER 08/07/2008 03/06/2010 ELENA ANGIOMAS///NEVUS, NON-NEOPLASTIC 08/07/20 08 03/06/2010 Aortic valve disorders 06/09/2006 2 Overview: mild AI - echo 03/24 Primary pulmonary hypertension 01/19/2006 0 03/23/2006 Hypertensive heart disease with heart failure 04/05/2022 documented as of this encounter (statuses as of 06/16/2022) [facility] History of Past illness Narrative* Problem Noted Date Resolved Date Pain in right wrist 12/29/2015 05/19/2016 Eczematous dermatitis of left lower eyelid 12/2805/19/2016 Eczematous dermatitis 12/28/2013 05/19/2016 Xerosis cutis 12/28/2013 05/19/2016 Digital mucous cyst 04/23/2012 10/19/2016 Postinflammatory skin changes 04/23/2012 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 6 Seborrheic Keratosis 09/28/2010 05/19/2016 H/O SCC///MALIG NEOPLASM SKIN EAR 09/28/2010 12/28/2013 Melanocytic nevus moles of back 09/28/2010 05/19/2016 ELENA ANGIOMAS///NEVUS, NON-NEOPLASTIC 09/28/1912/28/2013 Actinic Keratoses (Premalignant AK's) 03/27/2010 05/19/2016 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): 04/200903/27/2010 05/19/2016 Surgical Scar R post ear 03/27/2010 016 Actinic Damage///Sun-Damaged Skin 03/27/2010 05/19/2016 Solar Lentigo//Solar Lentigines 03/27/2010 05/19/2016 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 03/06/2010 Surgical Scar and Fibrosis of Skin 05/27/2009 03/06/2010 H/O SCC///MALIG NEOPLASM SKIN EAR 10/09/2008 03/06/2010 Neoplasm of uncertain behavior of skin 8 03/06/2010 NEVUS BACK///BENIGN SHAN SKIN TRUNK 08/07/2008 03/06/2010 ACTINIC DAMAGE///CHR SOLAR SKIN DAMAGE NOS 08/0703/06/2010 Other seborrheic keratosis 08/07/200803/06 ACTINIC KERATOSIS (Premalignant AK) 08/07/2008 03/06/2010 SOLAR LENTIGINES///DYSCHROMIA OTHER 08/07/2008 03/06/2010 ELENA ANGIOMAS///NEVUS, NON-NEOPLASTIC 08/07/20 08 03/06/2010 Aortic valve disorders 06/09/2006 2 Overview: mild AI - echo 03/24 Primary pulmonary hypertension 01/19/2006 0 03/23/2006 Hypertensive heart disease with heart failure 04/05/2022 documented as of this encounter (statuses as of 07/08/2022) [facility]04-[facility]-2016 History of Past illness Narrative* Problem Noted Date Resolved Date Pain in right wrist 12/29/2015 05/19/2016 Eczematous dermatitis of left lower eyelid 12/2805/19/2016 Eczematous dermatitis 12/28/2013 05/19/2016 Xerosis cutis 12/28/2013 05/19/2016 Digital mucous cyst 04/23/2012 10/19/2016 Postinflammatory skin changes 04/23/2012 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 6 Seborrheic Keratosis 09/28/2010 05/19/2016 H/O SCC///MALIG NEOPLASM SKIN EAR 09/28/2010 12/28/2013 Melanocytic nevus moles of back 09/28/2010 05/19/2016 ELENA ANGIOMAS///NEVUS, NON-NEOPLASTIC 09/28/19 11 12/28/2013 Actinic Keratoses (Premalignant AK's) 03/27/2010 05/19/2016 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): 04/200903/27/2010 05/19/2016 Surgical Scar R post ear 03/27/2010 016 Actinic Damage///Sun-Damaged Skin 03/27/2010 05/19/2016 Solar Lentigo//Solar Lentigines 03/27/2010 05/19/2016 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 03/06/2010 Surgical Scar and Fibrosis of Skin 05/27/2009 03/06/2010 H/O SCC///MALIG NEOPLASM SKIN EAR 10/09/2008 03/06/2010 Neoplasm of uncertain behavior of skin 8 03/06/2010 NEVUS BACK///BENIGN SHAN SKIN TRUNK 08/07/2008 03/06/2010 ACTINIC DAMAGE///CHR SOLAR SKIN DAMAGE NOS 08/0703/06/2010 Other seborrheic keratosis 08/07/200803/06 ACTINIC KERATOSIS (Premalignant AK) 08/07/2008 03/06/2010 SOLAR LENTIGINES///DYSCHROMIA OTHER 08/07/2008 03/06/2010 ELENA ANGIOMAS///NEVUS, NON-NEOPLASTIC 08/07/20 08 03/06/2010 Aortic valve disorders 06/09/2006 2 Overview: mild AI - echo 03/24 Primary pulmonary hypertension 01/19/2006 0 03/23/2006 Hypertensive heart disease with heart failure 04/05/2022 documented as of this encounter (statuses as of 07/09/2022) [facility]2016 History of Past illness Narrative* Problem Noted Date Resolved Date Pain in right wrist 12/29/2015 05/19/2016 Eczematous dermatitis of left lower eyelid 12/2805/19/2016 Eczematous dermatitis 12/28/2013 05/19/2016 Xerosis cutis 12/28/2013 05/19/2016 Digital mucous cyst 04/23/2012 10/19/2016 Postinflammatory skin changes 04/23/2012 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 6 Seborrheic Keratosis 09/28/2010 05/19/2016 H/O SCC///MALIG NEOPLASM SKIN EAR 09/28/2010 12/28/2013 Melanocytic nevus moles of back 09/28/2010 05/19/2016 ELENA ANGIOMAS///NEVUS, NON-NEOPLASTIC 09/28/19 11 12/28/2013 Actinic Keratoses (Premalignant AK's) 03/27/2010 05/19/2016 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): 04/200903/27/2010 05/19/2016 Surgical Scar R post ear 03/27/2010 016 Actinic Damage///Sun-Damaged Skin 03/27/2010 05/19/2016 Solar Lentigo//Solar Lentigines 03/27/2010 05/19/2016 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 03/06/2010 Surgical Scar and Fibrosis of Skin 05/27/2009 03/06/2010 H/O SCC///MALIG NEOPLASM SKIN EAR 10/09/2008 03/06/2010 Neoplasm of uncertain behavior of skin 8 03/06/2010 NEVUS BACK///BENIGN SHAN SKIN TRUNK 08/07/2008 03/06/2010 ACTINIC DAMAGE///CHR SOLAR SKIN DAMAGE NOS 08/0703/06/2010 Other seborrheic keratosis 08/07/200803/06 ACTINIC KERATOSIS (Premalignant AK) 08/07/2008 03/06/2010 SOLAR LENTIGINES///DYSCHROMIA OTHER 08/07/2008 03/06/2010 ELENA ANGIOMAS///NEVUS, NON-NEOPLASTIC 08/07/20 08 03/06/2010 Aortic valve disorders 06/09/2006 2 Overview: mild AI - echo 03/24 Primary pulmonary hypertension 01/19/2006 0 03/23/2006 Hypertensive heart disease with heart failure 04/05/2022 documented as of this encounter (statuses as of 07/13/2022) [facility]04[facility] History of Past illness Narrative* Problem Noted Date Resolved Date Pain in right wrist 12/29/2015 05/19/2016 Eczematous dermatitis of left lower eyelid 12/2805/19/2016 Eczematous dermatitis 12/28/2013 05/19/2016 Xerosis cutis 12/28/2013 05/19/2016 Digital mucous cyst 04/23/2012 10/19/2016 Postinflammatory skin changes 04/23/2012 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 6 Seborrheic Keratosis 09/28/2010 05/19/2016 H/O SCC///MALIG NEOPLASM SKIN EAR 09/28/2010 12/28/2013 Melanocytic nevus moles of back 09/28/2010 05/19/2016 ELENA ANGIOMAS///NEVUS, NON-NEOPLASTIC 09/28/19 11 12/28/2013 Actinic Keratoses (Premalignant AK's) 03/27/2010 05/19/2016 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): 04/200903/27/2010 05/19/2016 Surgical Scar R post ear 03/27/2010 016 Actinic Damage///Sun-Damaged Skin 03/27/2010 05/19/2016 Solar Lentigo//Solar Lentigines 03/27/2010 05/19/2016 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 03/06/2010 Surgical Scar and Fibrosis of Skin 05/27/2009 03/06/2010 H/O SCC///MALIG NEOPLASM SKIN EAR 10/09/2008 03/06/2010 Neoplasm of uncertain behavior of skin 8 03/06/2010 NEVUS BACK///BENIGN SHAN SKIN TRUNK 08/07/2008 03/06/2010 ACTINIC DAMAGE///CHR SOLAR SKIN DAMAGE NOS 08/0703/06/2010 Other seborrheic keratosis 08/07/200803/06 ACTINIC KERATOSIS (Premalignant AK) 08/07/2008 03/06/2010 SOLAR LENTIGINES///DYSCHROMIA OTHER 08/07/2008 03/06/2010 ELENA ANGIOMAS///NEVUS, NON-NEOPLASTIC 08/07/20 08 03/06/2010 Aortic valve disorders 06/09/2006 2 Overview: mild AI - echo 03/24 Primary pulmonary hypertension 01/19/2006 0 03/23/2006 Hypertensive heart disease with heart failure 04/05/2022 documented as of this encounter (statuses as of 07/21/2022) [facility] History of Past illness Narrative* Problem Noted Date Resolved Date Pain in right wrist 12/29/2015 05/19/2016 Eczematous dermatitis of left lower eyelid 12/2805/19/2016 Eczematous dermatitis 12/28/2013 05/19/2016 Xerosis cutis 12/28/2013 05/19/2016 Digital mucous cyst 04/23/2012 10/19/2016 Postinflammatory skin changes 04/23/2012 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 6 Seborrheic Keratosis 09/28/2010 05/19/2016 H/O SCC///MALIG NEOPLASM SKIN EAR 09/28/2010 12/28/2013 Melanocytic nevus moles of back 09/28/2010 05/19/2016 ELENA ANGIOMAS///NEVUS, NON-NEOPLASTIC 09/28/19 11 12/28/2013 Actinic Keratoses (Premalignant AK's) 03/27/2010 05/19/2016 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): 04/200903/27/2010 05/19/2016 Surgical Scar R post ear 03/27/2010 016 Actinic Damage///Sun-Damaged Skin 03/27/2010 05/19/2016 Solar Lentigo//Solar Lentigines 03/27/2010 05/19/2016 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 03/06/2010 Surgical Scar and Fibrosis of Skin 05/27/2009 03/06/2010 H/O SCC///MALIG NEOPLASM SKIN EAR 10/09/2008 03/06/2010 Neoplasm of uncertain behavior of skin 8 03/06/2010 NEVUS BACK///BENIGN SHAN SKIN TRUNK 08/07/2008 03/06/2010 ACTINIC DAMAGE///CHR SOLAR SKIN DAMAGE NOS 08/0703/06/2010 Other seborrheic keratosis 08/07/200803/06 ACTINIC KERATOSIS (Premalignant AK) 08/07/2008 03/06/2010 SOLAR LENTIGINES///DYSCHROMIA OTHER 08/07/2008 03/06/2010 ELENA ANGIOMAS///NEVUS, NON-NEOPLASTIC 08/07/20 08 03/06/2010 Aortic valve disorders 06/09/2006 2 Overview: mild AI - echo 03/24 Primary pulmonary hypertension 01/19/2006 0 03/23/2006 Hypertensive heart disease with heart failure 04/05/2022 documented as of this encounter (statuses as of 08/17/2022) [facility] History of Past illness Narrative* Problem Noted Date Resolved Date Pain in right wrist 12/29/2015 05/19/2016 Eczematous dermatitis of left lower eyelid 12/2805/19/2016 Eczematous dermatitis 12/28/2013 05/19/2016 Xerosis cutis 12/28/2013 05/19/2016 Digital mucous cyst 04/23/2012 10/19/2016 Postinflammatory skin changes 04/23/2012 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 6 Seborrheic Keratosis 09/28/2010 05/19/2016 H/O SCC///MALIG NEOPLASM SKIN EAR 09/28/2010 12/28/2013 Melanocytic nevus moles of back 09/28/2010 05/19/2016 ELENA ANGIOMAS///NEVUS, NON-NEOPLASTIC 09/28/19 11 12/28/2013 Actinic Keratoses (Premalignant AK's) 03/27/2010 05/19/2016 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): 04/200903/27/2010 05/19/2016 Surgical Scar R post ear 03/27/2010 016 Actinic Damage///Sun-Damaged Skin 03/27/2010 05/19/2016 Solar Lentigo//Solar Lentigines 03/27/2010 05/19/2016 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 03/06/2010 Surgical Scar and Fibrosis of Skin 05/27/2009 03/06/2010 H/O SCC///MALIG NEOPLASM SKIN EAR 10/09/2008 03/06/2010 Neoplasm of uncertain behavior of skin 8 03/06/2010 NEVUS BACK///BENIGN SHAN SKIN TRUNK 08/07/2008 03/06/2010 ACTINIC DAMAGE///CHR SOLAR SKIN DAMAGE NOS 08/0703/06/2010 Other seborrheic keratosis 08/07/200803/06 ACTINIC KERATOSIS (Premalignant AK) 08/07/2008 03/06/2010 SOLAR LENTIGINES///DYSCHROMIA OTHER 08/07/2008 03/06/2010 ELENA ANGIOMAS///NEVUS, NON-NEOPLASTIC 08/07/20 08 03/06/2010 Aortic valve disorders 06/09/2006 2 Overview: mild AI - echo 03/24 Primary pulmonary hypertension 01/19/2006 0 03/23/2006 Hypertensive heart disease with heart failure 04/05/2022 documented as of this encounter (statuses as of 08/27/2022) [facility] History of Past illness Narrative* Problem Noted Date Resolved Date Pain in right wrist 12/29/2015 05/19/2016 Eczematous dermatitis of left lower eyelid 12/2805/19/2016 Eczematous dermatitis 12/28/2013 05/19/2016 Xerosis cutis 12/28/2013 05/19/2016 Digital mucous cyst 04/23/2012 10/19/2016 Postinflammatory skin changes 04/23/2012 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 6 Seborrheic Keratosis 09/28/2010 05/19/2016 H/O SCC///MALIG NEOPLASM SKIN EAR 09/28/2010 12/28/2013 Melanocytic nevus moles of back 09/28/2010 05/19/2016 ELENA ANGIOMAS///NEVUS, NON-NEOPLASTIC 09/28/19 11 12/28/2013 Actinic Keratoses (Premalignant AK's) 03/27/2010 05/19/2016 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): 04/200903/27/2010 05/19/2016 Surgical Scar R post ear 03/27/2010 016 Actinic Damage///Sun-Damaged Skin 03/27/2010 05/19/2016 Solar Lentigo//Solar Lentigines 03/27/2010 05/19/2016 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 03/06/2010 Surgical Scar and Fibrosis of Skin 05/27/2009 03/06/2010 H/O SCC///MALIG NEOPLASM SKIN EAR 10/09/2008 03/06/2010 Neoplasm of uncertain behavior of skin 8 03/06/2010 NEVUS BACK///BENIGN SHAN SKIN TRUNK 08/07/2008 03/06/2010 ACTINIC DAMAGE///CHR SOLAR SKIN DAMAGE NOS 08/0703/06/2010 Other seborrheic keratosis 08/07/200803/06 ACTINIC KERATOSIS (Premalignant AK) 08/07/2008 03/06/2010 SOLAR LENTIGINES///DYSCHROMIA OTHER 08/07/2008 03/06/2010 ELENA ANGIOMAS///NEVUS, NON-NEOPLASTIC 08/07/20 08 03/06/2010 Aortic valve disorders 06/09/2006 2 Overview: mild AI - echo 03/24 Primary pulmonary hypertension 01/19/2006 0 03/23/2006 Hypertensive heart disease with heart failure 04/05/2022 documented as of this encounter (statuses as of 09/22/2022) [facility] History of Past illness Narrative* Problem Noted Date Resolved Date Pain in right wrist 12/29/2015 05/19/2016 Eczematous dermatitis of left lower eyelid 12/2805/19/2016 Eczematous dermatitis 12/28/2013 05/19/2016 Xerosis cutis 12/28/2013 05/19/2016 Digital mucous cyst 04/23/2012 10/19/2016 Postinflammatory skin changes 04/23/2012 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 6 Seborrheic Keratosis 09/28/2010 05/19/2016 H/O SCC///MALIG NEOPLASM SKIN EAR 09/28/2010 12/28/2013 Melanocytic nevus moles of back 09/28/2010 05/19/2016 ELENA ANGIOMAS///NEVUS, NON-NEOPLASTIC 09/28/19 11 12/28/2013 Actinic Keratoses (Premalignant AK's) 03/27/2010 05/19/2016 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): 04/200903/27/2010 05/19/2016 Surgical Scar R post ear 03/27/2010 016 Actinic Damage///Sun-Damaged Skin 03/27/2010 05/19/2016 Solar Lentigo//Solar Lentigines 03/27/2010 05/19/2016 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 03/06/2010 Surgical Scar and Fibrosis of Skin 05/27/2009 03/06/2010 H/O SCC///MALIG NEOPLASM SKIN EAR 10/09/2008 03/06/2010 Neoplasm of uncertain behavior of skin 8 03/06/2010 NEVUS BACK///BENIGN SHAN SKIN TRUNK 08/07/2008 03/06/2010 ACTINIC DAMAGE///CHR SOLAR SKIN DAMAGE NOS 08/0703/06/2010 Other seborrheic keratosis 08/07/200803/06 ACTINIC KERATOSIS (Premalignant AK) 08/07/2008 03/06/2010 SOLAR LENTIGINES///DYSCHROMIA OTHER 08/07/2008 03/06/2010 ELENA ANGIOMAS///NEVUS, NON-NEOPLASTIC 08/07/20 08 03/06/2010 Aortic valve disorders 06/09/2006 2 Overview: mild AI - echo 03/24 Primary pulmonary hypertension 01/19/2006 0 03/23/2006 Hypertensive heart disease with heart failure 04/05/2022 documented as of this encounter (statuses as of 09/23/2022) [facility] History of Past illness Narrative* Problem Noted Date Resolved Date Pain in right wrist 12/29/2015 05/19/2016 Eczematous dermatitis of left lower eyelid 12/2805/19/2016 Eczematous dermatitis 12/28/2013 05/19/2016 Xerosis cutis 12/28/2013 05/19/2016 Digital mucous cyst 04/23/2012 10/19/2016 Postinflammatory skin changes 04/23/2012 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 6 Seborrheic Keratosis 09/28/2010 05/19/2016 H/O SCC///MALIG NEOPLASM SKIN EAR 09/28/2010 12/28/2013 Melanocytic nevus moles of back 09/28/2010 05/19/2016 ELENA ANGIOMAS///NEVUS, NON-NEOPLASTIC 09/28/19 11 12/28/2013 Actinic Keratoses (Premalignant AK's) 03/27/2010 05/19/2016 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): 04/200903/27/2010 05/19/2016 Surgical Scar R post ear 03/27/2010 016 Actinic Damage///Sun-Damaged Skin 03/27/2010 05/19/2016 Solar Lentigo//Solar Lentigines 03/27/2010 05/19/2016 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 03/06/2010 Surgical Scar and Fibrosis of Skin 05/27/2009 03/06/2010 H/O SCC///MALIG NEOPLASM SKIN EAR 10/09/2008 03/06/2010 Neoplasm of uncertain behavior of skin 8 03/06/2010 NEVUS BACK///BENIGN SHAN SKIN TRUNK 08/07/2008 03/06/2010 ACTINIC DAMAGE///CHR SOLAR SKIN DAMAGE NOS 08/0703/06/2010 Other seborrheic keratosis 08/07/200803/06 ACTINIC KERATOSIS (Premalignant AK) 08/07/2008 03/06/2010 SOLAR LENTIGINES///DYSCHROMIA OTHER 08/07/2008 03/06/2010 ELENA ANGIOMAS///NEVUS, NON-NEOPLASTIC 08/07/20 08 03/06/2010 Aortic valve disorders 06/09/2006 2 Overview: mild AI - echo 03/24 Primary pulmonary hypertension 01/19/2006 0 03/23/2006 Hypertensive heart disease with heart failure 04/05/2022 documented as of this encounter (statuses as of 10/07/2022) [facility] History of Past illness Narrative* Problem Noted Date Resolved Date Pain in right wrist 12/29/2015 05/19/2016 Eczematous dermatitis of left lower eyelid 12/2805/19/2016 Eczematous dermatitis 12/28/2013 05/19/2016 Xerosis cutis 12/28/2013 05/19/2016 Digital mucous cyst 04/23/2012 10/19/2016 Postinflammatory skin changes 04/23/2012 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 6 Seborrheic Keratosis 09/28/2010 05/19/2016 H/O SCC///MALIG NEOPLASM SKIN EAR 09/28/2010 12/28/2013 Melanocytic nevus moles of back 09/28/2010 05/19/2016 ELENA ANGIOMAS///NEVUS, NON-NEOPLASTIC 09/28/19 11 12/28/2013 Actinic Keratoses (Premalignant AK's) 03/27/2010 05/19/2016 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): 04/200903/27/2010 05/19/2016 Surgical Scar R post ear 03/27/2010 016 Actinic Damage///Sun-Damaged Skin 03/27/2010 05/19/2016 Solar Lentigo//Solar Lentigines 03/27/2010 05/19/2016 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 03/06/2010 Surgical Scar and Fibrosis of Skin 05/27/2009 03/06/2010 H/O SCC///MALIG NEOPLASM SKIN EAR 10/09/2008 03/06/2010 Neoplasm of uncertain behavior of skin 8 03/06/2010 NEVUS BACK///BENIGN SHAN SKIN TRUNK 08/07/2008 03/06/2010 ACTINIC DAMAGE///CHR SOLAR SKIN DAMAGE NOS 08/0703/06/2010 Other seborrheic keratosis 08/07/200803/06 ACTINIC KERATOSIS (Premalignant AK) 08/07/2008 03/06/2010 SOLAR LENTIGINES///DYSCHROMIA OTHER 08/07/2008 03/06/2010 ELENA ANGIOMAS///NEVUS, NON-NEOPLASTIC 08/07/20 08 03/06/2010 Aortic valve disorders 06/09/2006 2 Overview: mild AI - echo 03/24 Primary pulmonary hypertension 01/19/2006 0 03/23/2006 Hypertensive heart disease with heart failure 04/05/2022 documented as of this encounter (statuses as of 10/22/2022) [facility] History of Past illness Narrative* Problem Noted Date Resolved Date Pain in right wrist 12/29/2015 05/19/2016 Eczematous dermatitis of left lower eyelid 12/2805/19/2016 Eczematous dermatitis 12/28/2013 05/19/2016 Xerosis cutis 12/28/2013 05/19/2016 Digital mucous cyst 04/23/2012 10/19/2016 Postinflammatory skin changes 04/23/2012 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 6 Seborrheic Keratosis 09/28/2010 05/19/2016 H/O SCC///MALIG NEOPLASM SKIN EAR 09/28/2010 12/28/2013 Melanocytic nevus moles of back 09/28/2010 05/19/2016 ELENA ANGIOMAS///NEVUS, NON-NEOPLASTIC 09/28/1912/28/2013 Actinic Keratoses (Premalignant AK's) 03/27/2010 05/19/2016 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): 04/200903/27/2010 05/19/2016 Surgical Scar R post ear 03/27/2010 016 Actinic Damage///Sun-Damaged Skin 03/27/2010 05/19/2016 Solar Lentigo//Solar Lentigines 03/27/2010 05/19/2016 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 03/06/2010 Surgical Scar and Fibrosis of Skin 05/27/2009 03/06/2010 H/O SCC///MALIG NEOPLASM SKIN EAR 10/09/2008 03/06/2010 Neoplasm of uncertain behavior of skin 8 03/06/2010 NEVUS BACK///BENIGN SHAN SKIN TRUNK 08/07/2008 03/06/2010 ACTINIC DAMAGE///CHR SOLAR SKIN DAMAGE NOS 08/0703/06/2010 Other seborrheic keratosis 08/07/200803/06 ACTINIC KERATOSIS (Premalignant AK) 08/07/2008 03/06/2010 SOLAR LENTIGINES///DYSCHROMIA OTHER 08/07/2008 03/06/2010 ELENA ANGIOMAS///NEVUS, NON-NEOPLASTIC 08/07/20 08 03/06/2010 Aortic valve disorders 06/09/2006 2 Overview: mild AI - echo 03/24 Primary pulmonary hypertension 01/19/2006 0 03/23/2006 Hypertensive heart disease with heart failure 04/05/2022 documented as of this encounter (statuses as of 10/28/2022) [facility] History of Past illness Narrative* Problem Noted Date Resolved Date Pain in right wrist 12/29/2015 05/19/2016 Eczematous dermatitis of left lower eyelid 12/2805/19/2016 Eczematous dermatitis 12/28/2013 05/19/2016 Xerosis cutis 12/28/2013 05/19/2016 Digital mucous cyst 04/23/2012 10/19/2016 Postinflammatory skin changes 04/23/2012 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 6 Seborrheic Keratosis 09/28/2010 05/19/2016 H/O SCC///MALIG NEOPLASM SKIN EAR 09/28/2010 12/28/2013 Melanocytic nevus moles of back 09/28/2010 05/19/2016 ELENA ANGIOMAS///NEVUS, NON-NEOPLASTIC 09/28/19 11 12/28/2013 Actinic Keratoses (Premalignant AK's) 03/27/2010 05/19/2016 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): 04/200903/27/2010 05/19/2016 Surgical Scar R post ear 03/27/2010 016 Actinic Damage///Sun-Damaged Skin 03/27/2010 05/19/2016 Solar Lentigo//Solar Lentigines 03/27/2010 05/19/2016 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 03/06/2010 Surgical Scar and Fibrosis of Skin 05/27/2009 03/06/2010 H/O SCC///MALIG NEOPLASM SKIN EAR 10/09/2008 03/06/2010 Neoplasm of uncertain behavior of skin 8 03/06/2010 NEVUS BACK///BENIGN SHAN SKIN TRUNK 08/07/2008 03/06/2010 ACTINIC DAMAGE///CHR SOLAR SKIN DAMAGE NOS 08/0703/06/2010 Other seborrheic keratosis 08/07/200803/06 ACTINIC KERATOSIS (Premalignant AK) 08/07/2008 03/06/2010 SOLAR LENTIGINES///DYSCHROMIA OTHER 08/07/2008 03/06/2010 ELENA ANGIOMAS///NEVUS, NON-NEOPLASTIC 08/07/20 08 03/06/2010 Aortic valve disorders 06/09/2006 2 Overview: mild AI - echo 03/24 Primary pulmonary hypertension 01/19/2006 0 03/23/2006 Hypertensive heart disease with heart failure 04/05/2022 documented as of this encounter (statuses as of 11/25/2022) [facility] History of Past illness Narrative* Problem Noted Date Resolved Date Pain in right wrist 12/29/2015 05/19/2016 Eczematous dermatitis of left lower eyelid 12/2805/19/2016 Eczematous dermatitis 12/28/2013 05/19/2016 Xerosis cutis 12/28/2013 05/19/2016 Digital mucous cyst 04/23/2012 10/19/2016 Postinflammatory skin changes 04/23/2012 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 6 Seborrheic Keratosis 09/28/2010 05/19/2016 H/O SCC///MALIG NEOPLASM SKIN EAR 09/28/2010 12/28/2013 Melanocytic nevus moles of back 09/28/2010 05/19/2016 ELENA ANGIOMAS///NEVUS, NON-NEOPLASTIC 09/28/19 11 12/28/2013 Actinic Keratoses (Premalignant AK's) 03/27/2010 05/19/2016 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): 04/200903/27/2010 05/19/2016 Surgical Scar R post ear 03/27/2010 016 Actinic Damage///Sun-Damaged Skin 03/27/2010 05/19/2016 Solar Lentigo//Solar Lentigines 03/27/2010 05/19/2016 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 03/06/2010 Surgical Scar and Fibrosis of Skin 05/27/2009 03/06/2010 H/O SCC///MALIG NEOPLASM SKIN EAR 10/09/2008 03/06/2010 Neoplasm of uncertain behavior of skin 8 03/06/2010 NEVUS BACK///BENIGN SHAN SKIN TRUNK 08/07/2008 03/06/2010 ACTINIC DAMAGE///CHR SOLAR SKIN DAMAGE NOS 08/0703/06/2010 Other seborrheic keratosis 08/07/200803/06 ACTINIC KERATOSIS (Premalignant AK) 08/07/2008 03/06/2010 SOLAR LENTIGINES///DYSCHROMIA OTHER 08/07/2008 03/06/2010 ELENA ANGIOMAS///NEVUS, NON-NEOPLASTIC 08/07/20 08 03/06/2010 Aortic valve disorders 06/09/2006 2 Overview: mild AI - echo 03/24 Primary pulmonary hypertension 01/19/2006 0 03/23/2006 Hypertensive heart disease with heart failure 04/05/2022 documented as of this encounter (statuses as of 12/31/2022) [facility] History of Past illness Narrative* Problem Noted Date Resolved Date Pain in right wrist 12/29/2015 05/19/2016 Eczematous dermatitis of left lower eyelid 12/2805/19/2016 Eczematous dermatitis 12/28/2013 05/19/2016 Xerosis cutis 12/28/2013 05/19/2016 Digital mucous cyst 04/23/2012 10/19/2016 Postinflammatory skin changes 04/23/2012 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 6 Seborrheic Keratosis 09/28/2010 05/19/2016 H/O SCC///MALIG NEOPLASM SKIN EAR 09/28/2010 12/28/2013 Melanocytic nevus moles of back 09/28/2010 05/19/2016 ELENA ANGIOMAS///NEVUS, NON-NEOPLASTIC 09/28/19 11 12/28/2013 Actinic Keratoses (Premalignant AK's) 03/27/2010 05/19/2016 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): 04/200903/27/2010 05/19/2016 Surgical Scar R post ear 03/27/2010 016 Actinic Damage///Sun-Damaged Skin 03/27/2010 05/19/2016 Solar Lentigo//Solar Lentigines 03/27/2010 05/19/2016 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 03/06/2010 Surgical Scar and Fibrosis of Skin 05/27/2009 03/06/2010 H/O SCC///MALIG NEOPLASM SKIN EAR 10/09/2008 03/06/2010 Neoplasm of uncertain behavior of skin 8 03/06/2010 NEVUS BACK///BENIGN SHAN SKIN TRUNK 08/07/2008 03/06/2010 ACTINIC DAMAGE///CHR SOLAR SKIN DAMAGE NOS 08/0703/06/2010 Other seborrheic keratosis 08/07/200803/06 ACTINIC KERATOSIS (Premalignant AK) 08/07/2008 03/06/2010 SOLAR LENTIGINES///DYSCHROMIA OTHER 08/07/2008 03/06/2010 ELENA ANGIOMAS///NEVUS, NON-NEOPLASTIC 08/07/20 08 03/06/2010 Aortic valve disorders 06/09/2006 2 Overview: mild AI - echo 03/24 Primary pulmonary hypertension 01/19/2006 0 03/23/2006 Hypertensive heart disease with heart failure 04/05/2022 documented as of this encounter (statuses as of 01/28/2023) [facility] History of Past illness Narrative* Problem Noted Date Resolved Date Pain in right wrist 12/29/2015 05/19/2016 Eczematous dermatitis of left lower eyelid 12/2805/19/2016 Eczematous dermatitis 12/28/2013 05/19/2016 Xerosis cutis 12/28/2013 05/19/2016 Digital mucous cyst 04/23/2012 10/19/2016 Postinflammatory skin changes 04/23/2012 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 6 Seborrheic Keratosis 09/28/2010 05/19/2016 H/O SCC///MALIG NEOPLASM SKIN EAR 09/28/2010 12/28/2013 Melanocytic nevus moles of back 09/28/2010 05/19/2016 ELENA ANGIOMAS///NEVUS, NON-NEOPLASTIC 09/28/19 11 12/28/2013 Actinic Keratoses (Premalignant AK's) 03/27/2010 05/19/2016 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): 04/200903/27/2010 05/19/2016 Surgical Scar R post ear 03/27/2010 016 Actinic Damage///Sun-Damaged Skin 03/27/2010 05/19/2016 Solar Lentigo//Solar Lentigines 03/27/2010 05/19/2016 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 03/06/2010 Surgical Scar and Fibrosis of Skin 05/27/2009 03/06/2010 H/O SCC///MALIG NEOPLASM SKIN EAR 10/09/2008 03/06/2010 Neoplasm of uncertain behavior of skin 8 03/06/2010 NEVUS BACK///BENIGN SHAN SKIN TRUNK 08/07/2008 03/06/2010 ACTINIC DAMAGE///CHR SOLAR SKIN DAMAGE NOS 08/0703/06/2010 Other seborrheic keratosis 08/07/200803/06 ACTINIC KERATOSIS (Premalignant AK) 08/07/2008 03/06/2010 SOLAR LENTIGINES///DYSCHROMIA OTHER 08/07/2008 03/06/2010 ELENA ANGIOMAS///NEVUS, NON-NEOPLASTIC 08/07/20 08 03/06/2010 Aortic valve disorders 06/09/2006 2 Overview: mild AI - echo 03/24 Primary pulmonary hypertension 01/19/2006 0 03/23/2006 Hypertensive heart disease with heart failure 04/05/2022 documented as of this encounter (statuses as of 03/18/2023) [facility]04[facility]2016 History of Past illness Narrative* Problem Noted Date Diagnosed Date Resolved Date Pain in right wrist 12/29/2015 05/19/20 16 Eczematous dermatitis of left lower eyelid 12/28/2013 05/19/2016 Eczematous dermatitis 12/28/20132015 Xerosis cutis 12/28/2013 05/19/2016 Digital mucous cyst 04/23/2012 10/19/19 17 Postinflammatory skin changes 04/23/2012 05/19/2016 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05/19 Seborrheic Keratosis 09/28/2010 016 H/O SCC///MALIG NEOPLASM SKIN EAR 09/28/2010 12/28/2013 Melanocytic nevus moles of back 09/28/2010 05/19/2016 ELENA ANGIOMAS///NEVUS, NON-NEOPLASTIC 09/28/2010 12/28/2013 Actinic Keratoses (Premalignant AK's) 03/27/2010 05/19/2016 H/O SCC R post ear (Malignan t Neoplasm Skin): 09/26/2008 03/27/2010 05/19/2016 Surgical Scar R post ear 03/27/2010 Actinic Damage///Sun-Damaged Skin 03/27/2010 05/19/2016 Solar Lentigo//Solar Lentigines 03/27/2010 05/19/2016 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 05/27/20 09 03/06/2010 Surgical Scar and Fibrosis of Skin 05/27/2009 03/06/2010 H/O SCC///MALIG NEOPLASM SKIN EAR 10/09/2008 03/06/2010 Neoplasm of uncertain behavior of skin 08/07/2008 03/06/2010 NEVUS BACK///BENIGN SHAN SKIN TRUNK 08/07/2008 03/06/2010 ACTINIC DAMAGE///CHR SOLAR SKIN DAMAGE NOS 08/07/2008 03/06/2010 Other seborrheic keratosis 08/07/2008 0 03/06/2010 ACTINIC KERATOSIS (Premalignant AK) 08/07/2008 03/06/2010 SOLAR LENTIGINES///DYSCHROMIA OTHER 08/07/2008 03/06/2010 ELENA ANGIOMAS///NEVUS, NON-NEOPLASTIC 08/07/2008 03/06/2010 Aortic valve disorders 06/09/200604/05 Overview: mild AI - echo 03/24 Primary pulmonary hypertension 01/19/2006 03/23/2006 Hypertensive heart disease with heart failure 12/07/1904/05/2022 documented as of this encounter (statuses as of 04/05/2023) [facility] No data available for this section [facility] Evaluation note* Diagnosis Type 2 diabetes mellitus without complication, without long-term current use of insulin (HCC)- Primary BENIGN HYPERTENSION Essential hypertension, benign Hyperlipidemia, unspecified hyperlipidemia type Atherosclerosis of [place] coronary artery of [place] heart without angina pectoris Coronary artery disease involving [place] coronary artery of [place] heart without angina pectoris Chronic diastolic CHF (congestive heart failure) (HCC) Chronic diastolic heart failure documented in this encounter [facility]* Diagnosis Type 2 diabetes mellitus without complication, without long-term current use of insulin (HCC) documented in this encounter [facility] note* Diagnosis Acute non-recurrent sinusitis, unspecified location- Primary [facility] in this encounter [facility] Diagnosis BENIGN HYPERTENSION Essential hypertension, benign documented in this encounter [facility] note* Diagnosis Type 2 diabetes mellitus without complication, without long-term current use of insulin (HCC) documented [facility] this encounter [facility]* Diagnosis Type 2 diabetes mellitus without complication, without long-term current use of insulin (HCC)- Primary Ankylosing spondylitis, unspecified site of spine (HCC) Chronic kidney disease, stage 3a (HCC) Need for influenza vaccination Need for prophylactic vaccination and inoculation against influenza Mixed hyperlipidemia Chronic diastolic CHF (congestive heart failure) (HCC) Chronic diastolic heart failure Essential hypertension Unspecified essential hypertension documented in this encounter [facility] note* Diagnosis Chronic diastolic CHF (congestive heart failure) (HCC)- Primary Chronic diastolic heart failure Coronary artery disease involving [place] coronary artery of [place] heart without angina pectoris Essential hypertension Unspecified essential hypertension Mixed hyperlipidemia History of mitral valve repair Personal history of surgery to heart and great vessels, presenting hazards to health S/P right coronary artery (RCA) stent placement 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 Postsurgical percutaneous transluminal coronary angioplasty status documented in this encounter [facility] Summary Purpose Family History No Family History Records FoundNo Family History Records FoundNo Family History Records FoundNo Family History Records Found Advance Directives No Advanced Directives Records FoundNo Advanced Directives Records FoundNo Advanced Directives Records FoundNo Advanced Directives Records Found Additional Source Comments (unrecognized sect ion and content) No Status Records FoundNo Status Records FoundNo Status Records FoundNo Status Records Found INFORMATION SOURCE (unrecogn ized section and content) DATE CREATED AUTHOR AUTHOR'S ORGANIZ ATION 03/23/2018 [facility] DATE CREATED AUTHOR AUTHOR'S ORGANIZ ATION 08/04/2021 [facility] ([place]) DATE CREATED AUTHOR AUTHOR'S ORGANIZ ATION 04/06/2023 [facility] Source Comments (unrecognize d section and content) In the event this informatio n is protected by the Federal Confidentiality of Alcohol and Drug Abuse Patient Records regulations: The Federal rules restrict any use of the information to criminally investigate or prosecute any alcohol or drug abuse patient.[facility] the event this information is protected by the Federal Confidentiality of Alcohol and Drug Abuse Patient Records regulations: The Federal rules restrict any use of the information to criminally investigate or prosecute any alcohol or drug abuse patient.[facility] the event this information is protected by the Federal Confidentiality of Alcohol and Drug Abuse Patient Records regulations: The Federal rules restrict any use of the information to criminally investigate or prosecute any alcohol or drug abuse patient.[facility] the event this information is protected by the Federal Confidentiality of Alcohol and Drug Abuse Patient Records regulations: The Federal rules restrict any use of the information to criminally investigate or prosecute any alcohol or drug abuse patient.[facility] the event this information is protected by the Federal Confidentiality of Alcohol and Drug Abuse Patient Records regulations: The Federal rules restrict any use of the information to criminally investigate or prosecute any alcohol or drug abuse patient.[facility] the event this information is protected by the Federal Confidentiality of Alcohol and Drug Abuse Patient Records regulations: The Federal rules restrict any use of the information to criminally investigate or prosecute any alcohol or drug abuse patient.[facility] the event this information is protected by the Federal Confidentiality of Alcohol and Drug Abuse Patient Records regulations: The Federal rules restrict any use of the information to criminally investigate or prosecute any alcohol or drug abuse patient.[facility] the event this information is protected by the Federal Confidentiality of Alcohol and Drug Abuse Patient Records regulations: The Federal rules restrict any use of the information to criminally investigate or prosecute any alcohol or drug abuse patient.[facility] the event this information is protected by the Federal Confidentiality of Alcohol and Drug Abuse Patient Records regulations: The Federal rules restrict any use of the information to criminally investigate or prosecute any alcohol or drug abuse patient.[facility] the event this information is protected by the Federal Confidentiality of Alcohol and Drug Abuse Patient Records regulations: The Federal rules restrict any use of the information to criminally investigate or prosecute any alcohol or drug abuse patient.[facility] the event this information is protected by the Federal Confidentiality of Alcohol and Drug Abuse Patient Records regulations: The Federal rules restrict any use of the information to criminally investigate or prosecute any alcohol or drug abuse patient.[facility] the event this information is protected by the Federal Confidentiality of Alcohol and Drug Abuse Patient Records regulations: The Federal rules restrict any use of the information to criminally investigate or prosecute any alcohol or drug abuse patient.[facility] the event this information is protected by the Federal Confidentiality of Alcohol and Drug Abuse Patient Records regulations: The Federal rules restrict any use of the information to criminally investigate or prosecute any alcohol or drug abuse patient.[facility] the event this information is protected by the Federal Confidentiality of Alcohol and Drug Abuse Patient Records regulations: The Federal rules restrict any use of the information to criminally investigate or prosecute any alcohol or drug abuse patient.[facility] the event this information is protected by the Federal Confidentiality of Alcohol and Drug Abuse Patient Records regulations: The Federal rules restrict any use of the information to criminally investigate or prosecute any alcohol or drug abuse patient.[facility] the event this information is protected by the Federal Confidentiality of Alcohol and Drug Abuse Patient Records regulations: The Federal rules restrict any use of the information to criminally investigate or prosecute any alcohol or drug abuse patient.[facility] the event this information is protected by the Federal Confidentiality of Alcohol and Drug Abuse Patient Records regulations: The Federal rules restrict any use of the information to criminally investigate or prosecute any alcohol or drug abuse patient.[facility] the event this information is protected by the Federal Confidentiality of Alcohol and Drug Abuse Patient Records regulations: The Federal rules restrict any use of the information to criminally investigate or prosecute any alcohol or drug abuse patient.[facility] the event this information is protected by the Federal Confidentiality of Alcohol and Drug Abuse Patient Records regulations: The Federal rules restrict any use of the information to criminally investigate or prosecute any alcohol or drug abuse patient.[facility] the event this information is protected by the Federal Confidentiality of Alcohol and Drug Abuse Patient Records regulations: The Federal rules restrict any use of the information to criminally investigate or prosecute any alcohol or drug abuse patient.[facility] the event this information is protected by the Federal Confidentiality of Alcohol and Drug Abuse Patient Records regulations: The Federal rules restrict any use of the information to criminally investigate or prosecute any alcohol or drug abuse patient.[facility] the event this information is protected by the Federal Confidentiality of Alcohol and Drug Abuse Patient Records regulations: The Federal rules restrict any use of the information to criminally investigate or prosecute any alcohol or drug abuse patient.[facility] the event this information is protected by the Federal Confidentiality of Alcohol and Drug Abuse Patient Records regulations: The Federal rules restrict any use of the information to criminally investigate or prosecute any alcohol or drug abuse patient.[facility] the event this information is protected by the Federal Confidentiality of Alcohol and Drug Abuse Patient Records regulations: The Federal rules restrict any use of the information to criminally investigate or prosecute any alcohol or drug abuse patient.[facility] the event this information is protected by the Federal Confidentiality of Alcohol and Drug Abuse Patient Records regulations: The Federal rules restrict any use of the information to criminally investigate or prosecute any alcohol or drug abuse patient.[facility] the event this information is protected by the Federal Confidentiality of Alcohol and Drug Abuse Patient Records regulations: The Federal rules restrict any use of the information to criminally investigate or prosecute any alcohol or drug abuse patient.[facility] the event this information is protected by the Federal Confidentiality of Alcohol and Drug Abuse Patient Records regulations: The Federal rules restrict any use of the information to criminally investigate or prosecute any alcohol or drug abuse patient.[facility] the event this information is protected by the Federal Confidentiality of Alcohol and Drug Abuse Patient Records regulations: The Federal rules restrict any use of the information to criminally investigate or prosecute any alcohol or drug abuse patient.[facility] the event this information is protected by the Federal Confidentiality of Alcohol and Drug Abuse Patient Records regulations: The Federal rules restrict any use of the information to criminally investigate or prosecute any alcohol or drug abuse patient.[facility] the event this information is protected by the Federal Confidentiality of Alcohol and Drug Abuse Patient Records regulations: The Federal rules restrict any use of the information to criminally investigate or prosecute any alcohol or drug abuse patient.[facility] the event this information is protected by the Federal Confidentiality of Alcohol and Drug Abuse Patient Records regulations: The Federal rules restrict any use of the information to criminally investigate or prosecute any alcohol or drug abuse patient.[facility] Reason for Visit (unrecogniz ed section and content) Reason Onset Date Comments Community Monitoring Outreach 01/08/2022 Te lephonic Follow Up Reason Onset Date Comments Community Monitoring Outreach 01/21/2022 Te lephonic Follow Up Reason Onset Date Comments Community Monitoring Outreach 02/04/2022 Te lephonic Follow Up Reason Onset Date Comments Refill Request 02/08/2022 Reason Onset Date Comments Community Monitoring Outreach 03/04/2022 Te lephonic Follow Up Reason Onset Date Comments Community Monitoring Outreach 03/05/2022 Te lephonic Follow Up Reason Comments F/U 6 Month Reason Onset Date Comments Community Monitoring Outreach 03/17/2022 Te lephonic Follow Up Reason Onset Date Comments Refill Request 04/23/2022 Reason Onset Date Comments Community Monitoring Outreach 04/28/2022 Te lephonic Follow Up Reason Onset Date Comments Community Monitoring Outreach 04/29/2022 Te lephonic Follow Up Reason Onset Date Comments Community Monitoring Outreach 05/19/2022 CD M Follow Up Reason Onset Date Comments Community Monitoring Outreach 06/02/2022 CD M Telephonic Reason Onset Date Comments Community Monitoring Outreach 06/16/2022 CD M Telephonic Reason Onset Date Comments Community Monitoring Outreach 07/08/2022 CD M Telephonic Reason Onset Date Comments Community Monitoring Outreach 07/09/2022 CD M Telephonic Reason Comments Chest Congestion cough, sore throat, headache x 1 week Reason Comments Refill Request Reason Onset Date Comments community monitoring outreach 08/17/2022 CD M telephonic outreach Reason Onset Date Comments community monitoring outreach 09/17/2022 CD M-telephonic outreach Reason Onset Date Comments Follow Up 6 month- interes jeff in flu shot but reports having a cold for about 2 weeks. Immunizations 09/17/2022 Flu vaccination Reason Comments Follow Up Reason Onset Date Comments community monitoring outreach 10/21/2022 CD M-Telephonic outreach Reason Comments Quinapril not available Reason Onset Date Comments community monitoring outreach 11/22/2022 CD M-Telephonic outreach Reason Onset Date Comments community monitoring outreach 12/29/2022 CD M-Telephonic outreach Reason Onset Date Comments community monitoring outreach 01/27/2023 CD M-Telephonic outreach Reason Comments 6 Month Exam Reason Onset Date Comments community monitoring outreach 04/04/2023 CD M-Telephonic outreach Care Teams (unrecognized sec tion and content) 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 Relationship Specialty Start Date End Date Fco Bradshaw MD [address] [place], [place] [id number] PCP - General 08/27/09 Mark Mora MD 0832 [employer]edMelvin [employer] EducationLiyah [address] [address] Orthopedics Orthopedics 03/31/21 Dana Brown RN [address] [place] [address] Melting Supervisor 05/12/21 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 Relationship Specialty Start Date End Date Fco Bradshaw MD [address] [place], [place] [id number] PCP - General 08/27/09 Mark Mora MD 6757 ConsultedMelvin Retention EducationY [address] [address] Orthopedics Orthopedics 03/31/21 Dana Brown, RN [address] [facility] [place] [address] Melting Supervisor 05/12/21 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 Relationship Specialty Start Date End Date Fco Bradshaw MD [address] [facility] [place] [address] PCP - General 08/27/09 Mark Mora MD [address] [place] [address] Orthopedics Orthopedics 03/31/21 Dana Brown, RN [address] [facility] [place] [address] Melting Supervisor 05/12/21 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 Relationship Specialty Start Date End Date Fco Bradshaw MD [address] [facility] [place] [address] PCP - General 08/27/09 Mark Mora MD [address] [place] [address] Orthopedics Orthopedics 03/31/21 Dana Brown, RN [address] [facility] [place] [address] Melting Supervisor 05/12/21 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 Relationship Specialty Start Date End Date Fco Bradshaw MD [address] [facility] [place] [address] PCP - General 08/27/09 Mark Mora MD [address] [place] [address] Orthopedics Orthopedics 03/31/21 Dana Brown, RN [address] [facility] [place] [address] Melting Supervisor 05/12/21 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 Relationship Specialty Start Date End Date Fco Bradshaw MD [address] [facility] [place] [address] PCP - General 08/27/09 Mark Mora MD [address] [place] [address] Orthopedics Orthopedics 03/31/21 Dana Brown, LUZ [address] [place] [address] Melting Supervisor 05/12/21 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 Relationship Specialty Start Date End Date Fco Bradshaw MD [address] [facility] [place] [address] PCP - General 08/27/09 Mark Mora MD [address] [place] [address] Orthopedics Orthopedics 03/31/21 Dana Brown RN [address] [place] [address] Melting Supervisor 05/12/21 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 Relationship Specialty Start Date End Date Fco Bradshaw MD [address] [facility] [place] [address] PCP - General 08/27/09 Mark Mora MD [address] [place] [address] Orthopedics Orthopedics 03/31/21 Dana Brown RN [address] [place] [address] Melting Supervisor 05/12/21 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 Relationship Specialty Start Date End Date Fco Bradshaw MD [address] [facility] [place] [address] PCP - General 08/27/09 Mark Mora MD [address] [place] [address] Orthopedics Orthopedics 03/31/21 Dana Brown RN [address] [place] [address] Melting Supervisor 05/12/21 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 Relationship Specialty Start Date End Date Fco Bradshaw MD [address] [facility] [place] [address] PCP - General 08/27/09 Mark Mora MD [address] [place] [address] Orthopedics Orthopedics 03/31/21 Jose De Jesus Paige RN [address] [place] [address] Melting Supervisor [facility] Medicine 05/10/21 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 Relationship Specialty Start Date End Date Fco Bradshaw MD [address] [facility] [place] [address] PCP - General 08/27/09 Mark Mora MD [address] [facility] [address] [place] [address] Orthopedics Orthopedics 03/31/21 Jose De Jesus Paige RN [address] [place] [address] Melting Supervisor [facility] Medicine 05/10/21 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 Relationship Specialty Start Date End Date Fco Bradshaw MD [address] [facility] [place] [address] PCP - General 08/27/09 Mark Mora MD [address] [place] [address] Orthopedics Orthopedics 03/31/21 Jose De Jesus Paige RN [address] [place] [address] Melting Supervisor Family Medicine 07/21/22 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 Relationship Specialty Start Date End Date Fco Bradshaw MD [address] [facility] [place] [address] PCP - General 08/27/09 Mark Mora MD [address] [place] [address] Orthopedics Orthopedics 03/31/21 Jose De Jesus Paige, LUZ [address] [place] [address] Melting Supervisor Family Medicine 07/21/22 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 Relationship Specialty Start Date End Date Fco Bradshaw MD [address] [facility] [place] [address] PCP - General 08/27/09 Mark Mora MD [address] [address] Orthopedics Orthopedics 03/31/21 Jose De Jesus Paige RN [address] [place] [address] Melting Supervisor Family Medicine 07/21/22 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 Relationship Specialty Start Date End Date Fco Bradshaw MD [address] [facility] [place] [address] PCP - General 08/27/09 Mark Mora MD [address] [address] Orthopedics Orthopedics 03/31/21 Jose De Jesus Paige RN [address] [place] [address] Melting Supervisor Family Medicine 07/21/22 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 Relationship Specialty Start Date End Date Fco Bradshaw MD [address] [facility] [place] [address] PCP - General 08/27/09 Mark Mora MD [address] [place] [address] Orthopedics Orthopedics 03/31/21 Jose De Jesus Paige RN [address] [place], [place] [id number] Melting Supervisor [facility] 07/21/22 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 Relationship Specialty Start Date End Date Fco Bradshaw MD [address] [place] [address] PCP - General 08/27/09 Mark Mora MD [address] [facility] [address] [place], [place] [address] Orthopedics Orthopedics 03/31/21 Jose De Jesus Paige RN [address] [place] [address] Melting Supervisor [facility] 07/21/22 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 Relationship Specialty Start Date End Date Fco Bradshaw MD [address] [facility] [place] [address] PCP - General 08/27/09 Mark Mora MD [address] [address] Orthopedics Orthopedics 03/31/21 Jose De Jesus Paige RN [address] [place], [place] [id number] Melting Supervisor [facility] 07/21/22 FOR RECORDS PERTAINING TO PATIENTS WHO ARE OR HAVE BEEN ENROLLED IN A CHEMICAL DEPENDENCY/SUBSTANCEABUSE PROGRAM, SOME INFORMATION MAY BE OMITTED. This clinical summary was aggregated from multiple sources. Caution should be exercised in using it in the provision of clinical care. This summary normalizes information from multiple sources, and as a consequence, information in this document may materially change the coding, format and clinical context of patient data. In addition, data may be omitted in some cases. CLINICAL DECISIONS SHOULD BE BASED ON THE PRIMARY CLINICAL RECORDS. [facility] [facility]. provides no warranty or guarantee of the accuracy or completeness of information in this document.
[2023-05-03] MEDS: TENECTEPLASE 2476.80000000000018 MG IV (03:36)
[2023-05-03] MEDS: 0.9% Normal Saline 1,000 ML 100 ML IV (03:38)
[2023-05-03] MEDS: dilTIAZem 25 MG/5 ML Vial 15 MG IV BOLUS (03:41)
--- NOTE | 2023-05-03 03:48 | EKG12_ITS ---
Test Reason : REPEAT Blood Pressure : / mmHG Vent. Rate : 101 BPM Atrial Rate : 264 BPM P-R Int : 000 ms QRS Dur : 082 ms QT Int : 296 ms P-R-T Axes : 000 077 -59 degrees QTc Int : 383 ms Atrial flutter with variable A-V block with premature ventricular or aberrantly conducted complexes Nonspecific ST and T wave abnormality Abnormal ECG Confirmed by SHERRI CARD ([id number]), content editor KAMALJIT TINAJERO ([id number]) on 05/07/2023 9:39:43 AM Referred By: Confirmed By:SHERRI CARD
--- NOTE | 2023-05-03 04:12 | HP.PCM_ITS ---
HPI - General General Date of Admission: 05/03/23 Date of Service: 05/03/23 Chief Complaint: Stroke HPI Narrative SALAS AMARO, is a 83 M who presents to the emergency room by ambulance with chief complaint of left-sided hemiparesis. Last time known well was midnight. Patient was emergently evaluated by telestroke team in the emergency room. CT scan was negative for acute hemorrhage and did show right side internal carotid artery blockage and vertebral artery blockages. Patient is in atrial fibrillation with RVR and was given dose of Cardizem for rate control in the emergency room. Determination was given to initiate thrombolytic therapy due to NIH score of 12. In discussion with the patient's spouse he is wishing to remain as full code at this present time. Patient denies any chest pain but does have some shortness of breath currently. He will be admitted to the intensive care unit for ongoing management of stroke and monitoring postthrombolytic therapy. [facility] Medical History (Updated 05/03/23 @ 04:[address] Cuco Moise, DO) Diabetes Hypertension Home Medications amlodipine 5 mg tablet 5 mg PO DAILY 06/25/16 [History Last Taken 08/03/16 09:00] aspirin 81 mg chewable tablet 81 mg PO DAILY@0800 06/25/16 [History Last Taken Unknown] atorvastatin 40 mg tablet 40 mg PO QHS 06/25/16 [History Last Taken Unknown] brimonidine 0.1 % eye drops (Alphagan P) 1 drp BID 06/25/16 [History Last Taken Unknown] dorzolamide 22.3 mg-timolol 6.8 mg/mL eye drops 1 drp BID 06/25/16 [History Last Taken Unknown] metoprolol succinate 25 mg tablet,extended release 24 hr 50 mg PO DAILY 06/25/16 [History Last Taken 08/03/16 09:00] multivitamin (Daily Multiple tablet) 1 ea PO DAILY 06/25/16 [History Last Taken Unknown] nitroglycerin 0.4 mg sublingual tablet 0.4 mg sublingual DAILY PRN Cardiac/Chest Pain 06/25/16 [History Last Taken Unknown] quinapril 40 mg tablet 40 mg PO DAILY 06/25/16 [History Last Taken 08/03/16 09:00] tacrolimus 0.1 % topical ointment 30 g TP DAILY 06/25/16 [History Last Taken Unknown] acetaminophen 325 mg tablet (Tylenol) 650 mg (2 x 325 mg) PO Q6H 08/05/16 [Rx Last Taken Unknown] furosemide 20 mg tablet 20 mg PO BID 04/15/17 [History Last Taken Unknown] docusate sodium 100 mg capsule (DOK) 100 mg PO DAILY ##20 10/25/17 [Rx Last Taken Unknown] hydrocodone-acetaminophen 5-325mg 5mg-325mg 1 - 2 tab PO Q4H PRN PRN Pain 3 days ##12 10/25/17 [Rx Last Taken Unknown] dulaglutide 0.75 mg/0.5 mL subcutaneous pen injector (Trulicity) 0.75 mg subcut .sat 05/03/23 [History Last Taken Unknown] latanoprost 0.005 % eye drops 1 drp ophthalmic (eye) DAILY 05/03/23 [History Last Taken Unknown] netarsudil 0.02 %-latanoprost 0.005 % eye drops (Rocklatan) 1 drp ophthalmic (eye) QHS 05/03/23 [History Last Taken Unknown] Allergy/AdvReac Type Severity Reaction Status Date / Time doxycycline [From Monodox] Allergy SOB AND Verified 02/19/20 07:34 COULDNT BREATHE lovastatin AdvReac Other Verified 02/19/20 07:34 pravastatin [From Pravachol] AdvReac Other Verified 02/19/20 07:34 Surgical History (Updated 05/03/23 @ 03:59 by Elena Klein) H/O heart artery stent Social History Smoking Status: Former smoker ROS Constitutional Constitutional: Reports weakness; Denies chills or fever(s) Eyes Eyes: Denies blurry vision ENT HEENT: Denies abnormal hearing Cardiovascular Cardiovascular: Denies chest pain Respiratory/Chest Respiratory/Chest: Reports shortness of breath at rest Gastrointestinal Gastrointestinal: Denies abdominal pain Genitourinary Genitourinary: Denies dysuria Integumentary Integumentary: Denies dry skin Neurologic Neurologic: Reports abnormal speech, confusion, focal weakness, numbness and sensory deficit Psychiatric Psychiatric: Reports anxiety Vital Signs Vital Signs Vital Signs: 05/03/23 02:50 05/03/23 03:08 05/03/23 03:08 Temperature 97.9 F Temperature Source Temporal Pulse Rate 130 H Respiratory Rate 21 H Blood Pressure 152/85 H Blood Pressure Mean 107 Blood Pressure Source Blood Pressure Position Blood Pressure Location Pulse Ox 89 93 93 Oxygen Delivery Method Room Air Nasal Cannula Nasal Cannula Oxygen Flow Rate (L/min) 2 2 Fraction of Inspired Oxygen (FIO2) 05/03/23 03:17 05/03/23 03:30 05/03/23 03:34 Temperature Temperature Source Pulse Rate 133 H 133 H Respiratory Rate 26 H 27 H Blood Pressure 166/85 H 149/85 H Blood Pressure Mean 112 106 Blood Pressure Source Monitor Blood Pressure Position Semi-Fowlers Blood Pressure Location Right Arm Pulse Ox 91 91 96 Oxygen Delivery Method Nasal Cannula Nasal Cannula Venturi Mask Oxygen Flow Rate (L/min) 2 2 12 Fraction of Inspired Oxygen (FIO2) 50 05/03/23 03:36 05/03/23 03:10 05/03/23 03:41 Temperature 98.1 F 97.9 F Temperature Source Temporal Temporal Pulse Rate 100 Respiratory Rate 22 H Blood Pressure 149/85 H 128/82 H Blood Pressure Mean 97 Blood Pressure Source Monitor Blood Pressure Position Semi-Fowlers Blood Pressure Location Right Arm Pulse Ox 98 Oxygen Delivery Method Venturi Mask Oxygen Flow Rate (L/min) 12 Fraction of Inspired Oxygen (FIO2) 50 05/03/23 03:55 05/03/23 03:09 05/03/23 04:09 Temperature 98.0 F 98.0 F Temperature Source Temporal Temporal Pulse Rate 99 106 H Respiratory Rate 17 21 H Blood Pressure 148/73 H 122/59 H Blood Pressure Mean 98 80 Blood Pressure Source Monitor Monitor Blood Pressure Position Semi-Fowlers Semi-Fowlers Blood Pressure Location Right Arm Right Arm Pulse Ox 98 89 97 Oxygen Delivery Method Venturi Mask Room Air Venturi Mask Oxygen Flow Rate (L/min) 12 12 Fraction of Inspired Oxygen (FIO2) 50 50 05/03/23 04:10 Temperature 98.0 F Temperature Source Temporal Pulse Rate 105 H Respiratory Rate 22 H Blood Pressure 122/59 H Blood Pressure Mean 80 Blood Pressure Source Blood Pressure Position Blood Pressure Location Pulse Ox 98 Oxygen Delivery Method Venturi Mask Oxygen Flow Rate (L/min) 12 Fraction of Inspired Oxygen (FIO2) 50 Weight Weight: 151 lb 14.376 oz Body Mass Index (BMI) 27.8 Physical Exam Const alert General Appearance: cooperative Orientation / Consciousness: confused HEENT normocephalic and head/scalp atraumatic Eyes PERRL and EOMs intact bilaterally Neck no lymphadenopathy Lymph Lymphatic: no lymphadenopathy noted Resp normal respiratory effort, normal air movement and clear to auscultation bilaterally Cardio S1 normal heart sound and S2 normal heart sound Rate: tachycardic Rhythm: abnormal rhythm irregularly irregular Heart Sounds: Negative for murmur GI soft to palpation and non-tender Extremity no clubbing, cyanosis or edema Skin General Skin Exam: no breakdown Neuro Neuro Narrative: Left upper extremity and left lower extremity paralysis present, full range of motion on right side Psych cooperative Mood & Affect: anxious Results Lab / Micro Data 05/03/23 02:37 05/03/23 02:37 Labs: Laboratory Results - last 24 hr 05/03/23 02:37: WBC 7.8, RBC 5.35, Hgb 16.3, Hct 50.6, MCV 94.6 H, MCH 30.5, MCHC 32.2, RDW Std Deviation 45.6 H, RDW Coeff of Osl 13.2, Plt Count 352, MPV 9.8, Immature Gran % (Auto) 0.400, Neut % (Auto) 66.6, Lymph % (Auto) 12.8 L, [place] % (Auto) 14.5 H, Eos % (Auto) 4.9, Baso % (Auto) 0.8, Absolute Neuts (auto) 5.2, Absolute Lymphs (auto) 1.00, Nucleated RBC % 0, PT 13.4, INR 1.0, APTT 29.2, Sodium 141, Potassium 4.4, Chloride 110 H, Carbon Dioxide 22.0, Anion Gap 9, BUN 36 H, Creatinine 1.82 H, Est GFR (MDRD) Af Amer 46 L, Est GFR (MDRD) Non- Af 38 L, BUN/Creatinine Ratio 19.8, Glucose 175 H, Calcium 9.5, Magnesium 2.7 H, Troponin I High Sens 15, TSH 3.[address] 05/03/23 02:47 IMPRESSION: No acute intracranial hemorrhage. Acute left maxillary sinusitis. Minimal age-related atrophy with patchy chronic small vessel ischemic changes. Nonstandard communication protocol initiated and completed. N.B. : The above Results were Read Back by Manny Diallo MD to Cuco Moise DO, and understanding confirmed on 05/03/2023 03:03:01 (ET). Electronically Signed: Manny Diallo MD at 3:04 EDT , Chest X-Ray 05/03/23 02:47 IMPRESSION: Previous median sternotomy. Interval development of minimal patchy airspace disease in the mid lungs and right lower lung, suspicious for mild developing pulmonary edema as pulmonary venous hypertension has developed. 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 Possible small ulceration projecting posteriorly from the origin of the right ICA as noted on the parasagittal images. 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 Moderate stenosis of the supracavernous right ICA by calcified plaque. No MCA filling defect identified. Nonstandard communication protocol initiated and completed. N.B. : The above Results were Read Back by Manny Diallo MD to Cuco Moise DO, and understanding confirmed on 05/03/2023 03:19:26 (ET). 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 Possible small ulceration projecting posteriorly from the origin of the right ICA as noted on the parasagittal images. 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 Moderate stenosis of the supracavernous right ICA by calcified plaque. No MCA filling defect identified. Nonstandard communication protocol initiated and completed. N.B. : The above Results were Read Back by Manny Diallo MD to Cuco Moise DO, and understanding confirmed on 05/03/2023 03:19:26 (ET). Electronically Signed: Manny Diallo MD at 3:32 EDT , Assessment & Plan Assessment/Plan (1) Acute cerebrovascular accident (CVA): (2) New onset atrial flutter: (3) Diabetes: (4) Hypertension: PLAN: Plan 1 acute cerebrovascular accident?admit patient to the intensive care unit, consult mail processing equipment mechanic for ICU management, monitor NIH acutely for post thrombolytic therapy. 2. Atrial fibrillation with rapid ventricular response?Cardizem drip initiated in the emergency room we will continue for rate control, will need to add anticoagulation at a later time since he has just received thrombolytic therapy this would not be advised at this time. 3. Diabetes?patient currently n.p.o. we will monitor blood sugars and address accordingly 4. Hypertension?continue protocol for stroke management of hypertension hold home medications 5. DVT prophylaxis?it is unnecessary to add further medications postthrombolytic therapy at this time Charges/Coding Visit Charges Inpatient E&M: 72684 Init Hosp L3
--- NOTE | 2023-05-03 04:13 | EX.ED.DYSGE1 ---
HPI History of Present Illness Chief Complaint: Stroke Alert Informant: patient, spouse/S.O. and EMS Narrative Narrative: Patient is 83-year-old male with past medical history of hypertension and diabetes. He went to bed this evening around midnight and was awake and she saw him go off to bed acting normally. She states that around 2:30 in the morning she began hearing him moan and he found him awake but with slurred speech and inability to move his left side. Secondary to his EMS was contacted. EMS states when they arrived they checked his blood sugar and it was normal at approximately 130 and they confirm that he was awake but had slurred speech and paralysis of his left side. Secondary to this they called the hospital and a stroke alert was activated. [facility] Medical History (Updated 05/03/23 @ 04:[address] Cuco Moise, ) Diabetes Hypertension Home Medications amlodipine 5 mg tablet 5 mg PO DAILY 06/25/16 [History Last Taken 08/03/16 09:00] aspirin 81 mg chewable tablet 81 mg PO DAILY@0800 06/25/16 [History Last Taken Unknown] atorvastatin 40 mg tablet 40 mg PO QHS 06/25/16 [History Last Taken Unknown] brimonidine 0.1 % eye drops (Alphagan P) 1 drp BID 06/25/16 [History Last Taken Unknown] dorzolamide 22.3 mg-timolol 6.8 mg/mL eye drops 1 drp BID 06/25/16 [History Last Taken Unknown] metoprolol succinate 25 mg tablet,extended release 24 hr 50 mg PO DAILY 06/25/16 [History Last Taken 08/03/16 09:00] multivitamin (Daily Multiple tablet) 1 ea PO DAILY 06/25/16 [History Last Taken Unknown] nitroglycerin 0.4 mg sublingual tablet 0.4 mg sublingual DAILY PRN Cardiac/Chest Pain 06/25/16 [History Last Taken Unknown] quinapril 40 mg tablet 40 mg PO DAILY 06/25/16 [History Last Taken 08/03/16 09:00] tacrolimus 0.1 % topical ointment 30 g TP DAILY 06/25/16 [History Last Taken Unknown] acetaminophen 325 mg tablet (Tylenol) 650 mg (2 x 325 mg) PO Q6H 08/05/16 [Rx Last Taken Unknown] furosemide 20 mg tablet 20 mg PO BID 04/15/17 [History Last Taken Unknown] docusate sodium 100 mg capsule (DOK) 100 mg PO DAILY ##20 10/25/17 [Rx Last Taken Unknown] hydrocodone-acetaminophen 5-325mg 5mg-325mg 1 - 2 tab PO Q4H PRN PRN Pain 3 days ##12 10/25/17 [Rx Last Taken Unknown] dulaglutide 0.75 mg/0.5 mL subcutaneous pen injector (Trulicity) 0.75 mg subcut .sat 05/03/23 [History Last Taken Unknown] latanoprost 0.005 % eye drops 1 drp ophthalmic (eye) DAILY 05/03/23 [History Last Taken Unknown] netarsudil 0.02 %-latanoprost 0.005 % eye drops (Rocklatan) 1 drp ophthalmic (eye) QHS 05/03/23 [History Last Taken Unknown] Allergy/AdvReac Type Severity Reaction Status Date / Time doxycycline [From Monodox] Allergy SOB AND Verified 02/19/20 07:34 COULDNT BREATHE lovastatin AdvReac Other Verified 02/19/20 07:34 pravastatin [From Pravachol] AdvReac Other Verified 02/19/20 07:34 Surgical History (Updated 05/03/23 @ 03:59 by Elena Klein) H/O heart artery stent Social History Smoking Status: Former smoker ROS ROS ED Constitutional Constitutional ED: Denies chills or fever(s) ENT ENT ED: Denies sore throat Cardiovascular Cardiovascular: Reports racing heartbeat; Denies chest pain Respiratory/Chest Respiratory/Chest: Reports dyspnea; Denies cough Gastrointestinal Gastrointestinal: Denies abdominal pain, diarrhea, nausea or vomiting Genitourinary Genitourinary ED: Denies dysuria Musculoskeletal Musculoskeletal: Denies myalgias Integumentary Denies rash Neurologic Neurologic: Reports paresthesias and weakness; Denies headache(s) Hematologic/Lymphatic Hematologic/Lymphatic: Denies easy bleeding or easy bruising EXAM Physical Exam Const Vital Signs: 05/03/23 02:50 05/03/23 03:08 05/03/23 03:08 Temperature 97.9 F Temperature Source Temporal Pulse Rate 130 H Respiratory Rate 21 H Blood Pressure 152/85 H Blood Pressure Mean 107 Blood Pressure Source Blood Pressure Position Blood Pressure Location Pulse Ox 89 93 93 Oxygen Delivery Method Room Air Nasal Cannula Nasal Cannula Oxygen Flow Rate (L/min) 2 2 Fraction of Inspired Oxygen (FIO2) 05/03/23 03:17 05/03/23 03:30 05/03/23 03:34 Temperature Temperature Source Pulse Rate 133 H 133 H Respiratory Rate 26 H 27 H Blood Pressure 166/85 H 149/85 H Blood Pressure Mean 112 106 Blood Pressure Source Monitor Blood Pressure Position Semi-Fowlers Blood Pressure Location Right Arm Pulse Ox 91 91 96 Oxygen Delivery Method Nasal Cannula Nasal Cannula Venturi Mask Oxygen Flow Rate (L/min) 2 2 12 Fraction of Inspired Oxygen (FIO2) 50 05/03/23 03:36 05/03/23 03:10 05/03/23 03:41 Temperature 98.1 F 97.9 F Temperature Source Temporal Temporal Pulse Rate 100 Respiratory Rate 22 H Blood Pressure 149/85 H 128/82 H Blood Pressure Mean 97 Blood Pressure Source Monitor Blood Pressure Position Semi-Fowlers Blood Pressure Location Right Arm Pulse Ox 98 Oxygen Delivery Method Venturi Mask Oxygen Flow Rate (L/min) 12 Fraction of Inspired Oxygen (FIO2) 50 05/03/23 03:55 05/03/23 03:09 05/03/23 04:09 Temperature 98.0 F 98.0 F Temperature Source Temporal Temporal Pulse Rate 99 106 H Respiratory Rate 17 21 H Blood Pressure 148/73 H 122/59 H Blood Pressure Mean 98 80 Blood Pressure Source Monitor Monitor Blood Pressure Position Semi-Fowlers Semi-Fowlers Blood Pressure Location Right Arm Right Arm Pulse Ox 98 89 97 Oxygen Delivery Method Venturi Mask Room Air Venturi Mask Oxygen Flow Rate (L/min) 12 12 Fraction of Inspired Oxygen (FIO2) 50 50 05/03/23 04:10 Temperature 98.0 F Temperature Source Temporal Pulse Rate 105 H Respiratory Rate 22 H Blood Pressure 122/59 H Blood Pressure Mean 80 Blood Pressure Source Blood Pressure Position Blood Pressure Location Pulse Ox 98 Oxygen Delivery Method Venturi Mask Oxygen Flow Rate (L/min) 12 Fraction of Inspired Oxygen (FIO2) 50 Positive well nourished and well developed General Appearance ED: well developed HEENT HEENT Narrative: Normocephalic atraumatic Eyes PERRL and EOMs intact bilaterally Eyes Narrative: There appears to be complete loss of vision in the left eye with mild gaze deviation medially Neck supple and no JVD Neck Narrative: No nuchal rigidity or meningeal signs Resp Resp Narrative: Breath sounds are diminished throughout with faint rhonchi in the bilateral bases. Patient is tachypneic with accessory muscle use Cardio Rate: other Other Details: Irregularly irregular rhythm with tachycardic rate There is occasional ectopic beat noted GI normal to inspection, nondistended, normoactive bowel sounds, non-tender, non-distended and no masses GI Narrative: No pulsatile mass or fluid wave Auscultation: normoactive bowel sounds Palpation: soft Extremity Extremity Narrative: No asymmetric edema no pitting edema negative Homans' sign bilaterally Neuro oriented x3 Neuro Narrative: Patient is awake and alert but has significant left-sided facial paralysis with complete weakness of his left arm and leg he also has severe dysarthria and loss of sensation in the left arm and leg. There also appears to be vision loss in the left eye. Patient receives a total NIH stroke scale score of 16 secondary to these findings Sensorium / Orientation: alert Psych mental status grossly normal Skin no rashes or lesions noted MDM MDM MDM Narrative Medical decision making narrative: Patient presented to the ER slightly hypertensive but does have a past medical history of this. He is awake and alert but has left-sided paralysis to his face arm and leg consistent with a acute severe stroke. A stroke alert was activated upon EMS notification. The patient was taken from the ER to the CT scanner and a CT and CTA of the head and neck were obtained. CT revealed no acute bleed. Telemetry neurology also evaluated the patient and they agree that based on his significant deficit and onset of symptoms of last known well that he does qualify for tenecteplase. Therefore the risks and benefits as well as inclusion/exclusion criteria was discussed with patient and . Both are agreeable to it and therefore this medication was provided. The patient also was found to have new onset A-fib a flutter by EKG. secondary to this he had a bolus of Cardizem given which reduced his heart rate from the 130s to 150s down to approximately 100. A Cardizem drip was not started as well. As there is no large vessel occlusion neurology recommends patient be kept at this facility. Therefore medicine was contacted and they do agree to accept the patient at this time. History & Record Review Discussion w/independent historian: EMS personnel, Patient and Significant other Lab Data Attestation: I reviewed the patient's lab results. Labs: Laboratory Results - last 24 hr 05/03/23 02:37 WBC 7.8 RBC 5.35 Hgb 16.3 Hct 50.6 MCV 94.6 H MCH 30.5 MCHC 32.2 RDW Std Deviation 45.6 H RDW Coeff of Sol 13.2 Plt Count 352 MPV 9.8 Immature Gran % (Auto) 0.400 Neut % (Auto) 66.6 Lymph % (Auto) 12.8 L [place] % (Auto) 14.5 H Eos % (Auto) 4.9 Baso % (Auto) 0.8 Absolute Neuts (auto) 5.2 Absolute Lymphs (auto) 1.00 Nucleated RBC % 0 PT 13.4 INR 1.0 APTT 29.2 Sodium 141 Potassium 4.4 Chloride 110 H Carbon Dioxide 22.0 Anion Gap 9 BUN 36 H Creatinine 1.82 H Est GFR (MDRD) Af Amer 46 L Est GFR (MDRD) Non-Af 38 L BUN/Creatinine Ratio 19.8 Glucose 175 H Calcium 9.5 Magnesium 2.7 H Troponin I High Sens 15 TSH 3.16 Radiography Diagnostic Testing: Clinical Impression(s) from Imaging Studies Brain CT 05/03/23 02:47 IMPRESSION: No acute intracranial hemorrhage. Acute left maxillary sinusitis. Minimal age-related atrophy with patchy chronic small vessel ischemic changes. Nonstandard communication protocol initiated and completed. N.B. : The above Results were Read Back by Manny Diallo MD to Cuco Moise DO, and understanding confirmed on 05/03/2023 03:03:01 (ET). Electronically Signed: Manny Diallo MD at 3:04 EDT , Chest X-Ray 05/03/23 02:47 IMPRESSION: Previous median sternotomy. Interval development of minimal patchy airspace disease in the mid lungs and right lower lung, suspicious for mild developing pulmonary edema as pulmonary venous hypertension has developed. 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 Possible small ulceration projecting posteriorly from the origin of the right ICA as noted on the parasagittal images. 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 Moderate stenosis of the supracavernous right ICA by calcified plaque. No MCA filling defect identified. Nonstandard communication protocol initiated and completed. N.B. : The above Results were Read Back by Manny Diallo MD to Cuco Moise DO, and understanding confirmed on 05/03/2023 03:19:26 (ET). 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 Possible small ulceration projecting posteriorly from the origin of the right ICA as noted on the parasagittal images. 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 Moderate stenosis of the supracavernous right ICA by calcified plaque. No MCA filling defect identified. Nonstandard communication protocol initiated and completed. N.B. : The above Results were Read Back by Manny Diallo MD to Cuco Moise DO, and understanding confirmed on 05/03/2023 03:19:26 (ET). Electronically Signed: Manny Diallo MD at 3:32 EDT , 1 view chest x-ray as interpreted by the emergency medicine physician reveals patchy opacities in the bilateral lower lungs concerning for developing pulmonary edema. No obvious pneumothorax or infiltrate noted. Management Discussion w/another healthcare provider: Hospitalist, Customer Assistance Representative and Radiologist Critical Care Time Critical Care Time: Yes Critical care time (excluding procedures): Discussing w/Patient &/or Family/Campus Receptionist, Discussing w/Consultants and - (Please note critical care time of 33 minutes) Discharge Plan Dx/Rx/DC Orders Clinical Impression: Diabetes, New onset atrial flutter, Acute cerebrovascular accident (CVA), Hypertension Disposition Disposition: Acute Care Hospital [facility]
--- OUTSIDE RECORDS SUMMARY | 2023-05-03 04:21 | XMS RPT_ITS | CCD ---
Author Name Unknown Address [address] [place] [address] Organization [facility] Care Team Providers Care Er Registrar Name Role Phone KOBYHORTENSIA BEAVERNETH E Unavailable Unavailable KOBY LORAINE E Unavailable Unavailable HORTENSIA WHALENNETH Unavailable Unavailable HORTENSIA WHALENNETH Unavailable Unavailable Fco Bradshaw Unavailable Unavailable HORTENSIA WHALENNETH Unavailable Unavailable LORAINE WHALEN Unavailable Unavailable DR [...] FCO BRADSHAW Primary Care Unavailable IDALIA WATTS Referring Unavailable FCO BRADSHAW Primary Care Unavailable [...] [LOVASTATIN] Drug Allergy 5 Muscle pain (finding) [facility] Repository (3 sources) OTHER; Translations: [OTHER] Propensity to adverse reactions (disorder) 5 [facility] Repository (20 sources) Doxycycline; Translations: [doxycycline] Drug Allergy 7 Shortness of Breath [facility] (1 source) Pravastatin; Translations: [pravastatin] Drug Allergy Muscle pain [facility] (20 sources) prevacor [Other] Propensity to adverse reactions 5 [facility] Work Phone: Medications Current Medications Medication Drug [...] tab(s), 0 Refill(s), 07/22/21 7:18:00 EDT, Pharmacy: [id number], 157.5, cm, 07/07/21 13:09:00 EDT, [...] disease (20 sources) Atherosclerotic heart disease of platinum coronary artery without angina pectoris; Translations: [Coronary [...] 70.76 kg Fco Bradshaw MD Work Phone: [facility] 03-18-2023 09:04-0400 Diastolic blood pressure 60 mm[Hg] Fco Bradshaw MD Work Phone: [facility] 03-18-2023 09:04-0400 Heart rate 68 /min Fco Bradshaw MD Work Phone: [facility] 03-18-2023 09:04-0400 Respiratory rate 14 /min Fco Bradshaw MD Work Phone: [facility] 03-18-2023 09:04-0400 SaO2% (BldA) [Mass fraction] 97 % Fco Bradshaw MD Work Phone: [facility] 03-18-2023 09:04-0400 Systolic blood pressure 120 mm[Hg] Fco Bradshaw MD Work Phone: [facility] 10-07-2022 09:39-0500 Body weight 68.95 kg Tim Andrews DO Work Phone: [facility] 10-07-2022 09:39-0500 Diastolic blood pressure 54 mm[Hg] Tim Andrews DO Work Phone: [facility] 10-07-2022 09:39-0500 Heart rate 78 /min Tim Andrews DO Work Phone: [facility] 10-07-2022 09:39-0500 SaO2% (BldA) [Mass fraction] 96 % Tim Andrews DO Work Phone: [facility] 10-07-2022 09:39-0500 Systolic blood pressure 104 mm[Hg] Tim Andrews DO Work Phone: [facility] 09-17-2022 16:05-0500 Body weight 69.04 kg Fco Bradshaw MD Work Phone: [facility] 09-17-2022 16:05-0500 Diastolic blood pressure 72 mm[Hg] Fco Bradshaw MD Work Phone: [facility] 09-17-2022 16:05-0500 Heart rate 79 /min Fco Bradshaw MD Work Phone: [facility] 09-17-2022 16:05-0500 Respiratory rate 16 /min Fco Bradshaw MD Work Phone: [facility] 09-17-2022 16:05-0500 SaO2% (BldA) [Mass fraction] 96 % cFo Bradshaw MD Work Phone: [facility] 09-17-2022 16:05-0500 Systolic blood pressure 122 mm[Hg] Fco Bradshaw MD Work Phone: [facility] 07-13-2022 10:11-0400 Body temperature 98.4 [degF] Ally Mila SERVICES COORDINATOR.AIR CHIPPER Work Phone: [facility] 07-13-2022 10:11-0400 Body weight 69.4 kg Ally Mila SERVICES COORDINATOR.AIR CHIPPER Work Phone: [facility] 07-13-2022 10:11-0400 Diastolic blood pressure 82 mm[Hg] Ally Mila SERVICES COORDINATOR.AIR CHIPPER Work Phone: [facility] 07-13-2022 10:11-0400 Heart rate 98 /min Ally Mila SERVICES COORDINATOR.AIR CHIPPER Work Phone: [facility] 07-13-2022 10:11-0400 Respiratory rate 18 /min Ally Mila SERVICES COORDINATOR.AIR CHIPPER Work Phone: [facility] 07-13-2022 10:11-0400 SaO2% (BldA) [Mass fraction] 94 % Ally Hickeyk SERVICES COORDINATOR.AIR CHIPPER Work Phone: [facility] 07-13-2022 10:11-0400 Systolic blood pressure 120 mm[Hg] Ally Hickeymatilde DESAI.AIR CHIPPER Work Phone: [facility] 03-11-2022 08:49-0400 Body weight 67.22 kg Fco Bradshaw MD Work Phone: [facility] 03-11-2022 08:49-0400 Diastolic blood pressure 60 mm[Hg] Fco Bradshaw MD Work Phone: [facility] 03-11-2022 08:49-0400 Heart rate 80 /min Fco Bradshaw MD Work Phone: [facility] 03-11-2022 08:49-0400 Respiratory rate 16 /min Fco Bradshaw MD Work Phone: [facility] 03-11-2022 08:49-0400 Systolic blood pressure 116 mm[Hg] Fco Bradshaw MD Work Phone: [facility] 07-08-2021 11:46-0400 Body temperature 97.88 [degF] DR [...] Mean blood pressure 90 mm[Hg] DR MARK [facility] Start: 04-04-2023 maryam Paige RN Work Phone: Expense Analyst Management Procedures Date Procedure Procedure Detail [...] comp foot exam completed DIABETIC FOOT EXAM [facility] Start: 03-11-2024 Hepatitis B surface antibody level LDL CHOLESTEROL [facility] Start: 09-17-2023 End: 11-17-2023 ALBUMIN/CREAT RATIO RND UR ALBUMIN/CREAT RATIO RND UR Lab Routine Type 2 diabetes mellitus with stage 3a chronic kidney disease, without long-term current use of insulin (HCC) Expected: 09/17/2023 (Approximate), Expires: 11/17/2023 [facility] Work Phone: Immunizations Immunization Date Immunization Notes Care Provider Eric larkin 09-17-2022 influenza, high-dose , quadrivalent vaccine (FLUZONE HIGH DOSE QUADRIVALENT) Jose De Jesus Paige RN Work Phone: [facility] 07-25-2021 influenza, high-dose , quadrivalent vaccine (FLUZONE HIGH DOSE QUADRIVALENT) Dana Brown RN [facility] Work Phone: 11-06-2020 SARS-CoV-2 (COVID-19 ) mRNA-1273 [...] (FLUZONE HIGH DOSE QUADRIVALENT) Dana Brown RN [facility] 08-15-2019 influenza virus vacc ine, unspecified formulation DR MARK MORA MD [facility] 08-15-2019 influenza, high dose seasonal, preservative-free Dana Brown RN [facility] 08-15-2018 influenza virus vacc ine, unspecified formulation DR MARK MORA MD [facility] 08-15-2018 influenza, high dose seasonal, preservative-free Dana Brown RN [facility] 07-28-2017 influenza virus vacc ine, unspecified formulation DR MARK MORA MD [facility] 07-28-2017 influenza, high dose seasonal, preservative-free Dana Brown RN [facility] 08-04-2016 influenza, high dose seasonal, preservative-free Dana Brown RN [facility] 11-13-2015 pneumococcal conjuga te vaccine, [address] MARK MORA MD [facility] 07-02-2015 influenza virus vacc ine, unspecified formulation DR MARK MORA MD [facility] 07-02-2015 influenza, high dose seasonal, preservative-free Dana Brown RN [facility] 07-17-2014 influenza virus vacc ine, unspecified formulation DR MARK MORA MD [facility] 07-17-2014 influenza, seasonal, injectable Dana Brown RN [facility] Work Phone: 07-20-2013 influenza virus vacc ine, unspecified formulation Dana Brown RN [facility] 09-07-2012 pneumococcal polysaccharide vaccine, 23 valent Dana Brown RN [facility] 08-04-2012 influenza virus vacc ine, unspecified formulation Dana Brown RN [facility] 09-07-2010 tetanus toxoid, redu jesus diphtheria toxoid, and acellular pertussis vaccine, adsorbed Dana Brown RN [facility] 07-27-2005 influenza virus vacc ine, unspecified formulation Dana Brown [facility] Work Phone: 07-05-2000 tetanus and diphther ia toxoids, adsorbed, preservative free, for adult use (2 Lf of tetanus toxoid and 2 Lf of diphtheria toxoid) Dana Brown RN [facility] Work Phone: Payers Date Payer Category Payer Private Health Insurance JOSE G RODRIGUEZ PPO [id number] 2010-Present [phone] [address] [place] [address] PPO [id number] 2010 Private Health Insurance JOSE G RODRIGUEZ PPO [id number] 2010-Present [phone] [address] [place] [address] PPO [id number] 2010 Private Health Insurance [id number] 2005 Medicare MEDICARE MEDICAR E A AND B [id number] 2005-Present [phone] [address] [address] [place] [address] Medicare [id number] 2005 Medicare MEDICARE MEDICAR E A AND B [id number] 2005-Present [phone] [place] [address] Medicare [id number] 2005 Medicare [id number] Unknown [id number] Social History Date Type Detail Facility Start: 06-25-2021 End: 07-13-2022 Ex-smoker (finding) [facility] Sex Assigned At [facility] End: 03-19-1987 History of tobacco use Current smoker [facility] End: 03-19-1987 History of tobacco use Cigarette Smoker [facility] Start: 10-06-2021 End: 03-18-2023 Alcohol intake Current drinker of alcohol (finding) [facility] Start: 02-06-2020 End: 02-21-2020 History SDOH Alcohol Frequency 3 [facility] Start: 02-06-2020 End: 02-21-2020 History SDOH Alcohol Std Drinks 1 [facility] Start: 02-06-2020 History SDOH Social Connections Phone 5 [facility] Start: 02-06-2020 History SDOH Social Connections Get Together 2 [facility] Start: 02-06-2020 History SDOH Social Connections Living 6 [facility] Start: 02-06-2020 History SDOH Financial 4 [facility] Start: 1940 Sex Assigned At Not on file C [facility] Start: 2022 End: 07-13-2022 Exposure to SARS-CoV-2 (event) Not sure [facility] Start: 09-07-2011 End: 03-18-2023 Cigarettes smoked current (pack per day) - Reported 1 [facility] Work Phone: Start: 09-07-2011 End: 07-13-2022 Tobacco use and exposure Smokeless tobacco non-user [facility] Start: 03-18-2023 Tobacco use panel [facility] Work Phone: Adult Depression Screening Assessment 0 [facility] Work Phone: Start: 08-12-2020 Gender identity Identifies as male gender (finding) [facility] Goals Date Patient Goal Desired Activity /State Personal health goal Clinical Notes 12-29-2015 to 04-05-2023 Jose De Jesus Paige RN - 04/04/2023 9:30 AM Lori Bradshaw MD - 03/18/2023 9:20 AM EDT Note Date & Type Note Facility 04-05-2023 Note HNO ID: [id number] Author: Jose De Jesus Paige RN Service: [...] daily weight at home? No Based on rug inspector helper, the following disposition is advised: No symptoms or symptoms present, not severe. Routed to: No Action Needed SHIRLEY Education Provided this Outreach: No Jose De Jesus Paige RN April 05, 2023 12:51 PM [facility] 04-04-2023 Note Patient Outreach ([facility]) KILLIAN AMARO ([id number]) 1940 M Date Time Provider Department 04/04/23 JOSE DE JESUS PAIGE [facility] During your visit today, we recorded the following information about you: Jose De Jesus Paige RN 04/04/2023 3:18 PM Signed [facility] Telephonic Outreach Provider Benedict/NA CHF Contacted for: Routine Telephonic Outreach Contact made with patient: No, left message. Jose De Jesus Paige RN April 04, 2023 3:18 PM Jose De Jesus Paige RN 04/05/2023 12:52 PM Signed [facility] Telephonic Outreach Provider Benedict/NA CHF/CKD/HTN [employer] [...] daily weight at home? No Based on rug inspector helper, the following disposition is advised: No symptoms [...] Visit Diagnosis:Chronic diastolic CHF (congestive heart failure) ([facility]) [I50.32] Other Visit Diagnosis:Chronic kidney disease, stage 3a ([facility]) [N18.31] Order(s):PT ED HEART AND VASCULAR [3221140] Order #: [id number]: 1 PT ED NEPHROLOGY [[id number]] Order #: [id number]: 1 Prescriptions as of 04/05/2023 - dapagliflozin [...] 04/04/2023 Noted Resolved Coronary artery disease involving platinum castaneda*12/06/2005 PERCUT TRANSLUM CORON ANGIO STATUS [Z98.61] [...] Psoriasis [L40.8] 09/27/2008 (more content not included)... [facility] 04-04-2023 Note HNO ID: [id number] Author: Jose De Jesus Paige RN Service: ? Author Type: Registered Nurse Type: Progress Notes Filed: 04/04/2023 3:18 PM Note Text: [facility] Telephonic Outreach Provider Action/FYI CHF Contacted for: Routine Telephonic Outreach Contact made with patient: No, left message. Jose De Jesus Paige RN April 04, 2023 3:18 PM [facility] 04-04-2023 History of Present illness Narrative [facility] Telephonic Outreach Provider Action/FYI CHF Contacted for: Routine Telephonic Outreach Contact made with patient: No, left message. Jose De Jesus Paige RN April 04, 2023 3:18 PM documented in this encounter [facility] 03-18-2023 Note HNO ID: [id number] Author: Fco Bradshaw MD Service: ? Author [...] mg once weekly. Has seen Dr. Seaman, [facility] in past. Follows with [facility] Dr. Canchola for eye exams. CKD: Monitored [...] mL injection (DEFINI (more content not included)... [facility] 03-18-2023 History of Present illness Narrative Chief [...] mg once weekly. Has seen Dr. Seaman, [facility] in past. Follows with [facility] Dr. Canchola for eye exams. CKD: Monitored [...] disease, without long-term current use of insulin ([facility]) - ICD9: 250.40, 585.3, ICD10: E11.22, N18.31 (primary diagnosis) - Controlled - Continue current medications - Counseled on healthy diet and regular exercise - Discussed need for and benefit of weight loss. BMI 28.53 kg/(m^2) 2. Chronic kidney disease, stage 3a ([facility]) - ICD9: 585.3, ICD10: N18.31 Continue current medications. 3. Ankylosing spondylitis, unspecified site of spine ([facility]) - ICD9: 720.0, ICD10: M45.9 Continue current medications. 4. 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 Continue with Cardio 5. Mixed hyperlipidemia - ICD9: 272.2, ICD10: E78.2 - Controlled - Continue current medications - Counseled on healthy diet and regular exercise - Discussed need for and benefit of weight loss. BMI 28.53 kg/(m^2) 6. Chronic diastolic CHF (congestive heart failure) ([facility]) - ICD9: 428.32, 428.0, ICD10: I50.32 Continue [...] Past Histories independently gathered by the clinical administrative support clerk and the remaining scribed note accurately describes [...] Dana Castro Ma documented in this encounter [facility] documented in this encounter [facility]06-19-2023 NoteHNO ID: [id number] Author: Jose De Jesus Paige RN Service: ? Author Type: Registered Nurse Type: Progress Notes Filed: 03/07/2023 1:32 PM Note Text: [facility] Telephonic Outreach Provider Action/FYI Contacted for: Routine Telephonic Outreach Contact made with patient: No, left message. Jose De Jesus Paige RN March 07, 2023 1:32 [facility]06-12-2023 NotePatient Outreach ([facility]) KILLIAN AMARO ([id number]) 1940 M Date Time Provider Department 02/28/23 JOSE DE JESUS PAIGE During your visit today, we recorded the following information about you: Jose De Jesus Paige RN 02/28/2023 3:42 PM Signed CD Telephonic Outreach Provider Action/FYI Contacted for: Routine Telephonic Outreach Contact made with patient: No, left message. Jose De Jesus Pagie RN February 28, 2023 3:42 PM Jose De Jesus Paige RN 03/07/2023 1:32 PM Signed [facility] Telephonic Outreach Provider Benedict/NA Contacted for: Routine Telephonic Outreach Contact made with patient: No, left message. Jsoe De Jesus Paige RN March 07, 2023 [...] 02/28/2023 Noted Resolved Coronary artery disease involving platinum castaneda*12/06/2005 PERCUT TRANSLUM CORON ANGIO STATUS [Z98.61] [...] right wrist [M19 (more content not included)... [facility]06-12-2023 NoteHNO ID: [id number] Author: Jose De Jesus Paige RN Service: ? Author Type: Registered Nurse Type: Progress Notes Filed: 02/28/2023 3:42 PM Note Text: [facility] Telephonic Outreach Provider Action/FYI Contacted for: Routine Telephonic Outreach Contact made with patient: No, left message. Jose De Jesus Paige RN February 28, 2023 3:42 [facility]05-15-2023 NoteHNO ID: [id number] Author: Jose De Jesus Paige RN Service: [...] daily weight at home? No Based on rug inspector helper, the following disposition is advised: No symptoms or symptoms present, not severe. Routed to: No Action Needed SHIRLEY Education Provided this Outreach: No Jose De Jesus Paige RN January 31, 2023 1:53 [facility]05-15-2023 NoteHNO ID: [id number] Author: Jose De Jesus Paige RN Service: ? Author Type: Registered Nurse Type: Progress Notes Filed: 01/31/2023 1:41 PM Note Text: [facility] Telephonic Outreach Provider Action/FYI Contacted for: Routine Telephonic Outreach Contact made with patient: No, left message. Jose De Jesus Paige RN January 31, 2023 1:41 [facility]05-11-2023 NotePatient Outreach ([facility]) KILLIAN AMARO ([id number]) 1940 M Date Time Provider Department 01/27/23 JOSE DE JESUS PAIGE During your visit today, we recorded the following information about you: Jose De Jesus Paige RN 01/28/2023 12:25 PM Signed [facility] Telephonic Outreach Provider Action/NA Contacted for: Routine Telephonic Outreach Contact made with patient: No, left message. Jose De Jesus Paige RN January 28, 2023 12:25 PM Jose De Jesus Paige RN 01/31/2023 1:41 PM Signed [facility] Telephonic Outreach Provider Benedict/NA Contacted for: Routine Telephonic Outreach Contact made with patient: No, left message. Jose De Jesus Paige RN January 31, 2023 1:41 PM Jose De Jesus Paige RN 01/31/2023 1:54 PM Signed [facility] Telephonic Outreach Provider Action/FYBarbara Patient returned my call No concerns. Doing [...] daily weight at home? No Based on rug inspector helper, the following disposition is advised: No symptoms [...] 01/27/2023 Noted Resolved Coronary artery disease involving platinum castaneda*12/06/2005 PERCUT TRANSLUM CORON ANGIO STATUS [Z98.61] [...] R post ear [L90. (more content not included)...[facility]05-11-2023 NoteHNO ID: [id number] Author: Jose De Jesus Paige RN Service: ? Author Type: Registered Nurse Type: Progress Notes Filed: 01/28/2023 12:25 PM Note Text: [facility] Telephonic Outreach Provider Action/FYI Contacted for: Routine Telephonic Outreach Contact made with patient: No, left message. Jose D eJesus Paige RN January 28, 2023 12:25 [facility]05-11-2023 History of Present illness Narrative* Jose De Jesus Paige RN - 01/27/2023 10:31 AM EDT [facility] Telephonic Outreach Provider Action/FYI Contacted for: Routine Telephonic Outreach Contact made with patient: No, left message. Jose De Jesus Paige RN January 28, 2023 12:25 PM [facility] NotePatient Outreach ([facility]) KILLIAN AMARO ([id number]) 1940 M Date Time Provider Department 12/29/22 JOSE DE JESUS PAIGE During your visit today, we recorded the following information about you: Jose De Jesus Paige RN 12/30/2022 2:34 PM Signed INSIGHT [facility] TELEPHONIC OUTREACH Provider Action/I: CHF Contact made with patient: Yes Patient [...] like to speak with a social work hospice team lead to help give you support for any [...] you up for automated weekly questionnaires through [employer]. This is an easy way for us [...] 12/29/2022 Noted Resolved Coronary artery disease involving platinum castaneda*12/06/2005 PERCUT TRANSLUM CORON ANGIO STATUS [Z98.61] 12/06/2005 Hypertensive heart disease with heart failure (*12/06/2005 04/05/2022 Hyperlipidemia [E78.5] 12/06/2005 LOC PRIM OSTE (more content not included)...[facility]04-12-2023 NoteHNO ID: [id number] Author: Jose De Jesus Paige RN Service: [...] like to speak with a social work hospice team lead to help give you support for any [...] you up for automated weekly questionnaires through [employer]. This is an easy way for us [...] in the Track Pt Outreach and End outreach.[facility] 12-29-2022 History of Present illness Narrative* Jose [...] like to speak with a social work hospice team lead to help give you support for any [...] you up for automated weekly questionnaires through [employer]. This is an easy way for us [...] PtOutreach and End outreach. [facility] NoteHNO ID: [id number] Author: Jose De Jesus Paige RN Service: ? Author Type: Registered Nurse Type: Progress Notes Filed: 11/29/2022 2:49 PM Note Text: INSIGHT [facility] TELEPHONIC OUTREACH Provider Action/FYI: Contact made with patient: No - Left message Amado my name is Jose De Jesus Paige RN your Advertising Sales Assistant from the [facility] I am calling today for your bi-weekly check in. I am sorry I missed your call. I will reach out to you again tomorrow. (if the third call I will reach out to you again next week) Enter next patient outreach date for the following business day using the Track Pt Outreach. End outreach.[facility]03-06-2023 NotePatient Outreach ([facility]) KILLIAN AMARO ([id number]) 1940 M Date Time Provider Department 11/22/22 JOSE DE JESUS PAIGE During your visit today, we recorded the following information about you: Jose De Jesus Paige RN 11/25/2022 12:10 PM Signed [employer] [facility] TELEPHONIC OUTREACH Provider Action/FYI: CHF Contact made with patient: No - Left message Amado my name is Jose De Jesus Paige RN your Advertising Sales Assistant from the [facility] I am calling today for your bi-weekly check in. I am sorry I missed your call. I will reach out to you again tomorrow. (if the third call I will reach out to you again next week) Enter next patient outreach date for the following business day using the Track Pt Outreach. End outreach. Jose De Jesus Paige RN 11/29/2022 2:49 PM Signed [employer] [facility] TELEPHONIC OUTREACH Provider Action/FYI: Contact made with patient: No - Left message Amado my name is Jose De Jesus Paige RN your Advertising Sales Assistant from the [facility] I am calling today for your bi-weekly [...] 11/22/2022 Noted Resolved Coronary artery disease involving platinum castaneda*12/06/2005 PERCUT TRANSLUM CORON ANGIO STATUS [Z98.61] [...] 05/19/2016 ELENA ANGIOMAS///NEVUS, NON-NEOP (more content not included)...[facility]03-06-2023 NoteHNO ID: [id number] Author: Jose De Jesus Paige RN Service: ? Author Type: Registered Nurse Type: Progress Notes Filed: 11/25/2022 12:10 PM Note Text: EDU [facility] TELEPHONIC OUTREACH Provider Action/FYI: CHF Contact made with patient: No - Left message Amado my name is Jose De Jesus Paige RN your Advertising Sales Assistant from the [facility] I am calling today for your bi-weekly check in. I am sorry I missed your call. I will reach out to you again tomorrow. (if the third call I will reach out to you again next week) Enter next patient outreach date for the following business day using the Track Pt Outreach. End outreach.[facility]03-06-2023 History of Present illness Narrative* Jose De Jesus Paige RN - 11/22/2022 10:25 AM EST EDU [facility] TELEPHONIC OUTREACH Provider Action/FYI: CHF Contact made with patient: No - Left message Amado my name is Jose De Jesus Paige RN your Advertising Sales Assistant from the [facility] I am calling today for your bi-weekly check in. I am sorry I missed your call. I will reach out to you again tomorrow. (if the third call I will reach out to you again next week) Enter next patient outreach date forthe following day using the Track Pt Outreach. End outreach. documented in this encounterSt. Mary'[facility]02-09-2023 Miscellaneous Notes* Telephone Encounter - Dana Castro [...] is not available. Please advise patient at [phone] documented in this encounterSt. Mary'S Medical Center02-07-2023 NoteHNO ID: [id number] Author: Jose De Jesus Paige RN Service: [...] like to speak with a social work hospice team lead to help give you support for any [...] you up for automated weekly questionnaires through [employer]. This is an easy way for us [...] in the Track Pt Outreach and End outreach.[facility] 10-21-2022 NoteHNO ID: [id number] Author: Jose De Jesus Paige RN Service: ? Author Type: Registered Nurse Type: Progress Notes Filed: 10/22/2022 3:12 PM Note Text: INSIGHT CDM TELEPHONIC OUTREACH Provider Action/FYI: CHF Contact made with patient: No - Left message Hello my name is Jose De Jesus Paige RN your Advertising Sales Assistant from the [facility] I am calling today for your bi-weekly check in. I am sorry I missed your call. I will reach out to you again tomorrow. (if the third call I will reach out to you again next week) Enter next patient outreach date for the following business day using the Track Pt Outreach. End outreach.[facility]02-02-2023 NotePatient Outreach (AMBCMG) SONDRAKILLIAN ([id number]) 1940 M Date Time Provider Department 10/21/22 JOSE DE JESUS PAIGE During your visit today, we recorded the following information about you: Jose De Jesus Paige RN 10/22/2022 3:12 PM Signed [employer] [facility] TELEPHONIC OUTREACH Provider Action/FYI: CHF Contact made with patient: No - Left message Hello my name is Jose De Jesus Paige RN your Advertising Sales Assistant from the [facility] I am calling today for your bi-weekly check in. I am sorry I missed your call. I will reach out to you again tomorrow. (if the third call I will reach out to you again next week) Enter next patient outreach date for the following using the Track Pt Outreach. End outreach. Jose De Jesus Paige RN 10/26/2022 2:37 PM Signed [employer] [facility] TELEPHONIC OUTREACH Provider Action/FYI: CHF Contact [...] like to speak with a social work hospice team lead to help give you support for any [...] you up for automated weekly questionnaires through [employer]. This is an easy way for us [...] daily - THERAPEUTIC MULTIVI (more content not included)...[facility] 10-21-2022 History of Present illness Narrative* Jose De Jesus Paige RN - 10/21/2022 1:04 PM EST INSIGHT [facility] TELEPHONIC OUTREACH Provider Action/FYI: CHF Contact made with patient: No - Left message Hello my name is Jose De Jesus Paige RN your Advertising Sales Assistant from the [facility] I am calling today for your bi-weekly check in. I am sorry I missed your call. I will reach out to you again tomorrow. (if the third call I will reach out to you again next week) Enter next patient outreach date forthe following using the Track Pt Outreach. End outreach. documented in this encounterSt. Mary'S Medical Center01-19-2023 NoteHNO ID: [id number] Author: Tim Andrews, DO Service: ? Author Type: Physician Type: Progress Notes Filed: 10/07/2022 10:26 AM Note Text: [facility] SECTION OF REGIONAL CARDIOLOGY [facility] OUTPATIENT VISIT DATE October 07, 2022 PRIMARY CARE PHYSICIAN: Fco Bradshaw [address] [place] [address] HISTORY OF PRESENT ILLNESS: Mr. Amaro is [...] Use: Never used S (more content not included)...[facility]01-19-2023 History of Present illness Narrative* Tim Andrews DO - 10/07/2022 10:12 AM EST Images from the original note were not included. [facility] SECTION [facility] REGIONAL CARDIOLOGY [facility] OUTPATIENT VISIT DATE October 07, 2022 PRIMARY CARE PHYSICIAN: Fco Bradshaw [address] [place] [address] HISTORY OF PRESENT ILLNESS: Mr. Amaro is [...] Department of Medicine and Division of Cardiology, [facility] [employer] Teachernumberer and wirer [facility] [employer] Teacher of Congestive Heart Failure Clinic [facility] Cardiology Office [employer] Teacher [facility] Staff Launch Engineer, and Torri Reyez Department of Cardiovascular Medicine/Heart and Vascular [place], [facility] Clinical Field Examiner Profressor of Medicine, [facility] Please note: This note has been produced using speech recognition software and may contain errors related to that system including long, punctuation, spelling, words, gender and phrases that may be inappropriate. documented in this encounterSt. Mary'S Medical Center12-30-2022 NoteHNO ID: [id number] Author: Fco Bradshaw MD Service: ? Author [...] blood sugars or neuropathy symptoms. Does see Lumber Checker, Dr. Seaman. Has routine eye exams. On [...] done DEPRESSION ASSESSMENT N (more content not included)...[facility] 09-17-2022 History of Present illness Narrative* Fco [...] blood sugars or neuropathy symptoms. Does see Lumber Checker, Dr. Seaman. Has routine eye exams. On [...] complication, without long-term current use of insulin ([facility]) - ICD9: 250.00, ICD10: E11.9 (primary diagnosis) [...] Moderate Fco Bradshaw MD documented in this encounterSt. Mary'S Medical Center12-30-2022 NotePatient Outreach (AMBCMG) KILLIAN AMARO ([id number]) 1940 M Date Time Provider Department 09/17/22 JOSE DE JESUS PAIGE During your visit today, we recorded the following information about you: Jose De Jesus Paige RN 09/17/2022 3:12 PM Signed INSIGHT [facility] TELEPHONIC OUTREACH Provider Action/FYI: CHF Reports [...] like to speak with a social work hospice team lead to help give you support for any [...] you up for automated weekly questionnaires through [employer]. 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 Author Type: Registered Nurse Type: Progress Notes Filed: 09/17/2022 3:12 PM Note Text: EDU CDM TELEPHONIC OUTREACH Provider Action/FYI: CHF Reports [...] like to speak with a social work hospice team lead to help give you support for any [...] you up for automated weekly questionnaires through [employer]. This is an easy way for us [...] in the Track Pt Outreach and End outreach.[facility] 09-17-2022 History of Present illness Narrative* Jose De Jesus Paige RN - 09/17/2022 9:48 AM EST INSIGHT [facility] TELEPHONIC OUTREACH Provider Action/FYI: CHF Reports [...] like to speak with a social work hospice team lead to help give you support for any [...] you up for automated weekly questionnaires through [employer]. This is an easy way for us [...] PtOutreach and End outreach. documented in this encounterSt. Mary'S Medical Center12-09-2022 Miscellaneous Notes* Telephone Encounter - Denny Espinoza [...] and advise. Mariaelena Romero documented in this encounterSt. Mary'S Medical Center11-29-2022 NoteHNO ID: [id number] Author: Jose De Jesus Paige RN Service: [...] like to speak with a social work hospice team lead to help give you support for any [...] you up for automated weekly questionnaires through [employer]. This is an easy way for us [...] in the Track Pt Outreach and End outreach.[facility] 08-17-2022 History of Present illness Narrative* Jose De Jesus Paige RN - 08/17/2022 4:18 PM EST INSIGHT CD TELEPHONIC OUTREACH Provider Action/FYI: CHF Doing well. [...] like to speak with a social work hospice team lead to help give you support for any [...] you up for automated weekly questionnaires through [employer]. This is an easy way for us [...] RN - 08/17/2022 10:21 AM EST EDU [facility] TELEPHONIC OUTREACH Provider Action/FYI: Contact made with patient: No - Left message Amado my name is Jose De Jesus Paige RN your Advertising Sales Assistant from the [facility] I am calling today for your bi-weekly check in. I am sorry I missed your call. I will reach out to you again tomorrow. (if the third call I will reach out to you again next week) Enter next patient outreach date forthe using the Track Pt Outreach. End outreach. documented in this encounterSt. Mary'S Medical Center11-29-2022 NotePatient Outreach (DEBBYG) KILLIAN AMARO ([id number]) 1940 M Date Time Provider Department 08/17/22 JOSE DE JESUS PAIGE During your visit today, we recorded the following information about you: Jose De Jesus Paige RN 08/17/2022 4:23 PM Signed [employer] [facility] TELEPHONIC OUTREACH Provider Action/FYI: Contact made with patient: No - Left message Amado my name is Jose De Jesus Paige RN your Advertising Sales Assistant from the [facility] I am calling today for your bi-weekly check in. I am sorry I missed your call. I will reach out to you again tomorrow. (if the third call I will reach out to you again next week) Enter next patient outreach date for the following day using the Track Pt Outreach. End outreach. Jose De Jesus Paige RN 08/17/2022 4:23 PM Signed INSIGHT [facility] TELEPHONIC OUTREACH Provider Action/FYI: CHF Doing [...] like to speak with a social work hospice team lead to help give you support for any [...] you up for automated weekly questionnaires through [employer]. This is an easy way for us [...] Date Reviewed: 07/13/2022 Reviewed by: Ally Zaragoza APRN.AIR CHIPPER - Fully Assessed Reason for Visit: community [...] MULTIVITAMIN ORAL TAB Take (more content not included)...[facility]11-29-2022 NoteHNO ID: [id number] Author: Jose De Jesus Paige RN Service: ? Author Type: Registered Nurse Type: Progress Notes Filed: 08/17/2022 4:23 PM Note Text: INSIGHT CDM TELEPHONIC OUTREACH Provider Action/FYI: Contact made with patient: No - Left message Hello my name is Jose De Jesus Paige RN your Advertising Sales Assistant from the [facility] I am calling today for your bi-weekly check in. I am sorry I missed your call. I will reach out to you again tomorrow. (if the third call I will reach out to you again next week) Enter next patient outreach date for the following business day using the Track Pt Outreach. End outreach.[facility]11-02-2022 Miscellaneous Notes* Telephone Encounter - Fco Bradshaw [...] and advise. Mariaelena Romero documented in this encounterSt. Mary'S Medical Center10-25-2022 NoteHNO ID: [id number] Author: Ally Zaragoza APRN.[facility] Service: ? Author Type: Nurse Practitioner Type: Progress Notes Filed: 07/13/2022 10:49 AM Note Text: Subjective The history is provided by the patient. No hospitalist program director was used. HPI Killian Amaro is a 82 year [...] have confirmed and edited as necessary, the [facility] Review of Systems Constitutional: Negative for chills [...] detail warranting prompt ER evaluation. Ally Zaragoza APRN.CNPOhiohealth Mansfield Hospital10-25-2022 Instructions* Patient Instructions* Ally Zaragoza APRN.CNP - [...] side effects of medication. documented in this encounterSt. Mary'S Medical Center10-25-2022 History of Present illness Narrative* Ally ZaragozaLLOYD.AIR CHIPPER - 07/13/2022 10:25 AM EDT Subjective The history is provided by the patient. No hospitalist program director was used. ELVIRA Amaro is a 82 [...] have confirmed and edited as necessary, the [facility] Review of Systems Constitutional: Negative for chills [...] evaluation. Ally Zaragoza APRN.[place] documented in this encounterSt. Mary'S Medical Center10-21-2022 NotePatient Outreach (AMBCMG) KILLIAN AMARO ([id number]) 1940 M Date Time Provider Department 07/09/22 DANA BROWN During your visit today, we recorded the following information about you: Dana Brown RN 07/09/2022 10:49 AM Signed INSIGHT [facility] TELEPHONIC OUTREACH Provider Action/FYI: Contact made with patient: No - Left message Hello my name is Dana Brown RN your Advertising Sales Assistant from the 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 Author Type: Registered Nurse Type: Progress Notes Filed: 07/09/2022 10:49 AM Note Text: INSIGHT CDM TELEPHONIC OUTREACH Provider Action/FYI: Contact made with patient: No - Left message Amado my name is Dana Brown RN your Advertising Sales Assistant from the [facility] I am calling today for your bi-weekly check in. I am sorry I missed your call. I will reach out to you again in three weeks . (if the third call I will reach out to you again next week) Enter next patient outreach date for the following business day using the Track Pt Outreach. End outreach.[facility]10-21-[facility] History of Present illness Narrative* Dana Brown RN - 07/09/2022 10:47 AM EDT EDU [facility] TELEPHONIC OUTREACH Provider Action/FYI: Contact made with patient: No - Left message Amado my name is Dana Brown RN your Advertising Sales Assistant from the [facility] I am calling today for your bi-weekly check in. I am sorry I missed your call. I will reach out to you again in three weeks . (if the third call I will reach out to you again next week) Enter next patient outreach date for the following business day using the Track Pt Outreach. End outreach. documented in this encounterSt. Mary'S Medical Center10-20-2022 NoteHNO ID: [id number] Author: Dana Brown RN Service: ? Author Type: Registered Nurse Type: Progress Notes Filed: 07/08/2022 1:26 PM Note Text: EDU [facility] TELEPHONIC OUTREACH Provider Action/FYI: Contact made with patient: No - Left message Kadenne my name is Dana Brown RN your Advertising Sales Assistant from the [facility] I am calling today for your bi-weekly check in. I am sorry I missed your call. I will reach out to you again tomorrow. (if the third call I will reach out to you again next week) Enter next patient outreach date for the following business day using the Track Pt Outreach. End outreach.[facility]10-20-2022 NotePatient Outreach (AMBCMG) KILLIAN AMARO ([id number]) 1940 M Date Time Provider Department 07/08/22 DANA BROWN During your visit today, we recorded the following information about you: Dana Brown RN 07/08/2022 1:26 PM Signed INSIGHT [facility] TELEPHONIC OUTREACH Provider Action/FYI: Contact made with patient: No - Left message Hello my name is Dana Brown RN your Advertising Sales Assistant from the 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 I am calling today for your bi-weekly check in. I am sorry I missed your call. I will reach out to you again tomorrow. (if the third call I will reach out to you again next week) Enter next patient outreach date for the following business day using the Track Pt Outreach. End outreach. documented in this encounterSt. Mary'S Medical Center09-28-2022 NoteHNO ID: [id number] Author: aDna Brown RN Service: ? Author Type: Registered Nurse Type: Progress Notes Filed: 06/16/2022 12:36 PM Note Text: EDU [facility] TELEPHONIC OUTREACH Provider Action/FYI: Patient reports he [...] like to speak with a social work hospice team lead to help give you support for any [...] you up for automated weekly questionnaires through [employer]. This is an easy way for us [...] in the Track Pt Outreach and End outreach.[facility] 06-16-2022 NotePatient Outreach (SKYLERCMG) KILLIAN AMARO ([id number]) 1940 M Date Time Provider Department 06/16/22 KOSCIEWICZ, DANA E AMBCMG During your visit today, we recorded the following information about you: Dana Brown RN 06/16/2022 12:36 PM Signed INSIGHT [facility] TELEPHONIC OUTREACH Provider Action/FYI: Patient reports [...] like to speak with a social work hospice team lead to help give you support for any [...] you up for automated weekly questionnaires through [employer]. This is an easy way for us [...] Noted Resolved Coronary a (more content not included)...[facility]09[facility] History of Present illness Narrative* Dana Brown RN - 06/16/2022 12:30 PM EDT INSIGHT CDM TELEPHONIC OUTREACH Provider Action/FYI: Patient reports he [...] like to speak with a social work hospice team lead to help give you support for any [...] you up for automated weekly questionnaires through [employer]. This is an easy way for us [...] PtOutreach and End outreach. documented in this encounterSt. Mary'S [facility] Center09-14-2022 NotePatient Outreach (AMBCMG) KILLIAN AMARO ([id number]) 1940 M Date Time Provider Department 06/02/22 DANA BROWN During your visit today, we recorded the following information about you: Dana Brown RN 06/02/2022 12:00 PM Signed INSIGHT [facility] TELEPHONIC OUTREACH Provider Action/I: Patient reports [...] like to speak with a social work hospice team lead to help give you support for any [...] you up for automated weekly questionnaires through [employer]. This is an easy way for us [...] Coronary artery disease involving (more content not included)...[facility]09-14-2022 NoteHNO ID: [id number] Author: Dana Brown RN Service: ? Author [...] like to speak with a social work hospice team lead to help give you support for any [...] you up for automated weekly questionnaires through [employer]. This is an easy way for us [...] in the Track Pt Outreach and End outreach.[facility] 06-02-2022 History of Present illness Narrative* Dana Brown RN - 06/02/2022 11:50 AM EDT INSIGHT CD TELEPHONIC OUTREACH Provider Action/FYI: [...] like to speak with a social work hospice team lead to help give you support for any [...] you up for automated weekly questionnaires through [employer]. This is an easy way for us [...] PtOutreach and End outreach. documented in this encounterSt. Mary'S [facility] Center08-31-2022 NotePatient Outreach (AMBCMG) KILLIAN AMARO ([id number]) 1940 M Date Time Provider Department 05/19/22 DANA BROWN During your visit today, we recorded the following information about you: Dana Brown RN 05/19/2022 10:48 AM Signed INSIGHT [facility] TELEPHONIC OUTREACH Provider Action/FYI: Patient reports [...] like to speak with a social work hospice team lead to help give you support for any [...] you up for automated weekly questionnaires through [employer]. 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 Author Type: Registered Nurse Type: Progress Notes Filed: 05/19/2022 10:48 AM Note Text: EDU CDDemetria TELEPHONIC OUTREACH Provider Action/FYI: Patient reports they [...] like to speak with a social work hospice team lead to help give you support for any [...] you up for automated weekly questionnaires through [employer]. This is an easy way for us [...] in the Track Pt Outreach and End outreach.[facility] 05-19-2022 History of Present illness Narrative* Dana [...] like to speak with a social work hospice team lead to help give you support for any [...] you up for automated weekly questionnaires through [employer]. This is an easy way for us [...] PtOutreach and End outreach. documented in this encounterSt. Mary'S [facility] Center08-11-2022 NotePatient Outreach (AMBCMG) KILLIAN AMARO ([id number]) 1940 M Date Time Provider Department 04/29/22 DANA BROWN During your visit today, we recorded the following information about you: Dana Brown RN 04/29/2022 10:49 AM Signed INSIGHT [facility] TELEPHONIC OUTREACH Provider Action/FYI: Pt reports [...] like to speak with a social work hospice team lead to help give you support for any [...] you up for automated weekly questionnaires through [employer]. This is an easy way for us [...] 04/29/2022 Noted Resolved Coronary artery disease involving platinum co (more content not included)... [facility]08-11-2022 NoteHNO ID: [id number] Author: Dana Brown RN Service: ? Author Type: Registered Nurse Type: Progress Notes Filed: 04/29/2022 10:49 AM Note Text: EDU CDM TELEPHONIC OUTREACH Provider Action/FYI: Pt reports [...] like to speak with a social work hospice team lead to help give you support for any [...] you up for automated weekly questionnaires through [employer]. This is an easy way for us [...] in the Track Pt Outreach and End outreach.[facility] 04-29-2022 History of Present illness Narrative* Dana Brown RN - 04/29/2022 10:42 AM EDT INSIGHT [facility] TELEPHONIC OUTREACH Provider Action/FYI: Pt reports [...] like to speak with a social work hospice team lead to help give you support for any [...] you up for automated weekly questionnaires through [employer]. This is an easy way for us [...] PtOutreach and End outreach. documented in this encounterSt. Mary'S [facility] Center08-10-2022 NotePatient Outreach (AMBCMG) KILLIAN AMARO ([id number]) 1940 M Date Time Provider Department 04/28/22 DANA BROWN During your visit today, we recorded the following information about you: Dana Brown RN 04/28/2022 11:30 AM Signed INSIGHT [facility] TELEPHONIC OUTREACH Provider Action/I: Contact made with patient: No - Left message Amado my name is Dana Brown RN your Advertising Sales Assistant from the 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 Author Type: Registered Nurse Type: Progress Notes Filed: 04/28/2022 11:30 AM Note Text: INSIGHT CDM TELEPHONIC OUTREACH Provider Action/FYI: Contact made with patient: No - Left message Helne my name is Dana Brown RN your Advertising Sales Assistant from the [facility] I am calling today for your bi-weekly check in. I am sorry I missed your call. I will reach out to you again tomorrow. (if the third call I will reach out to you again next week) Enter next patient outreach date for the following business day using the Track Pt Outreach. End outreach.[facility]08-10-2022 History of Present illness Narrative* Dana Brown RN - 04/28/2022 11:28 AM EDT EDU MOLINA TELEPHONIC OUTREACH Provider Action/FYI: Contact made with patient: No - Left message Hello my name is Dana Brown RN your Advertising Sales Assistant from the [facility] I am calling today for your bi-weekly check in. I am sorry I missed your call. I will reach out to you again tomorrow. (if the third call I will reach out to you again next week) Enter next patient outreach date for the following day using the Track Pt Outreach. End outreach. documented in this encounterSt. [facility]08-[facility] Miscellaneous Notes* Telephone Encounter - Fco Bradshaw [...] pharmacy. No need to notify patient. Pavithra Martins Pss documented in this encounterSt. Mary'[facility]07-27-2022 NoteHNO ID: [id number] Author: Dana Brown RN Service: ? Author Type: Registered Nurse Type: Progress Notes Filed: 04/14/2022 2:31 PM Note Text: INSIGHT JESSE TELEPHONIC OUTREACH Provider Action/FYI: Contact made with patient: No - Left message Hello my name is Dana Brown RN your Advertising Sales Assistant from the [facility] I am calling today for your bi-weekly check in. I am sorry I missed your call. I will reach out to you again in two weeks. (if the third call I will reach out to you again next week) Enter next patient outreach date for the following business day using the Track Pt Outreach. End outreach.[facility]07-27-2022 NotePatient Outreach ([facility]) KILLIAN AMARO ([id number]) 1940 M Date Time Provider Department 04/14/22 DANA BROWN During your visit today, we recorded the following information about you: Dana Brown RN 04/14/2022 2:31 PM Signed [facility] TELEPHONIC OUTREACH Provider Action/FYI: Contact made with patient: No - Left message Amado my name is Dana Brown RN your Advertising Sales Assistant from the 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 This is an easy way for us [...] PtOutreach and End outreach. documented in this encounterSt. [facility]06-23-2022 Instructions* Patient Instructions* Kierra Martins Ma - 03/11/2022 8:57 AM EDT Blood pressure - Reduce Quinapril 40 mg to 20 mg, take half a tablet once daily. Reduce Lasix 20 mg to once daily vs twice daily. Take 1 tab in the morning. Monitor BP, swelling and breathing. If worse update office. documented in this encounterSt. Mary'S [facility] Center06-23-2022 History of Present illness Narrative* Fco Bradshaw [...] or neuropathy sx. Follows with Dr. Seaman, [facility], has not seen him in a while. [...] 03/08/2022 7.1 Abs Lymph 03/08/2022 0.46 (A) Wright% 03/08/2022 14.6 Abs Wright 03/08/2022 0.94 (A) Eosin% 03/08/2022 6.7 Abs [...] exercise and weight loss. 4. 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 - Cont f/u with Cardio 5. 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 Kierra Martins Ma documented in this encounterSt. Mary'[facility]06-17-2022 History of Present illness Narrative* Dana Brown RN - 03/05/2022 8:46 AM EDT INSIGHT CD TELEPHONIC OUTREACH Provider Action/FYI: [...] like to speak with a social work hospice team lead to help give you support for any [...] you up for automated weekly questionnaires through [employer]. This is an easy way for us [...] PtOutreach and End outreach. documented in this encounterSt. Mary'S [facility] Center06-16-2022 History of Present illness Narrative* Dana Brown RN - 03/04/2022 12:39 PM EDT INSIGHT [facility] TELEPHONIC OUTREACH Provider Action/FYI: Contact made with patient: No - Left message Amado my name is Dana Brown RN your Advertising Sales Assistant from the [facility] I am calling today for your bi-weekly check in. I am sorry I missed your call. I will reach out to you again tomorrow. (if the third call I will reach out to you again next week) Enter next patient outreach date for the following day using the Track Pt Outreach. End outreach. documented in this encounterSt. Mary'S [facility] Center05-23-2022 Miscellaneous Notes* Telephone Encounter - Denny Espinoza [...] notify patient. Laura Coyle documented in this encounterSt. Mary'S Medical Center05-19-2022 History of Present illness Narrative* Dana Brown RN - 02/04/2022 11:10 AM EDT INSIGHT CDM TELEPHONIC OUTREACH Provider Action/FYI: Pt reports he is doing good, states his BP was 95/58, denies feeling lightheaded or dizzy. Advised pt to let pcp know at [facility] 03/11/22, if he does develop feeling [...] like to speak with a social work hospice team lead to help give you support for any [...] you up for automated weekly questionnaires through [employer]. This is an easy way for us [...] PtOutreach and End outreach. documented in this encounterSt. Mary'S [facility] Center05-05-2022 History of Present illness Narrative* Dana Brown [...] like to speak with a social work hospice team lead to help give you support for any [...] you up for automated weekly questionnaires through [employer]. This is an easy way for us [...] PtOutreach and End outreach. documented in this encounterSt. Mary'S [facility] Center04-22-2022 History of Present illness Narrative* Dana Brown [...] like to speak with a social work hospice team lead to help give you support for any [...] you up for automated weekly questionnaires through [employer]. This is an easy way for us [...] PtOutreach and End outreach. documented in this encounterSt. Mary'S [facility] Center04-07-2022 History of Present illness Narrative* Dana Brown RN - 12/24/2021 3:43 PM EDT INSIGHT CDM TELEPHONIC OUTREACH Provider [...] like to speak with a social work hospice team lead to help give you support for any [...] you up for automated weekly questionnaires through [employer]. This is an easy way for us [...] PtOutreach and End outreach. documented in this encounterSt. Mary'S [facility] Center10-20-2021 Hospital Discharge instructions Patient Education 07/08/2021 07:17:05 5 - [facility] Post-op Instruction 04/2017 ([id number]) [facility] Post-operative Instructions PLEASE FOLLOW [facility] POST-OP INSTRUCTIONS GIVEN WATCH FOR SIGNS OF INFECTION: call the office ([phone]) if experencing any of the following: (Usually [...] on your follow up instructions. Form: 338A ([id number]) R: 01/23 Follow Up Care 06/18/2021 11:51:34 With:[facility] Address: [address] [place] [phone] When:07/10/2021 10:00:00 Comments:This is your first physical therapy appointment. Follow-up as scheduled. With:JUSTUS CHENG PA-C, Orthopedic, Orthopedic Address: [facility] [address] [place] [phone]- When:07/20/2021 10:30:00 Comments:This is your post-op appointment. Follow-up as scheduled. [facility] Yvonne Ortiz 04-11-2016 History of Past illness Narrative* [...] of this encounter (statuses as of 12/24/2021) 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 of Past illness Narrative* Problem Noted [...] of this encounter (statuses as of 01/21/2022) [facility] Narrative* Problem Noted [...] of this encounter (statuses as of 02/04/2022) [facility] Narrative* Problem Noted [...] of this encounter (statuses as of 02/08/2022) 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 Narrative* Problem Noted [...] of this encounter (statuses as of 03/05/2022) [facility] Narrative* Problem Noted [...] of this encounter (statuses as of 03/11/2022) [facility] Narrative* Problem Noted [...] of this encounter (statuses as of 03/17/2022) [facility] Narrative* Problem Noted [...] of this encounter (statuses as of 04/23/2022) [facility] Narrative* Problem Noted [...] of this encounter (statuses as of 04/28/2022) [facility] Narrative* Problem Noted [...] of this encounter (statuses as of 04/29/2022) [facility] Narrative* Problem Noted [...] of this encounter (statuses as of 05/19/2022) [facility] Narrative* Problem Noted [...] of this encounter (statuses as of 06/02/2022) [facility] Narrative* Problem Noted [...] of this encounter (statuses as of 06/16/2022) [facility] Narrative* Problem Noted [...] of this encounter (statuses as of 07/08/2022) [facility] Narrative* Problem Noted [...] of this encounter (statuses as of 07/09/2022) [facility] Narrative* Problem Noted [...] of this encounter (statuses as of 07/13/2022) [facility] Narrative* Problem Noted [...] of this encounter (statuses as of 07/21/2022) [facility] Narrative* Problem Noted [...] of this encounter (statuses as of 08/17/2022) [facility] Narrative* Problem Noted [...] of this encounter (statuses as of 08/27/2022) [facility] Narrative* Problem Noted [...] of this encounter (statuses as of 09/22/2022) [facility] Narrative* Problem Noted [...] of this encounter (statuses as of 09/23/2022) [facility] Narrative* Problem Noted [...] of this encounter (statuses as of 10/07/2022) [facility] Narrative* Problem Noted [...] of this encounter (statuses as of 10/22/2022) [facility] Narrative* Problem Noted [...] of this encounter (statuses as of 10/28/2022) [facility] Narrative* Problem Noted [...] of this encounter (statuses as of 11/25/2022) [facility] Narrative* Problem Noted [...] of this encounter (statuses as of 12/31/2022) [facility] Narrative* Problem Noted [...] of this encounter (statuses as of 01/28/2023) [facility] Narrative* Problem Noted [...] of this encounter (statuses as of 03/18/2023) [facility] Narrative* Problem Noted [...] of this encounter (statuses as of 04/05/2023) 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 note* Diagnosis Type 2 diabetes mellitus without complication, without long-term current use of insulin (HCC) documented in this encounter [facility] note* Diagnosis Acute non-recurrent sinusitis, unspecified location- Primary documented in this encounter [facility] note* Diagnosis BENIGN HYPERTENSION Essential hypertension, benign documented in this encounter [facility] note* Diagnosis Type 2 diabetes mellitus without complication, without long-term current use of insulin (HCC) documented in this encounter [facility] note* Diagnosis Type 2 diabetes mellitus without complication, without long-term current use of insulin (HCC)- Primary Ankylosing spondylitis, unspecified site of spine (HCC) Chronic kidney disease, stage 3a (HCC) Need for influenza vaccination Need for prophylactic vaccination and inoculation against influenza Mixed hyperlipidemia Chronic diastolic CHF (congestive heart failure) (HCC) Chronic diastolic heart failure Essential hypertension Unspecified essential hypertension documented in this encounter 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 Summary Purpose Family History No Family History [...] DATE CREATED AUTHOR AUTHOR'S ORGANIZ ATION 03/23/2018 [place] [facility] DATE CREATED AUTHOR AUTHOR'S ORGANIZ ATION 08/04/2021 [facility] ([place]) DATE CREATED AUTHOR AUTHOR'S ORGANIZ ATION 04/06/2023 [facility] Source Comments (unrecognize d section and content) In the event this informatio n is protected by the Federal Confidentiality of Alcohol and Drug Abuse Patient Records regulations: The Federal rules restrict any use of the information to criminally investigate or prosecute any alcohol or drug abuse patient.[facility] the event this information is protected by the Federal Confidentiality of Alcohol and Drug Abuse Patient Records regulations: The Federal rules restrict any use of the information to criminally investigate or prosecute any alcohol or drug abuse patient.[facility]In the event this information is protected by the Federal Confidentiality of Alcohol and Drug Abuse Patient Records regulations: The Federal rules restrict any use of the information to criminally investigate or prosecute any alcohol or drug abuse patient.[facility]In the event this information is protected by the Federal Confidentiality of Alcohol and Drug Abuse Patient Records regulations: The Federal rules restrict any use of the information to criminally investigate or prosecute any alcohol or drug abuse patient.[facility]In the event this information is protected by the Federal Confidentiality of Alcohol and Drug Abuse Patient Records regulations: The Federal rules restrict any use of the information to criminally investigate or prosecute any alcohol or drug abuse patient.[facility]In the event this information is protected by the Federal Confidentiality of Alcohol and Drug Abuse Patient Records regulations: The Federal rules restrict any use of the information to criminally investigate or prosecute any alcohol or drug abuse patient.[facility] CenterIn the event this information is protected by the Federal Confidentiality of Alcohol and Drug Abuse Patient Records regulations: The Federal rules restrict any use of the information to criminally investigate or prosecute any alcohol or drug abuse patient.[facility] CenterIn the event this information is protected by the Federal Confidentiality of Alcohol and Drug Abuse Patient Records regulations: The Federal rules restrict any use of the information to criminally investigate or prosecute any alcohol or drug abuse patient.[facility] CenterIn the event this information is protected by the Federal Confidentiality of Alcohol and Drug Abuse Patient Records regulations: The Federal rules restrict any use of the information to criminally investigate or prosecute any alcohol or drug abuse patient.[facility] CenterIn the event this information is protected by the Federal Confidentiality of Alcohol and Drug Abuse Patient Records regulations: The Federal rules restrict any use of the information to criminally investigate or prosecute any alcohol or drug abuse patient.[facility] CenterIn the event this information is protected by the Federal Confidentiality of Alcohol and Drug Abuse Patient Records regulations: The Federal rules restrict any use of the information to criminally investigate or prosecute any alcohol or drug abuse patient.[facility] CenterIn the event this information is protected by the Federal Confidentiality of Alcohol and Drug Abuse Patient Records regulations: The Federal rules restrict any use of the information to criminally investigate or prosecute any alcohol or drug abuse patient.[facility] CenterIn the event this information is protected by the Federal Confidentiality of Alcohol and Drug Abuse Patient Records regulations: The Federal rules restrict any use of the information to criminally investigate or prosecute any alcohol or drug abuse patient.[facility] CenterIn the event this information is protected by the Federal Confidentiality of Alcohol and Drug Abuse Patient Records regulations: The Federal rules restrict any use of the information to criminally investigate or prosecute any alcohol or drug abuse patient.[facility] CenterIn the event this information is protected by the Federal Confidentiality of Alcohol and Drug Abuse Patient Records regulations: The Federal rules restrict any use of the information to criminally investigate or prosecute any alcohol or drug abuse patient.[facility] CenterIn the event this information is protected by the Federal Confidentiality of Alcohol and Drug Abuse Patient Records regulations: The Federal rules restrict any use of the information to criminally investigate or prosecute any alcohol or drug abuse patient.[facility] CenterIn the event this information is protected by the Federal Confidentiality of Alcohol and Drug Abuse Patient Records regulations: The Federal rules restrict any use of the information to criminally investigate or prosecute any alcohol or drug abuse patient.[facility] CenterIn the event this information is protected by the Federal Confidentiality of Alcohol and Drug Abuse Patient Records regulations: The Federal rules restrict any use of the information to criminally investigate or prosecute any alcohol or drug abuse patient.[facility] CenterIn the event this information is protected by the Federal Confidentiality of Alcohol and Drug Abuse Patient Records regulations: The Federal rules restrict any use of the information to criminally investigate or prosecute any alcohol or drug abuse patient.[facility] CenterIn the event this information is protected by the Federal Confidentiality of Alcohol and Drug Abuse Patient Records regulations: The Federal rules restrict any use of the information to criminally investigate or prosecute any alcohol or drug abuse patient.[facility] CenterIn the event this information is protected by the Federal Confidentiality of Alcohol and Drug Abuse Patient Records regulations: The Federal rules restrict any use of the information to criminally investigate or prosecute any alcohol or drug abuse patient.[facility] CenterIn the event this information is protected by the Federal Confidentiality of Alcohol and Drug Abuse Patient Records regulations: The Federal rules restrict any use of the information to criminally investigate or prosecute any alcohol or drug abuse patient.[facility] CenterIn the event this information is protected by the Federal Confidentiality of Alcohol and Drug Abuse Patient Records regulations: The Federal rules restrict any use of the information to criminally investigate or prosecute any alcohol or drug abuse patient.[facility] CenterIn the event this information is protected by the Federal Confidentiality of Alcohol and Drug Abuse Patient Records regulations: The Federal rules restrict any use of the information to criminally investigate or prosecute any alcohol or drug abuse patient.[facility] CenterIn the event this information is protected by the Federal Confidentiality of Alcohol and Drug Abuse Patient Records regulations: The Federal rules restrict any use of the information to criminally investigate or prosecute any alcohol or drug abuse patient.[facility] CenterIn the event this information is protected by the Federal Confidentiality of Alcohol and Drug Abuse Patient Records regulations: The Federal rules restrict any use of the information to criminally investigate or prosecute any alcohol or drug abuse patient.[facility] CenterIn the event this information is protected by the Federal Confidentiality of Alcohol and Drug Abuse Patient Records regulations: The Federal rules restrict any use of the information to criminally investigate or prosecute any alcohol or drug abuse patient.[facility] CenterIn the event this information is protected by the Federal Confidentiality of Alcohol and Drug Abuse Patient Records regulations: The Federal rules restrict any use of the information to criminally investigate or prosecute any alcohol or drug abuse patient.[facility] CenterIn the event this information is protected by the Federal Confidentiality of Alcohol and Drug Abuse Patient Records regulations: The Federal rules restrict any use of the information to criminally investigate or prosecute any alcohol or drug abuse patient.[facility] Center[facility] the event this information is protected by the Federal Confidentiality of Alcohol and Drug Abuse Patient Records regulations: The Federal rules restrict any use of the information to criminally investigate or prosecute any alcohol or drug abuse patient.[facility] Center[facility] the event this information is protected by the Federal Confidentiality of Alcohol and Drug Abuse Patient Records regulations: The Federal rules restrict any use of the information to criminally investigate or prosecute any alcohol or drug abuse patient.[facility] Reason for Visit (unrecogniz ed section and [...] Care Teams (unrecognized sec tion and content) Er Registrar Relationship Specialty Start Date End Date Fco Bradshaw MD [address] [place] [address] PCP - General 08/27/09 Mark Mora MD [address] [facility] [address] [address] Orthopedics Orthopedics 03/31/21 Dana Brown RN [address] [place], [place] [id number] Sr. Logistics Analyst 05/12/21 Er Registrar Relationship Specialty Start Date End Date Fco Bradshaw MD [address] [place], [place] [id number] PCP - General 08/27/09 Mark Mora MD [address] [facility] [address] [place] [address] Orthopedics Orthopedics 03/31/21 Dana Brown RN [address] [facility] [id number] Sr. Logistics Analyst 05/12/21 Er Registrar Relationship Specialty Start Date End Date Fco Bradshaw MD [address] [facility] [place] [address] PCP - General 08/27/09 Mark Mora MD [address] [place] [address] Orthopedics Orthopedics 03/31/21 Dana Brown RN [address] [place] [address] Sr. Logistics Analyst 05/12/21 Er Registrar Relationship Specialty Start Date End Date Fco Bradshaw MD [address] [facility] [place] [id number] PCP - General 08/27/09 Mark Mora MD [address] [place] [address] Orthopedics Orthopedics 03/31/21 Dana Brown RN [address] [facility] [id number] Sr. Logistics Analyst 05/12/21 Er Registrar Relationship Specialty Start Date End Date Fco Bradshaw MD [address] [facility] [place] [address] PCP - General 08/27/09 Mark Mora MD [address] [facility] [address] [place] [address] Orthopedics Orthopedics 03/31/21 Dana Brown RN [address] [place] [address] Sr. Logistics Analyst 05/12/21 Er Registrar Relationship Specialty Start Date End Date Fco Bradshaw MD [address] [facility] [place] [address] PCP - General 08/27/09 Mark Mora MD [address] [place] [address] Orthopedics Orthopedics 03/31/21 Dana Brown RN [address] [place] [address] Sr. Logistics Analyst 05/12/21 Er Registrar Relationship Specialty Start Date End Date Fco Bradshaw MD [address] [facility] [place] [address] PCP - General 08/27/09 Mark Mora MD [address] [place] [address] Orthopedics Orthopedics 03/31/21 Dana Brown RN [address] [place] [address] Sr. Logistics Analyst 05/12/21 Er Registrar Relationship Specialty Start Date End Date Fco Bradshaw MD [address] [facility] [place] [address] PCP - General 08/27/09 Mark Mora MD [address] [place] [address] Orthopedics Orthopedics 03/31/21 Dana Brown RN [address] [place] [address] Sr. Logistics Analyst 05/12/21 Er Registrar Relationship Specialty Start Date End Date Fco Bradshaw MD [address] [facility] [place] [address] PCP - General 08/27/09 Mark Mora MD [address] [place] [address] Orthopedics Orthopedics 03/31/21 Dana Brown, RN [address] [facility] [id number] Sr. Logistics Analyst 05/12/21 Er Registrar Relationship Specialty Start Date End Date Fco Bradshaw MD [address] [place] [address] PCP - General 08/27/09 Mark Mora MD [address] [place] [address] Orthopedics Orthopedics 03/31/21 Jose De Jesus Paige RN [address] [place] [address] Sr. Logistics Analyst [facility] Medicine 05/10/21 Er Registrar Relationship Specialty Start Date End Date Fco Bradshaw MD [address] [place] [address] PCP - General 08/27/09 Mark Mora MD [address] [place] [address] Orthopedics Orthopedics 03/31/21 Jose De Jesus Paige RN [address] [place] [address] Sr. Logistics Analyst Family Medicine 05/10/21 Er Registrar Relationship Specialty Start Date End Date Fco Bradshaw MD [address] [place] [address] PCP - General 08/27/09 Mark Mora MD [address] [place] [address] Orthopedics Orthopedics 03/31/21 Jose De Jesus Paige RN [address] [place] [address] Sr. Logistics Analyst Family Medicine 07/21/22 Er Registrar Relationship Specialty Start Date End Date Fco Bradshaw MD [address] [facility] [place] [address] PCP - General 08/27/09 Mark Mora MD [address] [place] [address] Orthopedics Orthopedics 03/31/21 Jose De Jesus Paige RN [address] [place] [address] Sr. Logistics Analyst Family Medicine 07/21/22 Er Registrar Relationship Specialty Start Date End Date Fco Bradshaw MD [address] [facility] [place] [address] PCP - General 08/27/09 Mark Mora MD [address] [place] [address] Orthopedics Orthopedics 03/31/21 Jose De Jesus Paige RN [address] [place] [address] Sr. Logistics Analyst Family Medicine 07/21/22 Er Registrar Relationship Specialty Start Date End Date Fco Bradshaw MD [address] [facility] [place] [address] PCP - General 08/27/09 Mark Mora MD [address] [place] [address] Orthopedics Orthopedics 03/31/21 Jose De Jesus Paige RN [address] [place] [address] Sr. Logistics Analyst Family Medicine 07/21/22 Er Registrar Relationship Specialty Start Date End Date Fco Bradshaw MD [address] [facility] [place] [address] PCP - General 08/27/09 Mark Mora MD [address] [place] [address] Orthopedics Orthopedics 03/31/21 Jose De Jesus Paige RN [address] [place], [place] [id number] Sr. Logistics Analyst [facility] 07/21/22 Er Registrar Relationship Specialty Start Date End Date Fco Bradshaw MD [address] [place] [address] PCP - General 08/27/09 Mark Mora MD [address] [facility] [address] [place], [place] [address] Orthopedics Orthopedics 03/31/21 Jose De Jesus Paige RN [address] [place] [address] Sr. Logistics Analyst [facility] 07/21/22 Er Registrar Relationship Specialty Start Date End Date Fco Bradshaw MD [address] [place] [address] PCP - General 08/27/09 [place] [address] [place], [place] [address] [address] Orthopedics Orthopedics 03/31/21 Jose De Jesus Paige RN [address] [place], [place] [id number] Sr. Logistics Analyst [facility] 07/21/22 FOR RECORDS PERTAINING TO PATIENTS WHO [...] BE BASED ON THE PRIMARY CLINICAL RECORDS. [facility] [employer] [facility]. provides no warranty or guarantee of the accuracy or completeness of information in this document.
--- OUTSIDE RECORDS SUMMARY | 2023-05-03 04:43 | XMS RPT_ITS | CCD ---
Author Name Unknown Address [address] [place] [address] Organization [facility] Care Team Providers Care Education Rn Name Role Phone KOBYHORTENSIA BEAVERNETH E Unavailable [...] [LOVASTATIN] Drug Allergy 5 Muscle pain (finding) [facility] (3 sources) OTHER; Translations: [OTHER] Propensity to adverse reactions (disorder) 5 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; Translations: [Coronary [...] 70.76 kg Fco Bradshaw MD Work Phone: [facility] 03-18-2023 09:04-0400 Diastolic blood pressure 60 mm[Hg] Fco Bradshaw MD Work Phone: [facility] 03-18-2023 09:04-0400 Heart rate 68 /min Fco Bradshaw MD Work Phone: [facility] 03-18-2023 09:04-0400 Respiratory rate 14 /min Fco Bradshaw MD Work Phone: [facility] 03-18-2023 09:04-0400 SaO2% (BldA) [Mass fraction] 97 % Fco Bradshaw MD Work Phone: [facility] 03-18-2023 09:04-0400 Systolic blood pressure 120 mm[Hg] Fco Bradshaw MD Work Phone: [facility] 10-07-2022 09:39-0500 Body weight 68.95 kg Tim Andrews DO Work Phone: [facility] 10-07-2022 09:39-0500 Diastolic blood pressure 54 mm[Hg] Tim Andrews DO Work Phone: [facility] 10-07-2022 09:39-0500 Heart rate 78 /min Tim Andrews DO Work Phone: [facility] 10-07-2022 09:39-0500 SaO2% (BldA) [Mass fraction] 96 % Tim Andrews DO Work Phone: [facility] 10-07-2022 09:39-0500 Systolic blood pressure 104 mm[Hg] Tim Andrews DO Work Phone: [facility] 09-17-2022 16:05-0500 Body weight 69.04 kg Fco Bradshaw MD Work Phone: [facility] 09-17-2022 16:05-0500 Diastolic blood pressure 72 mm[Hg] Fco Bradshaw MD Work Phone: [facility] 09-17-2022 16:05-0500 Heart rate 79 /min Fco Bradshaw MD Work Phone: [facility] 09-17-2022 16:05-0500 Respiratory rate 16 /min Fco Bradshaw MD Work Phone: [facility] 09-17-2022 16:05-0500 SaO2% (BldA) [Mass fraction] 96 % Fco Bradshaw MD Work Phone: [facility] 09-17-2022 16:05-0500 Systolic blood pressure 122 mm[Hg] Fco Bradshaw MD Work Phone: [facility] 07-13-2022 10:11-0400 Body temperature 98.4 [degF] Ally Mila INTERNAL CONTROL SPECIALIST.[employer] Work Phone: [facility] 07-13-2022 10:11-0400 Body weight 69.4 kg Ally Mila INTERNAL CONTROL SPECIALIST.[employer] Work Phone: [facility] 07-13-2022 10:11-0400 Diastolic blood pressure 82 mm[Hg] Ally Mila INTERNAL CONTROL SPECIALIST.[employer] Work Phone: [facility] 07-13-2022 10:11-0400 Heart rate 98 /min Ally Mila INTERNAL CONTROL SPECIALIST.[employer] Work Phone: [facility] 07-13-2022 10:11-0400 Respiratory rate 18 /min Ally Mila INTERNAL CONTROL SPECIALIST.[employer] Work Phone: [facility] 07-13-2022 10:11-0400 SaO2% (BldA) [Mass fraction] 94 % Ally Hickeyk INTERNAL CONTROL SPECIALIST.[employer] Work Phone: [facility] 07-13-2022 10:11-0400 Systolic blood pressure 120 mm[Hg] Ally Hickeymatilde DESAI.PL[employer] SH[employer]ER [employer] Work Phone: [facility] 03-11-2022 08:49-0400 Body weight 67.22 kg Fco Bradshaw MD Work Phone: [facility] 03-11-2022 08:49-0400 Diastolic blood pressure 60 mm[Hg] Fco Bradshaw MD Work Phone: [facility] 03-11-2022 08:49-0400 Heart rate 80 /min Fco Bradshaw MD Work Phone: [facility] 03-11-2022 08:49-0400 Respiratory rate 16 /min Fco Bradshaw MD Work Phone: [facility] 03-11-2022 08:49-0400 Systolic blood pressure 116 mm[Hg] Fco Bradshaw MD Work Phone: [facility] 07-08-2021 11:46-0400 Body temperature 97.88 [degF] DR MARK MORA MD [facility] 07-08-2021 11:46-0400 Diastolic blood pressure 66 mm[Hg] DR MARK MORA MD [facility] 07-08-2021 11:46-0400 Heart rate 73 /min DR MARK MORA MD [facility] 07-08-2021 11:46-0400 Mean blood pressure 85 mm[Hg] DR MARK MORA MD [facility] 07-08-2021 11:46-0400 Reason For Taking VItal Signs DR MARK MORA MD [facility] 07-08-2021 11:46-0400 Respiratory rate 16 /min DR MARK MORA MD [facility] 07-08-2021 11:46-0400 Systolic blood pressure 124 mm[Hg] DR MARK MORA MD [facility] 07-08-2021 08:28-0400 Heart rate 70 /min DR MARK MORA MD [facility] 07-08-2021 07:10-0400 Body temperature 98.06 [degF] DR MARK MORA MD [facility] 07-08-2021 07:10-0400 Diastolic blood pressure 60 mm[Hg] DR MARK MORA MD [facility] 07-08-2021 07:10-0400 Heart rate 72 /min DR MARK MORA MD [facility] 07-08-2021 07:10-0400 Mean blood pressure 86 mm[Hg] DR MARK MORA MD [facility] 07-08-2021 07:10-0400 Reason For Taking VItal Signs DR MARK MORA MD [facility] 07-08-2021 07:10-0400 Respiratory rate 16 /min DR MARK MORA MD [facility] 07-08-2021 07:10-0400 Systolic blood pressure 137 mm[Hg] DR MARK MORA MD [facility] 07-08-2021 05:37-0400 Body temperature 98.06 [degF] DR MARK MORA MD [facility] 07-08-2021 05:37-0400 Diastolic blood pressure 68 mm[Hg] DR MARK MORA MD [facility] 07-08-2021 05:37-0400 Heart rate 72 /min DR MARK MORA MD [facility] 07-08-2021 05:37-0400 Mean blood pressure 90 mm[Hg] DR MARK MORA MD [facility] 07-08-2021 05:37-0400 Respiratory rate 20 /min DR MARK MORA MD [facility] 07-08-2021 05:37-0400 Systolic blood pressure 133 mm[Hg] DR MARK MORA MD [facility] 07-07-2021 23:36-0400 Heart rate 71 /min DR MARK MORA MD [facility] 07-07-2021 18:40-0400 Heart rate 79 /min DR MARK MORA MD [facility] 07-07-2021 18:40-0400 Reason For Taking VItal Signs DR MARK MORA MD [facility] 07-07-2021 13:34-0400 Diastolic Blood Pressure NBP [address] MARK MORA MD [facility] 07-07-2021 13:34-0400 Heart rate 63 /min DR MARK MORA MD [facility] 07-07-2021 13:34-0400 Systolic Blood Pressure NBP [address] MARK MORA MD [facility] 07-07-2021 13:09-0400 Body height 157.[address] MARK MORA MD [facility] 07-07-2021 13:09-0400 Body weight 68.[address] MARK MORA MD [facility] 07-07-2021 13:09-0400 Body weight 27.49 kg/m2 DR MARK MORA MD [facility] 07-07-2021 12:51-0400 Diastolic Blood Pressure NBP [address] MARK MORA MD [facility] 07-07-2021 12:51-0400 Systolic Blood Pressure NBP [address] MARK MORA MD [facility] 07-07-2021 12:20-0400 Diastolic Blood Pressure NBP [address] MARK MORA MD [facility] 07-07-2021 12:20-0400 Systolic Blood Pressure NBP [address] MARK MORA MD [facility] 07-07-2021 11:35-0400 Body temperature 97.52 [degF] DR MARK MORA MD [facility] 07-07-2021 11:15-0400 Body temperature 97.7 [degF] DR MARK MORA MD [facility] 07-07-2021 10:45-0400 Body temperature 97.7 [degF] DR MARK MORA MD [facility] 07-07-2021 08:14-0400 Body temperature 97.34 [degF] DR MARK MORA MD [facility] Encounters Encounter Date Encounter Type Care Provider Facility Start: 04-04-2023 maryam Paige RN Work Phone: [facility] [facility] Procedures Date Procedure Procedure Detail Performing [...] comp foot exam completed DIABETIC FOOT EXAM [facility] Start: 03-11-2024 Hepatitis B surface antibody level LDL CHOLESTEROL [facility] Start: 09-17-2023 End: 11-17-2023 ALBUMIN/CREAT RATIO RND UR ALBUMIN/CREAT RATIO RND UR Lab Routine Type 2 diabetes mellitus with stage 3a chronic kidney disease, without long-term current use of insulin (HCC) Expected: 09/17/2023 (Approximate), Expires: 11/17/2023 [facility] Work Phone: Immunizations Immunization Date Immunization Notes Care Provider Eric larkin 09-17-2022 influenza, high-dose , quadrivalent vaccine (FLUZONE HIGH DOSE QUADRIVALENT) Jose De Jesus Paige RN Work Phone: [facility] 07-25-2021 influenza, high-dose , quadrivalent vaccine (FLUZONE HIGH DOSE QUADRIVALENT) Dana Brown RN [facility] Work Phone: 11-06-2020 SARS-CoV-2 (COVID-19 ) mRNA-[address] MARK MORA MD [facility] 10-09-2020 SARS-CoV-2 (COVID-19 ) mRNA-[address] MARK MORA MD [facility] 08-15-2020 influenza virus vacc ine, unspecified formulation DR MARK MORA MD [facility] 08-15-2020 influenza, high-dose , quadrivalent vaccine (FLUZONE HIGH DOSE QUADRIVALENT) Dana Brown RN [facility] 08-15-2019 influenza virus vacc ine, unspecified formulation DR MARK MORA MD [facility] 08-15-2019 influenza, high dose seasonal, preservative-free Dana Brown RN [facility] 08-15-2018 influenza virus vacc ine, unspecified formulation DR MARK MORA MD [facility] 08-15-2018 influenza, high dose seasonal, preservative-free Dana Brown RN [facility] 07-28-2017 influenza virus vacc ine, unspecified formulation DR MARK MORA MD [facility] 07-28-2017 influenza, high dose seasonal, preservative-free Dana Brown RN [facility] 08-04-2016 influenza, high dose seasonal, preservative-free Dana Brown RN [facility] 11-13-2015 pneumococcal conjuga te vaccine, [address] MARK MORA MD [facility] 07-02-2015 influenza virus vacc ine, unspecified formulation DR MARK MORA MD [facility] 07-02-2015 influenza, high dose seasonal, preservative-free Dana Brown RN [facility] 07-17-2014 influenza virus vacc ine, unspecified formulation DR MARK MORA MD [facility] 07-17-2014 influenza, seasonal, injectable Dana Brown RN [facility] Work Phone: 07-20-2013 influenza virus vacc ine, unspecified formulation Dana Brown RN [facility] 09-07-2012 pneumococcal polysaccharide vaccine, 23 valent Dana Brown RN [facility] 08-04-2012 influenza virus vacc ine, unspecified formulation Dana Brown RN [facility] 09-07-2010 tetanus toxoid, redu jesus diphtheria toxoid, and acellular pertussis vaccine, adsorbed Dana Brown RN [facility] 07-27-2005 influenza virus vacc ine, unspecified formulation Dana Brown [facility] Work Phone: 07-05-2000 tetanus and diphther ia toxoids, adsorbed, preservative free, for adult use (2 Lf of tetanus toxoid and 2 Lf of diphtheria toxoid) Dana Brown RN [facility] Work Phone: Payers Date Payer Category Payer Private Health Insurance JOSE G RODRIGUEZ PPO [id number] 2010-Present [phone] [address] [place] [address] PPO [id number] 2010 Private Health Insurance JOSE G RODRIGUEZ PPO [id number] 2010-Present [phone] [address] [place] [address] PPO [id number] 2010 Private Health Insurance [id number] 2005 Medicare MEDICARE MEDICAR E A AND B [id number] 2005-Present [phone] [address] [address] [place] [address] Medicare [id number] 2005 Medicare MEDICARE MEDICAR E A AND B [id number] 2005-Present [phone] [place] [address] Medicare [id number] 2005 Medicare [id number] Unknown [id number] Social History Date Type Detail Facility Start: 06-25-2021 End: 07-13-2022 Ex-smoker (finding) [facility] Sex Assigned At [facility] End: 03-19-1987 History of tobacco use Current smoker [facility] End: 03-19-1987 History of tobacco use Cigarette Smoker [facility] Start: 10-06-2021 End: 03-18-2023 Alcohol intake Current drinker of alcohol (finding) [facility] Start: 02-06-2020 End: 02-21-2020 History SDOH Alcohol Frequency 3 [facility] Start: 02-06-2020 End: 02-21-2020 History SDOH Alcohol Std Drinks 1 [facility] Start: 02-06-2020 History SDOH Social Connections Phone 5 [facility] Start: 02-06-2020 History SDOH Social Connections Get Together 2 [facility] Start: 02-06-2020 History SDOH Social Connections Living 6 [facility] Start: 02-06-2020 History SDOH Financial 4 [facility] Start: 1940 Sex Assigned At Not on file [facility] Start: 2022 End: 07-13-2022 Exposure to SARS-CoV-2 (event) Not sure [facility] Start: 09-07-2011 End: 03-18-2023 Cigarettes smoked current (pack per day) - Reported 1 [facility] Work Phone: Start: 09-07-2011 End: 07-13-2022 Tobacco use and exposure Smokeless tobacco non-user [facility] Start: 03-18-2023 Tobacco use panel [facility] Work Phone: Adult Depression Screening Assessment 0 [facility] Work Phone: Start: 08-12-2020 Gender identity Identifies as male gender (finding) [facility] Goals Date Patient Goal Desired Activity /State Personal health goal Clinical Notes 12-29-2015 to 04-05-2023 Jose De Jesus Paige RN - 04/04/2023 9:30 AM Lori Bradshaw MD - 03/18/2023 9:20 AM EDT Note Date & Type Note Facility 04-05-2023 Note HNO ID: [id number] Author: Jose De Jesus Paige RN Service: [...] daily weight at home? No Based on farrowing manager, the following disposition is advised: No symptoms or symptoms present, not severe. Routed to: No Action Needed SHIRLEY Education Provided this Outreach: No Jose De Jesus Paige RN April 05, 2023 12:51 PM [facility] 04-04-2023 Note Patient Outreach ([facility] KILLIAN AMARO ([id number]) 1940 M Date Time Provider Department 04/04/23 JOSE DE JESUS PAIGE [facility] During your visit today, we recorded the following information about you: Jose De Jesus Paige RN 04/04/2023 3:18 PM Signed [facility] Telephonic Outreach Provider Benedict/NA CHF Contacted for: Routine Telephonic Outreach Contact made with patient: No, left message. Jose De Jesus Paige RN April 04, 2023 3:18 PM Jose De Jesus Paige RN 04/05/2023 12:52 PM Signed [facility] Telephonic Outreach Provider Benedict/NA CHF/CKD/HTN [employer] disconnected [...] daily weight at home? No Based on farrowing manager, the following disposition is advised: No symptoms [...] Visit Diagnosis:Chronic diastolic CHF (congestive heart failure) ([facility]) [I50.32] Other Visit Diagnosis:Chronic kidney disease, stage 3a ([facility]) [N18.31] Order(s):PT ED HEART AND VASCULAR [9040119] Order #: [id number]: 1 PT ED NEPHROLOGY [[id number]] Order #: [id number]: 1 Prescriptions as of 04/05/2023 - dapagliflozin [...] 04/04/2023 Noted Resolved Coronary artery disease involving manzanita castaneda*12/06/2005 PERCUT TRANSLUM CORON ANGIO STATUS [Z98.61] [...] Psoriasis [L40.8] 09/27/2008 (more content not included)... [facility] 04-04-2023 Note HNO ID: [id number] Author: Jose De Jesus Paige RN Service: ? Author Type: Registered Nurse Type: Progress Notes Filed: 04/04/2023 3:18 PM Note Text: [facility] Telephonic Outreach Provider Action/FYI CHF Contacted for: Routine Telephonic Outreach Contact made with patient: No, left message. Jose De Jesus Paige RN April 04, 2023 3:18 PM [facility] 04-04-2023 History of Present illness Narrative [facility] Telephonic Outreach Provider Action/FYI CHF Contacted for: Routine Telephonic Outreach Contact made with patient: No, left message. Jose De Jesus Paige RN April 04, 2023 3:18 PM documented in this encounter [facility] 03-18-2023 Note HNO ID: [id number] Author: Fco Bradshaw MD Service: ? Author [...] mg once weekly. Has seen Dr. Seaman, [employer] [facility] in past. Follows with [facility] Dr. Canchola for eye exams. CKD: Monitored [...] mL injection (DEFINI (more content not included)... [facility] 03-18-2023 History of Present illness Narrative [...] mg once weekly. Has seen Dr. Seaman, [employer] in past. Follows with [facility] Dr. Canchola for eye exams. CKD: Monitored [...] disease, without long-term current use of insulin ([facility]) - ICD9: 250.40, 585.3, ICD10: E11.22, N18.31 (primary diagnosis) - Controlled - Continue current medications - Counseled on healthy diet and regular exercise - Discussed need for and benefit of weight loss. BMI 28.53 kg/(m^2) 2. Chronic kidney disease, stage 3a ([facility]) - ICD9: 585.3, ICD10: N18.31 Continue current medications. 3. Ankylosing spondylitis, unspecified site of spine ([facility]) - ICD9: 720.0, ICD10: M45.9 Continue current medications. 4. 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 Continue with Cardio 5. Mixed hyperlipidemia - ICD9: 272.2, ICD10: E78.2 - Controlled - Continue current medications - Counseled on healthy diet and regular exercise - Discussed need for and benefit of weight loss. BMI 28.53 kg/(m^2) 6. Chronic diastolic CHF (congestive heart failure) ([facility]) - ICD9: 428.32, 428.0, ICD10: I50.32 Continue [...] Past Histories independently gathered by the clinical credit support specialist and the remaining scribed note accurately describes [...] Dana Castro Ma documented in this encounter [facility] documented in this encounter [facility]06-19-2023 NoteHNO ID: [id number] Author: Jose De Jesus Paige RN Service: ? Author Type: Registered Nurse Type: Progress Notes Filed: 03/07/2023 1:32 PM Note Text: [facility] Telephonic Outreach Provider Action/FYI Contacted for: Routine Telephonic Outreach Contact made with patient: No, left message. Jose De Jesus Paige RN March 07, 2023 1:32 [facility]06-12-2023 NotePatient Outreach ([facility]) KILLIAN AMARO ([id number]) 1940 M Date Time Provider Department 02/28/23 [...] Jesus Paige RN 03/07/2023 1:32 PM Signed [facility] Telephonic Outreach Provider Benedict/NA Contacted for: Routine [...] 02/28/2023 Noted Resolved Coronary artery disease involving manzanita castaneda*12/06/2005 PERCUT TRANSLUM CORON ANGIO STATUS [Z98.61] [...] right wrist [M19 (more content not included)... [facility]06-12-2023 NoteHNO ID: [id number] Author: Jose De Jesus Paige RN Service: ? Author Type: Registered Nurse Type: Progress Notes Filed: 02/28/2023 3:42 PM Note Text: [facility] Telephonic Outreach Provider Action/FYI Contacted for: Routine Telephonic Outreach Contact made with patient: No, left message. Jose De Jesus Pagie RN February 28, 2023 3:42 [facility]05-15-2023 NoteHNO ID: [id number] Author: Jose De Jesus Paige RN Service: [...] daily weight at home? No Based on farrowing manager, the following disposition is advised: No symptoms or symptoms present, not severe. Routed to: No Action Needed SHIRLEY Education Provided this Outreach: No Jose De Jesus Paige RN January 31, 2023 1:53 [facility]05-15-2023 NoteHNO ID: [id number] Author: Jose De Jesus Paige RN Service: ? Author Type: Registered Nurse Type: Progress Notes Filed: 01/31/2023 1:41 PM Note Text: [facility] Telephonic Outreach Provider Action/FYI Contacted for: Routine Telephonic Outreach Contact made with patient: No, left message. Jose De Jesus Paige RN January 31, 2023 1:41 [facility]05-11-2023 NotePatient Outreach ([facility]) KILLIAN AMARO ([id number]) 1940 M Date Time Provider Department 01/27/23 JOSE DE JESUS PAIGE During your visit today, we recorded the following information about you: Jose De Jesus Paige RN 01/28/2023 12:25 PM Signed [facility] Telephonic Outreach Provider Action/NA Contacted for: Routine Telephonic Outreach Contact made with patient: No, left message. Jose De Jesus Paige RN January 28, 2023 12:25 PM Jose De Jesus Paige RN 01/31/2023 1:41 PM Signed [facility] Telephonic Outreach Provider Benedict/NA Contacted for: Routine Telephonic Outreach Contact made with patient: No, left message. Jose De Jesus Paige RN January 31, 2023 1:41 PM Jose De Jesus Paige RN 01/31/2023 1:54 PM Signed [facility] Telephonic Outreach Provider Action/FYBarbara Patient returned my [...] daily weight at home? No Based on farrowing manager, the following disposition is advised: No symptoms [...] 01/27/2023 Noted Resolved Coronary artery disease involving manzanita castaneda*12/06/2005 PERCUT TRANSLUM CORON ANGIO STATUS [Z98.61] [...] R post ear [L90. (more content not included)...[facility]05-11-2023 NoteHNO ID: [id number] Author: Jose De Jesus Paige RN Service: ? Author Type: Registered Nurse Type: Progress Notes Filed: 01/28/2023 12:25 PM Note Text: [facility] Telephonic Outreach Provider Action/FYI Contacted for: Routine Telephonic Outreach Contact made with patient: No, left message. Jose De Jesus Paige RN January 28, 2023 12:25 [facility]05-11-2023 History of Present illness Narrative* Jose De Jesus Paige RN - 01/27/2023 10:31 AM EDT [facility] Telephonic Outreach Provider Action/FYI Contacted for: Routine Telephonic Outreach Contact made with patient: No, left message. Jose De Jesus Paige RN January 28, 2023 12:25 PM [facility] NotePatient Outreach ([facility]) KILLIAN AMARO ([id number]) 1940 M Date Time Provider Department 12/29/22 JOSE DE JESUS PAIGE During your visit today, we recorded the following information about you: Jose De Jesus Paige RN 12/30/2022 2:34 PM Signed [facility] TELEPHONIC OUTREACH Provider Action/I: CHF Contact made [...] like to speak with a social work steam pipe fitter to help give you support for any [...] you up for automated weekly questionnaires through [employer]. This is an easy way for us [...] 12/29/2022 Noted Resolved Coronary artery disease involving manzanita castaneda*12/06/2005 PERCUT TRANSLUM CORON ANGIO STATUS [Z98.61] 12/06/2005 Hypertensive heart disease with heart failure (*12/06/2005 04/05/2022 Hyperlipidemia [E78.5] 12/06/2005 LOC PRIM OSTE (more content not included)...[facility]04-12-2023 NoteHNO ID: [id number] Author: Jose De Jesus Paige RN Service: [...] like to speak with a social work steam pipe fitter to help give you support for any [...] you up for automated weekly questionnaires through [employer]. This is an easy way for us [...] in the Track Pt Outreach and End outreach.[facility] 12-29-2022 History of Present illness Narrative* [...] like to speak with a social work steam pipe fitter to help give you support for any [...] you up for automated weekly questionnaires through [employer]. This is an easy way for us [...] PtOutreach and End outreach. [facility] NoteHNO ID: [id number] Author: Jose De Jesus Paige RN Service: ? Author Type: Registered Nurse Type: Progress Notes Filed: 11/29/2022 2:49 PM Note Text: [facility] TELEPHONIC OUTREACH Provider Action/FYI: Contact made with patient: No - Left message Amado my name is Jose De Jesus Paige RN your Tank Stave Assembler from the [facility] I am calling today for your bi-weekly check in. I am sorry I missed your call. I will reach out to you again tomorrow. (if the third call I will reach out to you again next week) Enter next patient outreach date for the following business day using the Track Pt Outreach. End outreach.[facility]03-06-2023 NotePatient Outreach ([facility]) KILLIAN AMARO ([id number]) 1940 M Date Time Provider Department 11/22/22 JOSE DE JESUS PAIGE During your visit today, we recorded the following information about you: Jose De Jesus Paige RN 11/25/2022 12:10 PM Signed [email or web address] [facility] TELEPHONIC OUTREACH Provider Action/FYI: CHF Contact made with patient: No - Left message Amado my name is Jose De Jesus Paige RN your Tank Stave Assembler from the [facility] I am calling today for [...] Jesus Paige RN 11/29/2022 2:49 PM Signed [email or web address] [facility] TELEPHONIC OUTREACH Provider Action/FYI: Contact made with patient: No - Left message Amado my name is Jose De Jesus Paige RN your Tank Stave Assembler from the [facility] I am calling today for [...] 11/22/2022 Noted Resolved Coronary artery disease involving manzanita castaneda*12/06/2005 PERCUT TRANSLUM CORON ANGIO STATUS [Z98.61] [...] 05/19/2016 ELENA ANGIOMAS///NEVUS, NON-NEOP (more content not included)...[facility]03-06-2023 NoteHNO ID: [id number] Author: Jose De Jesus Paige RN Service: ? Author Type: Registered Nurse Type: Progress Notes Filed: 11/25/2022 12:10 PM Note Text: EDU [facility] TELEPHONIC OUTREACH Provider Action/FYI: CHF Contact made with patient: No - Left message Amado my name is Jose De Jesus Paige RN your Tank Stave Assembler from the [facility] I am calling today for your bi-weekly check in. I am sorry I missed your call. I will reach out to you again tomorrow. (if the third call I will reach out to you again next week) Enter next patient outreach date for the following business day using the Track Pt Outreach. End outreach.[facility]03-06-2023 History of Present illness Narrative* Jose De Jesus Paige RN - 11/22/2022 10:25 AM EST EDU [facility] TELEPHONIC OUTREACH Provider Action/FYI: CHF Contact made with patient: No - Left message Amado my name is Jose De Jesus Paige RN your Tank Stave Assembler from the [facility] I am calling today for your bi-weekly check in. I am sorry I missed your call. I will reach out to you again tomorrow. (if the third call I will reach out to you again next week) Enter next patient outreach date forthe following day using the Track Pt Outreach. End outreach. [facility] Miscellaneous Notes* Telephone Encounter - [...] is not available. Please advise patient at [phone] documented in this encounter[facility]02-07-2023 NoteHNO ID: [id number] Author: Jose De Jesus Paige RN Service: [...] like to speak with a social work steam pipe fitter to help give you support for any [...] you up for automated weekly questionnaires through Room[employer]. This is an easy way for us [...] in the Track Pt Outreach and End outreach.[facility] 10-21-2022 NoteHNO ID: [id number] Author: Jose De Jesus Paige RN Service: ? Author Type: Registered Nurse Type: Progress Notes Filed: 10/22/2022 3:12 PM Note Text: INSIGHT [facility] TELEPHONIC OUTREACH Provider Action/FYI: CHF Contact made with patient: No - Left message Hello my name is Jose De Jesus Paige RN your Tank Stave Assembler from the [facility] I am calling today for your bi-weekly check in. I am sorry I missed your call. I will reach out to you again tomorrow. (if the third call I will reach out to you again next week) Enter next patient outreach date for the following business day using the Track Pt Outreach. End outreach.[facility]02-02-2023 NotePatient Outreach ([facility]) SONDRAKILLIAN ([id number]) 1940 M Date Time Provider Department 10/21/22 JOSE DE JESUS PAIGE During your visit today, we recorded the following information about you: Jose De Jesus Paige RN 10/22/2022 3:12 PM Signed [email or web address] [facility] TELEPHONIC OUTREACH Provider Action/FYI: CHF Contact made with patient: No - Left message Hello my name is Jose De Jesus Piage RN your Tank Stave Assembler from the [facility] I am calling today for your bi-weekly check in. I am sorry I missed your call. I will reach out to you again tomorrow. (if the third call I will reach out to you again next week) Enter next patient outreach date for the following using the Track Pt Outreach. End outreach. Jose De Jesus Paige RN 10/26/2022 2:37 PM Signed [email or web address] [facility] TELEPHONIC OUTREACH Provider Action/FYI: CHF Contact [...] like to speak with a social work steam pipe fitter to help give you support for any [...] you up for automated weekly questionnaires through Roombeats. This is an easy way for us [...] daily - THERAPEUTIC MULTIVI (more content not included)...[facility] 10-21-2022 History of Present illness Narrative* Jose De Jesus Paige RN - 10/21/2022 1:04 PM EST INSIGHT [facility] TELEPHONIC OUTREACH Provider Action/FYI: CHF Contact made with patient: No - Left message Hello my name is Jose De Jesus Paige RN your Tank Stave Assembler from the [facility] I am calling today for your bi-weekly check in. I am sorry I missed your call. I will reach out to you again tomorrow. (if the third call I will reach out to you again next week) Enter next patient outreach date forthe following using the Track Pt Outreach. End outreach. documented in this encounter[facility]01-19-2023 NoteHNO ID: [id number] Author: Tim Andrews, DO Service: ? Author Type: Physician Type: Progress Notes Filed: 10/07/2022 10:26 AM Note Text: [facility] SE[facility]IOLOGY [facility] OUTPATIENT VISIT DATE October 07, 2022 PRIMARY CARE PHYSICIAN: Fco Bradshaw [address] [place] [address] HISTORY OF PRESENT ILLNESS: Mr. Amaro is [...] Use: Never used S (more content not included)...[facility]01-19-2023 History of Present illness Narrative* Tim Andrews DO - 10/07/2022 10:12 AM EST Images from the original note were not included. [facility]OLOGY [facility] OUTPATIENT VISIT DATE October 07, 2022 PRIMARY CARE PHYSICIAN: Fco Bradshaw [address] [place] [address] HISTORY OF PRESENT ILLNESS: Mr. Amaro is [...] Department of Medicine and Division of Cardiology, [facility] Organisation And Methods Analystemergency care tech [facility] Organisation And Methods Analyst of Congestive Heart Failure Clinic [facility] Cardiology Office Organisation And Methods Analyst [facility] Staff Tumbler Machine Operator Helper, and Torri Reyez Department of Cardiovascular Medicine/Heart and Vascular [place], [facility] Clinical Elementary Reading Specialist Profressor of Medicine, [facility] Please note: This note has been produced using speech recognition software and may contain errors related to that system including long, punctuation, spelling, words, gender and phrases that may be inappropriate. documented in this encounterFisher[facility]12-30-2022 NoteHNO ID: [id number] Author: Fco Bradshaw MD Service: ? Author [...] blood sugars or neuropathy symptoms. Does see Silo Painter, Dr. Seaman. Has routine eye exams. On [...] done DEPRESSION ASSESSMENT N (more content not included)...[facility] 09-17-2022 History of Present illness Narrative* [...] blood sugars or neuropathy symptoms. Does see Silo Painter, Dr. Seaman. Has routine eye exams. On [...] complication, without long-term current use of insulin ([facility]) - ICD9: 250.00, ICD10: E11.9 (primary diagnosis) [...] Moderate Fco Bradshaw MD documented in this encounterFisher[facility]12-30-2022 NotePatient Outreach ([facility]) KLILIAN AMARO ([id number]) 1940 M Date Time Provider Department 09/17/22 JOSE DE JESUS PAIGE During your visit today, we recorded the following information about you: Jose De Jesus Paige RN 09/17/2022 3:12 PM Signed INSIGHT [facility] TELEPHONIC OUTREACH Provider Action/FYI: CHF Reports getting [...] like to speak with a social work steam pipe fitter to help give you support for any [...] you up for automated weekly questionnaires through Roombeats. This is an easy way for us [...] Date Reviewed: 07/13/2022 Reviewed by: Ally Zaragoza APRN.PLUG SHAPER HAND - Fully Assessed Reason for Visit: community [...] 09/17/2022 Noted Resolved Coronary artery disease involving manzanita castaneda*12/06/2005 PERCUT TRANSLUM CORON ANGIO STATUS [Z98.61] (more content not included)...[facility]12-30-2022 NoteHNO ID: [id number] Author: Jose De Jesus Paige RN Service: [...] like to speak with a social work steam pipe fitter to help give you support for any [...] you up for automated weekly questionnaires through Roombeats. This is an easy way for us [...] in the Track Pt Outreach and End outreach.[facility] 09-17-2022 History of Present illness Narrative* Jose De Jesus Paige RN - 09/17/2022 9:48 AM EST INSIGHT [facility] TELEPHONIC OUTREACH Provider Action/FYI: CHF Reports getting [...] like to speak with a social work steam pipe fitter to help give you support for any [...] you up for automated weekly questionnaires through Roombeats. This is an easy way for us [...] PtOutreach and End outreach. documented in this encounter[facility]12-09-2022 Miscellaneous Notes* Telephone Encounter - [...] and advise. Mariaelena Romero documented in this encounterFisher[facility]11-29-2022 NoteHNO ID: [id number] Author: Jose De Jesus Paige RN Service: [...] like to speak with a social work steam pipe fitter to help give you support for any [...] you up for automated weekly questionnaires through Roombeats. This is an easy way for us [...] in the Track Pt Outreach and End outreach.[facility] 08-17-2022 History of Present illness Narrative* Jose De Jesus Pagie RN - 08/17/2022 4:18 PM EST INSIGHT [...] like to speak with a social work steam pipe fitter to help give you support for any [...] you up for automated weekly questionnaires through Roombeats. This is an easy way for us [...] RN - 08/17/2022 10:21 AM EST EDU [facility] TELEPHONIC OUTREACH Provider Action/FYI: Contact made with patient: No - Left message Amado my name is Jose De Jesus Paige RN your Tank Stave Assembler from the [facility] I am calling today for your bi-weekly check in. I am sorry I missed your call. I will reach out to you again tomorrow. (if the third call I will reach out to you again next week) Enter next patient outreach date forthe using the Track Pt Outreach. End outreach. documented in this encounterFisher[facility]11-29-2022 NotePatient Outreach (DEBBYG) KILLIAN AMARO ([id number]) 1940 M Date Time Provider Department 08/17/22 JOSE DE JESUS PAIGE During your visit today, we recorded the following information about you: Jose De Jesus Paige RN 08/17/2022 4:23 PM Signed [email or web address] [facility] TELEPHONIC OUTREACH Provider Action/FYI: Contact made with patient: No - Left message Amado my name is Jose De Jesus Paige RN your Tank Stave Assembler from the [facility] I am calling today for [...] Paige RN 08/17/2022 4:23 PM Signed INSIGHT [facility] TELEPHONIC OUTREACH Provider Action/FYI: CHF Doing well. [...] like to speak with a social work steam pipe fitter to help give you support for any [...] you up for automated weekly questionnaires through Roombeats. This is an easy way for us [...] Date Reviewed: 07/13/2022 Reviewed by: Ally Zaragoza APRN.PLUG SHAPER HAND - Fully Assessed Reason for Visit: community [...] MULTIVITAMIN ORAL TAB Take (more content not included)...[facility]11-29-2022 NoteHNO ID: [id number] Author: Jose De Jesus Paige RN Service: ? Author Type: Registered Nurse Type: Progress Notes Filed: 08/17/2022 4:23 PM Note Text: INSIGHT [facility] TELEPHONIC OUTREACH Provider Action/FYI: Contact made with patient: No - Left message Hello my name is Jose De Jesus Paige RN your Tank Stave Assembler from the [facility] I am calling today for your bi-weekly check in. I am sorry I missed your call. I will reach out to you again tomorrow. (if the third call I will reach out to you again next week) Enter next patient outreach date for the following business day using the Track Pt Outreach. End outreach.[facility]11-02-2022 Miscellaneous Notes* Telephone Encounter - Fco [...] and advise. Mariaelena Romero documented in this encounterFisher[facility]10-25-2022 NoteHNO ID: [id number] Author: Ally Zaragoza APRN.[facility] Service: ? Author Type: Nurse Practitioner Type: Progress Notes Filed: 07/13/2022 10:49 AM Note Text: Subjective The history is provided by the patient. No electric motor mechanic was used. HPI Killian Amaro is a [...] edited as necessary, the [facility] Review of Systems Constitutional: Negative for [...] detail warranting prompt ER evaluation. Ally Zaragoza APRN.CNPNationwide Children'S Hospital10-25-2022 Instructions* Patient Instructions* Ally Zaragoza APRN.CNP [...] side effects of medication. documented in this encounterFisher[facility]10-25-2022 History of Present illness Narrative* Ally ZaragozaLLOYD.PLUG SHAPER HAND - 07/13/2022 10:25 AM EDT Subjective The history is provided by the patient. No electric motor mechanic was used. ELVIRA Amaro is a 82 [...] edited as necessary, the [facility] Review of Systems Constitutional: Negative for [...] evaluation. Ally Zaragoza APRN.[place] documented in this encounterFisher-[facility]10-21-2022 NotePatient Outreach ([facility]) KILLIAN AMARO ([id number]) 1940 M Date Time Provider Department 07/09/22 DANA BROWN During your visit today, we recorded the following information about you: Dana Brown RN 07/09/2022 10:49 AM Signed INSIGHT [facility] TELEPHONIC OUTREACH Provider Action/FYI: Contact made with patient: No - Left message Hello my name is Dana Brown RN your Tank Stave Assembler from the [facility] I am calling today for [...] for Visit: Community Monitoring Outreach [Other] Cmt: [facility] Telephonic Prescriptions as of 07/09/2022 - dapagliflozin [...] 07/09/2022 Noted Resolved Coronary artery disease involving manzanita castaneda*12/06/2005 PERCUT TRANSLUM CORON ANGIO STATUS [Z98.61] [...] [M19.041, M19.042] 11/13/2015 Type (more content not included)...[facility]10-21-2022 NoteHNO ID: [id number] Author: Dana Brown RN Service: ? Author Type: Registered Nurse Type: Progress Notes Filed: 07/09/2022 10:49 AM Note Text: INSIGHT [facility] TELEPHONIC OUTREACH Provider Action/FYI: Contact made with patient: No - Left message Amado my name is Dana Brown RN your Tank Stave Assembler from the [facility] I am calling today for your bi-weekly check in. I am sorry I missed your call. I will reach out to you again in three weeks . (if the third call I will reach out to you again next week) Enter next patient outreach date for the following business day using the Track Pt Outreach. End outreach.[facility]10-21-2022 History of Present illness Narrative* Dana Brown RN - 07/09/2022 10:47 AM EDT EDU [facility] TELEPHONIC OUTREACH Provider Action/FYI: Contact made with patient: No - Left message Amado my name is Dana Brown RN your Tank Stave Assembler from the [facility] I am calling today for your bi-weekly check in. I am sorry I missed your call. I will reach out to you again in three weeks . (if the third call I will reach out to you again next week) Enter next patient outreach date for the following business day using the Track Pt Outreach. End outreach. documented in this encounterFisher[facility]10-20-2022 NoteHNO ID: [id number] Author: Dana Brown RN Service: ? Author Type: Registered Nurse Type: Progress Notes Filed: 07/08/2022 1:26 PM Note Text: EDU [facility] TELEPHONIC OUTREACH Provider Action/FYI: Contact made with patient: No - Left message Kadenne my name is Dana Brown RN your Tank Stave Assembler from the [facility] I am calling today for your bi-weekly check in. I am sorry I missed your call. I will reach out to you again tomorrow. (if the third call I will reach out to you again next week) Enter next patient outreach date for the following business day using the Track Pt Outreach. End outreach.[facility]10-20-2022 NotePatient Outreach ([facility]) KILLIAN AMARO ([id number]) 1940 M Date Time Provider Department 07/08/22 DANA BROWN During your visit today, we recorded the following information about you: Dana Brown RN 07/08/2022 1:26 PM Signed INSIGHT [facility] TELEPHONIC OUTREACH Provider Action/FYI: Contact made with patient: No - Left message Hello my name is Dana Brown RN your Tank Stave Assembler from the [facility] I am calling today for [...] for Visit: Community Monitoring Outreach [Other] Cmt: [facility] Telephonic Prescriptions as of 07/08/2022 - dapagliflozin [...] 07/08/2022 Noted Resolved Coronary artery disease involving manzanita castaneda*12/06/2005 PERCUT TRANSLUM CORON ANGIO STATUS [Z98.61] [...] 11/13/2015 Type 2 diabet (more content not included)...[facility]10-[facility] History of Present illness Narrative* Dana Brown RN - 07/08/2022 1:22 PM EDT EDU [facility] TELEPHONIC OUTREACH Provider Action/FYI: Contact made with patient: No - Left message Hello my name is Dana Brown RN your Tank Stave Assembler from the [facility] I am calling today for your bi-weekly check in. I am sorry I missed your call. I will reach out to you again tomorrow. (if the third call I will reach out to you again next week) Enter next patient outreach date for the following business day using the Track Pt Outreach. End outreach. documented in this encounterFisher[facility] Center09-28-2022 NoteHNO ID: [id number] Author: Dana Brown RN Service: ? Author [...] like to speak with a social work steam pipe fitter to help give you support for any [...] you up for automated weekly questionnaires through Roombeats. This is an easy way for us [...] in the Track Pt Outreach and End outreach.[facility] 06-16-2022 NotePatient Outreach (SKYLERCMG) KILLIAN AMARO ([id number]) 1940 M Date Time Provider Department 06/16/22 KOSCIEWICZ, DANA E [facility] During your visit today, we recorded the following information about you: Dana Brown RN 06/16/2022 12:36 PM Signed INSIGHT [facility] TELEPHONIC OUTREACH Provider Action/FYI: Patient reports he [...] like to speak with a social work steam pipe fitter to help give you support for any [...] you up for automated weekly questionnaires through Roombeats. This is an easy way for us [...] Noted Resolved Coronary a (more content not included)...[facility]09-28-[facility] History of Present illness Narrative* Dana [...] like to speak with a social work steam pipe fitter to help give you support for any [...] you up for automated weekly questionnaires through Roombeats. This is an easy way for us [...] PtOutreach and End outreach. documented in this encounterFisher[facility]09-14-2022 NotePatient Outreach ([facility]) KILLIAN AMARO ([id number]) 1940 M Date Time Provider Department 06/02/22 DANA BROWN During your visit today, we recorded the following information about you: Dana Brown RN 06/02/2022 12:00 PM Signed INSIGHT [facility] TELEPHONIC OUTREACH Provider Action/I: Patient reports he [...] like to speak with a social work steam pipe fitter to help give you support for any [...] you up for automated weekly questionnaires through Roombeats. This is an easy way for us [...] Coronary artery disease involving (more content not included)...[facility]09-14-2022 NoteHNO ID: [id number] Author: Dana Brown RN Service: ? Author [...] like to speak with a social work steam pipe fitter to help give you support for any [...] you up for automated weekly questionnaires through Roombe[employer]. This is an easy way for us [...] in the Track Pt Outreach and End outreach.[facility] 06-02-2022 History of Present illness Narrative* [...] like to speak with a social work steam pipe fitter to help give you support for any [...] you up for automated weekly questionnaires through [employer]. This is an easy way for us [...] PtOutreach and End outreach. documented in this encounterFisher[facility]08-31-2022 NotePatient Outreach ([facility]) KILLIAN AMARO ([id number]) 1940 M Date Time Provider Department 05/19/22 DANA BROWN During your visit today, we recorded the following information about you: Dana Brown RN 05/19/2022 10:48 AM Signed INSIGHT [facility] TELEPHONIC OUTREACH Provider Action/FYI: Patient reports they [...] like to speak with a social work steam pipe fitter to help give you support for any [...] you up for automated weekly questionnaires through [employer]. This is an easy way for us [...] 05/19/2022 Noted Resolved Coronary artery disease involving manzanita castaneda*12/06/2005 PERCUT TRANSLUM CORON ANGIO STATUS [Z98.61] 12/06/2005 Hypertensive heart disease with heart failure (*12/06/200503/19 (more content not included)...[facility]08-31-2022 NoteHNO ID: [id number] Author: Dana Brown RN Service: ? Author [...] like to speak with a social work steam pipe fitter to help give you support for any [...] you up for automated weekly questionnaires through [employer]. This is an easy way for us [...] in the Track Pt Outreach and End outreach.[facility] 05-19-2022 History of Present illness Narrative* [...] like to speak with a social work steam pipe fitter to help give you support for any [...] you up for automated weekly questionnaires through [employer]. This is an easy way for us [...] PtOutreach and End outreach. documented in this encounterFisher[facility]08-11-2022 NotePatient Outreach ([facility]) KILLIAN AMARO ([id number]) 1940 M Date Time Provider Department 04/29/22 DANA BROWN During your visit today, we recorded the following information about you: Dana Brown RN 04/29/2022 10:49 AM Signed INSIGHT [facility] TELEPHONIC OUTREACH Provider Action/FYI: Pt reports he [...] like to speak with a social work steam pipe fitter to help give you support for any [...] you up for automated weekly questionnaires through [employer]. This is an easy way for us [...] 04/29/2022 Noted Resolved Coronary artery disease involving manzanita co (more content not included)... [facility]08[facility]22 NoteHNO ID: [id number] Author: Dana Brown RN Service: ? Author [...] like to speak with a social work steam pipe fitter to help give you support for any [...] you up for automated weekly questionnaires through [employer]. This is an easy way for us [...] in the Track Pt Outreach and End outreach.[facility] 04-29-2022 History of Present illness Narrative* Dana Brown RN - 04/29/2022 10:42 AM EDT INSIGHT [facility] TELEPHONIC OUTREACH Provider Action/FYI: Pt reports he [...] like to speak with a social work steam pipe fitter to help give you support for any [...] you up for automated weekly questionnaires through [employer]. This is an easy way for us [...] PtOutreach and End outreach. documented in this encounterFisher[facility]08-10-2022 NotePatient Outreach ([facility]) KILLIAN AMARO ([id number]) 1940 M Date Time Provider Department 04/28/22 DANA BROWN During your visit today, we recorded the following information about you: Dana Brown RN 04/28/2022 11:30 AM Signed [facility] TELEPH[facility]IC OUTREACH Provider Action/I: Contact made with patient: No - Left message Amado my name is Dana Brown RN your Tank Stave Assembler from the [facility] I am calling today for [...] 04/28/2022 Noted Resolved Coronary artery disease involving manzanita castaneda*12/06/2005 PERCUT TRANSLUM CORON ANGIO STATUS [Z98.61] [...] nevus moles of back [D22.5] 09/28/2010 05/19/2016 EELNA ANGIOMAS///NEVUS, NON-NEOPLASTIC [I78.1] 09/28/2010 12/28/2013 Postherpetic neuralgia [B02.29] 03/31/2011 05/19/2016 Digital mucous cyst [M67.449] 04/23/2012 10/19/2016 Postinflammatory skin changes [R23.8] 04/23/2012 05/19/2016 Eczematous dermatitis of left lower eyelid [H01*12/28/2013 05/19/2016 Eczematous dermatitis [L30.9] 12/28/2013 05/19/2016 Xerosis cutis [L85.3] 12/28/2013 05/19/2016 History of Mohs surgery x 1 stage for squamous *12/28/2013 Arthritis of both hands [M19.041, M19.042] 11/13/2015 Type 2 d (more content not included)...[facility]08-10-2022 Note HNO ID: [id number] Author: Dana Brown RN Service: ? Author Type: Registered Nurse Type: Progress Notes Filed: 04/28/2022 11:30 AM Note Text: [facility]LEPH[facility]IC [facility]REACH Provider Action/FYI: Contact made with patient: No - Left message Helne my name is Dana Brown RN your Tank Stave Assembler from the [facility] I am calling today for your bi-weekly check in. I am sorry I missed your call. I will reach out to you again tomorrow. (if the third call I will reach out to you again next week) Enter next patient outreach date for the following business day using the Track Pt Outreach. End outreach.[facility]08-10-2022 History of Present illness Narrative* Dana Brown RN - 04/28/2022 11:28 AM EDT [facility] TELEPHONIC OUTREACH Provider Action/FYI: Contact made with patient: No - Left message Hello my name is Dana Brown RN your Tank Stave Assembler from the [facility] I am calling today for your bi-weekly check in. I am sorry I missed your call. I will reach out to you again tomorrow. (if the third call I will reach out to you again next week) Enter next patient outreach date for the following day using the Track Pt Outreach. End outreach. [facility] Miscellaneous Notes* Telephone Encounter - [...] patient. Pavithra Martins Pss documented in [facility]22 NoteHNO ID: [id number] Author: Dana Brown RN Service: ? Author Type: Registered Nurse Type: Progress Notes Filed: 04/14/2022 2:31 PM Note Text: [facility]LE[facility]RE[facility] Provider Action/FYI: Contact made with patient: No - Left message Hello my name is Dana Brown RN your Tank Stave Assembler from the [facility] I am calling today for your bi-weekly check in. I am sorry I missed your call. I will reach out to you again in two weeks. (if the third call I will reach out to you again next week) Enter next patient outreach date for the following business day using the Track Pt Outreach. End outreach.[facility]07-27-2022 NotePatient Outreach ([facility]) KILLIAN AMARO ([id number]) 1940 M Date Time Provider Department 04/14/22 DANA BROWN During your visit today, we recorded the following information about you: Dana Brown RN 04/14/2022 2:31 PM Signed [facility] TELEPHONIC OUTREACH Provider Action/FYI: Contact made with patient: No - Left message Amado my name is Dana Brown RN your Tank Stave Assembler from the [facility] I am calling today for [...] 04/14/2022 Noted Resolved Coronary artery disease involving manzanita castaneda*12/06/2005 PERCUT TRANSLUM CORON ANGIO STATUS [Z98.61] [...] [M19.041, M19.042] 11/13/2015 Type (more content not included)...[facility]06-29-2022 History of Present illness Narrative* Dana [...] like to speak with a social work steam pipe fitter to help give you support for any [...] you up for automated weekly questionnaires through [employer]. This is an easy way for us [...] PtOutreach and End outreach. documented in this [facility] Instructions* Patient Instructions* Kierra Martins Ma - 03/11/2022 8:57 AM EDT Blood pressure - Reduce Quinapril 40 mg to 20 mg, take half a tablet once daily. Reduce Lasix 20 mg to once daily vs twice daily. Take 1 tab in the morning. Monitor BP, swelling and breathing. If worse update office. documented in this encounter[facility]06-[facility] History of Present illness Narrative* [...] or neuropathy sx. Follows with Dr. Seaman, [employer], has not seen him in a while. [...] 03/08/2022 7.1 Abs Lymph 03/08/2022 0.46 (A) [place]% 03/08/2022 14.6 Abs [place] 03/08/2022 0.94 (A) Eosin% 03/08/2022 6.7 Abs [...] exercise and weight loss. 4. 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 - Cont f/u with Cardio 5. 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 Kierra Martins Ma documented in this [facility]06[facility] History of Present illness Narrative* [...] like to speak with a social work steam pipe fitter to help give you support for any [...] you up for automated weekly questionnaires through [employer]. This is an easy way for us [...] PtOutreach and End outreach. documented in this encounter[facility]06-[facility] History of Present illness Narrative* Dana Brown RN - 03/04/2022 12:39 PM EDT [facility]RE[facility] Provider Action/FYI: Contact made with patient: No - Left message Amado my name is Dana Brown RN your Tank Stave Assembler from the [facility] I am calling today for your bi-weekly check in. I am sorry I missed your call. I will reach out to you again tomorrow. (if the third call I will reach out to you again next week) Enter next patient outreach date for the following day using the Track Pt Outreach. End outreach. documented in this encounter[facility]05-[facility]-2022 Miscellaneous Notes* Telephone Encounter - [...] notify patient. Laura Coyle documented in this encounterFisher[facility]05-19-2022 History of Present illness Narrative* Dana Brown RN - 02/04/2022 11:10 AM EDT [facility]LEPH[facility]IC [facility]RE[facility] Provider Action/FYI: Pt reports he is doing good, states his BP was 95/58, denies feeling lightheaded or dizzy. Advised pt [facility], if he does develop feeling [...] like to speak with a social work steam pipe fitter to help give you support for any [...] you up for automated weekly questionnaires through [employer]. This is an easy way for us [...] PtOutreach and End outreach. documented in this encounterFisher[facility]05-[facility]-2022 History of Present illness Narrative* [...] like to speak with a social work steam pipe fitter to help give you support for any [...] you up for automated weekly questionnaires through [employer]. This is an easy way for us [...] PtOutreach and End outreach. documented in this encounter[facility]04-22-2022 History of Present illness Narrative* [...] like to speak with a social work steam pipe fitter to help give you support for any [...] you up for automated weekly questionnaires through [employer]. This is an easy way for us [...] PtOutreach and End outreach. documented in this encounterFisher[facility]04-07-2022 History of Present illness Narrative* [...] like to speak with a social work steam pipe fitter to help give you support for any [...] you up for automated weekly questionnaires through [employer]. This is an easy way for us [...] PtOutreach and End outreach. documented in this encounterFisher[facility]10-[facility] Hospital Discharge instructions Patient Education 07/08/2021 07:17:05 5 - [facility] Post-op Instruction 04/2017 ([id number]) [facility] Post-operative Instructions PLEASE FOLLOW [facility] POST-OP INSTRUCTIONS GIVEN WATCH FOR SIGNS OF INFECTION: call the office ([phone]) if experencing any of the following: (Usually [...] on your follow up instructions. Form: 338A (32138) R: 01/23 Follow Up Care 06/18/2021 11:51:34 With:[facility] Address: [address] [place] [id number] [phone] When:07/10/2021 10:00:00 Comments:This is your first physical therapy appointment. Follow-up as scheduled. With:JUSTUS CHENG PA-C, Orthopedic, Orthopedic Address: [facility] [address] [place] [id number]- When:07/20/2021 10:30:00 Comments:This is your post-op appointment. Follow-up as scheduled. [facility] Yvonne Ortiz 04-11-2016 History of Past illness [...] of this encounter (statuses as of 12/24/2021) [facility] of Past illness Narrative* [...] of this encounter (statuses as of 01/08/2022) [facility] Narrative* [...] of this encounter (statuses as of 01/21/2022) [facility] Narrative* [...] of this encounter (statuses as of 02/04/2022) [facility] Narrative* [...] of this encounter (statuses as of 02/08/2022) [facility] Narrative* [...] of this encounter (statuses as of 03/04/2022) [facility] Narrative* [...] of this encounter (statuses as of 03/05/2022) [facility] Narrative* [...] of this encounter (statuses as of 03/11/2022) [facility] Narrative* [...] of this encounter (statuses as of 03/17/2022) [facility] Narrative* [...] of this encounter (statuses as of 04/23/2022) [facility] Narrative* [...] of this encounter (statuses as of 04/28/2022) [facility] Narrative* [...] of this encounter (statuses as of 04/29/2022) [facility] Narrative* [...] of this encounter (statuses as of 05/19/2022) [facility] Narrative* [...] of this encounter (statuses as of 06/02/2022) [facility] Narrative* [...] of this encounter (statuses as of 06/16/2022) [facility] Narrative* [...] of this encounter (statuses as of 07/08/2022) [facility] Narrative* [...] of this encounter (statuses as of 07/09/2022) [facility] Narrative* [...] of this encounter (statuses as of 07/13/2022) [facility] Narrative* [...] of this encounter (statuses as of 07/21/2022) [facility] Narrative* [...] of this encounter (statuses as of 08/17/2022) [facility] Narrative* [...] of this encounter (statuses as of 08/27/2022) [facility] Narrative* [...] of this encounter (statuses as of 09/22/2022) [facility] Narrative* [...] of this encounter (statuses as of 09/23/2022) [facility] Narrative* [...] of this encounter (statuses as of 10/07/2022) [facility] Narrative* [...] of this encounter (statuses as of 10/22/2022) [facility] Narrative* [...] of this encounter (statuses as of 10/28/2022) [facility] Narrative* [...] of this encounter (statuses as of 11/25/2022) [facility] Narrative* [...] of this encounter (statuses as of 12/31/2022) [facility] Narrative* [...] of this encounter (statuses as of 01/28/2023) [facility] Narrative* [...] of this encounter (statuses as of 03/18/2023) [facility] Narrative* [...] of this encounter (statuses as of 04/05/2023) [facility] + Plan note No data available for this section [facility] Evaluation note* Diagnosis Type 2 diabetes mellitus without complication, without long-term current use of insulin (HCC)- Primary BENIGN HYPERTENSION Essential hypertension, benign Hyperlipidemia, unspecified hyperlipidemia type 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 Chronic diastolic CHF (congestive heart failure) (HCC) Chronic diastolic heart failure documented in this encounter [facility] note* Diagnosis Type 2 diabetes mellitus without complication, without long-term current use of insulin (HCC) documented in this encounter [facility] note* Diagnosis Acute non-recurrent sinusitis, unspecified location- Primary documented in this encounter [facility] note* Diagnosis BENIGN HYPERTENSION Essential hypertension, benign documented in this encounter [facility] note* Diagnosis Type 2 diabetes mellitus without complication, without long-term current use of insulin (HCC) documented in this encounter [facility] note* Diagnosis Type 2 diabetes mellitus without complication, without long-term current use of insulin (HCC)- Primary Ankylosing spondylitis, unspecified site of spine (HCC) Chronic kidney disease, stage 3a (HCC) Need for influenza vaccination Need for prophylactic vaccination and inoculation against influenza Mixed hyperlipidemia Chronic diastolic CHF (congestive heart failure) (HCC) Chronic diastolic heart failure Essential hypertension Unspecified essential hypertension documented in this encounter [facility] note* Diagnosis Chronic diastolic CHF (congestive heart failure) (HCC)- Primary Chronic diastolic heart failure 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 Essential hypertension Unspecified essential hypertension Mixed hyperlipidemia History of mitral valve repair Personal history of surgery to heart and great vessels, presenting hazards to health S/P right coronary artery (RCA) stent placement 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 Postsurgical percutaneous transluminal coronary angioplasty status documented in this encounter [facility] Summary Purpose Family History No [...] DATE CREATED AUTHOR AUTHOR'S ORGANIZ ATION 03/23/2018 [facility] [employer] [facility] DATE CREATED AUTHOR AUTHOR'S ORGANIZ ATION 08/04/2021 [facility] ([place]) DATE CREATED AUTHOR AUTHOR'S ORGANIZ ATION 04/06/2023 [facility] Source Comments (unrecognize d section and content) In the event this informatio n is protected by the Federal Confidentiality of Alcohol and Drug Abuse Patient Records regulations: The Federal rules restrict any use of the information to criminally investigate or prosecute any alcohol or drug abuse patient.[facility] the event this information is protected by the Federal Confidentiality of Alcohol and Drug Abuse Patient Records regulations: The Federal rules restrict any use of the information to criminally investigate or prosecute any alcohol or drug abuse patient.[facility] the event this information is protected by the Federal Confidentiality of Alcohol and Drug Abuse Patient Records regulations: The Federal rules restrict any use of the information to criminally investigate or prosecute any alcohol or drug abuse patient.[facility] the event this information is protected by the Federal Confidentiality of Alcohol and Drug Abuse Patient Records regulations: The Federal rules restrict any use of the information to criminally investigate or prosecute any alcohol or drug abuse patient.[facility] the event this information is protected by the Federal Confidentiality of Alcohol and Drug Abuse Patient Records regulations: The Federal rules restrict any use of the information to criminally investigate or prosecute any alcohol or drug abuse patient.[facility] the event this information is protected by the Federal Confidentiality of Alcohol and Drug Abuse Patient Records regulations: The Federal rules restrict any use of the information to criminally investigate or prosecute any alcohol or drug abuse patient.[facility] the event this information is protected by the Federal Confidentiality of Alcohol and Drug Abuse Patient Records regulations: The Federal rules restrict any use of the information to criminally investigate or prosecute any alcohol or drug abuse patient.[facility] the event this information is protected by the Federal Confidentiality of Alcohol and Drug Abuse Patient Records regulations: The Federal rules restrict any use of the information to criminally investigate or prosecute any alcohol or drug abuse patient.[facility] the event this information is protected by the Federal Confidentiality of Alcohol and Drug Abuse Patient Records regulations: The Federal rules restrict any use of the information to criminally investigate or prosecute any alcohol or drug abuse patient.[facility] Center[facility] the event this information is protected by the Federal Confidentiality of Alcohol and Drug Abuse Patient Records regulations: The Federal rules restrict any use of the information to criminally investigate or prosecute any alcohol or drug abuse patient.[facility] CenterIn the event this information is protected by the Federal Confidentiality of Alcohol and Drug Abuse Patient Records regulations: The Federal rules restrict any use of the information to criminally investigate or prosecute any alcohol or drug abuse patient.[facility] CenterIn the event this information is protected by the Federal Confidentiality of Alcohol and Drug Abuse Patient Records regulations: The Federal rules restrict any use of the information to criminally investigate or prosecute any alcohol or drug abuse patient.[facility] CenterIn the event this information is protected by the Federal Confidentiality of Alcohol and Drug Abuse Patient Records regulations: The Federal rules restrict any use of the information to criminally investigate or prosecute any alcohol or drug abuse patient.[facility] CenterIn the event this information is protected by the Federal Confidentiality of Alcohol and Drug Abuse Patient Records regulations: The Federal rules restrict any use of the information to criminally investigate or prosecute any alcohol or drug abuse patient.[facility] CenterIn the event this information is protected by the Federal Confidentiality of Alcohol and Drug Abuse Patient Records regulations: The Federal rules restrict any use of the information to criminally investigate or prosecute any alcohol or drug abuse patient.[facility] CenterIn the event this information is protected by the Federal Confidentiality of Alcohol and Drug Abuse Patient Records regulations: The Federal rules restrict any use of the information to criminally investigate or prosecute any alcohol or drug abuse patient.[facility] CenterIn the event this information is protected by the Federal Confidentiality of Alcohol and Drug Abuse Patient Records regulations: The Federal rules restrict any use of the information to criminally investigate or prosecute any alcohol or drug abuse patient.[facility] CenterIn the event this information is protected by the Federal Confidentiality of Alcohol and Drug Abuse Patient Records regulations: The Federal rules restrict any use of the information to criminally investigate or prosecute any alcohol or drug abuse patient.[facility] CenterIn the event this information is protected by the Federal Confidentiality of Alcohol and Drug Abuse Patient Records regulations: The Federal rules restrict any use of the information to criminally investigate or prosecute any alcohol or drug abuse patient.[facility] CenterIn the event this information is protected by the Federal Confidentiality of Alcohol and Drug Abuse Patient Records regulations: The Federal rules restrict any use of the information to criminally investigate or prosecute any alcohol or drug abuse patient.[facility] CenterIn the event this information is protected by the Federal Confidentiality of Alcohol and Drug Abuse Patient Records regulations: The Federal rules restrict any use of the information to criminally investigate or prosecute any alcohol or drug abuse patient.[facility] CenterIn the event this information is protected by the Federal Confidentiality of Alcohol and Drug Abuse Patient Records regulations: The Federal rules restrict any use of the information to criminally investigate or prosecute any alcohol or drug abuse patient.[facility] CenterIn the event this information is protected by the Federal Confidentiality of Alcohol and Drug Abuse Patient Records regulations: The Federal rules restrict any use of the information to criminally investigate or prosecute any alcohol or drug abuse patient.[facility] CenterIn the event this information is protected by the Federal Confidentiality of Alcohol and Drug Abuse Patient Records regulations: The Federal rules restrict any use of the information to criminally investigate or prosecute any alcohol or drug abuse patient.[facility] CenterIn the event this information is protected by the Federal Confidentiality of Alcohol and Drug Abuse Patient Records regulations: The Federal rules restrict any use of the information to criminally investigate or prosecute any alcohol or drug abuse patient.[facility] CenterIn the event this information is protected by the Federal Confidentiality of Alcohol and Drug Abuse Patient Records regulations: The Federal rules restrict any use of the information to criminally investigate or prosecute any alcohol or drug abuse patient.[facility] CenterIn the event this information is protected by the Federal Confidentiality of Alcohol and Drug Abuse Patient Records regulations: The Federal rules restrict any use of the information to criminally investigate or prosecute any alcohol or drug abuse patient.[facility] CenterIn the event this information is protected by the Federal Confidentiality of Alcohol and Drug Abuse Patient Records regulations: The Federal rules restrict any use of the information to criminally investigate or prosecute any alcohol or drug abuse patient.[facility] CenterIn the event this information is protected by the Federal Confidentiality of Alcohol and Drug Abuse Patient Records regulations: The Federal rules restrict any use of the information to criminally investigate or prosecute any alcohol or drug abuse patient.[facility] CenterIn the event this information is protected by the Federal Confidentiality of Alcohol and Drug Abuse Patient Records regulations: The Federal rules restrict any use of the information to criminally investigate or prosecute any alcohol or drug abuse patient.[facility] CenterIn the event this information is protected by the Federal Confidentiality of Alcohol and Drug Abuse Patient Records regulations: The Federal rules restrict any use of the information to criminally investigate or prosecute any alcohol or drug abuse patient.[facility] Reason for Visit (unrecogniz ed [...] Care Teams (unrecognized sec tion and content) Education Rn Relationship Specialty Start Date End Date Fco Bradshaw MD [address] [place] [address] PCP - General 08/27/09 Mark Mora MD [address] [facility] [address] [address] Orthopedics Orthopedics 03/31/21 Dana Brown RN [address] [place], [place] [id number] [employer]aker 05/12/21 Education Rn Relationship Specialty Start Date End Date Fco Bradshaw MD [address] [place], [place] [id number] PCP - General 08/27/09 Mark Mora MD [address] [facility] [address] [place] [address] Orthopedics Orthopedics 03/31/21 Dana Brown RN [address] [place] [address] Buffing Wheel Raker 05/12/21 Education Rn Relationship Specialty Start Date End Date Fco Bradshaw MD [address] [place] [address] PCP - General 08/27/09 Mark Mora MD [address] [place] [address] Orthopedics Orthopedics 03/31/21 Dana Brown RN [address] [place] [address] [employer] Wheel [employer]aker 05/12/21 Education Rn Relationship Specialty Start Date End Date Fco Bradshaw MD [address] [place] [address] PCP - General 08/27/09 Mark Mora MD [address] [place] [address] Orthopedics Orthopedics 03/31/21 Dana Brown RN [address] [place] [address] Buffing Wheel Raker 05/12/21 Education Rn Relationship Specialty Start Date End Date Fco Bradshaw MD [address] [place] [address] PCP - General 08/27/09 Mark Mora MD [address] [facility] [address] [place] [address] Orthopedics Orthopedics 03/31/21 Dana Brown RN [address] [place] [address] Buffing Wheel Raker 05/12/21 Education Rn Relationship Specialty Start Date End Date Fco Bradshaw MD [address] [place] [address] PCP - General 08/27/09 Mark Mora MD [address] [place] [address] Orthopedics Orthopedics 03/31/21 Dana Brown RN [address] [place] [address] [employer]ing Wheel [employer]aker 05/12/21 Education Rn Relationship Specialty Start Date End Date Fco Bradshaw MD [address] [place] [address] PCP - General 08/27/09 Mark Mora MD [address] [place] [address] Orthopedics Orthopedics 03/31/21 Dana Brown RN [address] [place] [address] [employer] Wheel [employer]aker 05/12/21 Education Rn Relationship Specialty Start Date End Date Fco Bradshaw MD [address] [place] [address] PCP - General 08/27/09 Mark Mora MD [address] [place] [address] Orthopedics Orthopedics 03/31/21 Dana Brown RN [address] [place] [address] [employer]ing Wheel [employer]aker 05/12/21 Education Rn Relationship Specialty Start Date End Date Fco Bradshaw MD [address] [place] [address] PCP - General 08/27/09 Mark Mora MD [address] [place] [address] Orthopedics Orthopedics 03/31/21 Dana Brown, RN [address] [place] [address] Buffing Wheel [employer]aker 05/12/21 Education Rn Relationship Specialty Start Date End Date Fco Bradshaw MD [address] [place] [address] PCP - General 08/27/09 Mark Mora MD [address] [place] [address] Orthopedics Orthopedics 03/31/21 Jose De Jesus Paige RN [address] [place] [address] [employer] Wheel [employer] [facility] Medicine 05/10/21 Education Rn Relationship Specialty Start Date End Date Fco Bradshaw MD [address] [place] [address] PCP - General 08/27/09 Mark Mora MD [address] [place] [address] Orthopedics Orthopedics 03/31/21 Jose De Jesus Paige RN [address] [place] [address] [employer] Family Medicine 05/10/21 Education Rn Relationship Specialty Start Date End Date Fco Bradshaw MD [address] [place] [address] PCP - General 08/27/09 Mark Mora MD [address] [place] [address] Orthopedics Orthopedics 03/31/21 Jose De Jesus Paige RN [address] [place] [address] [employer] Family Medicine 07/21/22 Education Rn Relationship Specialty Start Date End Date Fco Bradshaw MD [address] [place] [address] PCP - General 08/27/09 Mark Mora MD [address] [place] [address] Orthopedics Orthopedics 03/31/21 Jose De Jesus Paige RN [address] [place] [address] [employer] Wheel [employer] Family Medicine 07/21/22 Education Rn Relationship Specialty Start Date End Date Fco Bradshaw MD [address] [place] [address] PCP - General 08/27/09 Mark Mora MD [address] [place] [address] Orthopedics Orthopedics 03/31/21 Jose De Jesus Paige RN [address] [place] [address] [employer] Family Medicine 07/21/22 Education Rn Relationship Specialty Start Date End Date Fco Bradshaw MD [address] [place] [address] PCP - General 08/27/09 Mark Mora MD [address] [place] [address] Orthopedics Orthopedics 03/31/21 Jose De Jesus Paige RN [address] [place] [address] [employer] Wheel [employer] Family Medicine 07/21/22 Education Rn Relationship Specialty Start Date End Date Fco Bradshaw MD [address] [place] [address] PCP - General 08/27/09 Mark Mora MD [address] [place] [address] Orthopedics Orthopedics 03/31/21 Jose De Jesus Paige RN [address] [place], [place] [id number] Buffing Wheel [employer] [facility] 07/21/22 Education Rn Relationship Specialty Start Date End Date Fco Bradshaw MD [address] [place] [address] PCP - General 08/27/09 Mark Mora MD [address] [facility] [address] [place], [place] [address] Orthopedics Orthopedics 03/31/21 Jose De Jesus Paige RN [address] [place] [address] [employer] Wheel [employer] [facility] 07/21/22 Education Rn Relationship Specialty Start Date End Date Fco Bradshaw MD [address] [place] [address] PCP - General 08/27/09 [place] [address] [place], [place] [address] [address] Orthopedics Orthopedics 03/31/21 Jose De Jesus Paige RN [address] [place], [place] [id number] [employer] Wheel [employer] [facility] 07/21/22 FOR RECORDS PERTAINING TO PATIENTS WHO [...] BE BASED ON THE PRIMARY CLINICAL RECORDS. [facility] [employer] [facility]. provides no warranty or guarantee of the accuracy or completeness of information in this document.
[2023-05-03 05:40] LABS: Absolute Lymphocyte Count 0.45 X10^3/uL (0.83-4.51); Absolute Neutrophil Count 10.9 X10^3/uL (2.0-7.7); Basophil# 0.06 X10^3/uL; Basophil% 0.5 % (0-1); Eosinophil# 0.18 X10^3/uL; Eosinophils% 1.4 % (0-5); Hematocrit 46.8 % (40-54); Hemoglobin 15.2 g/dL (13.0-16.5); Lymphocyte # 0.45 X10^3/ul (0.83-4.51); Lymphocyte % 3.5 % (19-41); Mean Corp Hgb Conc 32.5 g/dL (32-36); Mean Corpuscular Hgb 30.8 pg (27.0-32.0); Mean Corpuscular Volume 94.9 fL (80-94); Mean Platelet Vol. 9.4 fl (6.2-12.0); Monocyte# 1.11 X10^3/uL; Monocyte% 8.7 % (0-10); NRBC Flagged by Analyzer 0 % (0-5); Neutrophil # 10.89 X10^3/uL (2.7-7.7); Neutrophil % 85.5 % (47-70); POSITIVE DIFFERENTIAL YES; Platelet Count 337 K/mm3 (150-450); RBC Distribution Width CV 13.1 % (11.6-14.6); RBC Distribution Width SD 45.4 fl (35.1-43.9); Red Blood Count 4.93 M/mm3 (4.6-6.2); White Blood Count 12.7 K/mm3 (4.4-11.0)
[2023-05-03 05:44] LABS: Differential Indicated SCAN CRITERIA MET
[2023-05-03 05:58] LABS: Anion Gap 7 (5-15); BUN 35 mg/dL (7-18); BUN/Creat Ratio 22.2 RATIO (10-20); Chloride 110 mmol/L (98-107); Cholesterol 111 mg/dL (200); Creatinine, Serum 1.58 mg/dL (0.70-1.30); EST Glomerular Filtration Rate 45 mL/min (>60); Est Glom Filt Rate - Afr Amer 54 mL/min (>60); Estimated Creatinine Clearance 27.36 ml/min; Glucose 191 mg/dL (74-106); High Density Lipoprotein 34 mg/dL; Potassium 4.5 mmol/L (3.5-5.1); Sodium Level 140 mmol/L (136-145); Triglycerides 187 mg/dL; Very Low Density Lipoprotein 37 mg/dL (5-40)
[2023-05-03 06:18] LABS: Differential Comment SCANNED
--- NOTE | 2023-05-03 07:02 | PCM.PN.HOSP ---
Reason for Visit Reason for Visit: Left-sided hemiparesis and sensory changes/ speech abnormalities Subjective Subjective Mr. Mi is a 83-year-old male who presented to the emergency department at [facility] early this morning with left-sided hemiparesis and speech abnormalities. His last known well time was at midnight at the observation of his . His reported that about 2:30 in the morning she began hearing and moan and found him awake but with slurred speech and the inability move his left side. EMS was contacted when they arrived they checked his blood sugar and it was 130 and they confirmed that he had slurred speech and left-sided hemiparesis. Stroke team was activated at that time. Vital signs on presentation showed a temperature of 97.9 heart rate was 130 and the patient was noted to be in atrial flutter with RVR, blood pressure was 152/85, respiratory rate was 21 and oxygen saturations were 89% on room air. He was placed on 2 L with follow-up oxygen saturations at 93%. CBC showed a leukocytosis with a white count of 12.7 and a left shift but was otherwise unremarkable. Coags were normal. Chemistry panel demonstrated normal electrolytes and elevated BUN at 36 with a creatinine of 1.82 which appears to be higher than his baseline however we have no recent serum creatinine available and the last one in the computer was from 2019. At that time his serum creatinine was 1.09. Blood glucose was 175. Cholesterol was obtained and his total cholesterol levels 111 with an LDL 40, HDL of 34 and triglyceride level of 187. EKG showed atrial flutter. Chest x-ray showed interval development of minimal patchy airspace disease in the mid lungs and right lower lung. CT of the brain showed no acute intracranial hemorrhage, acute left maxillary sinusitis and minimal age-related atrophy with patchy chronic small vessel ischemic changes. CTA of the head and neck showed near occlusion of the right proximal ICA by noncalcified plaque and possible small ulceration projecting posteriorly from the origin of the right ICA, severe stenosis of both distal vertebral arteries, moderate stenosis of the super cavernous right ICA by calcific plaque and no MCA filling deficit was identified. [facility] stroke team saw the patient and recommended tenecteplase be given it was given at 3:36 AM. He subsequently been admitted to the ICU. For his atrial flutter he was initially placed on a Cardizem drip. We have no previous echocardiogram. Upon evaluation this morning NIH was being performed and remained stable at 13 down from 15 at admission. Patient does have some dysarthria and speech therapy was at the bedside. With trials of both applesauce and water he did have some coughing and per discussion with them MBS will need to be performed most likely tomorrow. Other than his neurological deficits the patient has no complaints. We did discuss his need for vascular intervention and he seemed to understand. I did repeat visit the room later to address the plan and discussed current results with his and daughter. All questions were answered. Objective Data Objective Data Vital Signs: Vital Signs Temp Pulse Resp BP Pulse Ox O2 Del Method O2 Flow Rate 97.1 F L 89 17 128/57 H 99 Nasal Cannula 5 05/03/23 06:30 05/03/23 06:30 05/03/23 06:30 05/03/23 06:30 05/03/23 06:30 05/03/23 06:30 05/03/23 06:30 FiO2 50 05/03/23 04:24 Oxygen Flow Rate (L/min) 5 Oxygen Delivery Method Nasal Cannula Weight: 68.1 kg Body Mass Index (BMI) 27.8 Intake & Output: Intake and Output for Last 24 Hours 05/01/23 05/02/23 05/03/23 23:59 23:59 23:59 Intake Total 12.50 / 12.50 Output Total 650 / 650 Balance -637.50 / -637.50 Lab / Micro Data 05/03/23 05:35 05/03/23 05:35 Labs: Laboratory Results - last 24 hr 05/03/23 02:37: WBC 7.8, RBC 5.35, Hgb 16.3, Hct 50.6, MCV 94.6 H, MCH 30.5, MCHC 32.2, RDW Std Deviation 45.6 H, RDW Coeff of Sol 13.2, Plt Count 352, MPV 9.8, Immature Gran % (Auto) 0.400, Neut % (Auto) 66.6, Lymph % (Auto) 12.8 L, [place] % (Auto) 14.5 H, Eos % (Auto) 4.9, Baso % (Auto) 0.8, Absolute Neuts (auto) 5.2, Absolute Lymphs (auto) 1.00, Nucleated RBC % 0, PT 13.4, INR 1.0, APTT 29.2, Sodium 141, Potassium 4.4, Chloride 110 H, Carbon Dioxide 22.0, Anion Gap 9, BUN 36 H, Creatinine 1.82 H, Est GFR (MDRD) Af Amer 46 L, Est GFR (MDRD) Non-Af 38 L, BUN/Creatinine Ratio 19.8, Glucose 175 H, Calcium 9.5, Magnesium 2.7 H, Troponin I High Sens 15, TSH 3.16 05/03/23 05:35: WBC 12.7 H, RBC 4.93, Hgb 15.2, Hct 46.8, MCV 94.9 H, MCH 30.8, MCHC 32.5, RDW Std Deviation 45.4 H, RDW Coeff of Sol 13.1, Plt Count 337, MPV 9.4, Immature Gran % (Auto) 0.400, Neut % (Auto) 85.5 H, Lymph % (Auto) 3.5 L, Bol[place] % (Auto) 8.7, Eos % (Auto) 1.4, Baso % (Auto) 0.5, Absolute Neuts (auto) 10.9 H, Absolute Lymphs (auto) 0.45 L, Nucleated RBC % 0, Differential Comment SCANNED, Sodium 140, Potassium 4.5, Chloride 110 H, Carbon Dioxide 23.0, Anion Gap 7, BUN 35 H, Creatinine 1.58 H, Estim Creat Clear Calc 27.36, Est GFR (MDRD) Af Amer 54 L, Est GFR (MDRD) Non-Af 45 L, BUN/Creatinine Ratio 22.2 H, Glucose 191 H, Calcium 9.0, Triglycerides 187, Cholesterol 111, LDL Cholesterol 40, VLDL Cholesterol 37, HDL Cholesterol 34 L Radiography Diagnostic Testing: Radiology Impression Brain CT 05/03/23 02:47 IMPRESSION: No acute intracranial hemorrhage. Acute left maxillary sinusitis. Minimal age-related atrophy with patchy chronic small vessel ischemic changes. Nonstandard communication protocol initiated and completed. N.B. : The above Results were Read Back by Manny Diallo MD to Cuco Moise DO, and understanding confirmed on 05/03/2023 03:03:01 (ET). Electronically Signed: Manny Diallo MD at 3:04 EDT , Chest X-Ray 05/03/23 02:47 IMPRESSION: Previous median sternotomy. Interval development of minimal patchy airspace disease in the mid lungs and right lower lung, suspicious for mild developing pulmonary edema as pulmonary venous hypertension has developed. 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 Possible small ulceration projecting posteriorly from the origin of the right ICA as noted on the parasagittal images. 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 Moderate stenosis of the supracavernous right ICA by calcified plaque. No MCA filling defect identified. Nonstandard communication protocol initiated and completed. N.B. : The above Results were Read Back by Manny Diallo MD to Cuco Moise DO, and understanding confirmed on 05/03/2023 03:19:26 (ET). 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 Possible small ulceration projecting posteriorly from the origin of the right ICA as noted on the parasagittal images. 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 Moderate stenosis of the supracavernous right ICA by calcified plaque. No MCA filling defect identified. Nonstandard communication protocol initiated and completed. N.B. : The above Results were Read Back by Manny Diallo MD to Cuco Moise DO, and understanding confirmed on 05/03/2023 03:19:26 (ET). Electronically Signed: Manny Diallo MD at 3:32 EDT , Physical Exam Const alert, oriented x3, no apparent distress, average body habitus and well nourished; Negative for healthy appearing Constitutional Narrative: Elderly, white male, sitting up in bed, nursing at bedside, speech therapy at bedside, patient appears comfortable and nontoxic, appears to neglect left side HEENT head/scalp atraumatic and moist oral mucous membranes HEENT Narrative: Dentition is poor, Mallampati is 2, no thrush, mild drool right side of face Head and Scalp: normocephalic Resp normal respiratory effort, no retractions, no use of accessory muscles and clear to auscultation bilaterally Resp Narrative: Diffusely diminished but clear Auscultation: Negative for rales, rhonchi or wheezes Cardio regular rate, S1 normal heart sound, S2 normal heart sound, no murmurs, no rub, no gallops and no clicks Cardio Narrative: Irregular rhythm GI normal to inspection, nondistended, normoactive bowel sounds, soft to palpation and non-tender Extremity no clubbing, cyanosis or edema Extremity Narrative: Pedal pulse is are 2 to Neuro oriented x3, No CN's II-XII intact bilaterally, No moves all extremities, No no focal motor deficits and No no sensory deficits noted Neuro Narrative: Patient with left facial droop and sensory deficits left side of face, decreased sensation left upper and lower extremity, fairly dense left-sided hemiparesis with some volitional movement of his lower extremity on command but none of his left upper extremity, left-sided neglect Speech: Negative for speech normal Psych Psych Narrative: Affect is flat and mood seems somewhat depressed which is appropriate for the condition Assessment & Plan Assessment/Plan (1) Carotid artery stenosis: (2) Acute cerebrovascular accident (CVA): (3) New onset atrial flutter: (4) Elevated serum creatinine: (5) Leukocytosis: (6) Dysphagia: PLAN: Plan Suspected right MCA stroke -Patient with sensory changes, dense hemiparesis, and speech abnormalities on the left -Status post tenecteplase at 3:36 AM -Initial NIH was 15 and current NIH is 13 -Repeat CT of the brain tomorrow morning at 4 AM -If CT is negative will start aspirin and Plavix -MRI tomorrow morning -Check echocardiogram with bubble study -Bedrest -N.p.o. until cleared by speech therapy -We will consult vascular surgery given abnormalities on CTA but the right carotid artery -Allow for permissive hypertension as able within parameters for tenecteplase administration -PT/OT/speech consultation -Anticipate patient will likely need discharge to rehab versus skilled facility depending on progress -social work and case management consulted -Consult neurology tomorrow morning after imaging is complete Right carotid artery stenosis -CTA with severe almost complete occlusion with ulceration noted -Discussed with vascular surgery and they will evaluate the patient -Timing on carotid endarterectomy will depend on severity of stroke so will need to await MRI -Start atorvastatin -We will start aspirin and Plavix as long as there is no hemorrhagic conversion on CT early tomorrow morning -Discussed case with Dr. Martinez and he will evaluate the patient later today -We will need cardiac clearance prior to surgery and will obtain stress test if carotid endarterectomy is planning on being pursued at this admission Atrial flutter -Check TSH -Hold on anticoagulation as patient got tenecteplase and then anticoagulation will depend on size of stroke -We will await neuro recommendations for initiation of anticoagulation after further imaging -Check echocardiogram -We will discontinue Cardizem for now and start metoprolol 5 mg IV push every 6 hours with hold parameters Hypoxia -Patient is not oxygen dependent at baseline -Currently on 5 L nasal cannula but does not appear that he had ever had signs of acute respiratory failure -Wean oxygen as able as current saturations are 99% -Incentive spirometer Dysphagia -Speech therapy is evaluate the patient there is concern for swallowing difficulties -MBS tomorrow -N.p.o. with IV fluids for hydration until MBS can be clarified -I did discuss with family if we cannot find a safe diet a PEG tube would likely need to be placed. Serum creatinine elevation -1.82 on presentation and down to 1.58 this morning -Baseline is unclear at this time -In 2019 at the last time we have lab his serum creatinine was 1.09 -Suspect there may be a component of JOE however uncertain and will continue to monitor renal function -Avoid nephrotoxins -Hold home Lasix DM-2 -Hold home Trulicity -Check hemoglobin A1c -SSI every 6 hours for now and transition to mealtime once he passes for p.o. diet -Accu-Cheks as ordered CAD/HTN/HPL -Medications are yet to be verified however we will hold antihypertensive for now and allow for permissive hypertension as able in conjunction with treatment for his A-fib/flutter -Patient has had statin intolerance previously but given acute stroke we will start atorvastatin 40 daily for now -Hold aspirin -Previous CABG and stent placement -Home Lasix Glaucoma -Continue home eyedrop History of tobacco abuse -Remote -Encouraged ongoing cessation DVT prophylaxis -SCDs until 24 hours post tenecteplase then transition to subcu Lovenox versus heparin depending on renal function tomorrow morning CODE STATUS -Full code
--- NOTE | 2023-05-03 07:12 | ECHOCS_ITS ---
Reason For Study: STROKE Procedure This was a 2D Doppler, Color Flow transthoracic echocardiogram. The study was technically difficult. Exam performed portable in ICU/CCU. Left Ventricle Normal LV size. Left ventricular systolic function is normal. The estimated ejection fraction is 65 %. Stage 3 diastolic dysfunction. Infero-Basal: Akinetic. Right Ventricle Normal RV size. Normal systolic function. Atria Normal left atrium. Normal right atrium. Bubble contrast study negative for right to left interatrial shunt. Mitral Valve Moderate mitral annular calcification. Mild focal mitral valve thickening. Mild-Moderate mitral valve stenosis. Mean transmitral valve gradient 6.7 mmHg. Mild (1+) mitral valve insufficiency. Tricuspid Valve Normal tricuspid valve. Mild (1+) tricuspid valve insufficiency. Right ventricular systolic pressure estimated to be 59 mmHg. Moderate pulmonary hypertension. Aortic Valve Trisinus/trileaflet aortic valve. Mild focal aortic valve thickening. Mild focal aortic valve calcification. Mild (1+) aortic valve insufficiency. Pulmonic Valve Normal pulmonic valve. Mild (1+) pulmonic valve insufficiency. Great Vessels Normal aortic root. Mild atherosclerosis of the ascending aorta. Pericardium/Pleural No pericardial effusion. Medication Diluted definity 2ml given slow IV push to enhance endocardial definition. Performed a rapid injection of agitated mix of 9 cc saline and 1cc air to assess for atrial septal defect. MMode/2D Measurements & Calculations LVIDd: 5.3 cm IVSd: 1.0 cm LVOT diam: 2.0 cm LVIDs: 3.5 cm LVPWd: 1.1 cm RVDd: 3.5 cm FS: 34.5 % LVOT area: 3.3 cm2 Ao root diam: 3.2 cm LAV(MOD-bp): 53.2 ml LVAd ap4: 26.9 cm2 LAV(MOD-bp) Indexed: 31.5 ml/m2 LVLd ap4: 6.9 cm LAV(MOD-sp2): 50.4 ml EDV(MOD-sp4): 87.2 ml LAV(MOD-sp4): 52.9 ml EDV(sp4-el): 89.2 ml LVAs ap4: 14.8 cm2 LVLs ap4: 5.9 cm ESV(MOD-sp4): 31.5 ml ESV(sp4-el): 31.3 ml EF(MOD-sp4): 63.9 % EF(sp4-el): 64.9 % SV(MOD-sp4): 55.7 ml SV(sp4-el): 57.9 ml LA A4 area: 20.0 cm2 LA dimension(2D): 4.0 cm RA A4 area: 15.4 cm2 Time Measurements MV dec time: 0.26 sec Doppler Measurements & Calculations MV E max rush: 199.0 cm/sec Lat Peak E' Rush: 6.6 cm/sec Med Peak E' Rush: 6.2 cm/sec MV A max rush: 97.8 cm/sec E/E' lat: 30.3 E/E' med: 32.3 MV E/A: 2.0 MV V2 max: 205.3 cm/sec MV P1/2t max rush: 198.2 cm/sec Ao V2 max: 134.4 cm/sec MV max P.9 mmHg MV P1/2t: 117.9 msec Ao max P.3 mmHg MV V2 mean: 119.3 cm/sec MV dec slope: 492.3 cm/sec2 Ao V2 mean: 99.0 cm/sec MV mean P.7 mmHg MVA(P1/2t): 1.9 cm2 Ao mean P.3 mmHg MV V2 VTI: 58.8 cm Ao V2 VTI: 29.4 cm MVA(VTI): 1.2 cm2 AV (velocity ratio): 0.71 SHAILESH(I,D): 2.3 cm2 SHAILESH(V,D): 2.4 cm2 AI max rush: 450.0 cm/sec LV V1 max: 99.0 cm/sec SV(LVOT): 68.5 ml AI max P.0 mmHg LV V1 max P.9 mmHg LV V1 mean P.9 mmHg AI dec slope: 270.2 cm/sec2 LV V1 mean: 64.7 cm/sec AI P1/2t: 487.8 msec LV V1 VTI: 20.8 cm PA V2 max: 89.6 cm/sec TR max rush: 355.2 cm/sec TR max P.5 mmHg ECHO/Echo Complete W/ Contrast Interpretation Summary The estimated ejection fraction is 65 %. Stage 3 diastolic dysfunction. Infero-Basal: Akinetic. Mild (1+) mitral valve insufficiency. Moderate pulmonary hypertension. Mild (1+) aortic valve insufficiency. Mild-Moderate mitral valve stenosis. Definty used as contrast echo The study was technically difficult. Contrast injection was performed. Ordering Physician: Dana Lofton Referring Physician: FCO BRADSHAW Performed By: Ethel Freitas RDCS
--- NOTE | 2023-05-03 07:25 | EX.PCM.CONCC ---
Assessment & Plan Assessment/Plan (1) Acute cerebrovascular accident (CVA): PLAN: Plan RECOMMENDATIONS: 1. Continue routine monitoring post tenecteplase protocol. 2. Allow for permissive hypertension. Treat blood pressures greater than 185/110 mmHg. 3. Follow-up head imaging early tomorrow morning. 4. Echocardiogram is ordered. 5. PT/OT evaluations tomorrow. 6. Vascular surgery evaluation. 7. Maintain n.p.o. status until cleared by speech therapy. IMPRESSIONS: 1. Acute CVA status post tenecteplase Continue routine ICU monitoring per protocol. Plan to obtain repeat head imaging early tomorrow morning, with follow-up MRI brain. Echocardiogram with bubble study is pending. The patient will remain n.p.o. for now, pending evaluation by speech therapy. PT/OT evaluations are pending for tomorrow, pending the outcome of his repeat head imaging. The patient will require vascular surgery evaluation given the degree of carotid artery stenosis noted on CTA head and neck. 2. New onset atrial flutter/fibrillation Continue current rate control with metoprolol as ordered. Echocardiogram is pending. 3. History of chronic kidney disease/diabetes mellitus/coronary artery disease/hypertension/hyperlipidemia Complicates care, management, recovery and prognosis. Agree with sliding scale insulin coverage. This note was generated with [employer] dictation software. It may contain incorrect words, spelling, and punctuation that were not noted in checking the note before signing. HPI Consult Data Date of Consult: 05/04/23 HPI Narrative Reason for Consultation: CVA status post tenecteplase HPI Narrative: The patient is an 83-year-old male, with a history as outlined below, who presented to the emergency department on the morning of May 03 with dysarthria and left-sided hemiparesis. The patient has a known history of hypertension and diabetes mellitus. On presentation to the emergency department, the patient was noted to tachycardic and tachypneic, but was otherwise hemodynamically stable. Initial laboratory evaluation revealed a white blood cell count of 12,000. Coagulation profile was within normal limits. Chemistry profile was notable for a creatinine of 1.58. Head CT revealed no acute intracranial hemorrhage with patchy, chronic small vessel ischemic changes. Head neck CTA demonstrated near occlusion of the proximal right ICA. The patient was noted to be in atrial fibrillation with RVR. Stroke team was called. His initial NIH score was noted to be 16. The patient was medically managed with Cardizem for his atrial fibrillation and did receive tenecteplase. He was subsequently admitted to the medical intensive care unit for further management. [facility] Medical History (Updated 05/03/23 @ 14:54 by Flakita Benavides) Ankylosing spondylitis of multiple sites in spine Chronic kidney disease, stage 3a Coronary artery disease Diabetes Diastolic CHF, acute on chronic Glaucoma Hypertension Neuropathy involving both lower extremities Home Medications amlodipine 5 mg tablet 5 mg PO BID hypertension 06/25/16 [History Last Taken 08/03/16 09:00] aspirin 81 mg chewable tablet 81 mg PO DAILY@0800 inflammation 06/25/16 [History Last Taken Unknown] atorvastatin 40 mg tablet 40 mg PO QHS cholesterol 06/25/16 [History Last Taken Unknown] brimonidine 0.1 % eye drops (Alphagan P) 1 drp BID glaucoma 06/25/16 [History Last Taken 05/03/23] dorzolamide 22.3 mg-timolol 6.8 mg/mL eye drops 1 drp BID glaucoma 06/25/16 [History Last Taken 05/03/23] metoprolol succinate 25 mg tablet,extended release 24 hr 50 mg PO DAILY hypertension 06/25/16 [History Last Taken 08/03/16 09:00] multivitamin (Daily Multiple tablet) 1 ea PO DAILY multivitamin 06/25/16 [History Last Taken Unknown] nitroglycerin 0.4 mg sublingual tablet 0.4 mg sublingual DAILY PRN Cardiac/Chest Pain 06/25/16 [History Last Taken Unknown] quinapril 40 mg tablet 40 mg PO DAILY hypertension 06/25/16 [History Last Taken 08/03/16 09:00] tacrolimus 0.1 % topical ointment 30 g TP DAILY skin 06/25/16 [History Last Taken Unknown] furosemide 20 mg tablet 20 mg PO DAILY CHF 04/15/17 [History Last Taken Unknown] docusate sodium 100 mg capsule (DOK) 100 mg PO DAILY ##20 10/25/17 [Rx Last Taken Unknown] hydrocodone-acetaminophen 5-325mg 5mg-325mg 1 - 2 tab PO Q4H PRN PRN Pain 3 days ##12 10/25/17 [Rx Last Taken Unknown] acetaminophen 325 mg tablet (Tylenol) 650 mg PO PRN pain 08/15/23 [History Last Taken Unknown] dapagliflozin propanediol 10 mg tablet (Farxiga) 10 mg PO DAILY CKD 05/03/23 [History Last Taken Unknown] dulaglutide 0.75 mg/0.5 mL subcutaneous pen injector (Trulicity) 0.75 mg subcut .sat 05/03/23 [History Last Taken Unknown] latanoprost 0.005 % eye drops 1 drp ophthalmic (eye) QHS glaucoma 05/03/23 [History Last Taken Unknown] losartan 50 mg tablet 50 mg PO DAILY hypertension 05/03/23 [History Last Taken Unknown] netarsudil 0.02 %-latanoprost 0.005 % eye drops (Rocklatan) 1 drp ophthalmic (eye) QHS glaucoma 05/03/23 [History Last Taken Unknown] Allergy/AdvReac Type Severity Reaction Status Date / Time doxycycline [From Monodox] Allergy SOB AND Verified 02/19/20 07:34 COULDNT BREATHE lovastatin AdvReac Other Verified 02/19/20 07:34 pravastatin [From Pravachol] AdvReac Other Verified 02/19/20 07:34 Surgical History (Updated 05/03/23 @ 03:59 by Elena Klein) H/O heart artery stent Social History Smoking Status: Former smoker ROS ROS Narrative 10 systems were reviewed with pertinent positives as noted in the HPI above. Physical Exam Const alert and no apparent distress General Appearance: cooperative HEENT normocephalic and head/scalp atraumatic Eyes PERRL and EOMs intact bilaterally Neck supple General: trachea midline Chest inspection of chest normal Resp normal respiratory effort Auscultation: Negative for rales, rhonchi or wheezes Cardio S1 normal heart sound and S2 normal heart sound Rhythm: abnormal rhythm GI normal to inspection, nondistended, normoactive bowel sounds Extremity no clubbing, cyanosis or edema Skin no rashes or lesions noted Neuro Neuro Narrative: Left-sided hemiparesis, facial droop and dysarthric speech. Psych cooperative and affect normal Lab / Micro Data 05/04/23 03:45 05/04/23 03:45 Labs: Laboratory Results - last 24 hr 05/03/23 02:37: WBC 7.8, RBC 5.35, Hgb 16.3, Hct 50.6, MCV 94.6 H, MCH 30.5, MCHC 32.2, RDW Std Deviation 45.6 H, RDW Coeff of Sol 13.2, Plt Count 352, MPV 9.8, Immature Gran % (Auto) 0.400, Neut % (Auto) 66.6, Lymph % (Auto) 12.8 L, Logan % (Auto) 14.5 H, Eos % (Auto) 4.9, Baso % (Auto) 0.8, Absolute Neuts (auto) 5.2, Absolute Lymphs (auto) 1.00, Nucleated RBC % 0, PT 13.4, INR 1.0, APTT 29.2, Sodium 141, Potassium 4.4, Chloride 110 H, Carbon Dioxide 22.0, Anion Gap 9, BUN 36 H, Creatinine 1.82 H, Est GFR (MDRD) Af Amer 46 L, Est GFR (MDRD) Non-Af 38 L, BUN/Creatinine Ratio 19.8, Glucose 175 H, Calcium 9.5, Magnesium 2.7 H, Troponin I High Sens 15, TSH 3.16 05/03/23 05:35: WBC 12.7 H, RBC 4.93, Hgb 15.2, Hct 46.8, MCV 94.9 H, MCH 30.8, MCHC 32.5, RDW Std Deviation 45.4 H, RDW Coeff of Sol 13.1, Plt Count 337, MPV 9.4, Immature Gran % (Auto) 0.400, Neut % (Auto) 85.5 H, Lymph % (Auto) 3.5 L, Logan % (Auto) 8.7, Eos % (Auto) 1.4, Baso % (Auto) 0.5, Absolute Neuts (auto) 10.9 H, Absolute Lymphs (auto) 0.45 L, Nucleated RBC % 0, Differential Comment SCANNED, Sodium 140, Potassium 4.5, Chloride 110 H, Carbon Dioxide 23.0, Anion Gap 7, BUN 35 H, Creatinine 1.58 H, Estim Creat Clear Calc 27.36, Est GFR (MDRD) Af Amer 54 L, Est GFR (MDRD) Non-Af 45 L, BUN/Creatinine Ratio 22.2 H, Glucose 191 H, Calcium 9.0, Triglycerides 187, Cholesterol 111, LDL Cholesterol 40, VLDL Cholesterol 37, HDL Cholesterol 34 L Radiology Impression Brain CT 05/03/23 02:47 IMPRESSION: No acute intracranial hemorrhage. Acute left maxillary sinusitis. Minimal age-related atrophy with patchy chronic small vessel ischemic changes. Nonstandard communication protocol initiated and completed. N.B. : The above Results were Read Back by Manny Diallo MD to Cuco Moise DO, and understanding confirmed on 05/03/2023 03:03:01 (ET). Electronically Signed: Manny Diallo MD at 3:04 EDT , Chest X-Ray 05/03/23 02:47 IMPRESSION: Previous median sternotomy. Interval development of minimal patchy airspace disease in the mid lungs and right lower lung, suspicious for mild developing pulmonary edema as pulmonary venous hypertension has developed. 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 Possible small ulceration projecting posteriorly from the origin of the right ICA as noted on the parasagittal images. 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 Moderate stenosis of the supracavernous right ICA by calcified plaque. No MCA filling defect identified. Nonstandard communication protocol initiated and completed. N.B. : The above Results were Read Back by Manny Diallo MD to Cuco Moise DO, and understanding confirmed on 05/03/2023 03:19:26 (ET). 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 Possible small ulceration projecting posteriorly from the origin of the right ICA as noted on the parasagittal images. 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 Moderate stenosis of the supracavernous right ICA by calcified plaque. No MCA filling defect identified. Nonstandard communication protocol initiated and completed. N.B. : The above Results were Read Back by Manny Diallo MD to Cuco Moise DO, and understanding confirmed on 05/03/2023 03:19:26 (ET). Electronically Signed: Manny Diallo MD at 3:32 EDT , Charges/Coding Visit Charges Inpatient E&M: 26752 Init Hosp L3
[2023-05-03 08:51] LABS: Hemoglobin A1c 6.8 % (3.8-5.6)
[2023-05-03] MEDS: Dorzolamide HCL/Timolol 10 ml Bottle 1 DRP EACH EYE ×2 (09:24→21:44)
[2023-05-03] MEDS: 0.9% Saline Lock 10 ML Syringe IV ×3 (09:25→17:21)
[2023-05-03] MEDS: BRIMONIDINE 0.2% 5ML BOTTLE 1 DRP EACH EYE ×2 (09:25→21:45)
--- NOTE | 2023-05-03 11:04 | CON.PCM.SX_ITS ---
Assessment & Plan Assessment/Plan (1) Stenosis of right internal carotid artery with cerebral infarction: PLAN: Patient presents with left-sided hemiparesis and facial drooping. CTA Head and Neck revealed significant R ICA stenosis with soft, noncalcified plaque which would be appropriate for surgical intervention via endarterectomy or carotid stenting. Will have rep review images to determine if good candidate for TCAR. MRI is scheduled for tomorrow to further evaluate severity/size of the stroke which will help determine surgical timing. Statin was already initiated. CT scan will be performed early tomorrow morning with plan to initiate DAPT pending results. HPI Consult Data Date of Consult: 05/03/23 HPI Narrative HPI Narrative: SALAS AMARO, is a 83 M who presented last night to the [facility] ED between 2:30-3 AM with left-sided hemiparesis, left facial droop, dysarthria and last known well midnight. CT was negative for hemorrhage. He was in A-fib with RVR on arrival. He was evaluated by telemetry neuro team and tenecteplase was administered around 3:30 AM and subsequently admitted to the ICU. CTA head and neck revealed significant stenosis of the right internal carotid artery for which we are consulted. At time of exam, patient has some difficulty speaking secondary to left facial drooping but otherwise able to be understood fairly well and is answering ques tions appropriately. Still with flaccid paralysis of LUE and LLE. He denies any vision changes. He has no prior history of CVA or TIA. He does have a history of CAD status post PCI as well as valve repair reportedly all in the late s to 1999 at [facility] and he currently follows with cardiology Dr. Briceno in [place]. His medical history is otherwise significant for diabetes and hypertension. He is scheduled to have an echo today. Scheduled for repeat CT scan to rule out hemorrhagic conversion prior to initiating DAPT. He is also scheduled for an MRI tomorrow. [facility] Medical History (Updated 05/03/23 @ 12:[address] Dana Lofton DO) Diabetes Hypertension Home Medications amlodipine 5 mg tablet 5 mg PO DAILY 06/25/16 [History Last Taken 08/03/16 09:00] aspirin 81 mg chewable tablet 81 mg PO DAILY@0800 06/25/16 [History Last Taken Unknown] atorvastatin 40 mg tablet 40 mg PO QHS 06/25/16 [History Last Taken Unknown] brimonidine 0.1 % eye drops (Alphagan P) 1 drp BID 06/25/16 [History Last Taken Unknown] dorzolamide 22.3 mg-timolol 6.8 mg/mL eye drops 1 drp BID 06/25/16 [History Last Taken Unknown] metoprolol succinate 25 mg tablet,extended release 24 hr 50 mg PO DAILY 06/25/16 [History Last Taken 08/03/16 09:00] multivitamin (Daily Multiple tablet) 1 ea PO DAILY 06/25/16 [History Last Taken Unknown] nitroglycerin 0.4 mg sublingual tablet 0.4 mg sublingual DAILY PRN Cardiac/Chest Pain 06/25/16 [History Last Taken Unknown] quinapril 40 mg tablet 40 mg PO DAILY 06/25/16 [History Last Taken 08/03/16 09:00] tacrolimus 0.1 % topical ointment 30 g TP DAILY 06/25/16 [History Last Taken Unknown] acetaminophen 325 mg tablet (Tylenol) 650 mg (2 x 325 mg) PO Q6H 08/05/16 [Rx Last Taken Unknown] furosemide 20 mg tablet 20 mg PO BID 04/15/17 [History Last Taken Unknown] docusate sodium 100 mg capsule (DOK) 100 mg PO DAILY ##20 10/25/17 [Rx Last Taken Unknown] hydrocodone-acetaminophen 5-325mg 5mg-325mg 1 - 2 tab PO Q4H PRN PRN Pain 3 days ##12 10/25/17 [Rx Last Taken Unknown] dulaglutide 0.75 mg/0.5 mL subcutaneous pen injector (Trulicity) 0.75 mg subcut .sat 05/03/23 [History Last Taken Unknown] latanoprost 0.005 % eye drops 1 drp ophthalmic (eye) DAILY 05/03/23 [History Last Taken Unknown] netarsudil 0.02 %-latanoprost 0.005 % eye drops (Rocklatan) 1 drp ophthalmic (ey e) QHS 05/03/23 [History Last Taken Unknown] Allergy/AdvReac Type Severity Reaction Status Date / Time doxycycline [From Monodox] Allergy SOB AND Verified 02/19/20 07:34 COULDNT BREATHE lovastatin AdvReac Other Verified 02/19/20 07:34 pravastatin [From Pravachol] AdvReac Other Verified 02/19/20 07:34 Surgical History (Updated 05/03/23 @ 03:59 by Elena Klein) H/O heart artery stent Social History Smoking Status: Former smoker Physical Exam Const alert and oriented x3 General Appearance: cooperative HEENT normocephalic, head/scalp atraumatic and external nose normal Eyes EOMs intact bilaterally Neck General: normal visual inspection Resp normal respiratory effort and no retractions Effort and Inspection: able to speak in complete sentences Cardio Rate: regular rate Extremity no clubbing, cyanosis or edema Neuro Neuro Narrative: Left-sided hemiparesis, left sided-facial drooping with associated dysarthria Lab / Micro Data 05/03/23 05:35 05/03/23 05:35 Labs: Laboratory Results - last 24 hr 05/03/23 02:37: WBC 7.8, RBC 5.35, Hgb 16.3, Hct 50.6, MCV 94.6 H, MCH 30.5, MCHC 32.2, RDW Std Deviation 45.6 H, RDW Coeff of Sol 13.2, Plt Count 352, MPV 9.8, Immature Gran % (Auto) 0.400, Neut % (Auto) 66.6, Lymph % (Auto) 12.8 L, [place] % (Auto) 14.5 H, Eos % (Auto) 4.9, Baso % (Auto) 0.8, Absolute Neuts (auto) 5.2, Absolute Lymphs (auto) 1.00, Nucleated RBC % 0, PT 13.4, INR 1.0, APTT 29.2, Sodium 141, Potassium 4.4, Chloride 110 H, Carbon Dioxide 22.0, Anion Gap 9, BUN 36 H, Creatinine 1.82 H, Est GFR (MDRD) Af Amer 46 L, Est GFR (MDRD) Non- Af 38 L, BUN/Creatinine Ratio 19.8, Glucose 175 H, Hemoglobin A1c 6.8 H, Calcium 9.5, Magnesium 2.7 H, Troponin I High Sens 15, TSH 3.16 05/03/23 05:35: WBC 12.7 H, RBC 4.93, Hgb 15.2, Hct 46.8, MCV 94.9 H, MCH 30.8, MCHC 32.5, RDW Std Deviation 45.4 H, RDW Coeff of Sol 13.1, Plt Count 337, MPV 9.4, Immature Gran % (Auto) 0.400, Neut % (Auto) 85.5 H, Lymph % (Auto) 3.5 L, [place] % (Auto) 8.7, Eos % (Auto) 1.4, Baso % (Auto) 0.5, Absolute Neuts (auto) 10 .9 H, Absolute Lymphs (auto) 0.45 L, Nucleated RBC % 0, Differential Comment SCANNED, Sodium 140, Potassium 4.5, Chloride 110 H, Carbon Dioxide 23.0, Anion Gap 7, BUN 35 H, Creatinine 1.58 H, Estim Creat Clear Calc 27.36, Est GFR (MDRD) Af Amer 54 L, Est GFR (MDRD) Non-Af 45 L, BUN/Creatinine Ratio 22.2 H, Glucose 191 H, Calcium 9.0, Triglycerides 187, Cholesterol 111, LDL Cholesterol 40, VLDL Cholesterol 37, HDL Cholesterol 34 L Radiology Impression Brain CT 05/03/23 02:47 IMPRESSION: No acute intracranial hemorrhage. Acute left maxillary sinusitis. Minimal age-related atrophy with patchy chronic small vessel ischemic changes. Nonstandard communication protocol initiated and completed. N.B. : The above Results were Read Back by Manny Diallo MD to Cuco Moise DO, and understanding confirmed on 05/03/2023 03:03:01 (ET). Electronically Signed: Manny Diallo MD at 3:04 EDT , Chest X-Ray 05/03/23 02:47 IMPRESSION: Previous median sternotomy. Interval development of minimal patchy airspace disease in the mid lungs and right lower lung, suspicious for mild developing pulmonary edema as pulmonary venous hypertension has developed. 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 Possible small ulceration projecting posteriorly from the origin of the right ICA as noted on the parasagittal images. 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 Moderate stenosis of the supracavernous right ICA by calcified plaque. No MCA filling defect identified. Nonstandard communication protocol initiated and completed. N.B. : The above Results were Read Back by Manny Diallo MD to Cuco Moise DO, and understanding confirmed on 05/03/2023 03:19:26 (ET). 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 Possible small ulceration projecting posteriorly from the origin of the right ICA as noted on the parasagittal images. 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 Moderate stenosis of the supracavernous right ICA by calcified plaque. No MCA filling defect identified. Nonstandard communication protocol initiated and completed. N.B. : The above Results were Read Back by Manny Diallo MD to Cuco Moise DO, and understanding confirmed on 05/03/2023 03:19:26 (ET). Electronically Signed: Manny Diallo MD at 3:32 EDT , Charges/Coding Visit Charges Inpatient E&M: 19637 Init Hosp L2
[2023-05-03] MEDS: Metoprolol Tartrate 5 MG/5 ML Vial IV ×3 (11:10→23:55)
[2023-05-03 11:38] LABS: Bedside Glucose 127 mg/dL (74-106)
--- NOTE | 2023-05-03 13:29 | CASEMGMT ---
SW completed a PHQ9 with patient as he had a Stroke. Patient scored a 3 which indicates minimal depression. Hannah Ugalde MSW SARA
--- NOTE | 2023-05-03 14:42 | CHAPLAIN ---
Type of Pastoral Visit _x__ Initial Visit ___ Follow-up Visit ___ On-call Visit ___ General Patient Visit ___ Spiritual Assessment ___ Family Conference ___ Bereavement ___ Rapid Response ___ Code Blue ___ Other (describe below) Pastoral Care Referral From _x__ Patient _x__ Family ___ Nurse ___ Physician ___ Sports Therapist ___ Cartoonist Special Effects ___ Other (describe below) Sacrament/Intervention _x__ Active listening ___ Anointing ___ Holiness ___ Bereavement ___ Communion ___ Taty exploration ___ ___ Life review _x__ Prayer ___ Reconciliation ___ Sacrament of Sick _x__ Supportive presence ___ Wedding ___ Other (describe below) Pastoral Comments patient has had a stroke but is able to speak for understanding; pt was being evaluated at time of visit by RN; pt does not currently have use of his left side; pt is able to answer questions and respond in the conversation; pt gives some life details; pt admits that this is rough ; offer of support, validation of feelings, assurance of care for his recovery, and encouragement of prayer/spiritual care; pt has a family that is supportive and a mormonism connection; pt states that are no needs other than getting better
--- NOTE | 2023-05-03 16:15 | CASEMGMT ---
LUZ MOSES Face to Face with patient for initial transition planning/care coordination assessment. LUZ MOSES introduced self and role at [facility]. Patient lying in bed, alert and oriented. Patient willing to participate in assessment and is able to answer all questions appropriately. Care providers, pharmacy, and demographics verified. Patient wishes to discharge home but is willing to go to [facility] Rehab Unit if needed. Patient agreeable for referral to be made to [facility] rehab unit. WIll monitor progress with therapy. Patient states he has no further needs or concerns at this time. CM to follow for discharge planning needs that may arise. PCP: Nelida Specialists: Elizabeth ENT; John senior librarian Preferred Pharmacy: [facility] Insurance: [employer] Prescription Benefit: yes Living Will/HPOA: patient is not sure LNOK: , son Living Arrangements: Patient lives with in a [place] with 12 steps and railing. Patient was independent at home prior to current event Transportation: self, DME/HHC: Patient has cane, walker, shower chair, and grab bars at home. No previous HHC or SNF. LUZ MOSES called [facility] Rehab Unit referral line and left message for referral, awaiting call back. Disposition Plan: TBD, anticipate RU pending progress with therapy. Stephanie OLIVARES, RN, CM
[2023-05-03] MEDS: 0.9% Normal Saline 1,000 ML 70 ML IV (16:23)
[2023-05-03 17:55] LABS: Bedside Glucose 119 mg/dL (74-106)
[2023-05-04] VITALS (33 sets, daily range): BP systolic 94–169; BP diastolic 53–102; PULSE 68–129; RESP 16–27; TEMP 36.6–37.4; O2SAT 93–97; BMI 27.8; BMI 27.1
[2023-05-04 00:24] LABS: Bedside Glucose 137 mg/dL (74-106)
[2023-05-04] MEDS: dilTIAZem 25 MG/5 ML Vial 10 MG IV BOLUS (01:56)
[2023-05-04] MEDS: 0.9% Saline Lock 10 ML Syringe IV ×3 (03:46→17:45)
[2023-05-04] MEDS: Furosemide 20 MG/2 ML VIAL IV (03:46)
[2023-05-04 03:54] LABS: Absolute Lymphocyte Count 0.55 X10^3/uL (0.83-4.51); Absolute Neutrophil Count 13.1 X10^3/uL (2.0-7.7); Basophil# 0.06 X10^3/uL; Basophil% 0.4 % (0-1); Eosinophil# 0.16 X10^3/uL; Hematocrit 45.7 % (40-54); Hemoglobin 15.4 g/dL (13.0-16.5); Lymphocyte # 0.55 X10^3/ul (0.83-4.51); Lymphocyte % 3.6 % (19-41); Mean Corp Hgb Conc 33.7 g/dL (32-36); Mean Corpuscular Hgb 31.7 pg (27.0-32.0); Mean Platelet Vol. 9.4 fl (6.2-12.0); Monocyte# 1.52 X10^3/uL; Monocyte% 9.8 % (0-10); NRBC Flagged by Analyzer 0 % (0-5); Neutrophil # 13.11 X10^3/uL (2.7-7.7); Neutrophil % 84.7 % (47-70); POSITIVE DIFFERENTIAL YES; Platelet Count 321 K/mm3 (150-450); RBC Distribution Width CV 13.1 % (11.6-14.6); RBC Distribution Width SD 45.2 fl (35.1-43.9); Red Blood Count 4.86 M/mm3 (4.6-6.2); White Blood Count 15.5 K/mm3 (4.4-11.0)
[2023-05-04 03:55] LABS: Differential Indicated SCAN CRITERIA MET
--- NOTE | 2023-05-04 04:00 | CT_ITS ---
EXAM: CT HEAD WITHOUT INTRAVENOUS CONTRAST CLINICAL INDICATION: stroke TECHNIQUE: Multiple axial images were obtained of the head without intravenous contrast. This CT exam was performed using one or more of the following dose reduction techniques: automated exposure control, adjustment of the mA and/or kV according to patient size, and/or use of iterative reconstruction technique. RADIATION DOSE: CTDIvol = 44.99 mGy, DLP = 846.73 mGy-cm COMPARISON: May 03, 2023. There was near occlusion of the proximal right ICA via noncalcified plaque and possible small ulceration and severe stenosis of both distal vertebral arteries on CTA yesterday. FINDINGS: BRAIN AND EXTRA-AXIAL SPACES: There is a well-circumscribed ischemic infarct superior-lateral right frontal lobe, newly visible, very low attenuation, presumably early subacute infarct. No hemorrhage. No midline shift. Similar better seen low-attenuation consistent with infarct in the right [id number] frontal lobe. These are in the right MCA distal branch distributions. Posterior fossa structures are unremarkable. Ventricles are appropriate for age. No hydrocephalus. Basal cisterns are patent. BONES/JOINTS: Unremarkable. No discrete lytic or blastic abnormalities. SINUSES: Opacification of left anterior ethmoid air cells and mild mucosal thickening in left maxillary sinus are again noted. MASTOID AIR CELLS: Unremarkable. Clear. ORBITS: Visualized globes, extraocular muscles, optic nerves and retrobulbar fat appear unremarkable. CT/Brain/Head without Contrast IMPRESSION: 1. No intracranial hemorrhage. 2. Patchy subacute-appearing zones of ischemic infarcts in the right anterior-inferior and superior-lateral frontal lobe are newly seen. Involving distal MCA branch distributions. 3. 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 Electronically Signed: Cris Manzanares MD at 6:11 EDT ,
[2023-05-04 04:08] LABS: Anion Gap 9 (5-15); BUN 23 mg/dL (7-18); BUN/Creat Ratio 19.3 RATIO (10-20); Calcium,Total 8.9 mg/dL (8.5-10.1); Chloride 113 mmol/L (98-107); Creatinine, Serum 1.19 mg/dL (0.70-1.30); EST Glomerular Filtration Rate 62 mL/min (>60); Est Glom Filt Rate - Afr Amer 75 mL/min (>60); Estimated Creatinine Clearance 36.32 ml/min; Glucose 169 mg/dL (74-106); Magnesium 2.3 mg/dL (1.6-2.6); Phosphorus 3.1 mg/dL (2.5-4.9); Sodium Level 141 mmol/L (136-145)
[2023-05-04 04:22] LABS: Differential Comment SCANNED
[2023-05-04] MEDS: Metoprolol Tartrate 5 MG/5 ML Vial IV ×3 (05:42→17:41)
[2023-05-04] MEDS: Insulin Lispro 100 UNIT/ML INSULN.PEN SC ×4 (05:51→21:04)
--- NOTE | 2023-05-04 06:00 | MRI_ITS ---
HISTORY: Stroke, left-sided deficit. TECHNIQUE: Multiplanar and multisequence MR images of the brain were obtained without contrast. 284 images. COMPARISON: CT earlier same day. FINDINGS: BRAIN PARENCHYMA: Mild zone of restricted diffusion in the right frontal lobe anteriorly and moderate zone of restricted diffusion in the right posterior frontal lobe with corresponding cytotoxic edema and sulcal effacement. No acute intracranial hemorrhage identified. Mild chronic white matter changes noted. CSF SPACES: Mild generalized volume loss. No significant midline shift or effacement of the basal cisterns.No extra-axial fluid collection. VASCULAR SYSTEM: Major intracranial flow voids are maintained. PARANASAL SINUSES AND MASTOID AIR CELLS: Mild left frontal ethmoid mucosal thickening. ORBITS: Bilateral lens resections. MRI/Brain without Contrast IMPRESSION: Acute right frontal lobe infarctions, corresponding to the CT findings. Chronic involutional and white matter changes. Electronically Signed: Frida Li MD at 10:35 EDT ,
[2023-05-04 06:04] LABS: Bedside Glucose 177 mg/dL (74-106)
[2023-05-04] MEDS: 0.9% Normal Saline 1,000 ML 70 ML IV (06:13)
--- NOTE | 2023-05-04 07:31 | PCM.PN.INT ---
Assessment & Plan Assessment/Plan (1) Acute cerebrovascular accident (CVA): PLAN: Plan RECOMMENDATIONS: 1. Await MRI brain. 2. Follow-up neurology evaluation after MRI brain. 3. PT/OT evaluations. 4. Dietary advancement per speech therapy recommendations. 5. The patient is medically stable for transfer out of the intensive care unit. IMPRESSIONS: 1. Acute CVA status post tenecteplase The patient appears to have an evolving MCA distribution CVA for which he received tenecteplase. He has been monitored in the intensive care unit, per protocol. Plan for MRI brain this morning, with tentative plans for follow-up neurology evaluation afterwards. Recommend dietary advancement per speech therapy. PT/OT evaluations today. Vascular surgery following to assist with management of carotid artery stenosis. 2. New onset atrial flutter/fibrillation Continue current rate control with metoprolol as ordered. 3. History of chronic kidney disease/diabetes mellitus/coronary artery disease/hypertension/hyperlipidemia Complicates care, management, recovery and prognosis. Agree with sliding scale insulin coverage. This note was generated with [employer] dictation software. It may contain incorrect words, spelling, and punctuation that were not noted in checking the note before signing. Subjective Subjective The patient was seen and examined at the bedside this morning. Events from the last 24 hours have been reviewed. The patient is currently afebrile, hemodynamically stable and maintaining appropriate oxygen saturations on room air. The patient continues to have dysarthric speech, facial droop and left-sided hemiparesis. Repeat head imaging demonstrated no intracranial hemorrhage, but did report evolving areas of infarct in the distal MCA branch distribution. Objective Data Objective Data The patient's most recent lab work, culture data and imaging studies have all been personally reviewed. Surface echocardiogram revealed evidence of stage III diastolic dysfunction with an ejection fraction of 65%. Bubble study was negative for interatrial shunt. Right ventricular systolic pressure was estimated to be 59 mmHg. Vital Signs: Vital Signs Temp Pulse Resp BP Pulse Ox O2 Del Method O2 Flow Rate 98.3 F 83 19 H 123/87 H 97 Nasal Cannula 2 05/04/23 06:00 05/04/23 07:00 05/04/23 07:00 05/04/23 07:00 05/04/23 07:00 05/04/23 07:00 05/04/23 07:00 FiO2 50 05/03/23 04:24 Oxygen Flow Rate (L/min) 2 Oxygen Delivery Method Nasal Cannula Weight: 148 lb 2.41 oz Body Mass Index (BMI) 27.1 Intake & Output: Intake and Output for Last 24 Hours 05/02/23 05/03/23 05/04/23 23:59 23:59 23:59 Intake Total 1023.34 / 1023.34 1039.58 / 1039.58 Output Total 1753 / 2253 1100 / 1100 Balance -729.66 / -1229.66 -60.42 / -60.42 Lab / Micro Data Attestation: I reviewed the patient's lab results. 05/04/23 03:45 05/04/23 03:45 Labs: Laboratory Results - last 24 hr 05/03/23 02:37: Hemoglobin A1c 6.8 H 05/03/23 11:06: POC Glucose 127 H 05/03/23 17:13: POC Glucose 119 H 05/04/23 00:03: POC Glucose 137 H 05/04/23 03:45: WBC 15.5 H, RBC 4.86, Hgb 15.4, Hct 45.7, MCV 94.0, MCH 31.7, MCHC 33.7, RDW Std Deviation 45.2 H, RDW Coeff of Sol 13.1, Plt Count 321, MPV 9.4, Immature Gran % (Auto) 0.500, Neut % (Auto) 84.7 H, Lymph % (Auto) 3.6 L, [place] % (Auto) 9.8, Eos % (Auto) 1.0, Baso % (Auto) 0.4, Absolute Neuts (auto) 13.1 H, Absolute Lymphs (auto) 0.55 L, Nucleated RBC % 0, Differential Comment SCANNED, Diff Path Review January, Sodium 141, Potassium 4.0, Chloride 113 H, Carbon Dioxide 19.0 L, Anion Gap 9, BUN 23 H, Creatinine 1.19, Estim Creat Clear Calc 36.32, Est GFR (MDRD) Af Amer 75, Est GFR (MDRD) Non-Af 62, BUN/Creatinine Ratio 19.3, Glucose 169 H, Calcium 8.9, Phosphorus 3.1, Magnesium 2.3 05/04/23 05:41: POC Glucose 177 H Radiography Diagnostic Testing: Radiology Impression Echocardiogram 05/03/23 07:12 Interpretation Summary The estimated ejection fraction is 65 %. Stage 3 diastolic dysfunction. Infero-Basal: Akinetic. Mild (1+) mitral valve insufficiency. Moderate pulmonary hypertension. Mild (1+) aortic valve insufficiency. Mild-Moderate mitral valve stenosis. Definty used as contrast echo The study was technically difficult. Contrast injection was performed. Ordering Physician: Dana Lofton Referring Physician: FCO BRADSHAW Performed By: Ethel Freitas RDCS Brain CT 05/04/23 04:00 IMPRESSION: 1. No intracranial hemorrhage. 2. Patchy subacute-appearing zones of ischemic infarcts in the right anterior-inferior and superior-lateral frontal lobe are newly seen. Involving distal MCA branch distributions. 3. 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 Electronically Signed: Cris Manzanares MD at 6:11 EDT , Physical Exam Const alert and no apparent distress General Appearance: cooperative HEENT normocephalic and head/scalp atraumatic Eyes PERRL and EOMs intact bilaterally Neck supple General: trachea midline Chest inspection of chest normal Resp normal respiratory effort Auscultation: Negative for rales, rhonchi or wheezes Cardio S1 normal heart sound and S2 normal heart sound Rhythm: abnormal rhythm GI normal to inspection, nondistended, normoactive bowel sounds Extremity no clubbing, cyanosis or edema Skin no rashes or lesions noted Neuro Neuro Narrative: Left-sided hemiparesis, facial droop and dysarthric speech persist. Psych cooperative and affect normal Charges/Coding Visit Charges Inpatient E&M: 07719 Subs Hosp L2
[2023-05-04] MEDS: 0.45% Normal Saline 1,000 ML 75 ML IV ×2 (07:48→21:06)
--- NOTE | 2023-05-04 08:40 | CON.PCM.CA_ITS ---
Documented by User: Telma FUENTES, ALFREDO 05/04/23 14:49 Assessment & Plan Assessment/Plan (1) New onset atrial flutter: (2) Acute cerebrovascular accident (CVA): (3) Hypertension: PLAN: Plan * Patient has a new onset of atrial flutter, Patient's rate is currently controlled. Do recommend that when able that he be switched over to a factor Xa inhibitor given his new onset of atrial flutter in the setting of a CVA. He does have a [id number] 2 score of 7. * Patient is also in need of surgical clearance and cardiac risk assessment for his critical carotid stenosis. Would like to obtain oncologic nuclear stress test. After stress test is completed we will complete his cardiac assessment. HPI Consult Data Date of Consult: 05/04/23 HPI Narrative HPI Narrative: SALAS AMARO, is a 83 M who presented [facility] ER on 05/03/23 with concerns of a CVA. had noted that in the middle of the night he was moaning, had slurred speech and was unable to move his left side. 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 Possible small ulceration projecting posteriorly from the origin of the right ICA as noted on the parasagittal images. 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 Moderate stenosis of the supracavernous right ICA by calcified plaque. He was given TPA. EKG did demonstrated Afib/Flutter, this was a new onset. He does have a Hx of HTN and DM. Echocardiogram was done, this demonstrated an ejection fraction of 65%, stage III diastolic dysfunction, inferobasal is akinetic. Moderate pulmonary hypertension. Mild to moderate mitral valve stenosis. Vascular was consulted for the significant right ICA stenosis. Patient does have a history of mitral valve repair that was done in 1995, he also has a history of coronary artery disease with previous stenting. He does follow with [facility] cardiology. Prior to patient's hospitalization he did not have any chest pain or worsening shortness of breath. He was not aware of any arrhythmias. He tells me he has not had any arrhythmias that he is aware of in the past. He did however complain of increased fatigue over the last 2 weeks. He does not have any lower extremity edema. [facility] Medical History (Updated 05/03/23 @ 14:54 by Flakita Benavides) Ankylosing spondylitis of multiple sites in spine Chronic kidney disease, stage 3a Coronary artery disease Diabetes Diastolic CHF, acute on chronic Glaucoma Hypertension Neuropathy involving both lower extremities Home Medications amlodipine 5 mg tablet 5 mg PO BID hypertension 06/25/16 [History Last Taken 08/03/16 09:00] aspirin 81 mg chewable tablet 81 mg PO DAILY@0800 inflammation 06/25/16 [History Last Taken Unknown] atorvastatin 40 mg tablet 40 mg PO QHS cholesterol 06/25/16 [History Last Taken Unknown] brimonidine 0.1 % eye drops (Alphagan P) 1 drp BID glaucoma 06/25/16 [History Last Taken 05/03/23] dorzolamide 22.3 mg-timolol 6.8 mg/mL eye drops 1 drp BID glaucoma 06/25/16 [History Last Taken 05/03/23] metoprolol succinate 25 mg tablet,extended release 24 hr 50 mg PO DAILY hypertension 06/25/16 [History Last Taken 08/03/16 09:00] multivitamin (Daily Multiple tablet) 1 ea PO DAILY multivitamin 06/25/16 [History Last Taken Unknown] nitroglycerin 0.4 mg sublingual tablet 0.4 mg sublingual DAILY PRN Cardiac/Chest Pain 06/25/16 [History Last Taken Unknown] quinapril 40 mg tablet 40 mg PO DAILY hypertension 06/25/16 [History Last Taken 08/03/16 09:00] tacrolimus 0.1 % topical ointment 30 g TP DAILY skin 06/25/16 [History Last Taken Unknown] furosemide 20 mg tablet 20 mg PO DAILY CHF 04/15/17 [History Last Taken Unknown] docusate sodium 100 mg capsule (DOK) 100 mg PO DAILY ##20 10/25/17 [Rx Last Taken Unknown] hydrocodone-acetaminophen 5-325mg 5mg-325mg 1 - 2 tab PO Q4H PRN PRN Pain 3 days ##12 10/25/17 [Rx Last Taken Unknown] acetaminophen 325 mg tablet (Tylenol) 650 mg PO PRN pain 05/03/23 [History Last Taken Unknown] dapagliflozin propanediol 10 mg tablet (Farxiga) 10 mg PO DAILY CKD 05/03/23 [History Last Taken Unknown] dulaglutide 0.75 mg/0.5 mL subcutaneous pen injector (Trulicity) 0.75 mg subcut .sat 05/03/23 [History Last Taken Unknown] latanoprost 0.005 % eye drops 1 drp ophthalmic (eye) QHS glaucoma 05/03/23 [History Last Taken Unknown] losartan 50 mg tablet 50 mg PO DAILY hypertension 05/03/23 [History Last Taken Unknown] netarsudil 0.02 %-latanoprost 0.005 % eye drops (Rocklatan) 1 drp ophthalmic (eye) QHS glaucoma 05/03/23 [History Last Taken Unknown] Allergy/AdvReac Type Severity Reaction Status Date / Time doxycycline [From Monodox] Allergy SOB AND Verified 02/19/20 07:34 COULDNT BREATHE lovastatin AdvReac Other Verified 02/19/20 07:34 pravastatin [From Pravachol] AdvReac Other Verified 02/19/20 07:34 Surgical History (Updated 05/03/23 @ 03:59 by Elena Klein) H/O heart artery stent Social History Smoking Status: Former smoker ROS Constitutional Constitutional: Reports fatigue; Denies change in weight, chills, frequent falls or headache(s) Eyes Eyes: Denies acute decrease in peripheral vision, blurry vision or change in vision ENT HEENT: Denies dizziness, dry mouth, epistaxis, headache(s), tinnitus or vertigo Cardiovascular Cardiovascular: Denies chest pain at rest, chest pain with activity, claudication, dyspnea at rest, dyspnea on exertion, edema, irregular heart rh ythm, lightheadedness, orthopnea, orthostatic symptoms or palpitations Respiratory/Chest Respiratory/Chest: Denies cough, dyspnea, dyspnea on exertion, tachypnea or wheezing Gastrointestinal Gastrointestinal: Denies abdominal pain, bloating, coffee ground emesis, diarrhea, heartburn, hematemesis, hematochezia, melena or nausea Genitourinary Genitourinary: Denies hematuria Musculoskeletal Musculoskeletal: Denies myalgias, numbness or tingling Neurologic Neurologic: Denies abnormal gait, abnormal speech, memory loss, paresthesias or weakness Physical Exam Const alert, oriented x3, no apparent distress, average body habitus and well nourished; Negative for healthy appearing Constitutional Narrative: Elderly, white male, sitting up in bed, patient appears comfortable and nontoxic, continues to neglect left side General Appearance: cooperative HEENT normocephalic, head/scalp atraumatic and moist oral mucous membranes Resp normal respiratory effort, normal air movement, no retractions and no use of accessory muscles Resp Narrative: Diffusely diminished but clear Auscultation: Negative for rales, rhonchi or wheezes Cardio Rate: regular rate Rhythm: abnormal rhythm irregularly irregular Heart Sounds: S1 normal and S2 normal; Negative for click, gallop or murmur GI normal to inspection, nondistended, normoactive bowel sounds, soft to palpation and non-tender Extremity no clubbing, cyanosis or edema Extremity Narrative: Pedal pulse is are 2+ Neuro oriented x3, No CN's II-XII intact bilaterally, No moves all extremities, No no focal motor deficits and No no sensory deficits noted Neuro Narrative: Patient still with left facial droop and sensory deficits left side of face, decreased sensation left upper and lower extremity, fairly dense left-sided hemiparesis with some volitional movement of his lower extremity on command but none of his left upper extremity, left-sided neglect, does seem to be moving his left leg a little bit better but no significant movement in his left upper extremity, some mild drooling from left side of face, speech remains somewhat garbled but intelligible Speech: Negative for speech normal Psych cooperative Psych Narrative: Affect is flat and mood seems somewhat depressed which is appropriate for the condition Risk Stratification Risk Stratification Applicable: Yes Age >/= 65: Yes >/= 3 CAD Risk Factors (HTN, HLD, DM, family hx of CAD, or current smoker): Yes Aspirin Use in the Past 7 Days: Yes Severe Angina (>/= episodes in 24 hours): No EKG ST Changes >/= 0.5mm: No Positive Cardiac Marker: No ASHUTOSH Risk Stratification Score: 3 ASHUTOSH % Risk: 13% Risk Charges/Coding Visit Charges Office Visits / Consults: [id number] IP Consult L3 Objective Data Vital Signs: Vital Signs Temp Pulse Resp BP Pulse Ox O2 Del Method O2 Flow Rate 98.5 F 80 19 H 118/98 H 96 Room Air 2 05/04/23 08:00 05/04/23 08:00 05/04/23 08:00 05/04/23 08:00 05/04/23 08:00 05/04/23 08:14 05/04/23 07:30 FiO2 50 05/03/23 04:24 Oxygen Flow Rate (L/min) 2 Oxygen Delivery Method Room Air Weight: 148 lb 2.41 oz Body Mass Index (BMI) 27.1 Intake & Output: Intake and Output for Last 24 Hours 05/02/23 05/03/23 05/04/23 23:59 23:59 23:59 Intake Total 1023.34 / 1023.34 1162.91 / 1162.91 Output Total 1753 / 2253 1345 / 1345 Balance -729.66 / -1229.66 -182.09 / -182.09 Lab / Micro Data 05/04/23 03:45 05/04/23 03:45 Labs: Laboratory Results - last 24 hr 05/03/23 02:37: Hemoglobin A1c 6.8 H 05/03/23 11:06: POC Glucose 127 H 05/03/23 17:13: POC Glucose 119 H 05/04/23 00:03: POC Glucose 137 H 05/04/23 03:45: WBC 15.5 H, RBC 4.86, Hgb 15.4, Hct 45.7, MCV 94.0, MCH 31.7, MCHC 33.7, RDW Std Deviation 45.2 H, RDW Coeff of Sol 13.1, Plt Count 321, MPV 9.4, Immature Gran % (Auto) 0.500, Neut % (Auto) 84.7 H, Lymph % (Auto) 3.6 L, [place] % (Auto) 9.8, Eos % (Auto) 1.0, Baso % (Auto) 0.4, Absolute Neuts (auto) 13.1 H, Absolute Lymphs (auto) 0.55 L, Nucleated RBC % 0, Differential Comment SCANNED, Diff Path Review January, Sodium 141, Potassium 4.0, Chloride 113 H, Carbon Dioxide 19.0 L, Anion Gap 9, BUN 23 H, Creatinine 1.19, Estim Creat Clear Calc 36.32, Est GFR (MDRD) Af Amer 75, Est GFR (MDRD) Non-Af 62, BUN/Creatinine Ratio 19.3, Glucose 169 H, Calcium 8.9, Phosphorus 3.1, Magnesium 2.3 05/04/23 05:41: POC Glucose 177 H Cardiology Labs/Tests 05/03/23 02:37: Hemoglobin A1c 6.8 H 05/04/23 03:45: WBC 15.5 H, RBC 4.86, Hgb 15.4, Hct 45.7, MCV 94.0, MCH 31.7, MCHC 33.7, Plt Count 321, MPV 9.4, Immature Gran % (Auto) 0.500, Neut % (Auto) 84.7 H, Lymph % (Auto) 3.6 L, [place] % (Auto) 9.8, Eos % (Auto) 1.0, Baso % (Auto) 0.4, Absolute Neuts (auto) 13.1 H, Nucleated RBC % 0, Sodium 141, Potassium 4.0, Chloride 113 H, Carbon Dioxide 19.0 L, Anion Gap 9, BUN 23 H, Creatinine 1.19, Est GFR (MDRD) Af Amer 75, Est GFR (MDRD) Non-Af 62, BUN/Creatinine Ratio 19.3, Glucose 169 H, Calcium 8.9, Phosphorus 3.1, Magnesium 2.3 Radiography Diagnostic Testing: Radiology Impression Echocardiogram 05/03/23 07:12 Interpretation Summary The estimated ejection fraction is 65 %. Stage 3 diastolic dysfunction. Infero-Basal: Akinetic. Mild (1+) mitral valve insufficiency. Moderate pulmonary hypertension. Mild (1+) aortic valve insufficiency. Mild-Moderate mitral valve stenosis. Definty used as contrast echo The study was technically difficult. Contrast injection was performed. Ordering Physician: Dana Lofton Referring Physician: FCO BRADSHAW Performed By: Ethel Freitas, RDKENYETTA Brain CT 05/04/23 04:00 IMPRESSION: 1. No intracranial hemorrhage. 2. Patchy subacute-appearing zones of ischemic infarcts in the right anterior-inferior and superior-lateral frontal lobe are newly seen. Involving distal MCA branch distributions. 3. 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 Electronically Signed: Cris Manzanares MD at 6:11 EDT , Documented by User: Dr. Kristy Roe MD 05/04/23 18:26 Assessment & Plan Assessment/Plan (1) New onset atrial flutter: (2) Acute cerebrovascular accident (CVA): (3) Hypertension: PLAN: Plan * Patient has a new onset of atrial flutter, Patient's rate is currently controlled. Do recommend that when able that he be switched over to a factor Xa inhibitor given his new onset of atrial flutter in the setting of a CVA. He does have a [id number] 2 score of 7. * Patient is also in need of surgical clearance and cardiac risk assessment for his critical carotid stenosis. Would like to obtain pharmacological nuclear stress test. After stress test is completed we will complete his cardiac assessment. I independently examined this patient in the intensive care unit reviewed all th e current cardiac evaluation including imaging studies, current medication and cardiac monitors I formulated cardiac care plan as per midlevel note and documentation I concur with the current cardiac care plan Patient will be transferred to [facility] We will sign off from cardiac standpoint We will be available if further cardiac care plan needed Kristy Roe MD,[facility] HPI Consult Data Date of Consult: 05/04/23 [facility] Medical History (Updated 05/03/23 @ 14:54 by Flakita Benavides) Ankylosing spondylitis of multiple sites in spine Chronic kidney disease, stage 3a Coronary artery disease Diabetes Diastolic CHF, acute on chronic Glaucoma Hypertension Neuropathy involving both lower extremities Home Medications amlodipine 5 mg tablet 5 mg PO BID hypertension 06/25/16 [History Last Taken 08/03/16 09:00] aspirin 81 mg chewable tablet 81 mg PO DAILY@0800 inflammation 06/25/16 [History Last Taken Unknown] atorvastatin 40 mg tablet 40 mg PO QHS cholesterol 06/25/16 [History Last Taken Unknown] brimonidine 0.1 % eye drops (Alphagan P) 1 drp BID glaucoma 06/25/16 [History Last Taken 05/03/23] dorzolamide 22.3 mg-timolol 6.8 mg/mL eye drops 1 drp BID glaucoma 06/25/16 [History Last Taken 05/03/23] metoprolol succinate 25 mg tablet,extended release 24 hr 50 mg PO DAILY hypertension 06/25/16 [History Last Taken 08/03/16 09:00] multivitamin (Daily Multiple tablet) 1 ea PO DAILY multivitamin 06/25/16 [History Last Taken Unknown] nitroglycerin 0.4 mg sublingual tablet 0.4 mg sublingual DAILY PRN Cardiac/Chest Pain 06/25/16 [History Last Taken Unknown] quinapril 40 mg tablet 40 mg PO DAILY hypertension 06/25/16 [History Last Taken 08/03/16 09:00] tacrolimus 0.1 % topical ointment 30 g TP DAILY skin 06/25/16 [History Last Taken Unknown] furosemide 20 mg tablet 20 mg PO DAILY CHF 04/15/17 [History Last Taken Unknown] docusate sodium 100 mg capsule (DOK) 100 mg PO DAILY ##20 10/25/17 [Rx Last Taken Unknown] hydrocodone-acetaminophen 5-325mg 5mg-325mg 1 - 2 tab PO Q4H PRN PRN Pain 3 days ##12 10/25/17 [Rx Last Taken Unknown] acetaminophen 325 mg tablet (Tylenol) 650 mg PO PRN pain 05/03/23 [History Last Taken Unknown] dapagliflozin propanediol 10 mg tablet (Farxiga) 10 mg PO DAILY CKD 05/03/23 [History Last Taken Unknown] dulaglutide 0.75 mg/0.5 mL subcutaneous pen injector (Trulicity) 0.75 mg subcut .sat 05/03/23 [History Last Taken Unknown] latanoprost 0.005 % eye drops 1 drp ophthalmic (eye) QHS glaucoma 05/03/23 [History Last Taken Unknown] losartan 50 mg tablet 50 mg PO DAILY hypertension 05/03/23 [History Last Taken Unknown] netarsudil 0.02 %-latanoprost 0.005 % eye drops (Rocklatan) 1 drp ophthalmic (eye) QHS glaucoma 05/03/23 [History Last Taken Unknown] Allergy/AdvReac Type Severity Reaction Status Date / Time doxycycline [From Monodox] Allergy SOB AND Verified 02/19/20 07:34 COULDNT BREATHE lovastatin AdvReac Other Verified 02/19/20 07:34 pravastatin [From Pravachol] AdvReac Other Verified 02/19/20 07:34 Surgical History (Updated 05/03/23 @ 03:59 by Elena Augustin Self) H/O heart artery stent Social History Smoking Status: Former smoker Risk Stratification Age >/= 65: Yes ASHUTOSH Risk Stratification Score: 3 ASHUTOSH % Risk: 13% Risk Lab / Micro Data 05/04/23 03:45 05/04/23 03:45
--- NOTE | 2023-05-04 10:17 | ST.MBS ---
Modified Barium Swallow Patient Information Study Date: 05/04/23 Study Time: 10:15 Direct Billable Minutes: 150 Total Minutes procedure & reportin Diagnosis: CVA, dysphagia Referring Physician: Dana Lofton Reason for Referral: Suspected oropharyngeal dysphagia identified during Clinical Bedside Swallow Evaluation w/ MBS recommended to objectively assess swallow function under fluoroscopy. Instrumental assessment is necessary to improve specificity of dysphagia interventions selected and further elucidate necessary diet texture/liquid consistency/compensatory strategy needs as appropriate. Medical History: SALAS AMARO, is a 83 M who presented to the emergency room by ambulance on 05/03/23 with chief complaint of left-sided hemiparesis. Last time known well was midnight. Patient was emergently evaluated by telestroke team in the emergency room. CT scan was negative for acute hemorrhage and did show right side internal carotid artery blockage and vertebral artery blockages. Patient is in atrial fibrillation with RVR and was given dose of Cardizem for rate control in the emergency room. Determination was given to initiate thrombolytic therapy due to NIH score of 12. In discussion with the patient's spouse he is wishing to remain as full code at this present time. Patient denies any chest pain but does have some shortness of breath currently. He will be admitted to the intensive care unit for ongoing management of stroke and monitoring post thrombolytic therapy. Brain CT 05/03/23 reported: 1. No intracranial hemorrhage. 2. Patchy subacute-appearing zones of ischemic infarcts in the right anterior-inferior and superior-lateral frontal lobe are newly seen. Involving distal MCA branch distributions. 3. 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 MRI results were pending at time of MBSS. PMHx is significant for diabetes and hypertension. Current Diet Ordered: NPO Dentition: Edentulous (Attempted denture placement - family brought incorrect lower plate (not belonging to this patient) and upper plate was extremely loose, falling onto tongue - proceeded w/out dentures) Mental Status: WNL (Patient was able to sufficiently follow commands for participation in MBSS) Respiratory Status: Oxygenating on Room Air Penetration-Aspiration Scale Penetration-Aspiration Scale: OBJECTIVE ASSESSMENT OF SWALLOW FUNCTION (QUANTITATIVE ? PER TRIAL): PENETRATION / ASPIRATION SCALE ([place]): 1 = does not enter airway 2 = enters airway/above vocal folds/ejected 3 = enters airway/above vocal folds/not ejected 4 = enters airway/contacts vocal folds/ejected 5 = enters airway/contacts vocal folds/not ejected 6 = enters airway/below vocal folds/ejected 7 = enters airway/below vocal folds/not ejected despite effort 8 = enters airway/below vocal folds/no effort VIDEOFLOROSCOPIC SCALE SCORE ([place]): Grade I = aspiration of material that has penetrated into the laryngeal vestibule, intact cough reflex Grade II = aspiration < 10 % of the bolus, intact cough reflex Grade III = aspiration of < 10 % of the bolus, reduced cough reflex or aspiration of > 10 % of the bolus, intact cough reflex Grade IV = aspiration of > 10 % of the bolus, reduced cough reflex Penetration-Aspiration Scale Score Thin Liquid via teaspoon: Result: 5= enters airways/contacts vocal folds/not ejected Comment: delayed post prandial cough response Thin Liquid via teaspoon Trial 2: Result: 3= enters airways/above vocal folds/not ejected Thin Liquid via single sip from cup: Result: 2= enter airway/above vocal folds/ejected Comment: trace aspiration noted from penetration during previous trial which slowly descended to contact and transiently drop below the vocal folds - cued cough and reswallow was effective to eject contrast [place] via small sip from cup: Result: 1= does not enter airway Comment: extremely small bolus size, barely enough to swallow [place] Thick Liquid via teaspoon: Result: 2= enter airway/above vocal folds/ejected Pudding: Result: 1= does not enter airway Thin liquid via small sip form cup trial 2: Result: 3= enters airways/above vocal folds/not ejected [place] via cup trial 2: Result: 2= enter airway/above vocal folds/ejected Thin liquid sequential sips via cup: Result: 3= enters airways/above vocal folds/not ejected Oral Phase Labial Seal: Escape beyond mid-chin Tongue Control During Bolus Hold: Escape to lateral buccal cavity/floor of mouth Bolus Preparation/Mastication: Disorganized chewing/mashing with solid pieces of bolus unchewed (solid textures deferred d/t lack of dentition, suspect disorganization) Bolus Transport/Lingual Motion: Slowed tongue motion Oral Residue: Residue collection on oral structures Pharyngeal Phase Initiation of Pharyngeal Swallow: Bolus head in pyriforms Soft Palate Elevation: No bolus between soft palate and pharyngeal wall Laryngeal Elevation: Partial superior movement thyroid cart/partial apprx aryt-epig petiole Anterior Hyoid Excursion: Partial anterior movement Epiglottic Movement: Partial inversion Laryngeal Vestibule Closure at Height of Swallow: Incomplete; narrow column of air/contrast in laryngeal vestibule Pharyngeal Stripping Wave: Present - diminished Pharyngoesophageal Segment Opening: Parital distension and partial duration; parital obstruction of flow Tongue Base Retraction: Narrow column of contrast between tongue base & post. pharyngeal wall Pharyngeal Residue: Collection of residue within or on pharyngeal structures Esophageal Phase Esophageal Clearance: Complete clearance Treatment Strategies Effects of treatment strategies attemped:: Effortful Swallow - partially effective to clear pharyngeal residue Multiple Swallows - partially effective to clear haryngeal residue L head turn - not effective to reduce pharyngeal residue Cough and re-swallow - effective to clear contrast on the vocal folds Diagnosis/Impression Diagnosis: Moderate oropharyngeal dysphagia (R13.12) Impression: The oral phase is characterized by: -reduced labial seal w/ anterior liquid bolus loss -impaired bolus cohesion w/ liquids spilling to the floor of mouth prior to A-P transportation -slowed lingual motion for A-P bolus transportation -reduced sensory awareness, oral residue retention on the lingual surface and buccal cavity w/out patient awareness The pharyngeal phase is characterized by: -spillage to the pyriforms prior to swallow onset w/ thin liquids -improved timing w/ mildly thick liquids and pudding -noted C3-4 vertebrae protrusion which impeded epiglottic inversion, epiglottis rested against the posterior pharyngeal wall, resulting in significant vallecular bolus retention -reduced hyolaryngeal excursion resulting in incomplete laryngeal vestibule closure and subsequent laryngeal vestibule penetration of liquids -thin liquid did not reliable eject from the laryngeal vestibule and trace contrast was noted to descend, contacting the vocal folds and transiently dropping below the vocal folds during subsequent trials (trace aspiration) -reduced pharyngeal contraction/pharyngeal stripping wave w/ residue adhered to the posterior pharyngeal wall -reduced PES distention/duration w/ residue retention w/in the pyriforms The esophageal phase was unremarkable. Recommendations Diet: Puree Textures and [place]-thick Liquids (Mildly Thick Liquids) Compensatory Strategies: Small Bites, Small Sips (sips by cup or teaspoon), Multiple Swallows (cough and re-swallow several times t/o meals, especially if wet vocal quality is present w/ PO intake ), Alternate bites/solids and sips/liquids, Sitting upright and Remain sitting upright for 30 minutes after PO intake (oral hygiene after meals/meds, meds crushed w/ puree) Recommend Repeat Modified Barium Swallow: Yes Comment: This patient is at high risk for post-prandial aspiration of residue d/t poor pharyngeal clearance. Recommend STRICT adherence to aspiration precautions and close monitoring of pulmonary status w/ consideration for alternative means of nutrition if unable to tolerate current diet. Need for Skilled Speech Therapy Services: Yes Comment: Recommend continued skilled ST intervention at the current level of care to assess diet tolerance, compensatory strategy use and to instruct w/ oropharyngeal strengthening exercises (Effortful Swallow, CTAR, Phoebe, Lingual Strengthening). Education Completed: 1. Described result of evaluation., 2. Pt understands evaluation & agrees with goals and treatment plan. and 4. Family/caregivers understand evaluation & agree w/ goals & tx plan. Comment: Results and recommendations were discussed w/ the patient, his and his daughter immediately following MBS completion. All verbalized understanding/agreement w/ recommendations made. Status Active ST Patient: Active Contact Information [facility] Speech Therapy:: Tami Laguna M.A., CCC-RESEARCH AND DEVELOPMENT RESEARCHER Speech-Language Pathologist Marek Rojas. [place], [place] [id number] [email or web address]
[2023-05-04] MEDS: BRIMONIDINE 0.2% 5ML BOTTLE 1 DRP EACH EYE ×2 (11:51→21:05)
[2023-05-04] MEDS: Dorzolamide HCL/Timolol 10 ml Bottle 1 DRP EACH EYE ×2 (11:51→21:05)
--- NOTE | 2023-05-04 11:56 | PN.HOSP_ITS ---
Reason for Visit Reason for Visit: Left-sided hemiparesis and sensory changes/ speech abnormalities Subjective Subjective He is overnight. CT was performed and shows no hemorrhagic transformation. Swallowing is still is a concern and nursing expresses that he is even having difficulty managing mouth care. Modified barium swallow was later today as his MRI. Patient denies any needs at this time. He does indicate that he would be amenable to a PEG tube if need be depending on how his swallowing study goes today. Objective Data Objective Data Vital Signs: Vital Signs Temp Pulse Resp BP Pulse Ox O2 Del Method O2 Flow Rate 98.9 F 94 26 H 161/68 H 95 Room Air 2 05/04/23 11:00 05/04/23 11:52 05/04/23 11:00 05/04/23 11:52 05/04/23 11:00 05/04/23 11:00 05/04/23 08:00 FiO2 50 05/03/23 04:24 Oxygen Flow Rate (L/min) 2 Oxygen Delivery Method Room Air Weight: 67.2 kg Body Mass Index (BMI) 27.1 Intake & Output: Intake and Output for Last 24 Hours 05/02/23 05/03/23 05/04/23 23:59 23:59 23:59 Intake Total 1023.34 / 1023.34 1162.91 / 1162.91 Output Total 1753 / 2253 1670 / 1670 Balance -729.66 / -1229.66 -507.09 / -507.09 Lab / Micro Data 05/04/23 03:45 05/04/23 03:45 Labs: Laboratory Results - last 24 hr 05/03/23 17:13: POC Glucose 119 H 05/04/23 00:03: POC Glucose 137 H 05/04/23 03:45: WBC 15.5 H, RBC 4.86, Hgb 15.4, Hct 45.7, MCV 94.0, MCH 31.7, MCHC 33.7, RDW Std Deviation 45.2 H, RDW Coeff of Sol 13.1, Plt Count 321, MPV 9.4, Immature Gran % (Auto) 0.500, Neut % (Auto) 84.7 H, Lymph % (Auto) 3.6 L, [place] % (Auto) 9.8, Eos % (Auto) 1.0, Baso % (Auto) 0.4, Absolute Neuts (auto) 13.1 H, Absolute Lymphs (auto) 0.55 L, Nucleated RBC % 0, Differential Comment SCANNED, Diff Path Review May foll, Sodium 141, Potassium 4.0, Chloride 113 H, Carbon Dioxide 19.0 L, Anion Gap 9, BUN 23 H, Creatinine 1.19, Estim Creat Clear Calc 36.32, Est GFR (MDRD) Af Amer 75, Est GFR (MDRD) Non-Af 62, BUN/Creatinine Ratio 19.3, Glucose 169 H, Calcium 8.9, Phosphorus 3.1, Magnesium 2.3 05/04/23 05:41: POC Glucose 177 H Radiography Diagnostic Testing: Radiology Impression Echocardiogram 05/03/23 07:12 Interpretation Summary The estimated ejection fraction is 65 %. Stage 3 diastolic dysfunction. Infero-Basal: Akinetic. Mild (1+) mitral valve insufficiency. Moderate pulmonary hypertension. Mild (1+) aortic valve insufficiency. Mild-Moderate mitral valve stenosis. Definty used as contrast echo The study was technically difficult. Contrast injection was performed. Ordering Physician: Dana Lofton Referring Physician: FCO BRADSHAW Performed By: Ethel Freitas RDCS Brain CT 05/04/23 04:00 IMPRESSION: 1. No intracranial hemorrhage. 2. Patchy subacute-appearing zones of ischemic infarcts in the right anterior-inferior and superior-lateral frontal lobe are newly seen. Involving distal MCA branch distributions. 3. 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 Electronically Signed: Cris Manzanares MD at 6:11 EDT , Brain MRI 05/04/23 06:00 IMPRESSION: Acute right frontal lobe infarctions, corresponding to the CT findings. Chronic involutional and white matter changes. Electronically Signed: Frida Li MD at 10:35 EDT , Physical Exam Const alert, oriented x3, no apparent distress, average body habitus and well nourished; Negative for healthy appearing Constitutional Narrative: Elderly, white male, sitting up in bed, patient appears comfortable and nontoxic, continues to neglect left side General Appearance: cooperative HEENT normocephalic, head/scalp atraumatic and moist oral mucous membranes Resp normal respiratory effort, normal air movement, no retractions, no use of ac cessory muscles and clear to auscultation bilaterally Resp Narrative: Diffusely diminished but clear Auscultation: Negative for rales, rhonchi or wheezes Cardio regular rate, S1 normal heart sound, S2 normal heart sound, no murmurs, no rub, no gallops and no clicks Cardio Narrative: Irregular rhythm with good rate control currently GI normal to inspection, nondistended, normoactive bowel sounds, soft to palpation and non-tender Extremity no clubbing, cyanosis or edema Extremity Narrative: Pedal pulse is are 2+ Neuro oriented x3, No CN's II-XII intact bilaterally, No moves all extremities, No no focal motor deficits and No no sensory deficits noted Neuro Narrative: Patient still with left facial droop and sensory deficits left side of face, decreased sensation left upper and lower extremity, fairly dense left-sided hemiparesis with some volitional movement of his lower extremity on command but none of his left upper extremity, left-sided neglect, does seem to be moving his left leg a little bit better but no significant movement in his left upper extremity, some mild drooling from left side of face, speech remains somewhat garbled but intelligible Speech: Negative for speech normal Psych cooperative Psych Narrative: Affect is flat and mood seems somewhat depressed which is appropriate for the condition Assessment & Plan Assessment/Plan (1) Carotid artery stenosis: (2) Acute cerebrovascular accident (CVA): (3) New onset atrial flutter: (4) Elevated serum creatinine: (5) Leukocytosis: (6) Dysphagia: PLAN: Plan Suspected right MCA stroke -Patient with sensory changes, dense hemiparesis, and speech abnormalities on the left -Status post tenecteplase at 3:36 AM on 05/03/2023 -Initial NIH was 15 and patient has been fairly stable with an NIH of 13 since then -CT done this morning was negative for any hemorrhagic transformation -Plavix 75 mg daily started -Aspirin rectally 300 and will transition to 81 mg once we can dose enterally -MRI performed and demonstrates acute right frontal lobe infarctions in the right frontal lobe anteriorly and right frontal lobe posteriorly -Echocardiogram shows EF of 65% with stage III diastolic dysfunction, inferior basilar akinesis, moderate pulmonary hypertension and mild to moderate mitral valve stenosis -Bubble study was not reported and I have asked cardiology to relook at this for results -N.p.o. until cleared by speech therapy -Vascular surgery has been consulted and will need to review the MRI to ascertain timing for surgery -Allow for permissive hypertension for another 24 hours and will start lowering pressure more tomorrow to goal range of less than 130/80 -PT/OT should evaluate the patient today as now he is no longer on bedrest -Anticipate patient will likely need discharge to rehab versus skilled facility depending on progress -social work and case management following -Neurology consultation for follow-up--> I do need to know how long we will need to hold off full anticoagulation with his diagnosis of atrial flutter Right carotid artery stenosis -CTA with severe almost complete occlusion with ulceration noted -Vascular surgery is following -Timing on carotid endarterectomy will depend on severity of stroke so will need to await MRI review by vascular surgery -Start atorvastatin as soon as we can give enteral medication -Plavix and aspirin initiated and will start as soon as we can give enteral medication -Rectal aspirin given today -Cardiology consultation for surgical clearance Atrial flutter -TSH was in within normal limits -Hold on anticoagulation as patient got tenecteplase and then anticoagulation will depend on size of stroke -We will await neuro recommendations for initiation of anticoagulation after further imaging -Echocardiogram as above -Continue metoprolol 5 mg IV every 6 hours and when enteral routes are available we will start metoprolol 50 mg twice daily Hypoxia -Resolved Dysphagia -Speech therapy following -MBS pending for today -May need PEG and patient is agreeable if needed -Continue IV fluids for now JOE -1.82 on presentation and improved to 1.19 -Baseline serum creatinine appears that it is less than 1.2 and therefore patient meets criteria for JOE on presentation -In 2019 at the last time we have lab his serum creatinine was 1.09 -Suspect there may be a component of JOE however uncertain and will continue to monitor renal function -Avoid nephrotoxins -Continue to hold home Lasix DM-2 -Hold home Trulicity -Patient is well controlled diabetic and hemoglobin A1c was found to be 6.8 -SSI every 6 hours for now and transition to mealtime once he passes for p.o. diet -Accu-Cheks as ordered CAD/HTN/HPL -Medications are yet to be verified however we will hold antihypertensive for now and allow for permissive hypertension as able in conjunction with treatment for his A-fib/flutter -Patient has had statin intolerance previously but given acute stroke we will start atorvastatin 40 daily for now and monitor for tolerance -Aspirin started -Previous CABG and stent placement -Home Lasix on hold Glaucoma -Continue home eyedrop History of tobacco abuse -Remote -Encouraged ongoing cessation DVT prophylaxis -Start Lovenox 40 mg CODE STATUS -Full code Charges/Coding Visit Charges Inpatient E&M: 63776 Subs Hosp L3
[2023-05-04] MEDS: Enoxaparin 40 MG/0.4 ML Syringe SC (12:18)
[2023-05-04] MEDS: Aspirin 300 MG Suppository RC (12:18)
[2023-05-04 12:22] LABS: Bedside Glucose 161 mg/dL (74-106)
[2023-05-04 12:34] LABS: Pathologist Review Reviewed
--- NOTE | 2023-05-04 13:30 | PCM.HOSP.N ---
Hospitalist Note Patient white count is trending up and now running temperatures that have been higher than he had been running so we will start Unasyn empirically and check sputum culture possible. I do suspect he is aspirating based on his swallowing. Did
--- NOTE | 2023-05-04 14:26 | PCM.PN.SRG ---
Subjective Subjective Patient is up to chair this afternoon. Still with left-sided hemiparesis, decreased sensations, facial drooping, and neglect. Has some movement of his LLE against gravity, LUE with no improvement. He had MBS and was cleared for pureed diet. Evaluated by PT/OT and current recommendations for acute rehab at d/c. Cardiology ordered stress test for preoperative assessment, to be completed tomorrow. They are also recommending anticoagulation with Eliquis once cleared by neurology and able to administer given swallowing difficulties. Telemetry neurology evaluation was also obtained this afternoon. Objective Data Objective Data Vital Signs: Vital Signs Temp Pulse Resp BP Pulse Ox O2 Del Method O2 Flow Rate 99.4 F H 91 22 H 141/66 H 96 Room Air 2 05/04/23 13:00 05/04/23 13:00 05/04/23 13:00 05/04/23 13:00 05/04/23 13:00 05/04/23 13:00 05/04/23 08:00 FiO2 50 05/03/23 04:24 Oxygen Flow Rate (L/min) 2 Oxygen Delivery Method Room Air Weight: 148 lb 2.41 oz Body Mass Index (BMI) 27.1 Intake & Output: Intake and Output for Last 24 Hours 05/02/23 05/03/23 05/04/23 23:59 23:59 23:59 Intake Total 1023.34 / 1023.34 1162.91 / 1162.91 Output Total 1753 / 2253 1670 / 1670 Balance -729.66 / -1229.66 -507.09 / -507.09 Lab / Micro Data 05/04/23 03:45 05/04/23 03:45 Labs: Laboratory Results - last 24 hr 05/03/23 17:13: POC Glucose 119 H 05/04/23 00:03: POC Glucose 137 H 05/04/23 03:45: WBC 15.5 H, RBC 4.86, Hgb 15.4, Hct 45.7, MCV 94.0, MCH 31.7, MCHC 33.7, RDW Std Deviation 45.2 H, RDW Coeff of Sol 13.1, Plt Count 321, MPV 9.4, Immature Gran % (Auto) 0.500, Neut % (Auto) 84.7 H, Lymph % (Auto) 3.6 L, [place] % (Auto) 9.8, Eos % (Auto) 1.0, Baso % (Auto) 0.4, Absolute Neuts (auto) 13.1 H, Absolute Lymphs (auto) 0.55 L, Nucleated RBC % 0, Differential Comment SCANNED, Diff Path Review Reviewed, Sodium 141, Potassium 4.0, Chloride 113 H, Carbon Dioxide 19.0 L, Anion Gap 9, BUN 23 H, Creatinine 1.19, Estim Creat Clear Calc 36.32, Est GFR (MDRD) Af Amer 75, Est GFR (MDRD) Non-Af 62, BUN/Creatinine Ratio 19.3, Glucose 169 H, Calcium 8.9, Phosphorus 3.1, Magnesium 2.3 05/04/23 05:41: POC Glucose 177 H 05/04/23 11:43: POC Glucose 161 H Radiography Diagnostic Testing: Radiology Impression Brain CT 05/04/23 04:00 IMPRESSION: 1. No intracranial hemorrhage. 2. Patchy subacute-appearing zones of ischemic infarcts in the right anterior-inferior and superior-lateral frontal lobe are newly seen. Involving distal MCA branch distributions. 3. 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 Electronically Signed: Cris Manzanares MD at 6:11 EDT , Brain MRI 05/04/23 06:00 IMPRESSION: Acute right frontal lobe infarctions, corresponding to the CT findings. Chronic involutional and white matter changes. Electronically Signed: Frdia Li MD at 10:35 EDT , Physical Exam Const alert and oriented x3 General Appearance: cooperative HEENT normocephalic, head/scalp atraumatic and external nose normal Eyes EOMs intact bilaterally Neck General: normal visual inspection Resp normal respiratory effort and no retractions Effort and Inspection: able to speak in complete sentences Cardio Rate: regular rate Extremity no clubbing, cyanosis or edema Neuro Neuro Narrative: Left-sided hemiparesis, left sided-facial drooping with associated dysarthria Assessment & Plan Assessment/Plan (1) Stenosis of right internal carotid artery with cerebral infarction: PLAN: After reviewing the MRI results with Dr. Martinez, infarct measured at 4.5x3x2.5 cm so our recommendation would be waiting 4-6 weeks prior to carotid intervention to reduce risk of hemorrhagic conversion. Would recommend continued aggressive medical therapy as able to include ASA, Plavix and statin, in addition to cardiology recommendation of DOAC for his A flutter, and plan for TCAR in 4-6 weeks as an outpatient. However, [facility] telemetry neurology recommended that the intracranial ICA lesion be evaluated by a neurointerventionalist for consideration of endovascular intervention on that lesion and recommended intervention in 8-14 days. Ultimately patient and family did make the decision to transfer to [facility] at this time. Charges/Coding Visit Charges Inpatient E&M: 31218 Subs Hosp L2
--- NOTE | 2023-05-04 16:07 | CHAPLAIN ---
Type of Pastoral Visit ___ Initial Visit _x__ Follow-up Visit ___ On-call Visit ___ General Patient Visit ___ Spiritual Assessment ___ Family Conference ___ Bereavement ___ Rapid Response ___ Code Blue ___ Other (describe below) Pastoral Care Referral From ___ Patient ___ Family _x__ Nurse ___ Physician ___ Hospitality Specialist ___ Video Producer ___ Other (describe below) Sacrament/Intervention _x__ Active listening ___ Anointing ___ Evangelical ___ Bereavement ___ Communion ___ Taty exploration ___ ___ Life review _x__ Prayer ___ Reconciliation ___ Sacrament of Sick _x__ Supportive presence ___ Wedding ___ Other (describe below) Pastoral Comments patient will be transferred to [facility] for more medical attention; pt states at beginning of visit that he was happy to eat today even if it was pureed; pt is able to converse and express himself; pt has things that he sees as good; pt says he is not thinking about much except for going to [place] for the procedure there; pt welcomes presence and prayers
--- NOTE | 2023-05-04 16:14 | PCM.DC.SUM ---
Providers Date of Admission: 05/03/23 Primary Care Physician: Dr. Adithya Krause MD Consultations 05/03/23 03:26 Consult: Cast Associate / Pulmonary Medicine Routine Consulting Provider: Pulmonary Medicine shawn Beauty Reason for Consult: stroke for thrombolytic administration EMERGENT Consult: No Notified: Yes Date Notified: 05/03/23 Time Notified: 03:26 Method of Notification: Text Comments:: Consult may be done in ED or ICU 05/03/23 07:03 Consult: Vascular Surgery Routine Consulting Provider: Magdaleno Martinez Reason for Consult: Stroke and ICA stenosis EMERGENT Consult: No Notified: Yes Date Notified: 05/03/23 Time Notified: 07:03 Method of Notification: Text 05/04/23 07:08 Consult: Cardiology Routine Consulting Provider: Kristy Roe Reason for Consult: surgical clearance for CEA R EMERGENT Consult: No Notified: Yes Date Notified: 05/04/23 Time Notified: 07:35 Method of Notification: Verbal Reason For Visit: ACUTE CEREBROVASACULAR ACCIDENT Diagnosis Discharge Diagnosis (1) New onset atrial flutter: Status: Acute Code(s): I48.92 - Unspecified atrial flutter (2) Acute cerebrovascular accident (CVA): Status: Acute Code(s): I63.9 - Cerebral infarction, unspecified (3) Hypertension: Status: Chronic Code(s): I10 - Essential (primary) hypertension Medications at Discharge Home Medications amlodipine 5 mg tablet 5 mg PO BID hypertension 06/25/16 aspirin 81 mg chewable tablet 81 mg PO DAILY@0800 inflammation 06/25/16 atorvastatin 40 mg tablet 40 mg PO QHS cholesterol 06/25/16 brimonidine 0.1 % eye drops (Alphagan P) 1 drp BID glaucoma 06/25/16 dorzolamide 22.3 mg-timolol 6.8 mg/mL eye drops 1 drp BID glaucoma 06/25/16 metoprolol succinate 25 mg tablet,extended release 24 hr 50 mg PO DAILY hypertension 06/25/16 multivitamin (Daily Multiple tablet) 1 ea PO DAILY multivitamin 06/25/16 nitroglycerin 0.4 mg sublingual tablet 0.4 mg sublingual DAILY PRN Cardiac/Chest Pain 06/25/16 quinapril 40 mg tablet 40 mg PO DAILY hypertension 06/25/16 tacrolimus 0.1 % topical ointment 30 g TP DAILY skin 06/25/16 furosemide 20 mg tablet 20 mg PO DAILY CHF 04/15/17 docusate sodium 100 mg capsule (DOK) 100 mg PO DAILY ##20 10/25/17 hydrocodone-acetaminophen 5-325mg 5mg-325mg 1 - 2 tab PO Q4H PRN PRN Pain 3 days ##12 10/25/17 acetaminophen 325 mg tablet (Tylenol) 650 mg PO PRN pain 05/03/23 dapagliflozin propanediol 10 mg tablet (Farxiga) 10 mg PO DAILY CKD 05/03/23 dulaglutide 0.75 mg/0.5 mL subcutaneous pen injector (Trulicity) 0.75 mg subcut .sat 05/03/23 latanoprost 0.005 % eye drops 1 drp ophthalmic (eye) QHS glaucoma 05/03/23 losartan 50 mg tablet 50 mg PO DAILY hypertension 05/03/23 netarsudil 0.02 %-latanoprost 0.005 % eye drops (Rocklatan) 1 drp ophthalmic (eye) QHS glaucoma 05/03/23 Hospital Course Operations None Procedures 2-D Echocardiogram, EKG and - (CT brain/chest x-ray/CTA head neck/MRI brain/modified barium swallow) Summary of Care Provided Minutes Spent on Discharge: 40 Hospital Course: Mr. Mi is an 83-year-old white male who presented to the emergency department at [facility] early on the morning of 05/03/2023 with left-sided hemiparesis and speech abnormalities. He was last known well at midnight per with his and his reported that about 230 on the morning of presentation he she began hearing him on and found him awake but with slurred speech and the inability to move his left side. EMS was contacted and when they arrived they checked his blood sugar and is 130. They confirmed that he had slurred speech and left-sided hemiparesis and called a stroke team in the field. Vital signs on presentation showed a temperature of 97.9 heart rate was 130 and the patient was noted to be in atrial flutter with RVR, blood pressure was 152/85, respiratory rate was 21 and oxygen saturations were 89% on room air. He was placed on 2 L with follow-up oxygen saturations at 93%. CBC showed a leukocytosis with a white count of 12.7 and a left shift but was otherwise unremarkable. Coags were normal. Chemistry panel demonstrated normal electrolytes and elevated BUN at 36 with a creatinine of 1.82 which appears to be higher than his baseline however we have no recent serum creatinine available and the last one in the computer was from 2019. At that time his serum creatinine was 1.09. Blood glucose was 175. Cholesterol was obtained and his total cholesterol levels 111 with an LDL 40, HDL of 34 and triglyceride level of 187. EKG showed atrial flutter. Chest x-ray showed interval development of minimal patchy airspace disease in the mid lungs and right lower lung. CT of the brain showed no acute intracranial hemorrhage, acute left maxillary sinusitis and minimal age-related atrophy with patchy chronic small vessel ischemic changes. CTA of the head and neck showed near occlusion of the right proximal ICA by noncalcified plaque and possible small ulceration projecting posteriorly from the origin of the right ICA, severe stenosis of both distal vertebral arteries, moderate stenosis of the super cavernous right ICA by calcific plaque and no MCA filling deficit was identified. [facility] stroke team saw the patient and recommended tenecteplase be given it was given at 3:36 AM. He subsequently been admitted to the ICU. His initial NIH was 15 and his repeat NIH was 13. Echocardiogram was performed on 05/03/2023 and showed an EF of 65% with stage III diastolic dysfunction and inferior basal akinesis. He also had moderate pulmonary hypertension. Bubble study was not reported as positive or negative and I did reach out to cardiology to relook at this however at the time of discharge it was still pending read. Follow-up CT scan done 24 hours status post tenecteplase showed patchy subacute appearing zones of ischemic infarct in the right anterior inferior and right superior lateral frontal lobe involving the distal MCA branch distributions and follow-up MRI done confirmed this. With his CTA being positive I consulted vascular surgery. They indicated that vascular invention was required but after reviewing his MRI which was performed on 05/04/2023 they felt that it would be 4 to 6 weeks before they would intervene on this lesion. [facility] neurology was consulted for teleneurology and after evaluation recommended transfer to tertiary center for endovascular evaluation of his complex carotid lesion as she felt delaying his intervention beyond 2 weeks was not desirable and that intervention to take place sooner than later. During his hospital stay he was seen by physical and Occupational Therapy as well as speech therapy. Speech therapy did a modified barium swallow which was performed on 05/04/2023. They reported the diagnosis of moderate oropharyngeal dysphagia and recommended a pur?ed texture with nectar thick liquid diets and felt he was at high risk for postprandial aspiration of residue due to poor pharyngeal clearance and recommended strict adherence to aspiration precautions and close monitoring of pulmonary status with consideration of alternative means for nutrition if he was not able to tolerate the current diet. I did have a conversation with him prior to his modified barium swallow with regards to PEG placement and the patient did say that he would pursue this if needed. He also developed low-grade temperature elevations that were trending up and a leukocytosis during his hospital course. Likely related to aspiration along with chest x-ray findings. We started him on Unasyn. Upon presentation he was found to be in atrial flutter with RVR. Rate was initially controlled with diltiazem but this was discontinued and I transitioned him to metoprolol 5 mg IV push every 6 hours which controlled his heart rate well. He had already been on a beta-karyn prior to presentation of 50 mg daily. Given the recommendations of neurology. [facility] was called for consideration of transfer and the case was reviewed with their neuro endovascular team and. Discharge diagnoses: Right MCA stroke Right carotid artery stenosis Atrial flutter-new Dysphagia Suspected aspiration pneumonia JOE-resolved DM-2 CAD Hypertension Hyperlipidemia Glaucoma History of tobacco abuse Weight / BMI Weight Weight: 67.2 kg Body Mass Index (BMI) 27.1 ABG / Lab / Microbiology Data 05/04/23 03:45 05/04/23 03:45 Laboratory: Laboratory Results - last 24 hr 05/03/23 17:13: POC Glucose 119 H 05/04/23 00:03: POC Glucose 137 H 05/04/23 03:45: WBC 15.5 H, RBC 4.86, Hgb 15.4, Hct 45.7, MCV 94.0, MCH 31.7, MCHC 33.7, RDW Std Deviation 45.2 H, RDW Coeff of Sol 13.1, Plt Count 321, MPV 9.4, Immature Gran % (Auto) 0.500, Neut % (Auto) 84.7 H, Lymph % (Auto) 3.6 L, [place] % (Auto) 9.8, Eos % (Auto) 1.0, Baso % (Auto) 0.4, Absolute Neuts (auto) 13.1 H, Absolute Lymphs (auto) 0.55 L, Nucleated RBC % 0, Differential Comment SCANNED, Diff Path Review Reviewed, Sodium 141, Potassium 4.0, Chloride 113 H, Carbon Dioxide 19.0 L, Anion Gap 9, BUN 23 H, Creatinine 1.19, Estim Creat Clear Calc 36.32, Est GFR (MDRD) Af Amer 75, Est GFR (MDRD) Non-Af 62, BUN/Creatinine Ratio 19.3, Glucose 169 H, Calcium 8.9, Phosphorus 3.1, Magnesium 2.3 05/04/23 05:41: POC Glucose 177 H 05/04/23 11:43: POC Glucose 161 H Radiography Diagnostic Testing: Radiology Impression Brain CT 05/04/23 04:00 IMPRESSION: 1. No intracranial hemorrhage. 2. Patchy subacute-appearing zones of ischemic infarcts in the right anterior-inferior and superior-lateral frontal lobe are newly seen. Involving distal MCA branch distributions. 3. 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 Electronically Signed: Cris Manzanares MD at 6:11 EDT , Brain MRI 05/04/23 06:00 IMPRESSION: Acute right frontal lobe infarctions, corresponding to the CT findings. Chronic involutional and white matter changes. Electronically Signed: Frida Li MD at 10:35 EDT , Discharge Plan Admission Admit Date/Time: 05/03/23 04:20 Primary Reason for Your Visit: Left-sided hemiparesis/facial droop/speech abnormalities Attending Provider: Dana Lofton Primary Care Provider: Adithya Krause Consulting Providers: Donnie Major; Juan Boswell; Efe Garcia; Rolly Hawkins; Zac Reyes; Clarissa Barriga NP; Magdaleno Martinez; Kristy Roe Discharge Orders/Prescriptions Prescriptions: No Action multivitamin [Daily Multiple] 1 EACH tablet 1 ea PO DAILY atorvastatin 40 MG tablet 40 mg PO QHS amlodipine 5 MG tablet 5 mg PO BID quinapril 40 MG tablet 40 mg PO DAILY Patient Comments: tacrolimus 30 GM ointment 30 g TP DAILY nitroglycerin 0.4 MG tablet 0.4 mg sublingual DAILY PRN (Reason: Cardiac/Chest Pain) aspirin 81 MG tablet,chewable 81 mg PO DAILY@0800 dorzolamide-timolol 1 DROP bottle 1 drp Each Eye BID Patient Comments: metoprolol succinate 25 MG tablet extended release 24 hr 50 mg PO DAILY Alphagan P 15 ML drops 1 drp Each Eye BID furosemide 20 MG tablet 20 mg PO DAILY Patient Comments: hydrocodone-acetaminophen 1 TABLET tablet 1 - 2 tab PO Q4H PRN PRN (Reason: Pain) 3 Days Qty: 12 0RF docusate sodium [DOK] 100 MG capsule 100 mg PO DAILY Qty: 20 0RF Trulicity 0.75 mg/0.5 mL pen injector 0.75 mg SUBCUT .sat latanoprost 0.005 % drops 1 drp ophthalmic (eye) QHS Rocklatan 0.02-0.005 % drops 1 drp ophthalmic (eye) QHS Patient Comments: 1 drop into both eyes at bedtime Farxiga 10 mg tablet 10 mg PO DAILY losartan 50 mg tablet 50 mg PO DAILY acetaminophen [Tylenol] 325 MG tablet 650 mg PO PRN Referrals / Follow Up: Adithya Krause MD [Primary Care Provider] - Disposition Disposition (needs filled in before D/C Order can be placed): [facility]
[2023-05-04 18:07] LABS: Bedside Glucose 199 mg/dL (74-106)
[2023-05-04 21:42] LABS: Hematocrit 45.1 % (40-54); Hemoglobin 14.7 g/dL (13.0-16.5)
[2023-05-04 21:48] LABS: Bedside Glucose 156 mg/dL (74-106)
[2023-05-05] VITALS (16 sets, daily range): BP systolic 135–169; BP diastolic 53–100; PULSE 80–152; RESP 18–26; TEMP 36.8–37.7; O2SAT 93–98; BMI 27.1; BMI 26.8
[2023-05-05] MEDS: Metoprolol Tartrate 5 MG/5 ML Vial IV ×4 (00:57→17:55)
[2023-05-05 06:35] LABS: Absolute Lymphocyte Count 0.52 X10^3/uL (0.83-4.51); Absolute Neutrophil Count 11.9 X10^3/uL (2.0-7.7); Basophil# 0.07 X10^3/uL; Basophil% 0.5 % (0-1); Eosinophil# 0.25 X10^3/uL; Eosinophils% 1.7 % (0-5); Hematocrit 46.2 % (40-54); Hemoglobin 15.1 g/dL (13.0-16.5); Lymphocyte # 0.52 X10^3/ul (0.83-4.51); Lymphocyte % 3.5 % (19-41); Mean Corp Hgb Conc 32.7 g/dL (32-36); Mean Corpuscular Hgb 31.1 pg (27.0-32.0); Mean Corpuscular Volume 95.1 fL (80-94); Mean Platelet Vol. 9.5 fl (6.2-12.0); Monocyte# 2.03 X10^3/uL; Monocyte% 13.7 % (0-10); NRBC Flagged by Analyzer 0 % (0-5); Neutrophil # 11.85 X10^3/uL (2.7-7.7); Neutrophil % 80.2 % (47-70); POSITIVE DIFFERENTIAL YES; Platelet Count 253 K/mm3 (150-450); RBC Distribution Width CV 13.2 % (11.6-14.6); Red Blood Count 4.86 M/mm3 (4.6-6.2); White Blood Count 14.8 K/mm3 (4.4-11.0)
[2023-05-05 06:37] LABS: Differential Indicated SCAN CRITERIA MET
[2023-05-05 07:04] LABS: Differential Comment SCANNED
[2023-05-05 07:24] LABS: Anion Gap 9 (5-15); BUN 22 mg/dL (7-18); BUN/Creat Ratio 22.7 RATIO (10-20); Calcium,Total 8.8 mg/dL (8.5-10.1); Chloride 113 mmol/L (98-107); Creatinine, Serum 0.97 mg/dL (0.70-1.30); EST Glomerular Filtration Rate 79 mL/min (>60); Est Glom Filt Rate - Afr Amer 95 mL/min (>60); Estimated Creatinine Clearance 44.56 ml/min; Glucose 143 mg/dL (74-106); Potassium 3.8 mmol/L (3.5-5.1); Sodium Level 142 mmol/L (136-145)
[2023-05-05] MEDS: Clopidogrel Bisulfate 75 MG Tablet PO (08:52)
[2023-05-05] MEDS: Empagliflozin 25 MG Tablet PO (08:52)
[2023-05-05] MEDS: BRIMONIDINE 0.2% 5ML BOTTLE 1 DRP EACH EYE ×2 (08:52→19:38)
[2023-05-05] MEDS: Enoxaparin 40 MG/0.4 ML Syringe SC (08:52)
[2023-05-05] MEDS: Dorzolamide HCL/Timolol 10 ml Bottle 1 DRP EACH EYE ×2 (08:52→19:43)
--- NOTE | 2023-05-05 09:38 | PCM.PN.HOSP ---
Reason for Visit Reason for Visit: Diagnoses Elevated white blood cell count, unspecified (05/03/23) Type 2 diabetes mellitus without complications (05/03/23) Essential (primary) hypertension (05/03/23) Unspecified atrial flutter (05/03/23) Cerebral infarction, unspecified (05/03/23) Occlusion and stenosis of unspecified carotid artery (05/03/23) Dysphagia, unspecified (05/03/23) Other specified abnormal findings of blood chemistry (05/03/23) Subjective Subjective Follow-up for a stroke. After tenecteplase Objective Data Objective Data Vital Signs: Vital Signs Temp Pulse Resp BP Pulse Ox O2 Del Method O2 Flow Rate 98.6 F 117 H 21 H 167/53 H 94 Room Air 2 05/05/23 05:11 05/05/23 05:48 05/05/23 05:11 05/05/23 05:48 05/05/23 05:11 05/05/23 05:11 05/04/23 08:00 FiO2 50 05/03/23 04:24 Oxygen Flow Rate (L/min) 2 Oxygen Delivery Method Room Air Weight: 146 lb 13.246 oz Body Mass Index (BMI) 26.8 Intake & Output: Intake and Output for Last 24 Hours 05/03/23 05/04/23 05/05/23 23:59 23:59 23:59 Intake Total 1023.34 / 1023.34 2384.41 / 2444.41 172 / 172 Output Total 1753 / 2253 1795 / 2055 610 / 610 Balance -729.66 / -1229.66 589.41 / 389.41 -438 / -438 Lab / Micro Data 05/05/23 06:30 05/05/23 06:30 Labs: Laboratory Results - last 24 hr 05/04/23 03:45: Diff Path Review Reviewed 05/04/23 11:43: POC Glucose 161 H 05/04/23 17:39: POC Glucose 199 H 05/04/23 21:02: POC Glucose 156 H 05/04/23 21:25: Hgb 14.7, Hct 45.1 05/05/23 06:30: WBC 14.8 H, RBC 4.86, Hgb 15.1, Hct 46.2, MCV 95.1 H, MCH 31.1, MCHC 32.7, RDW Std Deviation 46.0 H, RDW Coeff of Sol 13.2, Plt Count 253, MPV 9.5, Immature Gran % (Auto) 0.400, Neut % (Auto) 80.2 H, Lymph % (Auto) 3.5 L, [place] % (Auto) 13.7 H, Eos % (Auto) 1.7, Baso % (Auto) 0.5, Absolute Neuts (auto) 11.9 H, Absolute Lymphs (auto) 0.52 L, Nucleated RBC % 0, Differential Comment SCANNED, Diff Path Review January foll, Sodium 142, Potassium 3.8, Chloride 113 H, Carbon Dioxide 20.0 L, Anion Gap 9, BUN 22 H, Creatinine 0.97, Estim Creat Clear Calc 44.56, Est GFR (MDRD) Af Amer 95, Est GFR (MDRD) Non-Af 79, BUN/Creatinine Ratio 22.7 H, Glucose 143 H, Calcium 8.8 Radiography Diagnostic Testing: Radiology Impression Brain MRI 05/04/23 06:00 IMPRESSION: Acute right frontal lobe infarctions, corresponding to the CT findings. Chronic involutional and white matter changes. Electronically Signed: Frida Li MD at 10:35 EDT Reading Location ID and State: [facility] / ID Tel , Service support , Physical Exam Narrative Seen and examined. Patient speech is still garbled but his speech is slightly improved since admission. General: Alert, Oriented x3, Cooperative HEENT: Atraumatic, PERRLA, EOMI, Normocephalic Oral: No Gingival or Mucosal Lesions/ Ulcerations Neck: Supple, No JVD, Negative Carotid Bruits Lungs: Air entry diminished in bilateral lung bases. No crepitation/rhonchi Cardiovascular: Regular rate, Regular Rhythm, Normal S1, Normal S2, No murmurs Abdomen: Bowel Sounds Present, Soft, Non Tender, Non-Distended : No renal angle tenderness. No suprapubic tenderness. Extremities: No edema, Capillary Refill Less than 3 Seconds Skin: No rashes, No breakdown Musculoskeletal: Left-sided hemiparesis. No acute tenderness. Neurological: History of paralysis. Patient has problem in vocabulary and making sense and speech output therefore mixed Psych/Mental Status: Flat affect. Const alert, oriented x3, no apparent distress, average body habitus and well nourished; Negative for healthy appearing Constitutional Narrative: Elderly, white male, sitting up in bed, patient appears comfortable and nontoxic, continues to neglect left side General Appearance: cooperative Orientation / Consciousness: confused HEENT normocephalic, head/scalp atraumatic and moist oral mucous membranes Eyes PERRL and EOMs intact bilaterally Neck no lymphadenopathy Lymph Lymphatic: no lymphadenopathy noted Resp normal respiratory effort, normal air movement, no retractions, no use of accessory muscles and clear to auscultation bilaterally Resp Narrative: Diffusely diminished but clear Auscultation: Negative for rales, rhonchi or wheezes GI normal to inspection, nondistended, normoactive bowel sounds, soft to palpation and non-tender Extremity no clubbing, cyanosis or edema Extremity Narrative: Pedal pulse is are 2+ Skin General Skin Exam: no breakdown Neuro oriented x3, No CN's II-XII intact bilaterally, No moves all extremities, No no focal motor deficits and No no sensory deficits noted Neuro Narrative: Patient still with left facial droop and sensory deficits left side of face, decreased sensation left upper and lower extremity, fairly dense left-sided hemiparesis with some volitional movement of his lower extremity on command but none of his left upper extremity, left-sided neglect, does seem to be moving his left leg a little bit better but no significant movement in his left upper extremity, some mild drooling from left side of face, speech remains somewhat garbled but intelligible Speech: Negative for speech normal Psych cooperative Psych Narrative: Affect is flat and mood seems somewhat depressed which is appropriate for the condition Mood & Affect: anxious Assessment & Plan Assessment/Plan (1) New onset atrial flutter: (2) Acute cerebrovascular accident (CVA): (3) Hypertension: PLAN: Plan Suspected right MCA stroke -Patient with sensory changes, dense hemiparesis, and speech abnormalities on the left -Status post tenecteplase at 3:36 AM on 05/03/2023 -Initial NIH was 15 and patient has been fairly stable with an NIH of 13 since then -CT done this morning was negative for any hemorrhagic transformation -Plavix 75 mg daily started -Aspirin rectally 300 and will transition to 81 mg once we can dose enterally -MRI performed and demonstrates acute right frontal lobe infarctions in the right frontal lobe anteriorly and right frontal lobe posteriorly -Echocardiogram shows EF of 65% with stage III diastolic dysfunction, inferior basilar akinesis, moderate pulmonary hypertension and mild to moderate mitral valve stenosis -Bubble study was not reported and I have asked cardiology to relook at this for results -N.p.o. until cleared by speech therapy -Vascular surgery has been consulted and will need to review the MRI to ascertain timing for surgery -Allow for permissive hypertension for another 24 hours and will start lowering pressure more tomorrow to goal range of less than 130/80 -PT/OT should evaluate the patient today as now he is no longer on bedrest -Anticipate patient will likely need discharge to rehab versus skilled facility depending on progress -social work and case management following -Neurology consultation for follow-up: Patient has atrial flutter/fibrillation. Pending transfer to [facility]. 05/05: Patient is still has high NIH 13. The patient is awaiting for transfer to [facility] pending bed availability Right carotid artery stenosis -CTA with severe almost complete occlusion with ulceration noted -Vascular surgery is following -Timing on carotid endarterectomy will depend on severity of stroke so will need to await MRI review by vascular surgery -Start atorvastatin as soon as we can give enteral medication -Plavix and aspirin initiated and will start as soon as we can give enteral medication -Rectal aspirin given today -Cardiology consultation for surgical clearance Atrial flutter -TSH was in within normal limits -Hold on anticoagulation as patient got tenecteplase and then anticoagulation will depend on size of stroke -We will await neuro recommendations for initiation of anticoagulation after further imaging -Echocardiogram as above -Continue metoprolol 5 mg IV every 6 hours and when enteral routes are available we will start metoprolol 50 mg twice daily Hypoxia -Resolved Dysphagia -Speech therapy following -MBS pending for today -May need PEG and patient is agreeable if needed -Continue IV fluids for now JOE -1.82 on presentation and improved to 1.19 -Baseline serum creatinine appears that it is less than 1.2 and therefore patient meets criteria for JOE on presentation -In 2019 at the last time we have lab his serum creatinine was 1.09 -Suspect there may be a component of JOE however uncertain and will continue to monitor renal function -Avoid nephrotoxins -Continue to hold home Lasix DM-2 -Hold home Trulicity -Patient is well controlled diabetic and hemoglobin A1c was found to be 6.8 -SSI every 6 hours for now and transition to mealtime once he passes for p.o. diet -Accu-Cheks as ordered CAD/HTN/HPL -Medications are yet to be verified however we will hold antihypertensive for now and allow for permissive hypertension as able in conjunction with treatment for his A-fib/flutter -Patient has had statin intolerance previously but given acute stroke we will start atorvastatin 40 daily for now and monitor for tolerance -Aspirin started -Previous CABG and stent placement -Home Lasix on hold Glaucoma -Continue home eyedrop History of tobacco abuse -Remote -Encouraged ongoing cessation DVT prophylaxis -Start Lovenox 40 mg CODE STATUS -Full code Charges/Coding Visit Charges Inpatient E&M: 50581 Subs Hosp L2
[2023-05-05] MEDS: Insulin Lispro 100 UNIT/ML INSULN.PEN SC (11:25)
[2023-05-05] MEDS: 0.9% Saline Lock 10 ML Syringe IV ×2 (11:26→17:56)
[2023-05-05 11:46] LABS: Bedside Glucose 207 mg/dL (74-106)
[2023-05-05 14:37] LABS: Pathologist Review Reviewed
[2023-05-05 17:43] LABS: Bedside Glucose 136 mg/dL (74-106)
--- NOTE | 2023-05-05 19:22 | NURSING ---
received room @[facility] informed of room # & pick-up time 0f 2100, voiced understanding of information
[2023-05-05] MEDS: Sodium Chloride 0.65% 1 SPRAY SPRAY.BTL 2 SPRAY NASAL (19:38)
[2023-05-05 21:16] LABS: Bedside Glucose 148 mg/dL (74-106)
--- NOTE | 2023-05-06 07:35 | DS.PCM_ITS ---
Providers Date of Admission: 05/03/23 Date of Discharge: 05/05/23 Primary Care Physician: Dr. Adithya Krause MD Consultations 05/03/23 03:26 Consult: Neurology Physician / Pulmonary Medicine Routine Consulting Provider: Pulmonary Medicine shawn [place] Reason for Consult: stroke for thrombolytic administration EMERGENT Consult: No MD Notified: Yes Date Notified: 05/03/23 Time Notified: 03:26 Method of Notification: Text Comments:: Consult may be done in ED or ICU 05/03/23 07:03 Consult: Vascular Surgery Routine Consulting Provider: Magdaleno Martinez Reason for Consult: Stroke and ICA stenosis EMERGENT Consult: No Notified: Yes Date Notified: 05/03/23 Time Notified: 07:03 Method of Notification: Text 05/04/23 07:08 Consult: Cardiology Routine Consulting Provider: Kristy Roe Reason for Consult: surgical clearance for CEA R EMERGENT Consult: No MD Notified: Yes Date Notified: 05/04/23 Time Notified: 07:35 Method of Notification: Verbal Reason For Visit: ACUTE CEREBROVASACULAR ACCIDENT Diagnosis Discharge Diagnosis (1) New onset atrial flutter: Status: Acute Code(s): I48.92 - Unspecified atrial flutter (2) Acute cerebrovascular accident (CVA): Status: Acute Code(s): I63.9 - Cerebral infarction, unspecified (3) Hypertension: Status: Chronic Code(s): I10 - Essential (primary) hypertension Plan Suspected right MCA stroke -Patient with sensory changes, dense hemiparesis, and speech abnormalities on the left -Status post tenecteplase at 3:36 AM on 05/03/2023 -Initial NIH was 15 and patient has been fairly stable with an NIH of 13 since then -CT done this morning was negative for any hemorrhagic transformation -Plavix 75 mg daily started -Aspirin rectally 300 and will transition to 81 mg once we can dose enterally -MRI performed and demonstrates acute right frontal lobe infarctions in the right frontal lobe anteriorly and right frontal lobe posteriorly -Echocardiogram shows EF of 65% with stage III diastolic dysfunction, inferior basilar akinesis, moderate pulmonary hypertension and mild to moderate mitral valve stenosis -Bubble study was not reported and I have asked cardiology to relook at this for results -N.p.o. until cleared by speech therapy -Vascular surgery has been consulted and will need to review the MRI to ascertain timing for surgery -Allow for permissive hypertension for another 24 hours and will start lowering pressure more tomorrow to goal range of less than 130/80 -PT/OT should evaluate the patient today as now he is no longer on bedrest -Anticipate patient will likely need discharge to rehab versus skilled facility depending on progress -social work and case management following -Neurology consultation for follow-up: Patient has atrial flutter/fibrillation. Pending transfer to [facility]. 05/05: Patient is still has high NIH 13. The patient is awaiting for transfer to [facility] and patient care transferred about 9 PM. Right carotid artery stenosis -CTA with severe almost complete occlusion with ulceration noted Vascular surgery was consulted.Timing on carotid endarterectomy will depend on severity of stroke so will need to await MRI review by vascular surgery in [facility] -Start atorvastatin as soon as we can give enteral medication -Plavix and aspirin initiated and will start as soon as we can give enteral medication -Rectal aspirin given today -Cardiology consultation for surgical clearance Atrial flutter -TSH was in within normal limits -Hold on anticoagulation as patient got tenecteplase and then anticoagulation will depend on size of stroke -We will await neuro recommendations for initiation of anticoagulation after further imaging -Echocardiogram as above -Continue metoprolol 5 mg IV every 6 hours and when enteral routes are available we will start metoprolol 50 mg twice daily Hypoxia -Resolved Dysphagia -Speech therapy following -MBS pending for today -May need PEG and patient is agreeable if needed -Continue IV fluids for now JOE -1.82 on presentation and improved to 1.19 -Baseline serum creatinine appears that it is less than 1.2 and therefore patient meets criteria for JOE on presentation -In 2019 at the last time we have lab his serum creatinine was 1.09 -Suspect there may be a component of JOE however uncertain and will continue to monitor renal function -Avoid nephrotoxins -Continue to hold home Lasix DM-2 -Hold home Trulicity -Patient is well controlled diabetic and hemoglobin A1c was found to be 6.8 -SSI every 6 hours for now and transition to mealtime once he passes for p.o. diet -Accu-Cheks as ordered CAD/HTN/HPL -Medications are yet to be verified however we will hold antihypertensive for now and allow for permissive hypertension as able in conjunction with treatment for his A-fib/flutter -Patient has had statin intolerance previously but given acute stroke we will start atorvastatin 40 daily for now and monitor for tolerance -Aspirin started -Previous CABG and stent placement -Home Lasix on hold Glaucoma -Continue home eyedrop History of tobacco abuse -Remote -Encouraged ongoing cessation DVT prophylaxis -Start Lovenox 40 mg CODE STATUS -Full code Patient is being transferred to tertiary care for ICU level of care, [facility] Total time spent, exact 35 minutes on discharge meds reconciliation, examination, coordination of care with nurses and ancillary staff, review of imaging and blood test and discussion with the patient on follow-up instructions. Medications at Discharge Home Medications amlodipine 5 mg tablet 5 mg PO BID hypertension 06/25/16 aspirin 81 mg chewable tablet 81 mg PO DAILY@0800 inflammation 06/25/16 atorvastatin 40 mg tablet 40 mg PO QHS cholesterol 06/25/16 brimonidine 0.1 % eye drops (Alphagan P) 1 drp BID glaucoma 06/25/16 dorzolamide 22.3 mg-timolol 6.8 mg/mL eye drops 1 drp BID glaucoma 06/25/16 metoprolol succinate 25 mg tablet,extended release 24 hr 50 mg PO DAILY hypertension 06/25/16 multivitamin (Daily Multiple tablet) 1 ea PO DAILY multivitamin 06/25/16 nitroglycerin 0.4 mg sublingual tablet 0.4 mg sublingual DAILY PRN Cardiac/Chest Pain 06/25/16 quinapril 40 mg tablet 40 mg PO DAILY hypertension 06/25/16 tacrolimus 0.1 % topical ointment 30 g TP DAILY skin 06/25/16 furosemide 20 mg tablet 20 mg PO DAILY CHF 04/15/17 docusate sodium 100 mg capsule (DOK) 100 mg PO DAILY ##20 10/25/17 hydrocodone-acetaminophen 5-325mg 5mg-325mg 1 - 2 tab PO Q4H PRN PRN Pain 3 days ##12 10/25/17 acetaminophen 325 mg tablet (Tylenol) 650 mg PO PRN pain 05/03/23 dapagliflozin propanediol 10 mg tablet (Farxiga) 10 mg PO DAILY CKD 05/03/23 dulaglutide 0.75 mg/0.5 mL subcutaneous pen injector (Trulicity) 0.75 mg subcut .sat 05/03/23 latanoprost 0.005 % eye drops 1 drp ophthalmic (eye) QHS glaucoma 05/03/23 losartan 50 mg tablet 50 mg PO DAILY hypertension 05/03/23 netarsudil 0.02 %-latanoprost 0.005 % eye drops (Rocklatan) 1 drp ophthalmic (eye) [facility] glaucoma 05/03/23 Physical Exam Narrative Please see progress note of the same date. Weight / BMI Weight Weight: 146 lb 13.246 oz Body Mass Index (BMI) 26.8 ABG / Lab / Microbiology Data 05/05/23 06:30 05/05/23 06:30 Laboratory: Laboratory Results - last 24 hr 05/05/23 06:30: Diff Path Review Reviewed 05/05/23 17:19: POC Glucose 136 H 05/05/23 20:47: POC Glucose 148 H Meaningful Use Info Meaningful Use Diagnoses (Choose all that apply): None applicable Discharge Plan Admission Admit Date/Time: 05/03/23 04:20 Primary Reason for Your Visit: Left-sided hemiparesis/facial droop/speech abnormalities Attending Provider: Saurabh Castillo Primary Care Provider: Adithya Krause Consulting Providers: Donnie Major; Juan Boswell; Efe Garcia; Rolly Hawkins; Zac Reyes; Clarissa Barriga NP; Magdaleno Martinez; Kristy Roe; Dana Lofton Discharge Orders/Prescriptions Prescriptions: No Action multivitamin [Daily Multiple] 1 EACH tablet 1 ea PO DAILY atorvastatin 40 MG tablet 40 mg PO QHS amlodipine 5 MG tablet 5 mg PO BID quinapril 40 MG tablet 40 mg PO DAILY Patient Comments: tacrolimus 30 GM ointment 30 g TP DAILY nitroglycerin 0.4 MG tablet 0.4 mg sublingual DAILY PRN (Reason: Cardiac/Chest Pain) aspirin 81 MG tablet,chewable 81 mg PO DAILY@0800 dorzolamide-timolol 1 DROP bottle 1 drp Each Eye BID Patient Comments: metoprolol succinate 25 MG tablet extended release 24 hr 50 mg PO DAILY Alphagan P 15 ML drops 1 drp Each Eye BID furosemide 20 MG tablet 20 mg PO DAILY Patient Comments: hydrocodone-acetaminophen 1 TABLET tablet 1 - 2 tab PO Q4H PRN PRN (Reason: Pain) 3 Days Qty: 12 0RF docusate sodium [DOK] 100 MG capsule 100 mg PO DAILY Qty: 20 0RF Trulicity 0.75 mg/0.5 mL pen injector 0.75 mg SUBCUT .sat latanoprost 0.005 % drops 1 drp ophthalmic (eye) QHS Rocklatan 0.02-0.005 % drops 1 drp ophthalmic (eye) QHS Patient Comments: 1 drop into both eyes at bedtime Farxiga 10 mg tablet 10 mg PO DAILY losartan 50 mg tablet 50 mg PO DAILY acetaminophen [Tylenol] 325 MG tablet 650 mg PO PRN Referrals / Follow Up: Adithya Krause MD [Primary Care Provider] - Disposition Disposition (needs filled in before D/C Order can be placed): Acute Care Hospital Charges/Coding Addendum Addendum: Please cancel the billing to the progress of the same date. Visit Charges Inpatient E&M: [id number] Disch Hosp >30min
== END 2023-05-05 20:45 | disposition short-term general hospital (02) | DRG 62 ==
LOC: ED 04:16 → ICU 04:28
PROVIDERS: Hospitalist; Internal Medicine; Admitting Provider Family Medicine; Emergency Provider Emergency Medicine; PCP Family Medicine; Visit Provider Internal Medicine
DX: I63.231 Cerebral infarction due to unspecified occlusion or stenosis of right carotid arteries (principal); G81.94 Hemiplegia, unspecified affecting left nondominant side; I48.92 Unspecified atrial flutter; I13.0 Hypertensive heart and chronic kidney disease with heart failure and stage 1 through stage 4 chronic kidney disease, or unspecified chronic kidney disease; I50.32 Chronic diastolic (congestive) heart failure; I27.20 Pulmonary hypertension, unspecified; E11.22 Type 2 diabetes mellitus with diabetic chronic kidney disease; E11.39 Type 2 diabetes mellitus with other diabetic ophthalmic complication; I48.91 Unspecified atrial fibrillation; E11.40 Type 2 diabetes mellitus with diabetic neuropathy, unspecified; N18.9 Chronic kidney disease, unspecified; I05.0 Rheumatic mitral stenosis; I67.2 Cerebral atherosclerosis; E78.5 Hyperlipidemia, unspecified; I25.10 Atherosclerotic heart disease of native coronary artery without angina pectoris; Z87.891 Personal history of nicotine dependence; Z79.82 Long term (current) use of aspirin; R09.02 Hypoxemia; H40.9 Unspecified glaucoma; R13.10 Dysphagia, unspecified; R29.713 NIHSS score 13; Z79.02 Long term (current) use of antithrombotics/antiplatelets; Z95.5 Presence of coronary angioplasty implant and graft; Z95.2 Presence of prosthetic heart valve
CPT/HCPCS: 51702; 70450; 70496; 70498; 70551; 71045; 74230; 80048; 80061; 82962; 83036; 83735; 84100; 84443; 84484; 85014; 85018; 85025; 85610; 85730; 92523; 92526; 92610; 92611; 93005; 93306; 97110; 97112; 97163; 97167; 97530; 97802; 99285; J3101; J7030; Q9957; A4216; C8929; J0295; J1940

== ENCOUNTER 2023-05-20 15:40 | Inpatient (IN) | payer MEDICARE, OTHER, SELFPAY ==
[2023-05-20 16:22] VITALS: BP 127/82; PULSE 69; RESP 15; TEMP 36.4; O2SAT 96; BMI 25.4
[2023-05-20 18:00] LABS: Bedside Glucose 86 mg/dL (74-106)
[2023-05-20] MEDS: Jevity 1.5 1,000 ML 15 ML GT (19:23)
[2023-05-20 20:20] VITALS: BP 128/51; PULSE 70; RESP 18; TEMP 36.8; O2SAT 99
[2023-05-20 21:42] VITALS: PULSE 72; RESP 12; RESP 16; O2SAT 100
[2023-05-21] VITALS (11 sets, daily range): BP systolic 117–141; BP diastolic 51–99; PULSE 70–75; RESP 16–18; TEMP 36.4–36.7; O2SAT 93–100; BMI 25.4; BMI 25.0
[2023-05-21] MEDS: Dorzolamide HCL/Timolol 10 ml Bottle 1 DRP OPHTHALMIC ×3 (00:05→22:52)
[2023-05-21] MEDS: Ipratropium Bromide 0.06% NASAL SPRAY 2 SPRAY NASAL ×4 (00:09→22:46)
[2023-05-21] MEDS: Senna/Docusate Sodium 1 Tablet 2 TABLET GT ×2 (00:13→08:50)
[2023-05-21] MEDS: Metoprolol Tartrate 50 MG Tablet GT ×5 (00:13→22:34)
[2023-05-21] MEDS: Atorvastatin Calcium 40 MG Tablet GT ×2 (00:14→22:35)
[2023-05-21] MEDS: NYSTATIN 500,000 UNIT/5 ML UDC 500000 UNIT PO ×3 (00:15→13:05)
--- NOTE | 2023-05-21 01:33 | CPS ---
[0127] Pt. was repeatedly taking off his BiPAP per RN. Pt. placed on 2L NC to ensure proper oxygenation. Continuous pulse oximetry still on pt. due to periods of apnea while asleep.
[2023-05-21 05:16] LABS: Bedside Glucose 115 mg/dL (74-106)
[2023-05-21 05:58] LABS: Hematocrit 35.4 % (40-54); Hemoglobin 11.3 g/dL (13.0-16.5); Mean Corp Hgb Conc 31.9 g/dL (32-36); Mean Corpuscular Hgb 31.1 pg (27.0-32.0); Mean Corpuscular Volume 97.5 fL (80-94); Mean Platelet Vol. 10.8 fl (6.2-12.0); Platelet Count 267 K/mm3 (150-450); RBC Distribution Width CV 13.5 % (11.6-14.6); RBC Distribution Width SD 47.9 fl (35.1-43.9); Red Blood Count 3.63 M/mm3 (4.6-6.2); White Blood Count 7.5 K/mm3 (4.4-11.0)
[2023-05-21 06:26] LABS: ALB/GLOB Ratio 0.7 RATIO (0.9-2.4); AST(SGOT) 22 U/L (15-37); Alanine Aminotransfer ALT/SGPT 17 U/L (16-61); Albumin, Serum 2.1 g/dL (3.2-5.0); Alkaline Phosphatase 101 U/L (45-117); Anion Gap 5 (5-15); BUN 25 mg/dL (7-18); BUN/Creat Ratio 25.4 RATIO (10-20); Calcium,Total 8.3 mg/dL (8.5-10.1); Chloride 115 mmol/L (98-107); Creatinine, Serum 0.98 mg/dL (0.70-1.30); EST Glomerular Filtration Rate 77 mL/min (>60); Est Glom Filt Rate - Afr Amer 94 mL/min (>60); Estimated Creatinine Clearance 44.11 ml/min; Globulin 3.1 g/dL (2.2-4.2); Glucose 152 mg/dL (74-106); Magnesium 2.2 mg/dL (1.6-2.6); Phosphorus 3.2 mg/dL (2.5-4.9); Potassium 3.4 mmol/L (3.5-5.1); Protein, Total 5.2 g/dL (6.4-8.2); Sodium Level 145 mmol/L (136-145)
[2023-05-21 06:48] LABS: Bedside Glucose 153 mg/dL (74-106)
[2023-05-21] MEDS: Aspirin 81 MG TAB.CHEW GT (08:50)
[2023-05-21] MEDS: Clopidogrel Bisulfate 75 MG Tablet GT (08:50)
[2023-05-21] MEDS: Losartan Potassium 50 MG Tablet GT (08:50)
[2023-05-21] MEDS: Furosemide 20 MG Tablet GT (08:51)
[2023-05-21] MEDS: Insulin Lispro 100 UNIT/ML INSULN.PEN SC ×3 (08:51→17:26)
[2023-05-21] MEDS: Empagliflozin 25 MG Tablet GT (08:51)
[2023-05-21 09:21] LABS: Bedside Glucose 184 mg/dL (74-106)
[2023-05-21 12:14] LABS: Bedside Glucose 194 mg/dL (74-106)
--- NOTE | 2023-05-21 12:24 | EX.PCM.HP.RE ---
[facility] - General General Date of Admission: 05/20/23 Date of Service: 05/21/23 Chief Complaint: Post stroke debility. HPI Narrative SALAS AMARO, is a 83 YO M with a PMH of diabetes mellitus type 2, coronary artery disease, hypertension, hyperlipidemia, glaucoma, remote tobacco dependence and mitral valve repair in 1995 who presented to the emergency department at [facility] on 05/03/2023 complaining of slurred speech and inability to move his left side. Stat CT brain without contrast showed no evidence of hemorrhage. See TA of the head and neck showed near occlusion of the proximal right ICA by noncalcified plaque. There was a possible small ulceration projecting posteriorly from the origin of the right ICA. There was severe stenosis of both distal vertebral arteries and moderate stenosis of the supra cavernous right internal carotid artery. There were no MCA filling defects. Pt was noted to be in AF in the ED and was placed on a Cardizem drip. Consult was obtained with teleneurology and tenecteplase was recommended. The patient and his were agreeable and he was given TNK in the emergency department. He was admitted to the intensive care unit on the hospitalist service. An echocardiogram showed an ejection fraction of 65% with stage III diastolic dysfunction and a wall motion abnormality in the inferobasal area. The atria were of normal size and the bubble contrast study was negative. There was mild to moderate mitral stenosis and mild TR. The right ventricular systolic pressure was estimated at 59 which is consistent with moderate pulmonary hypertension. Vascular surgery was consulted regarding severe stenosis of the right ICA. Follow-up CT scan 24 hours following TNK showed no hemorrhagic transformation. MRI on 05/04/2023 showed acute frontal lobe infarctions with chronic involutional and white matter changes. He was having quite a bit of difficulty swallowing and a MBS was done and showed moderate oropharyngeal dysphagia. He was placed on a pur?ed diet with nectar thick liquids. On 05/04 he had a fever and was started on Unasyn empirically for suspected aspiration. Given the size of the infarct in the right frontal lobe vascular surgery recommended waiting 4 to 6 weeks for carotid intervention to reduce risk of hemorrhagic conversion. Consult was obtained with [facility] teleneurology and they recommended transfer to [facility] to be evaluated by a neuro interventionalist for consideration of endovascular intervention, possibly in 8 to 14 days. He was transferred [facility] on 05/05/2023. When he arrived at [facility] he had episodes of rapid ventricular response and cardiology was consulted. He was placed on metoprolol 50 mg every 6 hours. On [address] brain which showed concern for developing hemorrhage so anticoagulation was to be deferred until 4 to 6 weeks post stroke. He was started on dual antiplatelet agents with plans to start Eliquis in 4 weeks. While awaiting ICA stenting the patient developed worsening dysphagia and the speech therapist recommended a PEG tube. The PEG tube was placed on 05/18/2023. On 05/18/2023 he had ICA stenting. During his stay at [facility] he was noted to have significant sleep apnea and it was recommended he have an outpatient sleep study going forward. He was placed on nocturnal CPAP. PT/OT/ST recommended acute rehab at discharge and the patient was transferred to the acute inpatient rehab unit at [facility] on 05/20/2023 for 3 hours of therapy daily to restore function/independence at or near his level prior to the stroke. Vital signs are stable and he is afebrile. The blood sugar record was reviewed. Blood sugars have ranged from 86-194 since he was transferred to rehab. Medication list was reviewed. All lab drawn today was personally reviewed. White blood cell count is normal at 7.5. The hemoglobin is low at 11.3 (down from 15.1 on 05/05/2023) with an MCV of 97.5 which is mildly elevated. Platelets are within normal limits. Sodium is 145 and the potassium is mildly decreased at 3.4. The BUN is 25 with a creatinine of 0.98. Phosphorus and magnesium are normal. The total bilirubin is mildly increased at 1.2 but the transaminases and alkaline phosphatase are within normal limits. Calcium corrected for hypoalbuminemia is normal. Recent HDL was low at 34. LDL was 40. TSH is normal. Straight cath'ed once last night for 400cc's. [facility] Medical History (Updated 05/21/23 @ 14:[address] Annika Venegas, ) Ankylosing spondylitis of multiple sites in spine Chronic kidney disease, stage 3a Coronary artery disease Diabetes mellitus, type 2 Diastolic congestive heart failure Glaucoma Grade III diastolic dysfunction Hyperlipidemia Hypertension Mitral stenosis Neuropathy involving both lower extremities Pulmonary hypertension Home Medications aspirin 81 mg chewable tablet 81 mg feeding tube DAILY@0800 Heart health 06/25/16 [History Last Taken Unknown] atorvastatin 40 mg tablet 40 mg feeding tube QHS cholesterol 06/25/16 [History Last Taken Unknown] brimonidine 0.1 % eye drops (Alphagan P) 1 drp BID glaucoma 06/25/16 [History Last Taken 05/03/23] dorzolamide 22.3 mg-timolol 6.8 mg/mL eye drops 1 drp BID glaucoma 06/25/16 [History Last Taken 05/03/23] furosemide 20 mg tablet 20 mg feeding tube DAILY CHF 04/15/17 [History Last Taken Unknown] dapagliflozin propanediol 10 mg tablet (Farxiga) 10 mg feeding tube DAILY CKD 05/03/23 [History Last Taken Unknown] dulaglutide 0.75 mg/0.5 mL subcutaneous pen injector (Trulicity) 0.75 mg subcut .sat 05/03/23 [History Last Taken Unknown] losartan 50 mg tablet 50 mg feeding tube DAILY hypertension 05/03/23 [History Last Taken Unknown] Allergy/AdvReac Type Severity Reaction Status Date / Time doxycycline [From Monodox] Allergy SOB AND Verified 02/19/20 07:34 COULDNT BREATHE lovastatin AdvReac Other Verified 02/19/20 07:34 pravastatin [From Pravachol] AdvReac Other Verified 02/19/20 07:34 Surgical History (Updated 05/21/23 @ 13:[address] Annika Venegas DO) H/O heart artery stent Mitral valve replaced Social History Smoking Status: Former smoker ROS Constitutional Constitutional: Reports change in weight, weakness and weight loss Eyes Eyes: Reports change in vision bilateral (due to glaucoma); Denies discharge from eye(s) ENT HEENT: Reports other Details: his tongue hurts and he does not like to have his mouth cleaned because of this ; Denies headache(s) or sore throat Respiratory/Chest Respiratory/Chest: Reports cough and other Details: occasional SOB Gastrointestinal Gastrointestinal: Reports other Details: Has been tolerating TF with no residuals so far ; Denies abdominal pain, dyspepsia, nausea or vomiting Genitourinary Genitourinary: Reports other Details: Postvoid residuals have ranged from 192-216. He is able to use the urinal. ; Denies dysuria Musculoskeletal Musculoskeletal: Reports muscle weakness; Denies back pain, extremity pain or neck pain Neurologic Neurologic: Reports abnormal speech and focal weakness; Denies dizziness, headache(s) or tremor(s) Hematologic/Lymphatic Hematologic/Lymphatic: Reports anemia and easy bruising Vital Signs Vital Signs Vital Signs: 05/20/23 16:22 05/20/23 21:42 05/20/23 21:42 Temperature 97.6 F L Temperature Source Temporal Pulse Rate 69 72 Respiratory Rate 15 16 Respiratory Effort Respiratory Depth Respiratory Pattern Normal Blood Pressure 127/82 H Blood Pressure Mean 97 Blood Pressure Source Monitor Blood Pressure Position Semi-Fowlers Blood Pressure Location Right Arm Pulse Ox 96 100 100 Oxygen Delivery Method Room Air Bi-pap Oxygen Flow Rate (L/min) Fraction of Inspired Oxygen (FIO2) 30 30 05/21/23 00:13 05/21/23 01:27 05/20/23 20:20 Temperature 98.2 F Temperature Source Temporal Pulse Rate 70 70 Respiratory Rate 18 Respiratory Effort Respiratory Depth Respiratory Pattern Blood Pressure 128/51 H 128/51 H Blood Pressure Mean 76 Blood Pressure Source Monitor Blood Pressure Position Semi-Fowlers Blood Pressure Location Right Arm Pulse Ox 100 99 Oxygen Delivery Method Nasal Cannula Room Air Oxygen Flow Rate (L/min) 2 Fraction of Inspired Oxygen (FIO2) 05/20/23 20:20 05/21/23 05:03 05/21/23 07:54 Temperature Temperature Source Pulse Rate 70 70 Respiratory Rate Respiratory Effort Normal Non-Labored Respiratory Depth Normal Respiratory Pattern Apnea Blood Pressure 117/64 Blood Pressure Mean Blood Pressure Source Blood Pressure Position Blood Pressure Location Pulse Ox 99 93 Oxygen Delivery Method Nasal Cannula Oxygen Flow Rate (L/min) 2 Fraction of Inspired Oxygen (FIO2) 05/21/23 08:58 05/21/23 09:09 05/21/23 09:38 Temperature 97.6 F L Temperature Source Temporal Pulse Rate 71 71 Respiratory Rate 16 Respiratory Effort Normal Non-Labored Respiratory Depth Normal Respiratory Pattern Normal Blood Pressure 141/54 H 141/54 H Blood Pressure Mean 83 Blood Pressure Source Monitor Blood Pressure Position Semi-Fowlers Blood Pressure Location Right Arm Pulse Ox 97 Oxygen Delivery Method Nasal Cannula Room Air Oxygen Flow Rate (L/min) 2 Fraction of Inspired Oxygen (FIO2) Weight Weight: 136 lb 10.986 oz Body Mass Index (BMI) 25.0 Indicators for Scoring Admitted with or Primary Diagnosis of CVA/Stroke: Yes Hx of CVA/Stroke: Yes Modified [place] Score MRS Score at time of Evaluation: 5-Severe disability NIHSS NIHSS 1a. Level of Consciousness: Alert; keenly responsive 1b. LOC Questions: Answers BOTH questions correctly. 1c. LOC Commands: Performs both tasks correctly. 2. Best Gaze: Normal 3. Visual: No visual loss 4. Facial Palsy: Minor paralysis (flattened nasolabial fold, asymmetry on smiling) 5a. Left Arm: No effort against gravity; arm falls 5b. Right Arm: No drift; arm holds 90 (or 45) degrees for full 10 seconds 6a. Left Leg: No effort against gravity; leg falls to bed immediately 6b. Right Leg: No drift; leg holds 30-degree position for full 5 seconds 7. Limb Ataxia: Absent (He is paralyzed on the left side. No ataxia on the R) 8. Sensory: Normal; no sensory loss 9. Best Language: No aphasia; normal 10. Dysarthria: Severe dysarthria; 11. Extinction and Inattention: Visual, tactile, auditory, spatial, or personal inattention (Inattention to the left side) Total: 10 Stroke Questions Stroke Team Activated: No Physical Exam Const alert and no apparent distress Constitutional Narrative: able to follow commands. Appropriate. Breathing is not labored. Voice is breathy. General Appearance: cooperative HEENT normocephalic, head/scalp atraumatic and moist oral mucous membranes HEENT Narrative: He has thrush and it is severe. The tongue is very sore to touch and he has a bad taste in his mouth. Eyes EOMs intact bilaterally Eyes Narrative: No DC from the eyes and no scleral icterus. No mattering of the eyelashes. Neck General: trachea midline Resp normal respiratory effort Resp Narrative: He is not really able to take a deep breath for me. He is not tachypneic and breathing is not labored. He did not cough while I was in the room. He is NPO. Effort and Inspection: Negative for uses accessory muscles Auscultation: diminished lung sounds; Negative for rales, rhonchi or wheezes Cardio regular rate, regular rhythm, no murmurs, no rub and no gallops GI normal to inspection, nondistended, normoactive bowel sounds, soft to palpation and non-tender GI Narrative: No guarding with palpation. The Peg site has no erythema and no purulent DC. He has no tenderness with palpation around the site. Inspection: Negative for abdominal distention Extremity no calf tenderness Extremity Narrative: The RUE/hand is edematous. General Extremity: edema; Negative for cyanosis Skin no jaundice Rashes: no rashes Wounds: Negative for wounds noted Neuro Neuro Narrative: He has a L facial droop. The left eye does not close completely. Can not shrug the Left shoulder. No effort against gravity in the LUE or the LLE. No tremors. Left hand is swollen. No ataxia on the R side ......can not move the Left side to complete the test. EOMI. No visual field cuts. Understands me and is able to follow commands. Mild delay when answering questions. Moderate to severe dysarthria but, I am able to understand him most of the time. Severe dysphagia and has a PEG. No sensory loss. Flaccid left side. Psych cooperative Psych Narrative: Able to follow commands and speech is slurred but, appropriate. ? depressed. Appearance: appropriate Results Lab / Micro Data 05/21/23 05:33 05/21/23 05:33 Labs: Laboratory Results - last 24 hr 05/20/23 17:30: POC Glucose 86 05/21/23 00:19: POC Glucose 115 H 05/21/23 05:01: POC Glucose 153 H 05/21/23 05:33: WBC 7.5, RBC 3.63 L, Hgb 11.3 L, Hct 35.4 L, MCV 97.5 H, MCH 31.1, MCHC 31.9 L, RDW Std Deviation 47.9 H, RDW Coeff of Sol 13.5, Plt Count 267, MPV 10.8, Sodium 145, Potassium 3.4 L, Chloride 115 H, Carbon Dioxide 25.0, Anion Gap 5, BUN 25 H, Creatinine 0.98, Estim Creat Clear Calc 44.11, Est GFR (MDRD) Af Amer 94, Est GFR (MDRD) Non-Af 77, BUN/Creatinine Ratio 25.4 H, Glucose 152 H, Calcium 8.3 L, Phosphorus 3.2, Magnesium 2.2, Total Bilirubin 1.20 H, AST 22, ALT 17, Alkaline Phosphatase 101, Total Protein 5.2 L, Albumin 2.1 L, Globulin 3.1, Albumin/Globulin Ratio 0.7 L 05/21/23 08:47: POC Glucose 184 H 05/21/23 11:51: POC Glucose 194 H Assessment & Plan Assessment/Plan (1) Debility: (2) Acute cerebrovascular accident (CVA): (3) Left hemiplegia: (4) Dysphagia: (5) Dysarthria due to acute cerebrovascular accident (CVA): (6) Hypokalemia: (7) Acute blood loss anemia: (8) Paroxysmal atrial fibrillation: (9) Pulmonary hypertension: (10) Mitral stenosis: (11) Diabetes mellitus, type 2: (12) Grade III diastolic dysfunction: (13) Stenosis of right internal carotid artery with cerebral infarction: (14) Carotid artery stenosis: (15) Glaucoma: (16) Coronary artery disease: (17) Oral thrush: PLAN: Plan PLAN PT for gait stability OT for ADL's ST for evaluation Analgesics as needed Bowel protocol Fall precautions Assess for Anxiety/Depression GI prophylaxis - no complaints at this time. No hx of PUD, denies heartburn. Monitor for now. DVT prophylaxis with MATTHEW hose and SCDs. He is on DAPT. Start Eliquis for PAF in 4 weeks. Follow up with Dr. Krause, neurology, cardiology following DC from IP Rehab AM lab including CMP, CBC, Mag and Phos - all personally reviewed. All paperwork sent from [facility] was reviewed along with the EMR from recent visit to [facility] ED DC the Nystatin. Oral thrush is moderate to severe and he is unable to tolerate application to his tongue and fights nursing. Will transition to Diflucan 200 mg now and then 100 mg daily for 10 days. Start Eliquis 5 mg BID on 06/19/23 and DC aspirin if F/U CTB shows no blood. Schedule NC CTB on 06/16/23 Check a hemoccult stool Potassium chloride solution 40 mEq per G-tube now. Potassium chloride solution 20 mEq GT daily BMP and H&H on 05/24/[address]23 [address] shoe on the Left foot to prevent foot drop. Sling on the Left arm when he is up as needed Charges/Coding Visit Charges Inpatient E&M: 54947 Init Hosp L3
--- NOTE | 2023-05-21 14:44 | PCM.RU.PYE ---
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 Potential Problem List:: DVT, Bleeding, Infection, UTI, Aspiration, Falls, Skin Integrity and Depression Risk of Complications DVT: MATTHEW Hose and Sequential Compression Device Bleeding: Monitor Lab Values, Nursing to Teach Precautions for anti-coagulation therapy., Wound, if applicable, to be assessed every shift. and Stroke patients assessed for lethargy or change in status. Infection: Clinical Staff to Monitor for S/S of infection: and S/S of infection include fever, redness, warmth, etc. Urinary Tract Infection: Monitor for frequency, burning, discomfort, or incontinence. and Nursing will obtain urine sample for urinalysis and C&S when ordered. Aspiration: Clinical staff will monitor for coughing, drooling, congestion., Speech will evaluate swallowing and dsyphasia. and Nursing will monitor patient swallowing during meals. Falls: Patient will be evaluated for Fall Precautions and Patient will be placed on Fall Precautions as indicated per protocol. Skin Breakdown: Nursing will assess skin daily using assessment tool. and Nursing will place on Skin Breakdown Precautions as indicated. Pain: Clinical staff will assess patient's pain level per protocol., Medications will be given, if needed, and the pain level reassessed. and Other methods: Massage, distraction, decrease stimulus, etc. used PRN. Plan of Care Patient requires physician specializing in physical medicine and rehab oversight to provide close medical supervision of rehab issues including: Pain Management, Sleep Problems, Bowel and Bladder, Medical and co-morbidity Management, DVT prophylaxis, Rehabilitation Leadership and Coordination of treatment team Patient needs Physical Therapy: For a minimum of 1 hour and At least 5 out of 7 days Patient needs Physical Therapy to improve:: Mobility, Strengthening, Transfers, Stretching, ROM, Endurance, Stairs, Gait and Balance Patient needs Occupational Therapy: For a minimum of 1 hour and At least 5 out of 7 days Patient needs Occupational Therapy to improve ADL's incl.: Eating, Grooming, Bathing, Dressing, Toileting, Toilet transfers, Community Reintegration, Higher functioning activities, Household tasks, Adaptive Equipment, Splinting and Other activities as determined Patient requires speech therapy: For a minimum of 1 hour and At least 5 out of 7 days Patient requires speech therapy for: Swallowing, Cognition, Language Skills and Compensatory Strategies Patient requires 24/ Rehabilitation Nursing for: Pain Issues, Identifying and preventing risk factors, Monitoring and reporting current medical conditions, Assisting with ambulation, transfer, and all ADL's, Teaching patients about disease process and medications, Family teaching, Providing safe environment, Bowel and Bladder Issues, Skin integrity and Medication Management Patient needs Menhaden Vessel Pilot/ Case Management for: Discharge Planning, Arranging Home Equipment or Services and Family Interventions Patient needs Dietary and Nutrition Services for: Adequate Nutrition, Nutritional Supplements and Nutritional Education Goals Patient will remain: free from falls Patient will perform bed mobility at: MOD I level of assist. Patient will complete transfers from bed to chair at: MOD I level of assist. Patient will ambulate: 100 feet and with LRD Patient will complete upper body dressing at: - (Supervision level using Néstor dressing technique) Patient will complete lower body dressing at: - (Minimal assistance with adaptive equipment as needed) Patient will complete toileting at: - (Min assist) Patient will perform bathing at: - (Minimal assistance) Patient will complete grooming at: MOD I level of assist. Patient will complete home management skills at: MOD I level of assist. Patient will achieve: - (1 curb step with min to mod assist and less than 50% cues) Patient will have pain level of: of 3 or less Patient's skin will: remain intact Patient will receive: adequate nutrition. Discharge Planning Estimated Length of stay (days): 28
[2023-05-21] MEDS: Fluconazole Suspension 40 MG/ML 35 ML Bottle 200 MG GT (16:17)
[2023-05-21] MEDS: Tamsulosin HCl 0.4 MG Capsule PO (16:17)
[2023-05-21] MEDS: Potassium Chloride Oral Soln 20 MEQ/15 ML UDC 40 MEQ GT (16:17)
[2023-05-21 16:32] LABS: Bedside Glucose 198 mg/dL (74-106)
[2023-05-21 20:29] LABS: Bedside Glucose 200 mg/dL (74-106)
[2023-05-21] MEDS: Latanoprost 0.005% 1 Bottle 1 DRP EACH EYE (22:47)
[2023-05-22] VITALS (7 sets, daily range): BP systolic 104–121; BP diastolic 52–65; PULSE 72–84; RESP 19–20; TEMP 35.9–36.2; O2SAT 94–99; BMI 25.0; BMI 24.8
[2023-05-22 00:24] LABS: Bedside Glucose 212 mg/dL (74-106)
--- NOTE | 2023-05-22 03:47 | NURSING ---
Reviewed and agree with Gage HAYS, documentation and assessment charting.
[2023-05-22 04:38] LABS: Bedside Glucose 206 mg/dL (74-106)
[2023-05-22] MEDS: Metoprolol Tartrate 50 MG Tablet GT ×4 (04:53→21:15)
[2023-05-22] MEDS: Jevity 1.5 1,000 ML 15 ML GT (05:09)
[2023-05-22] MEDS: Ipratropium Bromide 0.06% NASAL SPRAY 2 SPRAY NASAL ×3 (05:16→21:15)
[2023-05-22] MEDS: Insulin Lispro 100 UNIT/ML INSULN.PEN SC ×5 (05:19→23:49)
[2023-05-22] MEDS: Clopidogrel Bisulfate 75 MG Tablet GT (08:32)
[2023-05-22] MEDS: Aspirin 81 MG TAB.CHEW GT (08:33)
[2023-05-22] MEDS: Furosemide 20 MG Tablet GT (08:33)
[2023-05-22] MEDS: Losartan Potassium 50 MG Tablet GT (08:33)
[2023-05-22] MEDS: Empagliflozin 25 MG Tablet GT (08:33)
[2023-05-22] MEDS: Fluconazole Suspension 40 MG/ML 35 ML Bottle 100 MG GT (08:34)
[2023-05-22] MEDS: Potassium Chloride Oral Soln 20 MEQ/15 ML UDC GT (08:34)
[2023-05-22] MEDS: Dorzolamide HCL/Timolol 10 ml Bottle 1 DRP OPHTHALMIC ×2 (08:36→21:17)
[2023-05-22 09:03] LABS: Bedside Glucose 182 mg/dL (74-106)
[2023-05-22 13:24] LABS: Bedside Glucose 175 mg/dL (74-106)
[2023-05-22] MEDS: Tamsulosin HCl 0.4 MG Capsule PO (16:53)
[2023-05-22 17:18] LABS: Bedside Glucose 211 mg/dL (74-106)
[2023-05-22] MEDS: DULAGLUTIDE 0.75 MG/0.5 ML PEN.INJCTR SC (18:11)
[2023-05-22] MEDS: Latanoprost 0.005% 1 Bottle 1 DRP EACH EYE (21:15)
[2023-05-22] MEDS: Atorvastatin Calcium 40 MG Tablet GT (21:17)
[2023-05-22 21:37] LABS: Bedside Glucose 169 mg/dL (74-106)
[2023-05-23] VITALS (9 sets, daily range): BP systolic 99–110; BP diastolic 50–63; PULSE 72–78; RESP 15–20; TEMP 35.8; O2SAT 97–99; BMI 25.6
[2023-05-23 00:06] LABS: Bedside Glucose 193 mg/dL (74-106)
[2023-05-23] MEDS: Ipratropium Bromide 0.06% NASAL SPRAY 2 SPRAY NASAL ×3 (05:11→21:41)
[2023-05-23] MEDS: Metoprolol Tartrate 50 MG Tablet GT ×4 (05:11→21:41)
[2023-05-23] MEDS: Insulin Lispro 100 UNIT/ML INSULN.PEN SC ×3 (05:12→17:10)
[2023-05-23 05:22] LABS: Bedside Glucose 189 mg/dL (74-106)
[2023-05-23] MEDS: Jevity 1.5 1,000 ML 15 ML GT (05:27)
[2023-05-23] MEDS: Losartan Potassium 50 MG Tablet GT (08:41)
[2023-05-23] MEDS: Empagliflozin 25 MG Tablet GT (08:41)
[2023-05-23] MEDS: Furosemide 20 MG Tablet GT (08:41)
[2023-05-23] MEDS: Aspirin 81 MG TAB.CHEW GT (08:41)
[2023-05-23] MEDS: Clopidogrel Bisulfate 75 MG Tablet GT (08:41)
[2023-05-23] MEDS: Potassium Chloride Oral Soln 20 MEQ/15 ML UDC GT (08:41)
[2023-05-23] MEDS: Dorzolamide HCL/Timolol 10 ml Bottle 1 DRP OPHTHALMIC ×2 (08:42→21:42)
[2023-05-23] MEDS: Fluconazole Suspension 40 MG/ML 35 ML Bottle 100 MG GT (08:42)
[2023-05-23 08:43] LABS: Bedside Glucose 134 mg/dL (74-106)
[2023-05-23 11:52] LABS: Bedside Glucose 191 mg/dL (74-106)
[2023-05-23] MEDS: Tamsulosin HCl 0.4 MG Capsule PO (17:10)
[2023-05-23 17:13] LABS: Bedside Glucose 191 mg/dL (74-106)
[2023-05-23 21:06] LABS: Bedside Glucose 152 mg/dL (74-106)
[2023-05-23] MEDS: Atorvastatin Calcium 40 MG Tablet GT (21:41)
[2023-05-23] MEDS: Latanoprost 0.005% 1 Bottle 1 DRP EACH EYE (21:42)
[2023-05-24] VITALS (10 sets, daily range): BP systolic 127–136; BP diastolic 55–70; PULSE 50–82; RESP 12–24; TEMP 36.4–36.7; O2SAT 97–100; BMI 25.6; BMI 25.2
[2023-05-24] MEDS: Insulin Lispro 100 UNIT/ML INSULN.PEN SC ×5 (00:04→23:35)
[2023-05-24 00:33] LABS: Bedside Glucose 170 mg/dL (74-106)
[2023-05-24] MEDS: Ipratropium Bromide 0.06% NASAL SPRAY 2 SPRAY NASAL ×3 (05:17→20:14)
[2023-05-24] MEDS: Metoprolol Tartrate 50 MG Tablet GT ×4 (05:17→20:16)
[2023-05-24] MEDS: Jevity 1.5 1,000 ML 15 ML GT (05:19)
[2023-05-24 05:32] LABS: Hematocrit 37.4 % (40-54)
[2023-05-24 05:58] LABS: Anion Gap 5 (5-15); BUN 25 mg/dL (7-18); BUN/Creat Ratio 25.2 RATIO (10-20); Calcium,Total 8.6 mg/dL (8.5-10.1); Chloride 111 mmol/L (98-107); Creatinine, Serum 0.99 mg/dL (0.70-1.30); EST Glomerular Filtration Rate 76 mL/min (>60); Est Glom Filt Rate - Afr Amer 93 mL/min (>60); Estimated Creatinine Clearance 43.66 ml/min; Glucose 235 mg/dL (74-106); Potassium 4.3 mmol/L (3.5-5.1); Sodium Level 142 mmol/L (136-145)
[2023-05-24 06:33] LABS: Bedside Glucose 227 mg/dL (74-106)
[2023-05-24] MEDS: Potassium Chloride Oral Soln 20 MEQ/15 ML UDC GT (08:00)
[2023-05-24] MEDS: Aspirin 81 MG TAB.CHEW GT (08:00)
[2023-05-24] MEDS: Dorzolamide HCL/Timolol 10 ml Bottle 1 DRP OPHTHALMIC ×2 (08:00→20:15)
[2023-05-24] MEDS: Losartan Potassium 50 MG Tablet GT (08:00)
[2023-05-24] MEDS: Fluconazole Suspension 40 MG/ML 35 ML Bottle 100 MG GT (08:01)
[2023-05-24] MEDS: Furosemide 20 MG Tablet GT (08:01)
[2023-05-24] MEDS: Empagliflozin 25 MG Tablet GT (08:01)
[2023-05-24] MEDS: Clopidogrel Bisulfate 75 MG Tablet GT (08:02)
--- NOTE | 2023-05-24 09:18 | NURSING ---
Patient experiencing periods of apnea of >30 seconds at time. Tachypnea at times w/o apnea. MD notified. States to have patient placed on BiPAP. Respiratory notified to come to floor to eval patient and place BiPAP machine.
--- NOTE | 2023-05-24 09:25 | CPS ---
Placed patient on BiPAP, patient having periods of apnea (not obstructive), along with Eugenio-Borrego breathing pattern. Discussed with Dr Venegas, BiPAP settings changed to AVAPS. Also discussed with Sleep Lab for any recommendations. Patient tolerated AVAPS for about 15 minutes, then he attempted to take mask off. Mask was removed per patient request.
[2023-05-24 09:28] LABS: Bedside Glucose 221 mg/dL (74-106)
--- NOTE | 2023-05-24 10:17 | NURSING ---
Patient still experiencing periods of apnea >30 seconds. MD/Respiratory aware. Patient off of BiPAP at this time to participate in ST. Patient is tolerating ST well. Noted to still have apnea during therapy.
[2023-05-24 12:03] LABS: Bedside Glucose 222 mg/dL (74-106)
--- NOTE | 2023-05-24 12:48 | NURSING ---
Patient tried to get out of recliner chair. Noted patient to be slouching down in chair. Short pull away PA attached to patient. Patient removing oxygen and tugging at PEG site. Patient reminded to keep O2 in place. Patient repositioned and provided oral care.
--- NOTE | 2023-05-24 13:01 | NURSING ---
Patient SPO2 at 100% on 3LNC titrated to 2LNC at and SPO2 is staying at 97/98%. Patient is tolerating titration downward.
--- NOTE | 2023-05-24 13:15 | NURSING ---
Patient not requiring o2 when alert and awake. Patient kept on 2LNC O2 Due to dozing on and off and hypoxia w/ Sleep apnea.
--- NOTE | 2023-05-24 14:03 | PCM.PROGNOTE ---
Subjective Subjective Afebrile VSS Maintaining appropriate oxygen saturation on RA when awake but, has severe sleep apnea.......I suspect he has has central sleep apnea. Oral intake - remains NPO He is tolerating TF without residuals. The blood sugar record was reviewed. He is ordered accuchecks every 6 hr but, they are being done at odd times and not adhering to the Q 6H order. He would not try swallowing with ST today. Very tired and did not finish his his time with ST today. Discussed with nursing - He is apneic even when awake at times. He does not want to wear CPAP and takes it off. He has O2 at 3LPM when he is sleeping. Has been incontinent of urine. Reviewed the PT/OT/ST notes Medication list reviewed. All lab drawn this AM was personally reviewed. Hemoglobin today is 12, up from 11.3 on 05/21/2023. Sodium is 142 and the potassium is 4.3. Serum bicarb is normal. BUN is stable at 25 with a creatinine of 0.99. Very somnolent today. When he is in therapy he seems to perk up. He is not coughing. Still very slow to respond to questions. He is mouth breathing and his mouth is very dry with dried mucous and blood adhering to the hard palate. The thrush is improving. He denies painful swallowing. He denies pain and also denies SOB and lightheadedness. Denies dysuria. He is trying to be cooperative with CPAP and has been able to tolerate for a while.......will try and increase the time he is able to tolerate this. Objective Data Objective Data Vital Signs: Vital Signs Temp Pulse Resp BP Pulse Ox O2 Del Method O2 Flow Rate 97.5 F L 73 24 H 128/64 H 99 Bi-pap 3 05/24/23 07:51 05/24/23 09:25 05/24/23 09:25 05/24/23 08:02 05/24/23 09:25 05/24/23 09:25 05/24/23 10:55 FiO2 30 05/24/23 09:25 Oxygen Flow Rate (L/min) 3 Oxygen Delivery Method Bi-pap Weight: 138 lb 0.15 oz Body Mass Index (BMI) 25.2 Intake & Output: Intake and Output for Last 24 Hours 05/22/23 05/23/2323 23:59 23:59 23:59 Intake Total 2171.5 / 2171.5 1132.5 / 1132.5 713 / 713 Output Total 252 / 252 Balance 1919.5 / 1919.5 1132.5 / 1132.5 713 / 713 Lab / Micro Data 05/24/23 05:21 05/24/23 05:21 Labs: Laboratory Results - last 24 hr 05/23/23 16:51: POC Glucose 191 H 05/23/23 20:26: POC Glucose 152 H 05/24/23 00:03: POC Glucose 170 H 05/24/23 05:09: POC Glucose 227 H 05/24/23 05:21: Hgb 12.0 L, Hct 37.4 L, Sodium 142, Potassium 4.3, Chloride 111 H, Carbon Dioxide 26.0, Anion Gap 5, BUN 25 H, Creatinine 0.99, Estim Creat Clear Calc 43.66, Est GFR (MDRD) Af Amer 93, Est GFR (MDRD) Non-Af 76, BUN/Creatinine Ratio 25.2 H, Glucose 235 H, Calcium 8.6 05/24/23 09:09: POC Glucose 221 H 05/24/23 11:44: POC Glucose 222 H Micro: Microbiology 05/21/23 15:55 Stool Stool Occult Blood (JEANNIE) - Final Occult Blood Positive Physical Exam Const Constitutional Narrative: very sleepy, cooperative. Pleasant. Slow to answer questions. HEENT normocephalic and head/scalp atraumatic Resp Resp Narrative: Unable to cooperate with taking a deep breath but, I do not hear any adventitious sounds. Cardio regular rate and regular rhythm GI normal to inspection, nondistended, normoactive bowel sounds and soft to palpation GI Narrative: No guarding with palpation. Extremity no calf tenderness General Extremity: Negative for edema Skin General Skin Exam: no breakdown Rashes: no rashes Assessment & Plan Assessment/Plan (1) Debility: (2) Acute cerebrovascular accident (CVA): (3) Left hemiplegia: (4) Dysphagia: (5) Dysarthria due to acute cerebrovascular accident (CVA): (6) Hypokalemia: (7) Acute blood loss anemia: (8) Paroxysmal atrial fibrillation: (9) Pulmonary hypertension: (10) Mitral stenosis: (11) Diabetes mellitus, type 2: (12) Grade III diastolic dysfunction: (13) Stenosis of right internal carotid artery with cerebral infarction: (14) Carotid artery stenosis: (15) Glaucoma: (16) Coronary artery disease: (17) Oral thrush: (18) Sleep apnea: PLAN: Plan 1. Continue therapy 2. Continue with CPAP and a backup rate. Try to get him to tolerate longer times on the CPAP. 3. consider a pulmonary consult. 4. I discussed starting bolus feedings with the dietitian who will put in recommendations and then will coordinate with Accu-Cheks prior to each feeding. For tonight we will continue with every 6 hours Accu-Cheks, discussed with nursing. Blood sugars are higher than they had been............ will check a UA. 5. Tolerating Jardiance at 25 mg without acidosis. Charges/Coding Visit Charges Inpatient E&M: 46303 Subs Hosp L2
--- NOTE | 2023-05-24 15:24 | NURSING ---
Patient Kangaroo pump alerting of downstream occlusion. Disconnected pump and flushed line. Aspirated PEG and got 215 cc out. Held Tube feed. Notified MD, She states to hold for one hour and recheck residual in 1 hour.
--- NOTE | 2023-05-24 16:51 | NURSING ---
Residual of PEG tube checked, patient only had 50 cc residual. Tube feed restarted at 45 ml/hr. Oral care provided.
[2023-05-24 17:08] LABS: Bedside Glucose 200 mg/dL (74-106)
[2023-05-24] MEDS: Tamsulosin HCl 0.4 MG Capsule PO (17:10)
[2023-05-24] MEDS: Latanoprost 0.005% 1 Bottle 1 DRP EACH EYE (20:14)
[2023-05-24] MEDS: Atorvastatin Calcium 40 MG Tablet GT (20:16)
[2023-05-24] MEDS: Menthol/Lanolin/Calamine/Znox 113 GM Tube 1 APPLIC TOPICAL (20:29)
[2023-05-24 23:56] LABS: Bedside Glucose 205 mg/dL (74-106)
[2023-05-25] VITALS (9 sets, daily range): BP systolic 122–146; BP diastolic 47–56; PULSE 51–79; RESP 12–18; TEMP 36.3–36.4; O2SAT 95–99; BMI 25.3
[2023-05-25] MEDS: Ipratropium Bromide 0.06% NASAL SPRAY 2 SPRAY NASAL ×3 (05:33→22:23)
[2023-05-25] MEDS: Metoprolol Tartrate 50 MG Tablet GT ×4 (05:34→22:25)
[2023-05-25] MEDS: Insulin Lispro 100 UNIT/ML INSULN.PEN SC ×4 (05:43→22:30)
[2023-05-25] MEDS: Jevity 1.5 1,000 ML 45 ML GT (05:43)
[2023-05-25 06:11] LABS: Bedside Glucose 249 mg/dL (74-106)
[2023-05-25] MEDS: Aspirin 81 MG TAB.CHEW GT (08:03)
[2023-05-25] MEDS: Menthol/Lanolin/Calamine/Znox 113 GM Tube 1 APPLIC TOPICAL ×2 (08:03→22:15)
[2023-05-25] MEDS: Potassium Chloride Oral Soln 20 MEQ/15 ML UDC GT (08:03)
[2023-05-25] MEDS: Dorzolamide HCL/Timolol 10 ml Bottle 1 DRP OPHTHALMIC ×2 (08:04→22:21)
[2023-05-25] MEDS: Empagliflozin 25 MG Tablet GT (08:05)
[2023-05-25] MEDS: Clopidogrel Bisulfate 75 MG Tablet GT (08:05)
[2023-05-25] MEDS: Furosemide 20 MG Tablet GT (08:06)
[2023-05-25] MEDS: Losartan Potassium 50 MG Tablet GT (08:06)
[2023-05-25] MEDS: Fluconazole Suspension 40 MG/ML 35 ML Bottle 100 MG GT (08:07)
--- NOTE | 2023-05-25 10:40 | PCM.PROGNOTE ---
Subjective Subjective Afebrile VSS Maintaining appropriate oxygen saturation on RA Oral intake - NPO The blood sugar record was reviewed. He received a total of 4 units of Lispro yesterday. He is taking Trulicity once a week and Jardiance 25 mg daily. He is not on a long acting insulin. I reviewed the profile stitching machine operator's recommendations for bolus TF's. Will do a bolus every 4 hours, rather than 5X's a day for continuity with accuchecks every 4H. Discussed with nursing - no problems that need addressed. He was able to wear the BiPAP for a couple of hours last night which is much better. Still somnolent this morning. Reviewed the PT/OT/ST notes Medication list reviewed. Very sleepy when I am talking with him. He has no complaints today -Killian denies lightheadedness, vertigo, CP, SOB at rest, SOB with exertion, cough, nausea, vomiting, abd pain, diarrhea, constipation, dysuria, calf pain and ankle swelling. He does not look to be in any distress. Objective Data Objective Data Vital Signs: Vital Signs Temp Pulse Resp BP Pulse Ox O2 Del Method O2 Flow Rate 97.3 F L 79 18 123/51 H 96 Nasal Cannula 2 05/25/23 07:42 05/25/23 08:05 05/25/23 07:42 05/25/23 07:42 05/25/23 07:42 05/25/23 07:42 05/25/23 07:42 FiO2 30 05/25/23 00:27 Oxygen Flow Rate (L/min) 2 Oxygen Delivery Method Nasal Cannula Weight: 138 lb 0.15 oz Body Mass Index (BMI) 25.2 Intake & Output: Intake and Output for Last 24 Hours 05/23/23 05/24/23 05/25/23 23:59 23:59 23:59 Intake Total 1132.5 / 1132.5 1293 / 1293 550 / 550 Balance 1132.5 / 1132.5 1293 / 1293 550 / 550 Lab / Micro Data 05/24/23 05:21 05/24/23 05:21 Labs: Laboratory Results - last 24 hr 05/24/23 11:44: POC Glucose 222 H 05/24/23 16:42: POC Glucose 200 H 05/24/23 23:34: POC Glucose 205 H 05/25/23 05:36: POC Glucose 249 H Micro: Microbiology 05/21/23 15:55 Stool Stool Occult Blood (JEANNIE) - Final Occult Blood Positive Physical Exam Const no apparent distress General Appearance: cooperative HEENT Mouth: dry mucous membranes Neck supple General: trachea midline Resp normal respiratory effort, no use of accessory muscles and clear to auscultation bilaterally Resp Narrative: Not really able to cooperate with taking deep breaths. Effort and Inspection: Negative for tachypneic or labored Auscultation: diminished lung sounds Cardio regular rate, regular rhythm and no gallops Cardio Narrative: No ectopy GI normal to inspection, nondistended, normoactive bowel sounds, non-tender and non-distended GI Narrative: no guarding with palpation The PEG sit is without erythema or DC. He is not tender to palpation around the tube. Extremity Negative for no calf tenderness General Extremity: Negative for edema Skin General Skin Exam: no breakdown Rashes: no rashes Psych Psych Narrative: He is pleasant when awake and has been participating in therapy when asked. Assessment & Plan Assessment/Plan (1) Debility: (2) Acute cerebrovascular accident (CVA): (3) Left hemiplegia: (4) Dysphagia: (5) Dysarthria due to acute cerebrovascular accident (CVA): (6) Hypokalemia: (7) Acute blood loss anemia: (8) Paroxysmal atrial fibrillation: (9) Pulmonary hypertension: (10) Mitral stenosis: (11) Diabetes mellitus, type 2: (12) Grade III diastolic dysfunction: (13) Stenosis of right internal carotid artery with cerebral infarction: (14) Carotid artery stenosis: (15) Glaucoma: (16) Coronary artery disease: (17) Oral thrush: (18) Sleep apnea: PLAN: 1. Continue therapy 2. Continue BiPAP anytime he is sleeping and hopefully will be able to gradually increase the time he is on BiPAP at night to reestablish a sleep-wake cycle. 3. Change the tube feeds to bolus feedings to facilitate doing therapy without having an IV pole present. He will get 185 cc bolus of Jevity 1.5 every 4 hours and 80 cc of water flush before and after each tube feed. Check residuals every 4 hours and hold if greater than 150. Accu-Chek prior to each tube feed and cover with sliding scale. 4. Increase the sliding scale to low medium. Charges/Coding Visit Charges Inpatient E&M: 18314 Subs Hosp L2
[2023-05-25 14:17] LABS: Bedside Glucose 212 mg/dL (74-106)
--- NOTE | 2023-05-25 14:21 | CHAPLAIN ---
Type of Pastoral Visit _x__ Initial Visit ___ Follow-up Visit ___ On-call Visit ___ General Patient Visit ___ Spiritual Assessment ___ Family Conference ___ Bereavement ___ Rapid Response ___ Code Blue ___ Other (describe below) Pastoral Care Referral From _x__ Patient ___ Family ___ Nurse ___ Physician ___ Residence Manager ___ Senior Mainframe Developer ___ Other (describe below) Sacrament/Intervention _x__ Active listening ___ Anointing ___ Zoroastrian ___ Bereavement ___ Communion ___ Taty exploration ___ ___ Life review _x__ Prayer ___ Reconciliation ___ Sacrament of Sick _x__ Supportive presence ___ Wedding ___ Other (describe below) Pastoral Comments patient was seen in ICU before his transfer to [place] [facility] for further treatment; pt is here again for rehab; pt remembers this stogy maker; pt admits that this has been rough; offer of presence and time to listen given; pt welcomes a prayer; pt is tired and he is offered the time to rest now
[2023-05-25] MEDS: Jevity 1.5. 1,000 ML Bottle 185 ML GT ×3 (14:25→22:25)
[2023-05-25] MEDS: Tamsulosin HCl 0.4 MG Capsule PO (17:29)
[2023-05-25 17:57] LABS: Bedside Glucose 237 mg/dL (74-106)
[2023-05-25] MEDS: Latanoprost 0.005% 1 Bottle 1 DRP EACH EYE (22:20)
[2023-05-25] MEDS: Atorvastatin Calcium 40 MG Tablet GT (22:25)
[2023-05-25 22:54] LABS: Bedside Glucose 174 mg/dL (74-106)
[2023-05-26] VITALS (9 sets, daily range): BP systolic 110–131; BP diastolic 57–80; PULSE 65–103; RESP 12–22; TEMP 35.9–36.4; O2SAT 94–100; BMI 25.0
[2023-05-26] MEDS: Jevity 1.5. 1,000 ML Bottle 185 ML GT ×3 (02:22→08:59)
[2023-05-26] MEDS: Insulin Lispro 100 UNIT/ML INSULN.PEN SC ×6 (02:26→22:03)
[2023-05-26 02:48] LABS: Bedside Glucose 220 mg/dL (74-106)
[2023-05-26] MEDS: Metoprolol Tartrate 50 MG Tablet GT ×4 (05:05→22:00)
[2023-05-26] MEDS: Ipratropium Bromide 0.06% NASAL SPRAY 2 SPRAY NASAL ×3 (05:15→20:19)
[2023-05-26 07:06] LABS: Bedside Glucose 203 mg/dL (74-106)
[2023-05-26] MEDS: Clopidogrel Bisulfate 75 MG Tablet GT (08:33)
[2023-05-26] MEDS: Fluconazole Suspension 40 MG/ML 35 ML Bottle 100 MG GT (08:34)
[2023-05-26] MEDS: Aspirin 81 MG TAB.CHEW GT (08:34)
[2023-05-26] MEDS: Dorzolamide HCL/Timolol 10 ml Bottle 1 DRP OPHTHALMIC ×2 (08:34→20:19)
[2023-05-26] MEDS: Empagliflozin 25 MG Tablet GT (08:34)
[2023-05-26] MEDS: Furosemide 20 MG Tablet GT (08:34)
[2023-05-26] MEDS: Potassium Chloride Oral Soln 20 MEQ/15 ML UDC GT (08:34)
[2023-05-26] MEDS: Losartan Potassium 50 MG Tablet GT (08:34)
[2023-05-26] MEDS: Menthol/Lanolin/Calamine/Znox 113 GM Tube 1 APPLIC TOPICAL ×2 (08:35→20:21)
[2023-05-26 09:27] LABS: Bedside Glucose 261 mg/dL (74-106)
--- NOTE | 2023-05-26 11:16 | PN_ITS ---
Subjective Subjective Killian was seen on team rounds today. His and his dtr were present in the room. Afebrile VSS Maintaining appropriate oxygen saturation on RA Oral intake -remains n.p.o. He is incontinent of urine Weight is down 3.8 pounds since Tuesday. No significant residuals after transitioning to bolus feedings. The blood sugar record was reviewed. Discussed with nursing - He only wore BIPAP for 2 hours last night. He kept taking the mask off and nursing gave up after 2 hours. Reviewed the PT/OT/ST notes Medication list reviewed. He denies pain and also denies MCKEON, SOB, lightheadedness, calf pain and dysuria. He can barely stay awake when someone is talking with him. His voice is very soft. He will always try to be cooperative with therapy but, it is difficult to keep him awake. Objective Data Objective Data Vital Signs: Vital Signs Temp Pulse Resp BP Pulse Ox O2 Del Method O2 Flow Rate 96.6 F L 65 18 112/80 99 Room Air 1 05/26/23 09:37 05/26/23 09:37 05/26/23 09:37 05/26/23 09:37 05/26/23 10:00 05/26/23 09:37 05/26/23 10:00 FiO2 25 05/25/23 23:18 Oxygen Flow Rate (L/min) 1 Oxygen Delivery Method Room Air Weight: 136 lb 3.931 oz Body Mass Index (BMI) 25.0 Intake & Output: Intake and Output for Last 24 Hours 05/24/23 05/25/23 05/26/23 23:59 23:59 23:59 Intake Total 1293 / 1293 2781.25 / 2781.25 690 / 690 Balance 1293 / 1293 2781.25 / 2781.25 690 / 690 Lab / Micro Data 05/24/23 05:21 05/24/23 05:21 Labs: Laboratory Results - last 24 hr 05/25/23 13:59: POC Glucose 212 H 05/25/23 17:31: POC Glucose 237 H 05/25/23 22:23: POC Glucose 174 H 05/26/23 02:20: POC Glucose 220 H 05/26/23 05:18: POC Glucose 203 H 05/26/23 09:03: POC Glucose 261 H Micro: Microbiology 05/21/23 15:55 Stool Stool Occult Blood (JEANNIE) - Final Occult Blood Positive Physical Exam Const Constitutional Narrative: very drowsy and hard to keep awake, even when talking to him. He is having apneic periods and also periods of Eugenio-Borrego respirations. No snoring. Orientation / Consciousness: lethargic HEENT head/scalp atraumatic HEENT Narrative: Thrush is better. Mouth: dry mucous membranes Resp clear to auscultation bilaterally Resp Narrative: I can get good BS's when he is having Eugenio-Borrego and takes a deep breath and the lungs are CTA. He has apnea and Eugenio-Borrego respirations. No gasping for air. Pulse ox on 2 LPM is appropriate, even with the apneic periods. Cardio regular rate, regular rhythm and no gallops Cardio Narrative: No ectopy GI normal to inspection, nondistended, normoactive bowel sounds, soft to palpation and non-tender GI Narrative: No guarding with palpation. The PEG site is free of erythema and discharge. He is not tender to palpation around the PEG site. Extremity no calf tenderness General Extremity: Negative for edema Skin General Skin Exam: no breakdown Rashes: no rashes Neuro Neuro Narrative: no significant change in the neuro exam. Psych Psych Narrative: He is restless at night and he sleeps most of the day. Activity / Motor Behavior: restless Assessment & Plan Assessment/Plan (1) Debility: (2) Acute cerebrovascular accident (CVA): PLAN: Ischemic initially. Received TNK and then had hemorrhagic conversion. (3) Left hemiplegia: (4) Dysphagia: QUALIFIERS: Dysphagia type: oropharyngeal phase Qualified Code(s): R13.12 - Dysphagia, oropharyngeal phase (5) Dysarthria due to acute cerebrovascular accident (CVA): (6) Hypokalemia: (7) Acute blood loss anemia: (8) Paroxysmal atrial fibrillation: (9) Pulmonary hypertension: (10) Mitral stenosis: QUALIFIERS: Cardiac valve disease etiology: nonrheumatic Qualified Code(s): I34.2 - Nonrheumatic mitral (valve) stenosis (11) Diabetes mellitus, type 2: QUALIFIERS: Diabetes mellitus termite control servicer insulin use: with intermediate use Diabetes mellitus complication status: with circulatory complication Diabetes mellitus complication detail: with other circulatory complications Qualified Code(s): E11.59 - Type 2 diabetes mellitus with other circulatory complications; Z79.4 - senior living (current) use of insulin (12) Grade III diastolic dysfunction: (13) Stenosis of right internal carotid artery with cerebral infarction: (14) Carotid artery stenosis: QUALIFIERS: Laterality: right Qualified Code(s): I65.21 - Occlusion and stenosis of right carotid artery (15) Glaucoma: QUALIFIERS: Glaucoma type: unspecified (16) Coronary artery disease: QUALIFIERS: Coronary Disease-Associated Artery/Lesion type: [place] artery [place] vs. transplanted heart: [place] heart Associated angina: without angina Qualified Code(s): I25.10 - Atherosclerotic heart disease of [place] coronary artery without angina pectoris (17) Oral thrush: (18) Sleep apnea: QUALIFIERS: Sleep apnea type: unspecified type Qualified Code(s): G47.30 - Sleep apnea, unspecified PLAN: I suspect he has central sleep apnea. (19) Urinary incontinence: QUALIFIERS: Urinary Incontinence type: urinary incontinence without sensory awareness Qualified Code(s): N39.42 - Incontinence without sensory awareness PLAN: More likely than not related to the stroke. PLAN: Plan 1. Continue therapy 2. Start Provigil 100 mg daily today 3. Start Ambien 5 mg p.o. nightly at 9 PM 4. tolerating boluses without residual so will try changing the boluses to 275 cc Q6H. Change the Accuchecks to Q6 Hours 5. DC the Jardiance and continue Trulicity once a week. 6. Start Glargine 4 units Q12H and continue the SSI He can not effectively do therapy because he is so sleepy. Will start a low dose of Provigil in attempt to keep him awake during the day and start Ambien 5 mg at 2100 to help him sleep at night in hopes that he will keep the BIPAP on. If he can not stay awake during the day there is little hope that he will be able to return home and he will likely end up in an ECF. His dtr who is frail and on oxygen does not want him to go to an SNF and says she will help his care for him at home. Continue efforts to get him to wear BiPAP at night. Charges/Coding Visit Charges Inpatient E&M: 95029 Subs Hosp L2
[2023-05-26] MEDS: Modafinil 200 MG Tablet 100 MG PO (12:03)
[2023-05-26] MEDS: Jevity 1.5. 1,000 ML Bottle 275 ML GT ×3 (12:06→23:47)
[2023-05-26 12:15] LABS: Bedside Glucose 262 mg/dL (74-106)
[2023-05-26] MEDS: Insulin Glargine-YFGN 100 UNIT/ML Pen SC ×2 (12:31→23:44)
--- NOTE | 2023-05-26 12:47 | CASEMGMT ---
Social Work IDT met with patient and dtr for Team meeting. Discussed patient's progress in PT/OT/ST/SN. Educated to Medicare approval of 23 days with DC 06/12. Currently pt is needing x2 assist, limb weakness, new O2 and peg tube, and difficulty staying awake. SW broached topic of pt most likely benefiting from ongoing intensive therapy 5 days a week at another facility under Medicare coverage. Dtr is apprehensive to this plan and prefers pt returns home. SW reiterated once pt is closer to DC, the LOC and recommendations will be reassessed and this worker will assist with DC plans. Dtr offered to assist pt at home. Noted dtr is frail and has O2. SW will continue to follow. Will ReTeam weekly. ELENA BondW
[2023-05-26 14:57] LABS: Bedside Glucose 309 mg/dL (74-106)
[2023-05-26] MEDS: Tamsulosin HCl 0.4 MG Capsule PO (17:44)
[2023-05-26 17:47] LABS: Bedside Glucose 199 mg/dL (74-106)
[2023-05-26] MEDS: MELATONIN 3 MG TABLET GT (20:18)
[2023-05-26] MEDS: Latanoprost 0.005% 1 Bottle 1 DRP EACH EYE (20:19)
[2023-05-26] MEDS: Zolpidem Tartrate 5 MG Tablet PO (20:21)
[2023-05-26] MEDS: Atorvastatin Calcium 40 MG Tablet GT (22:00)
[2023-05-26 22:26] LABS: Bedside Glucose 240 mg/dL (74-106)
--- NOTE | 2023-05-26 23:15 | NURSING ---
pt continually restless after Bipap placed around 0 and attempting to pull Bipap off. Machine sounding alarms d/t attempted removal. Bipap tubing reattached and repositioned multiple times without success. Bipap removed at 2214 d/t pt not willing to keep it on. O2 placed on pt.
[2023-05-27] VITALS (10 sets, daily range): BP systolic 107; BP diastolic 56–67; PULSE 67–98; RESP 10–14; TEMP 35.6–36.3; O2SAT 2–100; BMI 24.0; BMI 25.4
[2023-05-27 02:20] LABS: Bedside Glucose 308 mg/dL (74-106)
[2023-05-27] MEDS: Insulin Lispro 100 UNIT/ML INSULN.PEN SC ×4 (02:20→17:44)
[2023-05-27] MEDS: Metoprolol Tartrate 50 MG Tablet GT ×4 (04:21→21:35)
[2023-05-27] MEDS: Jevity 1.5. 1,000 ML Bottle 275 ML GT ×3 (05:03→17:46)
[2023-05-27] MEDS: Modafinil 200 MG Tablet 100 MG PO (05:04)
[2023-05-27] MEDS: Ipratropium Bromide 0.06% NASAL SPRAY 2 SPRAY NASAL ×3 (05:04→21:37)
[2023-05-27 06:42] LABS: Bedside Glucose 254 mg/dL (74-106)
[2023-05-27] MEDS: Potassium Chloride Oral Soln 20 MEQ/15 ML UDC GT (08:40)
[2023-05-27] MEDS: Furosemide 20 MG Tablet GT (08:40)
[2023-05-27] MEDS: Losartan Potassium 50 MG Tablet GT (08:42)
[2023-05-27] MEDS: Clopidogrel Bisulfate 75 MG Tablet GT (08:42)
[2023-05-27] MEDS: Aspirin 81 MG TAB.CHEW GT (08:42)
[2023-05-27] MEDS: Fluconazole Suspension 40 MG/ML 35 ML Bottle 100 MG GT (08:42)
[2023-05-27] MEDS: Dorzolamide HCL/Timolol 10 ml Bottle 1 DRP OPHTHALMIC ×2 (08:48→21:37)
[2023-05-27] MEDS: Menthol/Lanolin/Calamine/Znox 113 GM Tube 1 APPLIC TOPICAL ×2 (08:48→21:34)
[2023-05-27 11:22] LABS: Bedside Glucose 206 mg/dL (74-106)
[2023-05-27] MEDS: Insulin Glargine-YFGN 100 UNIT/ML Pen SC (11:57)
--- NOTE | 2023-05-27 12:35 | PN_ITS ---
Subjective Subjective Afebrile Vital signs stable He is 99% saturated on a 2 L nasal cannula. Apparently he slept on and off last night and I am told he did not wear BIPAP Yesterday his nurse said he was more alert after the Provigil but, today he is very somnolent when I examined him while he was in therapy. Can not stay awake to talk with me. The therapists also agree aditya he is not more responsive on 100 mg of Provigil every morning. Remains incontinent of urine. Killian denies headache, chest pain, shortness of breath, cough, mouth pain, abdominal pain, nausea, dysuria and calf pain. He tells me the bad taste in his mouth is better since he was started on Diflucan. Very somnolent, no apparent distress, pleasant when awake and cooperative Mucous membranes are very dry but the thrush has improved and the dried secret ions on the roof of his mouth have also improved with aggressive mouth care which he is now able to tolerate. Lungs-he is not able to take a deep breath when I instruct him to however he is having Eugenio-Borrego respirations today and we does take deep breaths he is clear anterior and lateral. Heart-regular rate and rhythm Abdomen-nondistended, nontender to palpation, bowel sounds are present, no g uarding with palpation No peripheral edema No pain with dorsiflexion of the foot or compression of his calves bilaterally. Impressions 1. Debility secondary to ischemic stroke due to occlusion of the right internal carotid artery with hemorrhagic conversion 2. Severe sleep apnea 3. Coronary artery disease 4. Paroxysmal atrial fibrillation-he is regular and rate controlled at the present time 5. Acute blood loss [id number]. Hypokalemia-resolved Increase Provigil to 200 mg every morning JAMES Gomes and start Seroquel 37.5 mg p.o. nightly Recheck lab on Tuesday If we are unsuccessful in getting him to be more alert during the day will likely have to transfer to an SNF at some point. I do not think his daughter is being realistic thinking she and his could care for him adequately at home. I spoke to the social services aide and a referral to palliative care has been made. Objective Data Objective Data Vital Signs: Vital Signs Temp Pulse Resp BP Pulse Ox O2 Del Method O2 Flow Rate 97.3 F L 76 14 107/67 99 Nasal Cannula 2 05/27/23 09:33 05/27/23 09:33 05/27/23 09:33 05/27/23 09:33 05/27/23 11:01 05/27/23 10:00 05/27/23 11:01 FiO2 25 05/26/23 21:44 Oxygen Flow Rate (L/min) 2 Oxygen Delivery Method Nasal Cannula Weight: 138 lb 3.677 oz Body Mass Index (BMI) 25.4 Intake & Output: Intake and Output for Last 24 Hours 05/25/23 05/26/23 05/27/23 23:59 23:59 23:59 Intake Total 2781.25 / 2781.25 3480 / 4005 1360 / 1360 Balance 2781.25 / 2781.25 3480 / 4005 1360 / 1360 Lab / Micro Data 05/24/23 05:21 05/24/23 05:21 Labs: Laboratory Results - last 24 hr 05/26/23 14:39: POC Glucose 309 H 05/26/23 17:29: POC Glucose 199 H 05/26/23 22:03: POC Glucose 240 H 05/27/23 02:01: POC Glucose 308 H 05/27/23 06:21: POC Glucose 254 H 05/27/23 11:04: POC Glucose 206 H Micro: Microbiology 05/21/23 15:55 Stool Stool Occult Blood (JEANNIE) - Final Occult Blood Positive Charges/Coding Visit Charges Inpatient E&M: 27213 Subs Hosp L2
[2023-05-27] MEDS: Tamsulosin HCl 0.4 MG Capsule PO (17:37)
[2023-05-27 18:13] LABS: Bedside Glucose 198 mg/dL (74-106)
--- NOTE | 2023-05-27 21:28 | CPS ---
Pt refusing bipap at this time
[2023-05-27] MEDS: Latanoprost 0.005% 1 Bottle 1 DRP EACH EYE (21:33)
[2023-05-27] MEDS: Zolpidem Tartrate 5 MG Tablet PO (21:35)
[2023-05-27] MEDS: Atorvastatin Calcium 40 MG Tablet GT (21:35)
[2023-05-27] MEDS: MELATONIN 3 MG TABLET GT (21:36)
[2023-05-28] VITALS (8 sets, daily range): BP systolic 96–115; BP diastolic 42–61; PULSE 47–116; RESP 12–23; TEMP 35.9–36.8; O2SAT 25–100; BMI 24.0; BMI 24.3
[2023-05-28] MEDS: Insulin Glargine-YFGN 100 UNIT/ML Pen SC ×2 (00:20→11:57)
[2023-05-28] MEDS: Insulin Lispro 100 UNIT/ML INSULN.PEN SC ×4 (00:22→17:52)
[2023-05-28] MEDS: Jevity 1.5. 1,000 ML Bottle 275 ML GT ×4 (00:23→17:52)
[2023-05-28 00:58] LABS: Bedside Glucose 190 mg/dL (74-106)
--- NOTE | 2023-05-28 03:40 | NURSING ---
Reviewed and agree with Gia HAYS, documentation and assessment charting.
[2023-05-28] MEDS: Metoprolol Tartrate 50 MG Tablet GT ×4 (04:30→20:52)
[2023-05-28] MEDS: Ipratropium Bromide 0.06% NASAL SPRAY 2 SPRAY NASAL ×3 (06:43→20:51)
[2023-05-28] MEDS: Modafinil 200 MG Tablet PO (06:46)
[2023-05-28 07:33] LABS: Bedside Glucose 207 mg/dL (74-106)
[2023-05-28] MEDS: Losartan Potassium 50 MG Tablet GT (08:50)
[2023-05-28] MEDS: Furosemide 20 MG Tablet GT (08:50)
[2023-05-28] MEDS: Clopidogrel Bisulfate 75 MG Tablet GT (08:50)
[2023-05-28] MEDS: Dorzolamide HCL/Timolol 10 ml Bottle 1 DRP OPHTHALMIC ×2 (08:50→20:52)
[2023-05-28] MEDS: Potassium Chloride Oral Soln 20 MEQ/15 ML UDC GT (08:50)
[2023-05-28] MEDS: Aspirin 81 MG TAB.CHEW GT (08:50)
[2023-05-28] MEDS: Fluconazole Suspension 40 MG/ML 35 ML Bottle 100 MG GT (08:51)
[2023-05-28] MEDS: Menthol/Lanolin/Calamine/Znox 113 GM Tube 1 APPLIC TOPICAL ×2 (08:51→20:52)
[2023-05-28 12:30] LABS: Bedside Glucose 222 mg/dL (74-106)
[2023-05-28] MEDS: Tamsulosin HCl 0.4 MG Capsule PO (17:41)
[2023-05-28 18:12] LABS: Bedside Glucose 229 mg/dL (74-106)
[2023-05-28] MEDS: Latanoprost 0.005% 1 Bottle 1 DRP EACH EYE (20:49)
[2023-05-28] MEDS: Atorvastatin Calcium 40 MG Tablet GT (20:51)
[2023-05-28] MEDS: QUEtiapine 25 MG Tablet 37.5 MG GT (20:51)
[2023-05-28] MEDS: MELATONIN 3 MG TABLET GT (20:51)
[2023-05-29] VITALS (10 sets, daily range): BP systolic 102–104; BP diastolic 60–66; PULSE 48–135; RESP 12–26; TEMP 35.9–36; O2SAT 98–100; BMI 24.3
[2023-05-29] MEDS: Insulin Lispro 100 UNIT/ML INSULN.PEN SC ×2 (00:16→06:14)
[2023-05-29] MEDS: Insulin Glargine-YFGN 100 UNIT/ML Pen SC (00:17)
[2023-05-29] MEDS: Jevity 1.5. 1,000 ML Bottle 275 ML GT ×2 (00:34→06:15)
--- NOTE | 2023-05-29 00:36 | PCM.HOSP.N ---
Hospitalist Note Patient with new tachycardia, recently increased provigil, may be the culprit, will dose with metoprolol early. May need to consider decreasing dose or holding.
[2023-05-29] MEDS: Metoprolol Tartrate 50 MG Tablet GT ×3 (00:45→09:54)
--- NOTE | 2023-05-29 00:56 | NURSING ---
pt noted with tachycardia. Per Dr. Merino, order MOTORCYCLE ASSEMBLER updated AM Provigil dose to be held and discussed with Rehab physician in AM.
--- NOTE | 2023-05-29 01:00 | NURSING ---
0000 staff into pt room to do accu-check and give tube feeding. pt heart rate was noted to be in the 130's which was new for pt. Cps had come up at 2300 to apply bi-pap and pt became restless at this time and started pulling it off . 02 at 2 l/m was reapplied. heart rate remained in 120's-130's with the bi-pap off . rn made aware, vs taken and blood sugar done. pt became less restless and continues to have periods of apnea. 0030 rn called the hospitalist regarding the increased heart rate and recieved a one time order for lopressor 50mg now and suggested that staff talk to regarding provigil since it can cause an increased heart rate. will hold am dose until Dr. Venegas is made aware . 0045 lopressor given at this time as per order by hospitalist. will continue observe pt for changes
[2023-05-29 01:09] LABS: Bedside Glucose 245 mg/dL (74-106)
--- NOTE | 2023-05-29 04:52 | NURSING ---
0400 pt is noted to be less restless with bi-pap off and 02 on at 2l/m. vs taken and ap remains between the 110's and 120's. lopressor given as per order. a dry intermittent has been noted this hs. lung sounds are unchanged at this time. no residual noted when giving the lopressor.
[2023-05-29] MEDS: Ipratropium Bromide 0.06% NASAL SPRAY 2 SPRAY NASAL (06:13)
[2023-05-29 07:13] LABS: Bedside Glucose 368 mg/dL (74-106)
--- NOTE | 2023-05-29 07:23 | NURSING ---
pt's heart rate is now running in 70's to low 100's and sp02 is in the upper 90's. lung sounds remain unchanged from previous findings. 02 at 2l\m maintained through out the remainder of the shift. report to dayshift rn regarding hospitalist suggestion about hold provigil until staff talked with Dr. Venegas.
[2023-05-29] MEDS: Losartan Potassium 50 MG Tablet GT (09:21)
[2023-05-29] MEDS: Potassium Chloride Oral Soln 20 MEQ/15 ML UDC GT (09:21)
[2023-05-29] MEDS: Dorzolamide HCL/Timolol 10 ml Bottle 1 DRP OPHTHALMIC (09:21)
[2023-05-29] MEDS: Clopidogrel Bisulfate 75 MG Tablet GT (09:21)
[2023-05-29] MEDS: Furosemide 20 MG Tablet GT (09:21)
[2023-05-29] MEDS: Aspirin 81 MG TAB.CHEW GT (09:21)
[2023-05-29] MEDS: Menthol/Lanolin/Calamine/Znox 113 GM Tube 1 APPLIC TOPICAL (09:22)
[2023-05-29] MEDS: Fluconazole Suspension 40 MG/ML 35 ML Bottle 100 MG GT (09:22)
--- NOTE | 2023-05-29 09:57 | CT_ITS ---
INDICATION: Central Apnea. S/P Stroke EXAMINATION: CT BRAIN - CT Head or Brain W/O Contrast Injection TECHNIQUE: Multiple axial images were obtained of the head without intravenous contrast. A radiation dose optimization technique was used for this scan. IV Contrast dosage and agent: None. RADIATION DOSAGE (If Supplied By Facility): CTDIvol = ( 44.99 ) mGy, DLP = ( 829.85 ) mGycm COMPARISON: Previous MRI and CT scan of the brain of 05/04/2023. FINDINGS: BRAIN PARENCHYMA: Evolution of the previously noted infarct in the right frontoparietal region now hemorrhagic and more extensive than the previous exam. There is associated edema. Minimal mass effect on the right lateral ventricle. No significant shift of midline. Posterior fossa structures are unremarkable. Atherosclerotic calcifications of the cavernous internal carotid artery. CSF SPACES: Appropriate for age. No hydrocephalus. Basal cisterns are patent. CALVARIUM, SKULL BASE, PARANASAL SINUSES AND MASTOID AIR CELLS: Because of thickening of the left ethmoid sinuses. No discrete lytic or blastic abnormalities. ORBITS: Both globes, extraocular muscles, optic nerves and retrobulbar fat appear grossly unremarkable. CT/Brain/Head without Contrast IMPRESSION: Hemorrhagic right frontoparietal infarct as described above. N.B. : The above Results were Read Back by Charlie Gotti MD to Olimpia Duron RN, and understanding confirmed on 05/29/2023 10:31:15 (ET). Electronically Signed: Charlie Gotti MD at 10:35 EDT ,
--- NOTE | 2023-05-29 10:38 | PCM.DC.SUM ---
Providers Date of Admission: 05/20/23 Date of Discharge: 05/29/23 Primary Care Physician: Dr. Adithya Krause MD [facility] teleneurology/Dr. Charles Reason For Visit: RIGHT MCA ische Stroke with hemorrhagic conversion Diagnosis Discharge Diagnosis (1) Intracerebral hemorrhage, nontraumatic: Status: Acute Code(s): I61.9 - Nontraumatic intracerebral hemorrhage, unspecified (2) Debility: Status: Acute Code(s): R53.81 - Other malaise (3) Acute cerebrovascular accident (CVA): Status: Acute Code(s): I63.9 - Cerebral infarction, unspecified Plan: Ischemic initially. Received TNK and then had hemorrhagic conversion. (4) Left hemiplegia: Status: Acute Code(s): G81.94 - Hemiplegia, unspecified affecting left nondominant side (5) Dysphagia: Status: Acute Code(s): R13.10 - Dysphagia, unspecified Qualifiers: Dysphagia type: oropharyngeal phase Qualified Code(s): R13.12 - Dysphagia, oropharyngeal phase (6) Dysarthria due to acute cerebrovascular accident (CVA): Status: Acute Code(s): I63.9 - Cerebral infarction, unspecified; R47.1 - Dysarthria and anarthria (7) Hypokalemia: Status: Acute Code(s): E87.6 - Hypokalemia (8) Acute blood loss anemia: Status: Acute Code(s): D62 - Acute posthemorrhagic anemia (9) Paroxysmal atrial fibrillation: Status: Acute Code(s): I48.0 - Paroxysmal atrial fibrillation (10) Pulmonary hypertension: Status: Acute Code(s): I27.20 - Pulmonary hypertension, unspecified (11) Mitral stenosis: Status: Acute Code(s): I05.0 - Rheumatic mitral stenosis Qualifiers: Cardiac valve disease etiology: nonrheumatic Qualified Code(s): I34.2 - Nonrheumatic mitral (valve) stenosis (12) Diabetes mellitus, type 2: Status: Acute Code(s): E11.9 - Type 2 diabetes mellitus without complications Qualifiers: Diabetes mellitus complication detail: with other circulatory complications Diabetes mellitus complication status: with circulatory complication Diabetes mellitus swatch paster insulin use: with penitentiary use Qualified Code(s): E11.59 - Type 2 diabetes mellitus with other circulatory complications; Z79.4 - shelter (current) use of insulin (13) Grade III diastolic dysfunction: Status: Acute Code(s): I51.89 - Other ill-defined heart diseases (14) Stenosis of right internal carotid artery with cerebral infarction: Status: Acute Code(s): I63.231 - Cerebral infarction due to unspecified occlusion or stenosis of right carotid arteries (15) Carotid artery stenosis: Status: Acute Code(s): I65.29 - Occlusion and stenosis of unspecified carotid artery Qualifiers: Laterality: right Qualified Code(s): I65.21 - Occlusion and stenosis of right carotid artery (16) Glaucoma: Status: Acute Code(s): H40.9 - Unspecified glaucoma Qualifiers: Glaucoma type: unspecified (17) Coronary artery disease: Status: Acute Code(s): I25.10 - Atherosclerotic heart disease of [place] coronary artery without angina pectoris Qualifiers: Associated angina: without angina Coronary Disease-Associated Artery/Lesion type: [place] artery [place] vs. transplanted heart: [place] heart Qualified Code(s): I25.10 - Atherosclerotic heart disease of [place] coronary artery without angina pectoris (18) Oral thrush: Status: Acute Code(s): B37.0 - Candidal stomatitis (19) Sleep apnea: Status: Acute Code(s): G47.30 - Sleep apnea, unspecified Qualifiers: Sleep apnea type: unspecified type Qualified Code(s): G47.30 - Sleep apnea, unspecified Plan: I suspect he has central sleep apnea. (20) Urinary incontinence: Status: Acute Code(s): R32 - Unspecified urinary incontinence Qualifiers: Urinary Incontinence type: urinary incontinence without sensory awareness Qualified Code(s): N39.42 - Incontinence without sensory awareness Plan: More likely than not related to the stroke. Plan 1. Transfer to ICU on the hospitalist service. 2. consult the gaming manager. 3. Repeat CTB in 6 hours and in 24H. 4. [facility] will accept transfer if the bleed enlarges. Medications at Discharge Home Medications aspirin 81 mg chewable tablet 81 mg feeding tube DAILY@0800 Heart health 06/25/16 atorvastatin 40 mg tablet 40 mg feeding tube QHS cholesterol 06/25/16 brimonidine 0.1 % eye drops (Alphagan P) 1 drp BID glaucoma 06/25/16 dorzolamide 22.3 mg-timolol 6.8 mg/mL eye drops 1 drp BID glaucoma 06/25/16 furosemide 20 mg tablet 20 mg feeding tube DAILY CHF 04/15/17 dapagliflozin propanediol 10 mg tablet (Farxiga) 10 mg feeding tube DAILY CKD 05/03/23 dulaglutide 0.75 mg/0.5 mL subcutaneous pen injector (Trulicity) 0.75 mg subcut .sat blood glucose 05/03/23 losartan 50 mg tablet 50 mg feeding tube DAILY hypertension 05/03/23 Hospital Course Operations None Procedures None Summary of Care Provided Minutes Spent on Discharge: 50 Hospital Course: KILLIAN AMARO, is a 83 YO M with a PMH of diabetes mellitus type 2, coronary artery disease, hypertension, hyperlipidemia, glaucoma, remote tobacco dependence and mitral valve repair in 1995 who presented to the emergency department at [facility] on 05/03/2023 complaining of slurred speech and inability to move his left side. Stat CT brain without contrast showed no evidence of hemorrhage. See TA of the head and neck showed near occlusion of the proximal right ICA by noncalcified plaque. There was a possible small ulceration projecting posteriorly from the origin of the right ICA. There was severe stenosis of both distal vertebral arteries and moderate stenosis of the supra cavernous right internal carotid artery. There were no MCA filling defects. Pt was noted to be in AF in the ED and was placed on a Cardizem drip. Consult was obtained with teleneurology and tenecteplase was recommended. The patient and his were agreeable and he was given TNK in the emergency department. He was admitted to the intensive care unit on the hospitalist service. An echocardiogram showed an ejection fraction of 65% with stage III diastolic dysfunction and a wall motion abnormality in the inferobasal area. The atria were of normal size and the bubble contrast study was negative. There was mild to moderate mitral stenosis and mild TR. The right ventricular systolic pressure was estimated at 59 which is consistent with moderate pulmonary hypertension. Vascular surgery was consulted regarding severe stenosis of the right ICA. Follow-up CT scan 24 hours following TNK showed no hemorrhagic transformation. MRI on 05/04/2023 showed acute frontal lobe infarctions with chronic involutional and white matter changes. He was having quite a bit of difficulty swallowing and a MBS was done and showed moderate oropharyngeal dysphagia. He was placed on a pur?ed diet with nectar thick liquids. On 05/04 he had a fever and was started on Unasyn empirically for suspected aspiration. Given the size of the infarct in the right frontal lobe vascular surgery recommended waiting 4 to 6 weeks for carotid intervention to reduce risk of hemorrhagic conversion. Consult was obtained with [facility] teleneurology and they recommended transfer to [facility] to be evaluated by a neuro interventionalist for consideration of endovascular intervention, possibly in 8 to 14 days. He was transferred [facility] on 05/05/2023. When he arrived at [facility] he had episodes of rapid ventricular response and cardiology was consulted. He was placed on metoprolol 50 mg every 6 hours. On he had a CT brain which showed concern for developing hemorrhage so anticoagulation was to be deferred until 4 to 6 weeks post stroke. He was started on dual antiplatelet agents with plans to start Eliquis in 4 weeks. While awaiting ICA stenting the patient developed worsening dysphagia and the speech therapist recommended a PEG tube. The PEG tube was placed on 05/18/2023. On 05/18/2023 he had ICA stenting. During his stay at [facility] he was noted to have significant sleep apnea and it was recommended he have an outpatient sleep study going forward. He was placed on nocturnal CPAP. PT/OT/ST recommended acute rehab at discharge and the patient was transferred to the acute inpatient rehab unit at [facility] on 05/20/2023 for 3 hours of therapy daily to restore function/independence at or near his level prior to the stroke. Mr. Amaro has long periods of apnea.....up to 30-35 secs. He is very somnolent during the day and this has made it difficult to have effective therapy. He falls asleep while I am talking with him. He was placed on BIPAP while sleeping but, he is restless with it on and takes the mask off. We have tried giving him medication at night to help him sleep but, this has not been helpful. He sleeps most of the day. We also tried Provigil to keep him awake during the day and this has been effective however, He went back into AF/Aflutter last night with rates per nursing ranging from 30's -130's. The night hospitalist held the Provigil today and gave an extra dose of Metoprolol last night. The apnea is worse today than it has been and a NC CTB was ordered to r/o new stroke or bleed. He denies MCKEON. He also denies SOB, CP and lightheadedness. The stat CTB showed bleeding on the R side. Our last CT from [facility] showed no bleed but, he had a CT scan of the brain at [facility] when he neurologic status declined and he was diagnosed with hemorrhagic conversion. I spoke with [facility] teleneurology/Dr. Charles and he compared the sca today with the scan done on 05/11/23 and there is an increase in the bleed......not known if this is acute or subacute. Dr. Charles recommended transferring him to ICU for close monitoring and repeating a CTB in 6 hours and then again in 24H. If the bleeding increases and the family wishes they will accept transfer back to [facility]. EKG today shows Atrial flutter at 108 BPM. There are non-specific T wave changes present but no ST elevation and no significant ST depression. The QT is not prolonged. I explained the situation to Killian but, he fell asleep while I was talking with him and I am not sure how much of what I said he retained. I was in contact with Killian's Shellie and explained the situation and she is agreeable to transfer to ICU and to [facility] if necessary. I tried calling his dtr Diamond to inform her of the transfer but, she was not accepting calls and the VM was full. I spoke with Dr. Dent on the hospitalist service and Killian will be admitted to the hospitalist service. The last BP was 104/60 with a HR of 102. He is 99% saturated on a 2.5 LPM NC. BS's have been going up and we have been adjusting insulin to get them controlled. He has been tolerating Q6H bolus feedings with no residuals. He is incontinent of urine and I&O's are not accurate. He had a few postvoid residuals greater than 200 early in the admission and he was started on Flomax. Physical Exam Const Constitutional Narrative: He is very drowsy. No coughing and no snoring. Having long periods of apnea followed by Eugenio-Borrego breathing. He falls asleep while I am talking with him. After a few breaths he opens his eyes for a few secs. He does not appear to be in any distress. He is pale. HEENT head/scalp atraumatic HEENT Narrative: The thrush is better. Mouth: dry mucous membranes Eyes EOMs intact bilaterally Eyes Narrative: No visual field cuts. Neck supple General: trachea midline Resp Resp Narrative: Eugenio-Borrego breathing with long periods of apnea. Able to maintain pulse ox of 99% on 2.5 LMP NC. the lungs are clear anterior and lateral. Cardio no murmurs, no rub and no gallops Cardio Narrative: Irregular rhythm intermittently and the HR has ranged from 47-135 over the past 24H. GI normal to inspection, nondistended, normoactive bowel sounds, soft to palpation and non-tender GI Narrative: No guarding with palpation. The PEG site is free of erythema and there is no discharge around the site. He has no pain with palpation in the area. He has been tolerating his tube feeds with no significant residuals. Extremity no calf tenderness General Extremity: Negative for edema Skin Skin Narrative: Pale Rashes: no rashes Wounds: Negative for wounds noted Neuro Neuro Narrative: He has a Left facial droop. He is flaccid in the Left UE and LE. He has dysarthria and his voice is soft and does not project well. Weight / BMI Weight Weight: 132 lb 0.91 oz Body Mass Index (BMI) 24.3 ABG / Lab / Microbiology Data 05/24/23 05:21 05/24/23 05:21 Laboratory: Laboratory Results - last 24 hr 05/28/23 11:56: POC Glucose 222 H 05/28/23 17:51: POC Glucose 229 H 05/29/23 00:14: POC Glucose 245 H 05/29/23 06:12: POC Glucose 368 H Microbiology: Microbiology 05/21/23 15:55 Stool Stool Occult Blood (JEANNIE) - Final Occult Blood Positive Radiography Diagnostic Testing: Radiology Impression Brain CT 05/29/23 09:57 IMPRESSION: Hemorrhagic right frontoparietal infarct as described above. N.B. : The above Results were Read Back by Charlie Gotti MD to Olimpia Duron RN, and understanding confirmed on 05/29/2023 10:31:15 (ET). Electronically Signed: Charlie Gotti MD at 10:35 EDT , Meaningful Use Info Meaningful Use Diagnoses (Choose all that apply): Ischemic CVA (with hemorrhagic conversion. ) CVA Therapy Assessed for PT,OT and/or ST?: Yes Ischemic Stroke Antithrombotic order at d/c?: No Reason antithrombotic not ordered: Medical Contraindication (Intracerebral bleed following TNK with hemorrhagic conversion) Dx of Atrial fib/flutter?: Yes Anticoagulant at discharge?: No Reason anticoagulant not ordered: Medical Contraindication (Intracerebral bleed) Statins at discharge?: Yes Primary Dx Acute Ischemic CVA?: Yes IV thrombolytic ordered during stay?: No Reason IV thrombolytic not ordered: Medical Contraindication Discharge Plan Admission Admit Date/Time: 05/20/23 15:40 Attending Provider: Annika Venegas Primary Care Provider: Adithya Krause Discharge Orders/Prescriptions Prescriptions: No Action atorvastatin 40 MG tablet 40 mg feeding tube QHS aspirin 81 MG tablet,chewable 81 mg feeding tube DAILY@0800 dorzolamide-timolol 1 DROP bottle 1 drp Each Eye BID Patient Comments: Alphagan P 15 ML drops 1 drp Each Eye BID furosemide 20 MG tablet 20 mg feeding tube DAILY Patient Comments: Trulicity 0.75 mg/0.5 mL pen injector 0.75 mg SUBCUT .sat Farxiga 10 mg tablet 10 mg feeding tube DAILY losartan 50 mg tablet 50 mg feeding tube DAILY Referrals / Follow Up: [facility], Cardiiac Electrophysiology [Other] Javier Parikh [Other] - 06/20/23 1:00 pm ([facility] ) Claudia Kwong [Other] - 06/29/23 1:25 pm Tracie Dubon [Other] - 07/08/23 2:00 pm Adithya Krause MD [Primary Care Provider] - Disposition Discharge Orders: Discharge Patient (Routine); Ordered 05/29/23 Ordered By: Dr. Annika Venegas Charges/Coding Visit Charges Inpatient E&M: 02693 Disch Hosp >30min
[2023-05-31 09:23] LABS: Bedside Glucose 334 mg/dL (74-106)
== END 2023-05-29 11:08 | disposition short-term general hospital (02) | DRG 57 ==
PROVIDERS: Admitting Provider Internal Medicine; PCP Family Medicine; Referring Provider Internal Medicine; Visit Provider Internal Medicine
DX: I69.354 Hemiplegia and hemiparesis following cerebral infarction affecting left non-dominant side (principal); B37.0 Candidal stomatitis; I48.92 Unspecified atrial flutter; D62 Acute posthemorrhagic anemia; I13.0 Hypertensive heart and chronic kidney disease with heart failure and stage 1 through stage 4 chronic kidney disease, or unspecified chronic kidney disease; I50.32 Chronic diastolic (congestive) heart failure; I27.20 Pulmonary hypertension, unspecified; I48.0 Paroxysmal atrial fibrillation; G47.31 Primary central sleep apnea; E11.22 Type 2 diabetes mellitus with diabetic chronic kidney disease; N18.31 Chronic kidney disease, stage 3a; E11.39 Type 2 diabetes mellitus with other diabetic ophthalmic complication; E11.59 Type 2 diabetes mellitus with other circulatory complications; Z79.4 Long term (current) use of insulin; E11.40 Type 2 diabetes mellitus with diabetic neuropathy, unspecified; Z93.1 Gastrostomy status; I69.322 Dysarthria following cerebral infarction; I25.10 Atherosclerotic heart disease of native coronary artery without angina pectoris; E78.5 Hyperlipidemia, unspecified; E87.6 Hypokalemia; I69.392 Facial weakness following cerebral infarction; I69.391 Dysphagia following cerebral infarction; Z87.891 Personal history of nicotine dependence; N39.42 Incontinence without sensory awareness; Z79.82 Long term (current) use of aspirin; H40.9 Unspecified glaucoma; Z79.899 Other long term (current) drug therapy
CPT/HCPCS: 36415; 70450; 80048; 80053; 82274; 82962; 83735; 84100; 85014; 85018; 85027; 92507; 92523; 92526; 92610; 93005; 94002; 94003; 94668; 94762; 97110; 97112; 97163; 97167; 97530; 97535; 97802; 97803

== ENCOUNTER 2023-05-29 12:33 | Inpatient (IN) | payer MEDICARE, OTHER, SELFPAY ==
[2023-05-29] VITALS (13 sets, daily range): BP systolic 96–144; BP diastolic 57–87; PULSE 66–115; RESP 12–27; TEMP 36.2; O2SAT 96–100; BMI 32.3
--- NOTE | 2023-05-29 09:49 | EKG12_ITS ---
Test Reason : BRADYCARDIA Blood Pressure : / mmHG Vent. Rate : 108 BPM Atrial Rate : 278 BPM P-R Int : 000 ms QRS Dur : 076 ms QT Int : 284 ms P-R-T Axes : 000 065 -30 degrees QTc Int : 380 ms Atrial flutter with variable A-V block Nonspecific T wave abnormality Abnormal ECG When compared with ECG of 27-MAY-2023 05:27, MANUAL COMPARISON REQUIRED, DATA IS UNCONFIRMED Confirmed by KATRINA REED, ADRIA ([id number]), field map editor KAMALJIT TINAJERO ([id number]) on 06/28/2023 11:19:47 AM Referred By: JOCE Confirmed By:ADRIA HERNDON MD
--- NOTE | 2023-05-29 11:55 | RAD_ITS ---
INDICATION: shortness of breath EXAMINATION/TECHNIQUE: X-RAY - XR Chest 1 View COMPARISON: Prior exam of 05/03/2023. FINDINGS: LINES/DEVICES: None. LUNGS: The lungs are somewhat hyperinflated. No focal infiltrate is seen. No evidence of pleural effusions. MEDIASTINUM AND CARDIOVASCULAR STRUCTURES: Status post median sternotomy. BONES AND SOFT TISSUES: Stable osseous structures. RAD/Chest 1 View (Portable) IMPRESSION: No radiographic evidence of acute cardiopulmonary disease. Electronically Signed: Charlie Gotti MD at 12:51 EDT ,
--- NOTE | 2023-05-29 11:56 | HP.PCM.HOS_ITS ---
HPI - General General Date of Admission: 05/29/23 Date of Service: 05/29/23 Chief Complaint: CVA with hemorrhage HPI Narrative SALAS AMARO, is a 83 M with history of type 2 diabetes, CAD, hypertension, hyperlipidemia and recent hospitalization for acute CVA complicated by hemorrhagic conversion as noted in assessment/plan who presented as a transfer from [facility] on 05/29/2023 as a stroke alert. Patient seen at bedside, present. Patient on BiPAP on my interview, appeared very lethargic, not answering questions appropriately. Increased work of breathing noted. Answered 's questions to the best of my ability. Please see Dr. Venegas's discharge summary from 05/29 for thorough history of patient's medical course from initial admission on 05/03 through the current time. [facility] Medical History (Updated 05/29/23 @ 14:[address] Jamila Odonnell MD) Ankylosing spondylitis of multiple sites in spine Chronic kidney disease, stage 3a Coronary artery disease Diabetes mellitus, type 2 Diastolic congestive heart failure Glaucoma Grade III diastolic dysfunction History of right common carotid artery stent placement (~04/2023) Hyperlipidemia Hypertension Mitral stenosis Neuropathy involving both lower extremities Pulmonary hypertension Home Medications aspirin 81 mg chewable tablet 81 mg feeding tube DAILY@0800 Heart health 06/25/16 [History Last Taken Unknown] atorvastatin 40 mg tablet 40 mg feeding tube QHS cholesterol 06/25/16 [History Last Taken Unknown] brimonidine 0.1 % eye drops (Alphagan P) 1 drp BID glaucoma 06/25/16 [History Last Taken 05/03/23] dorzolamide 22.3 mg-timolol 6.8 mg/mL eye drops 1 drp BID glaucoma 06/25/16 [History Last Taken 05/03/23] furosemide 20 mg tablet 20 mg feeding tube DAILY CHF 04/15/17 [History Last Taken Unknown] dapagliflozin propanediol 10 mg tablet (Farxiga) 10 mg feeding tube DAILY CKD 05/03/23 [History Last Taken Unknown] dulaglutide 0.75 mg/0.5 mL subcutaneous pen injector (Trulicity) 0.75 mg subcut .sat blood glucose 05/03/23 [History Last Taken Unknown] losartan 50 mg tablet 50 mg feeding tube DAILY hypertension 05/03/23 [History Last Taken Unknown] Allergy/AdvReac Type Severity Reaction Status Date / Time doxycycline [From Monodox] Allergy SOB AND Verified 02/19/20 07:34 COULDNT BREATHE lovastatin AdvReac Other Verified 02/19/20 07:34 pravastatin [From Pravachol] AdvReac Other Verified 02/19/20 07:34 Surgical History (Updated 05/21/23 @ 13:[address] Annika Venegas, ) H/O heart artery stent Mitral valve replaced Social History Smoking Status: Unknown if ever smoked ROS Review of Systems ROS Unobtainable: due to mental status Vital Signs Vital Signs Vital Signs: 05/29/23 11:00 05/29/23 11:15 05/29/23 11:30 Temperature 97.1 F L Temperature Source Temporal Pulse Rate 69 69 71 Respiratory Rate 20 H 24 H 24 H Blood Pressure [BP] 106/58 L 96/57 L 100/57 L Blood Pressure Mean [BP] 74 70 71 Blood Pressure Source [BP] Monitor Monitor Monitor Blood Pressure Position [BP] Supine Blood Pressure Location [BP] Left Arm Pulse Ox 100 100 100 Oxygen Delivery Method Bi-pap Bi-pap Bi-pap Fraction of Inspired Oxygen (FIO2) 25 25 25 Weight Weight: 80.2 kg Body Mass Index (BMI) 32.3 Physical Exam Const Constitutional Narrative: Patient with increased work of breathing on BiPAP. Not alert and oriented, not answering questions appropriately. Not responding to commands. HEENT normocephalic and head/scalp atraumatic Neck supple Chest inspection of chest normal Resp Resp Narrative: Bilateral crackles noted. Cardio no murmurs and peripheral pulses 2+ throughout Cardio Narrative: Tachycardic, irregular rhythm noted. GI normal to inspection, nondistended, normoactive bowel sounds, soft to palpation, non-tender and non-distended Extremity normal to inspection and no pedal edema Skin no rashes or lesions noted Results Lab / Micro Data 05/29/23 11:45 05/29/23 11:45 Assessment & Plan Assessment/Plan (1) Intracerebral hemorrhage, nontraumatic: PLAN: Plan Patient is an 83-year-old male with history of type 2 diabetes, CAD, hypertension, hyperlipidemia and recent hospitalization for acute CVA complicated by hemorrhagic conversion as noted below who presented as a transfer from [facility] on 05/29/2023 as a stroke alert. 1. Recent CVA with hemorrhagic conversion, concern for worsening brain hemorrhage Patient with recent acute CVA with hemorrhagic conversion, with prolonged hospital course at [facility] and then transferred back to [facility] for rehab therapy. Please see Dr. Venegas's discharge summary note from 05/29 for further details. Patient unfortunately was noted to have worsening somnolence on 05/29, along with significant periods of apnea. CT brain without contrast 05/29 showed increase in intracranial bleed. ?[facility] teleneurology consulted. Recommended admission to ICU for close monitoring. Jig And Fixture Repairer following. Recommended repeat CT brain scans at 6 hours and [address] brain, scans will be repeated at 4 PM on 05/29 and 10 AM on 05/30. Holding aspirin. Goals of care discussions ongoing with patient's family. 2. Altered mental status with severe lethargy ?Presumed secondary to recurrent intracranial hemorrhage as noted above. Patient lethargic on BiPAP on admission to ICU. Jig And Fixture Repairer following. Dis cussed with patient's and daughter, and patient's CODE STATUS was changed to DNR CCA, DO NOT INTUBATE. They are considering changing to comfort care measures once patient's daughter arrives at bedside. 3. A-fib/A-flutter New onset A-fib noted on previous admission back on 05/03. Initially had improvement with rate control therapy and was placed on anticoagulation. Unfortunately had hemorrhagic conversion of CVA as noted above, anticoagulation has been held since that time. EKG 05/29 shows atrial flutter with rate around 110. ? Holding anticoagulation. Holding Cardizem for now, can restart as needed. Chronic medical conditions: ? Hypertension: Continue home losartan. ? Type 2 diabetes: Sliding scale insulin for now. DVT prophylaxis: SCDs CODE STATUS: DNR CCA, DO NOT INTUBATE Expected disposition: TBD. Patient's prognosis is guarded at this time. Total clinical time spent by myself addressing the patient's medical issues, reviewing all the data, and collaborating with patient's care team: 55 minutes. Charges/Coding Visit Charges Inpatient E&M: 02504 Init Hosp L2
[2023-05-29 12:03] LABS: Absolute Neutrophil Count 5.2 X10^3/uL (2.0-7.7); Basophil# 0.06 X10^3/uL; Basophil% 0.8 % (0-1); Eosinophil# 0.45 X10^3/uL; Eosinophils% 6.1 % (0-5); Hematocrit 42.1 % (40-54); Hemoglobin 13.5 g/dL (13.0-16.5); Lymphocyte % 6.8 % (19-41); Mean Corp Hgb Conc 32.1 g/dL (32-36); Mean Corpuscular Hgb 31.5 pg (27.0-32.0); Mean Corpuscular Volume 98.4 fL (80-94); Mean Platelet Vol. 10.8 fl (6.2-12.0); Monocyte# 1.09 X10^3/uL; Monocyte% 14.8 % (0-10); NRBC Flagged by Analyzer 0 % (0-5); Neutrophil # 5.19 X10^3/uL (2.7-7.7); Neutrophil % 70.5 % (47-70); POSITIVE DIFFERENTIAL YES; Platelet Count 372 K/mm3 (150-450); RBC Distribution Width CV 14.6 % (11.6-14.6); RBC Distribution Width SD 51.8 fl (35.1-43.9); Red Blood Count 4.28 M/mm3 (4.6-6.2); White Blood Count 7.4 K/mm3 (4.4-11.0)
[2023-05-29 12:07] LABS: Differential Indicated SCAN CRITERIA MET
[2023-05-29 12:12] LABS: Prothrombin Time (Protime)PT. 13.4 SECONDS (11.7-14.9)
[2023-05-29 12:20] LABS: ALB/GLOB Ratio 0.6 RATIO (0.9-2.4); AST(SGOT) 22 U/L (15-37); Alanine Aminotransfer ALT/SGPT 24 U/L (16-61); Albumin, Serum 2.5 g/dL (3.2-5.0); Alkaline Phosphatase 173 U/L (45-117); Anion Gap 6 (5-15); BUN 40 mg/dL (7-18); BUN/Creat Ratio 29.9 RATIO (10-20); Chloride 101 mmol/L (98-107); Creatinine, Serum 1.34 mg/dL (0.70-1.30); EST Glomerular Filtration Rate 54 mL/min (>60); Est Glom Filt Rate - Afr Amer 65 mL/min (>60); Estimated Creatinine Clearance 32.26 ml/min; Globulin 3.9 g/dL (2.2-4.2); Glucose 379 mg/dL (74-106); Magnesium 2.7 mg/dL (1.6-2.6); Potassium 5.6 mmol/L (3.5-5.1); Protein, Total 6.4 g/dL (6.4-8.2); Sodium Level 135 mmol/L (136-145)
[2023-05-29 12:52] LABS: Lactic Acid 1.6 mmol/L (0.4-1.9)
--- NOTE | 2023-05-29 14:24 | CON.PCM.CC_ITS ---
Assessment & Plan Assessment/Plan (1) Metabolic encephalopathy: (2) Intracerebral hemorrhage, nontraumatic: (3) Acute kidney injury superimposed on CKD: (4) Dysphagia: QUALIFIERS: Dysphagia type: oropharyngeal phase Qualified Code(s): R13.12 - Dysphagia, oropharyngeal phase (5) Stenosis of right internal carotid artery with cerebral infarction: (6) Atrial flutter: (7) Sleep apnea: QUALIFIERS: Sleep apnea type: unspecified type Qualified Code(s): G47.30 - Sleep apnea, unspecified (8) Debility: (9) Diabetes mellitus, type 2: QUALIFIERS: Diabetes mellitus complication detail: with other circulatory complications Diabetes mellitus complication status: with circulatory complication Diabetes mellitus longterm insulin use: with terminal clerk use Qualified Code(s): E11.59 - Type 2 diabetes mellitus with other circulatory complications; Z79.4 - termite technician (current) use of insulin (10) Grade III diastolic dysfunction: PLAN: Plan * Head CT this a.m. showed Evolution of the previously noted infarct in the right frontoparietal region now hemorrhagic and more extensive than the previo us exam. * Discussion noted by Dr. Shrestha [facility] neurology who recommended repeat CT head in 6 hours and again in 24 hours with possibility to transfer to [facility] if bleeding is worse. * At this time patient is lethargic on BiPAP. Discussion with the patient's and daughter they elected to change CODE STATUS to DNR/DNI with possibly proceeding to comfort care measures once the patient daughter is at bedside * Blood pressure soft no signs of infection at this time, no fever or WBC count, chest x-ray is clear will administer a liter bolus given JOE * Insulin sliding scale * Avoid anticoagulation given brain bleed * Patient is in a flutter * poor prognosis Critical care time 45 mins excluding procedures spent addressing above problems. Update I explained to the pt's and daughter the above plan, they elected not to proceed with repeat head CT or transfer to [facility] and they acknowledged pt's wors ening status. they would to proceed with comfort care measures. Hospice service on board HPI Consult Data Date of Consult: 05/29/23 HPI Narrative Reason for Consultation: ICU care HPI Narrative: Pt is unable to provide hx. Hx was obtained from chart review and pt's at bedside 83 YO M with a PMH of diabetes mellitus type 2, coronary artery disease, hypertension, hyperlipidemia, glaucoma, remote tobacco dependence and mitral valve repair in 1995 who presented to the emergency department at [facility] on 05/03/2023 with stroke and R ICU occlusion. He received thrombolysis at the time and he was then transferred to [facility] On 05/05/2023 for possible ICA stent however on 05/[address] brain which showed concern for developing hemorrhage so anticoagulation was to be deferred until 4 to 6 weeks post stroke. He was started on dual antiplatelet agents with plans to start Eliquis in 4 weeks. While awaiting ICA stenting the patient developed worsening dysphagia and the speech therapist recommended a PEG tube. The PEG tube was placed on 05/18/2023. On 05/18/2023 he had ICA stenting. During his stay at [facility] he was noted to have significant sleep apnea and it was recommended he have an outpatient sleep study going forward. He was placed on nocturnal CPAP. PT/OT/ST recommended acute rehab at discharge and the patient was transferred to the acute inpatient rehab unit at [facility] on 05/20/2023 for 3 hours of therapy daily to restore function/independence at or near his level pr ior to the stroke. Per records, pt's mental status continued to be poor. He was transferred to [facility] and underwent head CT this AM and showed Evolution of the previously noted infarct in the right frontoparietal region now hemorrhagic and more extensive than the previous exam. Dr Venegas spoke with [facility] teleneurology/Dr. Charles and he compared the BCT today with the scan done on 05/11/23 and there is an increase in the bleed not known if this is acute or subacute. Dr. Charles recommended transferring him to ICU for close monitoring and repeating a CTB in 6 hours and then again in 24H. Upon my evaluation in the ICU pt was on bipap he was moaning on occasion but didn't answer questions. He appeared lethargic. His was at bedside. Mr Mi's drove to the hospital to see her . I explained that pt has had another brain bleed and this is his third neurologic event within a month. We discussed that the brain is not an organ that usually recovers from insult especially when it's been repeated like his case. I explained the options we have for further goals of care and I explained that at this moment [facility] recommended ICU monitoring. She elected to change code status to DNR/DNI. She would like to wait for the pt's daughter to be at bedside before initiating comfort care measures. I called pt's daughter who agreed with the plan and said she was on her way to the hospital [facility] Medical History (Updated 05/29/23 @ 14:[address] Jamila Odonnell MD) Ankylosing spondylitis of multiple sites in spine Chronic kidney disease, stage 3a Coronary artery disease Diabetes mellitus, type 2 Diastolic congestive heart failure Glaucoma Grade III diastolic dysfunction History of right common carotid artery stent placement (~04/2023) Hyperlipidemia Hypertension Mitral stenosis Neuropathy involving both lower extremities Pulmonary hypertension Home Medications aspirin 81 mg chewable tablet 81 mg feeding tube DAILY@0800 Heart health 06/25/16 [History Last Taken Unknown] atorvastatin 40 mg tablet 40 mg feeding tube QHS cholesterol 06/25/16 [History Last Taken Unknown] brimonidine 0.1 % eye drops (Alphagan P) 1 drp BID glaucoma 06/25/16 [History Last Taken 05/03/23] dorzolamide 22.3 mg-timolol 6.8 mg/mL eye drops 1 drp BID glaucoma 06/25/16 [History Last Taken 05/03/23] furosemide 20 mg tablet 20 mg feeding tube DAILY CHF 04/15/17 [History Last Taken Unknown] dapagliflozin propanediol 10 mg tablet (Farxiga) 10 mg feeding tube DAILY CKD 05/03/23 [History Last Taken Unknown] dulaglutide 0.75 mg/0.5 mL subcutaneous pen injector (Trulicity) 0.75 mg subcut .sat blood glucose 05/03/23 [History Last Taken Unknown] losartan 50 mg tablet 50 mg feeding tube DAILY hypertension 05/03/23 [History Last Taken Unknown] Allergy/AdvReac Type Severity Reaction Status Date / Time doxycycline [From Monodox] Allergy SOB AND Verified 02/19/20 07:34 COULDNT BREATHE lovastatin AdvReac Other Verified 02/19/20 07:34 pravastatin [From Pravachol] AdvReac Other Verified 02/19/20 07:34 Surgical History (Updated 05/21/23 @ 13:[address] Annika Venegas DO) H/O heart artery stent Mitral valve replaced Social History (Reviewed 05/21/23 @ 13:09 by MEGGAN Salazar Smoking Status: Unknown if ever smoked ROS Review of Systems ROS Unobtainable: due to encephalopathy and due to mental condition Physical Exam Const Constitutional Narrative: lethargic on bipap HEENT head/scalp atraumatic HEENT Narrative: The thrush is better. Mouth: dry mucous membranes Eyes Eyes Narrative: No visual field cuts. Neck supple General: trachea midline Resp Resp Narrative: Eugenio-Borrego breathing with long periods of apnea. Able to maintain pulse ox of 99% on 2.5 LMP NC. the lungs are clear anterior and lateral. Cardio no murmurs, no rub and no gallops Cardio Narrative: Irregular rhythm intermittently and the HR has ranged from 47-135 over the past 24H. GI normal to inspection, nondistended, normoactive bowel sounds, soft to palpation and non-tender GI Narrative: No guarding with palpation. The PEG site is free of erythema and there is no discharge around the site. He has no pain with palpation in the area. He has been tolerating his tube feeds with no significant residuals. Extremity no calf tenderness General Extremity: Negative for edema Skin Skin Narrative: Pale Rashes: no rashes Wounds: Negative for wounds noted Neuro Neuro Narrative: He has a Left facial droop. He is flaccid in the Left UE and LE. He has dysarthria Psych Psych Narrative: unable to assess Lab / Micro Data 05/29/23 11:45 05/29/23 11:45 Labs: Laboratory Results - last 24 hr 05/29/23 11:45: WBC 7.4, RBC 4.28 L, Hgb 13.5, Hct 42.1, MCV 98.4 H, MCH 31.5, MCHC 32.1, RDW Std Deviation 51.8 H, RDW Coeff of Sol 14.6, Plt Count 372, MPV 10.8, Immature Gran % (Auto) 1.000 H, Neut % (Auto) 70.5 H, Lymph % (Auto) 6.8 L , [place] % (Auto) 14.8 H, Eos % (Auto) 6.1 H, Baso % (Auto) 0.8, Absolute Neuts (auto) 5.2, Absolute Lymphs (auto) 0.50 L, Nucleated RBC % 0, PT 13.4, INR 1.0, Sodium 135 L, Potassium 5.6 H, Chloride 101, Carbon Dioxide 28.0, Anion Gap 6, BUN 40 H, Creatinine 1.34 H, Estim Creat Clear Calc 32.26, Est GFR (MDRD) Af Amer 65, Est GFR (MDRD) Non-Af 54 L, BUN/Creatinine Ratio 29.9 H, Glucose 379 H, Calcium 9.0, Magnesium 2.7 H, Total Bilirubin 0.80, AST 22, ALT 24, Alkaline P hosphatase 173 H, Total Protein 6.4, Albumin 2.5 L, Globulin 3.9, Albumin/Globulin Ratio 0.6 L 05/29/23 12:17: Lactic Acid 1.6, Ammonia 25.0 Radiology Impression Chest X-Ray 05/29/23 11:55 IMPRESSION: No radiographic evidence of acute cardiopulmonary disease. Electronically Signed: Charlie Gotti MD at 12:51 EDT , Charges/Coding Procedures Hospitalists Procedures: [id number] [facility]
[2023-05-29] MEDS: Lactated Ringers 1,000 ML 999 ML IV (15:40)
--- NOTE | 2023-05-29 16:24 | DCINST_ITS ---
Discharge Instructions Diet Discharge Diet: No restrictions Activity Discharge Activity: No Restrictions Follow Up Care Test Results: Test results from this visit will be discussed in further detail at your follow-up appointment, if applicable. Discharge Plan Admission Admit Date/Time: 05/29/23 10:46 Primary Reason for Your Visit: hemorrhagic CVA Attending Provider: Douglas Gilliam Primary Care Provider: Adithya Krause Consulting Providers: Jamila Odonnell; Cale Grey; Roselyn Diaz; Alisha Gooden; Francia Quijano CURRICULUM DEVELOPMENT SPECIALIST Discharge Orders/Prescriptions Prescriptions: Continued dorzolamide-timolol 1 DROP bottle 1 drp Each Eye BID Patient Comments: Alphagan P 15 ML drops 1 drp Each Eye BID furosemide 20 MG tablet 20 mg feeding tube DAILY Patient Comments: Discontinued atorvastatin 40 MG tablet 40 mg feeding tube QHS aspirin 81 MG tablet,chewable 81 mg feeding tube DAILY@0800 Trulicity 0.75 mg/0.5 mL pen injector 0.75 mg SUBCUT .sat Farxiga 10 mg tablet 10 mg feeding tube DAILY losartan 50 mg tablet 50 mg feeding tube DAILY Referrals / Follow Up: Adithya Krause MD [Primary Care Provider] - Disposition Disposition (needs filled in before D/C Order can be placed): Hospice in Medical Facility
--- NOTE | 2023-05-29 16:26 | DS.PCM_ITS ---
Providers Date of Admission: 05/29/23 Date of Discharge: 05/29/23 Primary Care Physician: Dr. Adithya Krause MD Consultations 05/29/23 11:46 Consult: Teacher Of The Sight Impaired / Pulmonary Medicine Routine Consulting Provider: Pulmonary Medicine shawn [place] Reason for Consult: ICU admission EMERGENT Consult: No Notified: No Date Notified: 05/29/23 Time Notified: 11:46 05/29/23 13:07 Consult: Teacher Of The Sight Impaired / Pulmonary Medicine Routine Consulting Provider: Jamila Odonnell Reason for Consult: Hemorrhagic Stroke EMERGENT Consult: No Notified: Yes Date Notified: 05/29/23 Time Notified: 13:07 Method of Notification: Verbal 05/29/23 13:16 Consult: Hospice / Palliative Care Routine Consulting Provider: [facility] Reason for Consult: Hemorrhagic Stroke EMERGENT Consult: No Notified: Yes Date Notified: 05/29/23 Time Notified: 13:16 Method of Notification: Verbal Reason For Visit: HEMORRHAGIC CVA Diagnosis Discharge Diagnosis (1) Intracerebral hemorrhage, nontraumatic: Status: Acute Code(s): I61.9 - Nontraumatic intracerebral hemorrhage, unspecified (2) Stenosis of right internal carotid artery with cerebral infarction: Status: Acute Code(s): I63.231 - Cerebral infarction due to unspecified occlusion or stenosis of right carotid arteries (3) Dysphagia: Status: Acute Code(s): R13.10 - Dysphagia, unspecified Qualifiers: Dysphagia type: oropharyngeal phase Qualified Code(s): R13.12 - Dy sphagia, oropharyngeal phase (4) Debility: Status: Acute Code(s): R53.81 - Other malaise (5) Diabetes mellitus, type 2: Status: Acute Code(s): E11.9 - Type 2 diabetes mellitus without complications Qualifiers: Diabetes mellitus apartment rental agent insulin use: with long-term use Diabetes mellitus complication status: with circulatory complication Diabetes mellitus complication detail: with other circulatory complications Qualified Code(s): E11.59 - Type 2 diabetes mellitus with other circulatory complications; Z79.4 - 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 (current) use of insulin (6) Grade III diastolic dysfunction: Status: Acute Code(s): I51.89 - Other ill-defined heart diseases (7) Sleep apnea: Status: Acute Code(s): G47.30 - Sleep apnea, unspecified Qualifiers: Sleep apnea type: unspecified type Qualified Code(s): G47.30 - Sleep apnea, unspecified (8) Metabolic encephalopathy: Status: Acute Code(s): G93.41 - Metabolic encephalopathy (9) Atrial flutter: Status: Acute Code(s): I48.92 - Unspecified atrial flutter (10) Acute kidney injury superimposed on CKD: Status: Chronic Code(s): N17.9 - Acute kidney failure, unspecified; N18.9 - Chronic kidney disease, unspecified Medications at Discharge Home Medications brimonidine 0.1 % eye drops (Alphagan P) 1 drp BID glaucoma 06/25/16 dorzolamide 22.3 mg-timolol 6.8 mg/mL eye drops 1 drp BID glaucoma 06/25/16 furosemide 20 mg tablet 20 mg feeding tube DAILY CHF 04/15/17 Hospital Course Operations None Procedures None Summary of Care Provided Minutes Spent on Discharge: 23 Hospital Course: Patient is an 83-year-old male with history of type 2 diabetes, CAD, hypertension, hyperlipidemia and recent hospitalization for acute CVA complicated by hemorrhagic conversion as noted below who presented as a transfer from [facility] on 05/29/2023 as a stroke alert. Short hospital course as noted below. Recent CVA with hemorrhagic conversion, concern for worsening brain hemorrhage: Patient with recent acute CVA with hemorrhagic conversion, with prolonged hospital course at [facility] and then transferred back to [facility] for rehab therapy. Please see Dr. Venegas's discharge summary note from 05/29 for further details. Patient unfortunately was noted to have worsening somnolence on 05/29, along with significant periods of apnea. CT brain without contrast 05/29 showed increase in intracranial bleed. Decision made by family to transition patient to DNR-CC. Discharged to hospice facility. Discharge diagnoses: - Recent CVA with hemorrhagic conversion, concern for worsening brain hemorrhage - Altered mental status with severe lethargy - A-fib/A-flutter - Hypertension - Type 2 diabetes Total clinical time spent by myself addressing the patient's discharge needs: 23 minutes. Physical Exam Const Constitutional Narrative: Patient with increased work of breathing on BiPAP. Not alert and oriented, not answering questions appropriately. Not responding to commands. HEENT normocephalic and head/scalp atraumatic Neck supple Chest inspection of chest normal Resp Resp Narrative: Bilateral crackles noted. Cardio no murmurs and peripheral pulses 2+ throughout Cardio Narrative: Tachycardic, irregular rhythm noted. GI normal to inspection, nondistended, normoactive bowel sounds, soft to palpation, non-tender and non-distended Extremity normal to inspection and no pedal edema Skin no rashes or lesions noted Weight / BMI Weight Weight: 80.2 kg Body Mass Index (BMI) 32.3 ABG / Lab / Microbiology Data 05/29/23 11:45 05/29/23 11:45 Laboratory: Laboratory Results - last 24 hr 05/29/23 11:45: WBC 7.4, RBC 4.28 L, Hgb 13.5, Hct 42.1, MCV 98.4 H, MCH 31.5, MCHC 32.1, RDW Std Deviation 51.8 H, RDW Coeff of Sol 14.6, Plt Count 372, MPV 10.8, Immature Gran % (Auto) 1.000 H, Neut % (Auto) 70.5 H, Lymph % (Auto) 6.8 L , [place] % (Auto) 14.8 H, Eos % (Auto) 6.1 H, Baso % (Auto) 0.8, Absolute Neuts (auto) 5.2, Absolute Lymphs (auto) 0.50 L, Nucleated RBC % 0, PT 13.4, INR 1.0, Sodium 135 L, Potassium 5.6 H, Chloride 101, Carbon Dioxide 28.0, Anion Gap 6, BUN 40 H, Creatinine 1.34 H, Estim Creat Clear Calc 32.26, Est GFR (MDRD) Af Amer 65, Est GFR (MDRD) Non-Af 54 L, BUN/Creatinine Ratio 29.9 H, Glucose 379 H, Calcium 9.0, Magnesium 2.7 H, Total Bilirubin 0.80, AST 22, ALT 24, Alkaline Phosphatase 173 H, Total Protein 6.4, Albumin 2.5 L, Globulin 3.9, Albumin/Globulin Ratio 0.6 L 05/29/23 12:17: Lactic Acid 1.6, Ammonia 25.0 Radiography Diagnostic Testing: Radiology Impression Chest X-Ray 05/29/23 11:55 IMPRESSION: No radiographic evidence of acute cardiopulmonary disease. Electronically Signed: Charlie Gotti MD at 12:51 EDT , D/C Instructions Discharge Diet: No restrictions Meaningful Use Info Meaningful Use Diagnoses (Choose all that apply): Hemorrhagic CVA CVA Therapy Assessed for PT,OT and/or ST?: Yes Discharge Plan Admission Admit Date/Time: 05/29/23 10:46 Primary Reason for Your Visit: hemorrhagic CVA Attending Provider: Douglas Gilliam Primary Care Provider: Adithya Krause Consulting Providers: Jamila Odonnell; Cale Grey; Roselyn Diaz; Alisha Gooden; Francia Quijano CLOTHESPIN MACHINE OPERATOR Discharge Orders/Prescriptions Prescriptions: Continued dorzolamide-timolol 1 DROP bottle 1 drp Each Eye BID Patient Comments: Alphagan P 15 ML drops 1 drp Each Eye BID furosemide 20 MG tablet 20 mg feeding tube DAILY Patient Comments: Discontinued atorvastatin 40 MG tablet 40 mg feeding tube QHS aspirin 81 MG tablet,chewable 81 mg feeding tube DAILY@0800 Trulicity 0.75 mg/0.5 mL pen injector 0.75 mg SUBCUT .sat Farxiga 10 mg tablet 10 mg feeding tube DAILY losartan 50 mg tablet 50 mg feeding tube DAILY Referrals / Follow Up: Adithya Krause MD [Primary Care Provider] - Disposition Disposition (needs filled in before D/C Order can be placed): Hospice in Medical Facility Charges/Coding Visit Charges Inpatient E&M: 67653 Disch Hosp
--- NOTE | 2023-05-29 16:30 | TREXTCAR_ITS ---
Diet Diet Order/Speech Therapy: 05/29/23 11:45 Diet: Nothing Per Oral Is pt able to select menu?: No Diet Comments: Okay for p.o. meds Problem/Diagnosis (1) Intracerebral hemorrhage, nontraumatic: Status: Acute Code(s): I61.9 - Nontraumatic intracerebral hemorrhage, unspecified (2) Stenosis of right internal carotid artery with cerebral infarction: Status: Acute Code(s): I63.231 - Cerebral infarction due to unspecified occlusion or stenosis of right carotid arteries (3) Dysphagia: Status: Acute Code(s): R13.10 - Dysphagia, unspecified (4) Debility: Status: Acute Code(s): R53.81 - Other malaise (5) Diabetes mellitus, type 2: Status: Acute Code(s): E11.9 - Type 2 diabetes mellitus without complications (6) Grade III diastolic dysfunction: Status: Acute Code(s): I51.89 - Other ill-defined heart diseases (7) Sleep apnea: Status: Acute Code(s): G47.30 - Sleep apnea, unspecified (8) Metabolic encephalopathy: Status: Acute Code(s): G93.41 - Metabolic encephalopathy (9) Atrial flutter: Status: Acute Code(s): I48.92 - Unspecified atrial flutter (10) Acute kidney injury superimposed on CKD: Status: Chronic Code(s): N17.9 - Acute kidney failure, unspecified; N18.9 - Chronic kidney disease, unspecified Plan Patient is an 83-year-old male with history of type 2 diabetes, CAD, hypertension, hyperlipidemia and recent hospitalization for acute CVA complicated by hemorrhagic conversion as noted below who presented as a transfer from [facility] on 05/29/2023 as a stroke alert. Short hospital course as noted below. Recent CVA with hemorrhagic conversion, concern for worsening brain hemorrhage: Patient with recent acute CVA with hemorrhagic conversion, with prolonged hospital course at [facility] and then transferred back to [facility] for rehab therapy. Please see Dr. Venegas's discharge summary note from 05/29 for further details. Patient unfortunately was noted to have worsening somnolence on 05/29, along with significant periods of apnea. CT brain without contrast 05/29 showed increase in intracranial bleed. Decision made by family to transition patient to DNR-CC. Discharged to hospice facility. Discharge diagnoses: - Recent CVA with hemorrhagic conversion, concern for worsening brain hemorrhage - Altered mental status with severe lethargy - A-fib/A-flutter - Hypertension - Type 2 diabetes Total clinical time spent by myself addressing the patient's discharge needs: 23 minutes. Allergies/Procedures Done in Hospital Allergies doxycycline [From Monodox] Allergy (Verified 02/19/20 07:34) SOB AND COULDNT BREATHE lovastatin Adverse Reaction (Verified 02/19/20 07:34) Other MUSCLE CRAMPS pravastatin [From Pravachol] Adverse Reaction (Verified 02/19/20 07:34) Other MUSCLE CRAMPS Procedures: None Type of Care/Length of Stay Estimated LOS: Convalescent Care Less Than 30 days Type of Care Needed: Inpt Hospice Facility Rehab Potential: Poor Prognosis: Poor Additional Orders/Day of Discharge H&P will serve as current which was dated: 05/29/23 Day of Discharge: 05/29/23 Discharge Plan Admission Admit Date/Time: 05/29/23 10:46 Primary Reason for Your Visit: hemorrhagic CVA Attending Provider: Douglas Gilliam Primary Care Provider: Adithya Krause Consulting Providers: Jamila Odonnell; Cale Grey; Roselyn Diaz; Alisha Gooden; Francia Quijano CAMPUS MONITOR Discharge Orders/Prescriptions Prescriptions: Continued dorzolamide-timolol 1 DROP bottle 1 drp Each Eye BID Patient Comments: Alphagan P 15 ML drops 1 drp Each Eye BID furosemide 20 MG tablet 20 mg feeding tube DAILY Patient Comments: Discontinued atorvastatin 40 MG tablet 40 mg feeding tube QHS aspirin 81 MG tablet,chewable 81 mg feeding tube DAILY@0800 Trulicity 0.75 mg/0.5 mL pen injector 0.75 mg SUBCUT .sat Farxiga 10 mg tablet 10 mg feeding tube DAILY losartan 50 mg tablet 50 mg feeding tube DAILY Referrals / Follow Up: Adithya Krause MD [Primary Care Provider] - Disposition Disposition (needs filled in before D/C Order can be placed): Hospice in Medical Facility Charges/Coding Visit Charges Inpatient E&M: 88198 Disch Hosp (3) Dysphagia Qualifiers: Dysphagia type: oropharyngeal phase Qualified Code(s): R13.12 - Dysphagia, oropharyngeal phase (5) Diabetes mellitus, type 2 Qualifiers: Diabetes mellitus intermediate manager insulin use: with prison use Diabetes mellitus complication status: with circulatory complication Diabetes mellitus complication detail: with other circulatory complications Qualified Code(s): E11.59 - Type 2 diabetes mellitus with other circulatory complications; 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
--- NOTE | 2023-05-29 16:32 | NURSING ---
Report called to [facility]
== END 2023-05-29 16:55 | disposition hospice, inpatient (51) | DRG 64 ==
PROVIDERS: Internal Medicine; Admitting Provider Hospitalist; PCP Family Medicine; Visit Provider Hospitalist
DX: I61.9 Nontraumatic intracerebral hemorrhage, unspecified (principal); G93.41 Metabolic encephalopathy; I63.231 Cerebral infarction due to unspecified occlusion or stenosis of right carotid arteries; N17.9 Acute kidney failure, unspecified; I13.0 Hypertensive heart and chronic kidney disease with heart failure and stage 1 through stage 4 chronic kidney disease, or unspecified chronic kidney disease; I50.32 Chronic diastolic (congestive) heart failure; I48.92 Unspecified atrial flutter; E11.22 Type 2 diabetes mellitus with diabetic chronic kidney disease; E11.40 Type 2 diabetes mellitus with diabetic neuropathy, unspecified; E11.59 Type 2 diabetes mellitus with other circulatory complications; I48.91 Unspecified atrial fibrillation; Z79.4 Long term (current) use of insulin; N18.9 Chronic kidney disease, unspecified; E78.5 Hyperlipidemia, unspecified; I25.10 Atherosclerotic heart disease of native coronary artery without angina pectoris; G47.30 Sleep apnea, unspecified; R13.12 Dysphagia, oropharyngeal phase; Z51.5 Encounter for palliative care; Z66 Do not resuscitate; Z79.82 Long term (current) use of aspirin; Z79.2 Long term (current) use of antibiotics
CPT/HCPCS: 71045; 80053; 82140; 83605; 83735; 85025; 85610; 87040; 93005; 94002; J7120